=== PATIENT | male | born 1950 | race African-American/Black ===

== ENCOUNTER 2017-01-11 12:58 | Observation (INO) | payer OTHER ==
[~2017-01-11] VITALS: Ht 193 cm; Wt 100.0 kg
[2017-01-11] MEDS ORDERED: SODIUM CHLORIDE 0.9% FLUSH 10 ML FLUSH IV FLUSH PRN (15:15)
--- NOTE | 2017-01-11 15:15 | PD ---
HPI Chief Complaint: Diarrhea Time Seen by Provider: 15:13 Travel History International Travel<30 days: No Contact w/Intl Traveler<30days: No History of Present Illness HPI Patient is a 66-year-old male presents emergency department for evaluation diarrhea. According to EMS and jail said he was somewhat combative. The patient states he was straining at stool out of his bed. He states that he thinks he has C. difficile. He also states that he slipped out of his bed today and might have bumped his head denies any loss of consciousness. States not on any blood thinners. Alert and awake and oriented patient provides most of his own history. Denies abdominal pain and her small nausea without vomiting. States symptoms for the past few days and gradually worsening. PFSH Past Medical History Narrative Medical HTN, HLD, Venous stasis, Hip pain. Past Surgical History Surgical History: No Previous Surgery Social History Alcohol Use: No Tobacco Use: No Substance Use: No Allergies-Medications (Allergen,Severity, Reaction): Coded Allergies: hydrochlorothiazide (Verified Allergy, Severe, Edema, 01/11/17) atorvastatin (Verified Allergy, Unknown, 01/11/17) Reported Meds & Prescriptions Reported Meds & Active Scripts Active Reported Trazodone (Trazodone HCl) 50 Mg Tab 50 Mg PO HS Spironolactone 25 Mg Tab 25 Mg PO DAILY Rosuvastatin (Rosuvastatin Calcium) 20 Mg Tab 20 Mg PO DAILY Girard-3 Fish Oil/Vitamin (Fish Oil-Cholecalciferol) 1,000-1,000 Mg Cap 1 Cap PO DAILY Multiple Vitamin 1 Tab 1 Tab PO DAILY Mirtazapine 7.5 Mg Tab 7.5 Mg PO HS Metoprolol Tartrate 25 Mg Tab 25 Mg PO DAILY Losartan (Losartan Potassium) 50 Mg Tab 50 Mg PO DAILY Furosemide 40 Mg Tab 40 Mg PO BID Buspirone (Buspirone HCl) 7.5 Mg Tab 7.5 Mg PO TID Aspirin 81 Mg Chew 81 Mg PO DAILY Eliquis (Apixaban) 5 Mg Tab 5 Mg PO BID Tylenol (Acetaminophen) 325 Mg Tab 325 Mg PO Q4H PRN Review of Systems Except as stated in HPI: all other systems reviewed are Neg Physical Exam Narrative GENERAL: Well-developed well-nourished no obvious distress. SKIN: Skin breakdown bilateral lower extremities. Patient states chronic. HEAD: Atraumatic. Normocephalic. EYES: Pupils equal and round. No scleral icterus. No injection or drainage. ENT: No nasal bleeding or discharge. Mucous membranes pink and moist. NECK: Trachea midline. No JVD. CARDIOVASCULAR: Regular rate and rhythm. No murmur appreciated. RESPIRATORY: No accessory muscle use. Clear to auscultation. Breath sounds equal bilaterally. GASTROINTESTINAL: Abdomen soft, non-tender, nondistended. Hepatic and splenic margins not palpable. No rebound no percussive tenderness, normal active bowel sounds. MUSCULOSKELETAL: No obvious deformities. No clubbing. No cyanosis. No edema. NEUROLOGICAL: Awake and alert. No obvious cranial nerve deficits. Motor grossly within normal limits. Normal speech. PSYCHIATRIC: Appropriate mood and affect; insight and judgment normal. Data Data Last Documented VS Vital Signs Date Time Temp Pulse Resp B/P Pulse Ox O2 Delivery O2 Flow Rate FiO2 01/12/17 07:00 70 16 108/79 100 Room Air 01/12/17 02:53 2 01/11/17 17:49 97.6 Orders Basic Metabolic Panel (Bmp) (01/11/17 15:13) Complete Blood Count With Diff (01/11/17 15:13) Iv Access Insert/Monitor (01/11/17 15:13) Ecg Monitoring (01/11/17 15:13) Oximetry (01/11/17 15:13) Sodium Chloride 0.9% Flush (Ns Flush) (01/11/17 15:15) Abdomen, Upright Only (01/11/17 15:13) C Diff Toxin Pcr (01/11/17 15:14) Vascular Access Team Consult/P PRN (01/11/17 17:14) Vascular Poc Ultrasound (01/11/17 ) Labs Laboratory Tests Test 01/11/17 01/11/17 18:05 19:20 White Blood Count 6.5 TH/MM3 Red Blood Count 5.24 MIL/MM3 Hemoglobin 14.1 GM/DL Hematocrit 43.7 % Mean Corpuscular Volume 83.5 FL Mean Corpuscular Hemoglobin 26.8 PG Mean Corpuscular Hemoglobin 32.2 % Concent Red Cell Distribution Width 23.8 % Platelet Count 224 TH/MM3 Mean Platelet Volume 9.3 FL Neutrophils (%) (Auto) 79.6 % Lymphocytes (%) (Auto) 4.6 % Monocytes (%) (Auto) 12.1 % Eosinophils (%) (Auto) 3.5 % Basophils (%) (Auto) 0.2 % Neutrophils # (Auto) 5.2 TH/MM3 Lymphocytes # (Auto) 0.3 TH/MM3 Monocytes # (Auto) 0.8 TH/MM3 Eosinophils # (Auto) 0.2 TH/MM3 Basophils # (Auto) 0.0 TH/MM3 CBC Comment DIFF FINAL Differential Comment Sodium Level 139 MEQ/L Potassium Level 4.6 MEQ/L Chloride Level 106 MEQ/L Carbon Dioxide Level 26.8 MEQ/L Anion Gap 6 MEQ/L Blood Urea Nitrogen 40 MG/DL Creatinine 1.52 MG/DL Estimat Glomerular Filtration 56 ML/MIN Rate Random Glucose 78 MG/DL Calcium Level 7.5 MG/DL MDM Medical Decision Making Medical Screen Exam Complete: Yes Emergency Medical Condition: Yes Differential Diagnosis C. difficile, acute abdomen unlikely, diarrhea, nausea., volvulus unlikely, toxic megacolon unlikely. Narrative Course Patient roomed in the emergency Department, basic laboratory ordered patient was given a liter bolus normal saline. He appears well and in no obvious distress. I reviewed his KUB and I see no obstructive pattern. Official read pending. Patient discussed with the oncoming provider Dr. Patterson at 1900 shift change to follow-up laboratory values and disposition the patient properly. Alexei Islas MD Jan 11, 2017 15:14
--- NOTE | 2017-01-11 16:07 | RADRPT ---
EXAM DATE/TIME: 01/11/2017 15:51 [facility] COMPARISON: No previous studies available for comparison. INDICATIONS : Fell and bumped his head today. Abdomen pain. MEDICAL HISTORY : Open heart. SURGICAL HISTORY : C diff ENCOUNTER: Initial ACUITY: 1 day PAIN SCORE: 2/10 LOCATION: Bilateral abdomen FINDINGS: A single AP erect view of the upper and mid abdomen was obtained and demonstrates gas and stool noted segmentally in the colon. There are multiple loops of nondilated air-containing small bowel with sev eral small air-fluid levels. There is no evidence of free air. There is patchy opacity at the left mary ng base. There is blunting of left costophrenic angle. The heart size is enlarged and the patient is status post median sternotomy. Transvenous pacer is in place and there is an epicardial pacer lead. CONCLUSION: 1. Nonspecific, nonobstructive bowel gas pattern which may represent an ileus or gastroenteritis. 2. Status post median sternotomy with cardiomegaly. 3. Patchy opacity in the left lung base with blunting of the left costophrenic angle. Cheng Carmona MD on January 11, 2017 at 16:02 Board Certified Radiologist. This report was verified electronically.
[2017-01-11 17:49] VITALS: BP 84/59; RESP 14; TEMP 97.6
[2017-01-11 18:13] VITALS: BP 117/83
[2017-01-11 18:17] VITALS: BP 103/81
[2017-01-11 18:37] VITALS: RESP 18; O2SAT 100
[2017-01-11 18:56] LABS: AUTOMATED NEUTROPHIL # 5.2 TH/MM3 (1.8-7.7); BASOPHIL % 0.2 % (0.0-2.0); EOSINOPHIL # 0.2 TH/MM3 (0-0.4); EOSINOPHIL % 3.5 % (0.0-4.0); HEMATOCRIT 43.7 % (39.0-51.0); HEMO FLAGS DIFF FINAL; LYMPH % 4.6 % (9.0-44.0); LYMPHOCYTE # 0.3 TH/MM3 (1.0-4.8); MEAN CELL VOLUME 83.5 FL (80.0-100.0); MEAN CORPUSCULAR HEMOGLOBIN 26.8 PG (27.0-34.0); MEAN CORPUSCULAR HGB CONC 32.2 % (32.0-36.0); MONO % 12.1 % (0.0-8.0); NEUT % 79.6 % (16.0-70.0); PLATELET COUNT 224 TH/MM3 (150-450); RED BLOOD COUNT 5.24 MIL/MM3 (4.50-5.90); RED CELL DISTRIBUTION WIDTH 23.8 % (11.6-17.2); WHITE BLOOD COUNT 6.5 TH/MM3 (4.0-11.0)
[2017-01-11 20:06] VITALS: BP 116/74; PULSE 77; RESP 21; O2SAT 99
[2017-01-11 20:47] LABS: BICARBONATE 26.8 MEQ/L (21.0-32.0)
[2017-01-11 20:48] LABS: POTASSIUM 4.6 MEQ/L (3.5-5.1)
[2017-01-11] MEDS ORDERED: OMEGCAP PO (21:12)
[2017-01-11] MEDS ORDERED: TYLE325T PO (21:12)
[2017-01-11] MEDS ORDERED: ROSU1TAB8 PO (21:12)
[2017-01-11] MEDS ORDERED: APIX5TAB PO (21:12)
[2017-01-11] MEDS ORDERED: SPIR25TA PO (21:12)
[2017-01-11] MEDS ORDERED: LOSA50TA PO (21:12)
[2017-01-11] MEDS ORDERED: MULTTAB67 PO (21:12)
[2017-01-11] MEDS ORDERED: METO25TA3 PO (21:12)
[2017-01-11] MEDS ORDERED: ASPI81CH PO (21:12)
[2017-01-11] MEDS ORDERED: BUSP1TAB PO (21:12)
[2017-01-11] MEDS ORDERED: MIRT1TAB PO (21:12)
[2017-01-11] MEDS ORDERED: FURO40TA PO (21:12)
[2017-01-11] MEDS ORDERED: TRAZ50TA12 PO (21:12)
--- NOTE | 2017-01-11 21:46 | PD ---
Physical Exam Date Seen by Provider: Jan 11, 2017 Time Seen by Provider: 21:45 Narrative 66-year-old male came to the emergency room with history of diarrhea. He is from [place]. He was seen by the previous ER physician. Please refer to his history and physical regarding further details. Sign out was to follow- up on the lab test results. Patient was given IV hydration. Patient did not have any bowel movement since he's been here. He was hungry and asked for food which she ate and has kept it down. I'm comfortable discharging the patient home at this point. Blood test results of back and within acceptable limits. Data Data Last Documented VS Vital Signs Date Time Temp Pulse Resp B/P (MAP) Pulse Ox O2 Delivery O2 Flow Rate FiO2 01/12/17 18:30 70 16 107/76 (86) 98 Nasal Cannula 2 01/12/17 12:00 97.7 Orders Orders Basic Metabolic Panel (Bmp) (01/11/17 15:13) Complete Blood Count With Diff (01/11/17 15:13) Iv Access Insert/Monitor (01/11/17 15:13) Ecg Monitoring (01/11/17 15:13) Oximetry (01/11/17 15:13) Sodium Chloride 0.9% Flush (Ns Flush) (01/11/17 15:15) Abdomen, Upright Only (01/11/17 15:13) Vascular Access Team Consult/P PRN (01/11/17 17:14) Vascular Poc Ultrasound (01/11/17 ) (Hub Use Only)Inp Phy Cons/Ref (01/12/17 ) Diet Regular Basic (01/12/17 Lunch) Admit Order (Ed Use Only) (01/12/17 ) Labs Laboratory Tests Test 01/11/17 18:05 01/11/17 19:20 White Blood Count 6.5 TH/MM3 Red Blood Count 5.24 MIL/MM3 Hemoglobin 14.1 GM/DL Hematocrit 43.7 % Mean Corpuscular Volume 83.5 FL Mean Corpuscular Hemoglobin 26.8 PG Mean Corpuscular Hemoglobin Concent 32.2 % Red Cell Distribution Width 23.8 % Platelet Count 224 TH/MM3 Mean Platelet Volume 9.3 FL Neutrophils (%) (Auto) 79.6 % Lymphocytes (%) (Auto) 4.6 % Monocytes (%) (Auto) 12.1 % Eosinophils (%) (Auto) 3.5 % Basophils (%) (Auto) 0.2 % Neutrophils # (Auto) 5.2 TH/MM3 Lymphocytes # (Auto) 0.3 TH/MM3 Monocytes # (Auto) 0.8 TH/MM3 Eosinophils # (Auto) 0.2 TH/MM3 Basophils # (Auto) 0.0 TH/MM3 CBC Comment DIFF FINAL Differential Comment Blood Urea Nitrogen 40 MG/DL Creatinine 1.52 MG/DL Random Glucose 78 MG/DL Calcium Level 7.5 MG/DL Sodium Level 139 MEQ/L Potassium Level 4.6 MEQ/L Chloride Level 106 MEQ/L Carbon Dioxide Level 26.8 MEQ/L Anion Gap 6 MEQ/L Estimat Glomerular Filtration Rate 56 ML/MIN MDM Supervised Visit with RD: No Diagnosis Primary Impression: Diarrhea Additional Impression: Dehydration Referrals: Primary Care Physician Additional Instruction: Please return to the ER if the condition worsens or any other new concerns. Otherwise follow-up with your primary care. Eat Jordan diet which stands for banana, rice, applesauce, tea and toast. Med/Other Pt SpecificInfo: No Change to Meds Scripts Nitrofurantoin Monohydrate Macrocrystals (Macrobid) 100 Mg Cap 100 MG PO BID for Infection for 7 Days, CAP 0 Refills Prov: Leana Vides PA-C 01/15/17 Metronidazole (Flagyl) 500 Mg Tab 500 MG PO Q8HR for gastroenteritis for 7 Days, TAB Prov: Leana Vides PA-C 01/15/17 Trazodone (Trazodone) 50 Mg Tab 50 MG PO HS for Control Depression, #30 TAB 0 Refills Prov: Leana Vides PA-C 01/15/17 Spironolactone (Spironolactone) 25 Mg Tab 25 MG PO DAILY for CHF, #30 TAB 0 Refills Prov: Leana Vides PA-C 01/15/17 Rosuvastatin (Rosuvastatin) 20 Mg Tab 20 MG PO DAILY for Cholesterol Management, #30 TAB 0 Refills Prov: Leana Vides PA-C 01/15/17 Mirtazapine (Mirtazapine) 7.5 Mg Tab 7.5 MG PO HS for Depression Control, #30 TAB 0 Refills Prov: Leana Vides PA-C 01/15/17 Metoprolol Tartrate (Metoprolol Tartrate) 25 Mg Tab 25 MG PO DAILY for CHF, #30 TAB 0 Refills Prov: Leana Vides PA-C 01/15/17 Furosemide (Furosemide) 40 Mg Tab 40 MG PO DAILY for CHF, #30 TAB 0 Refills Prov: Leana Vides PA-C 01/15/17 Buspirone (Buspirone) 7.5 Mg Tab 7.5 MG PO TID for Anxiety for 30 Days, TAB 0 Refills Prov: Leana Vides PA-C 01/15/17 Apixaban (Eliquis) 5 Mg Tab 5 MG PO BID for Blood Clot Prevention, #60 TAB 0 Refills Prov: Leana Vides PA-C 01/15/17 Disposition: 01 DISCHARGE HOME Condition: Stable Raúl Patterson MD Jan 11, 2017 21:46
[2017-01-12] VITALS (8 sets, daily range): BP systolic 99–140; BP diastolic 63–80; PULSE 66–72; RESP 16–19; TEMP 97.5–98.5; O2SAT 97–100
--- NOTE | 2017-01-12 19:28 | HHI.HP ---
HPI Service [facility] Primary Care Physician Moses Gilman MD Admission Diagnosis Diarrhea, Inability to ambulate. Diagnoses: (1) Fall Diagnosis: Principal (2) Gait instability Diagnosis: Principal (3) Generalized weakness Diagnosis: Principal (4) Gastroenteritis Diagnosis: Principal (5) Renal insufficiency Diagnosis: Principal Travel History International Travel<30 Days: No Contact w/Intl Traveler <30 Da: No Traveled to Known Affected Are: No History of Present Illness This is a 66-year-old male with PMH of HTN, Hyperlipidemia, CHF (Unknown EF) and CAD who was sent to the ER from SNF secondary to AMS and diarrhea. Per EMS , SNF reported pt increasingly combative, had apparent fall today but no LOC or head trauma reported. Pt awake, alert. Reports multiple episodes of diarrhea, x2 days, denies nausea or vomiting. Seen in ER on 01/11/17 for similar complaints, negative workup at that time and discharged back to SNF. On arrival , BP 108/71, HR 70, O2 sat 97% on 2LC, Afebrile. CBC 01/11/17 essentially unremarkable. CMP 01/11/17 w/ Creatinine 1.52, no previous labs for comparison. Abd X-ray 01/11/17 w/ nonspecific bowel gas pattern, likely ileus or gastroenteritis, patchy opacity left lung base. C diff toxin pending. Review of Systems Except as stated in HPI: all other systems reviewed are Neg ROS: 14 point review of systems otherwise negative. Past Family Social History Past Medical History PMH: HTN, Hyperlipidemia, CHF (Unknown EF) and CAD Past Surgical History PAST SURGICAL HISTORY: None Allergies: Coded Allergies: hydrochlorothiazide (Verified Allergy, Severe, Edema, 01/11/17) atorvastatin (Verified Allergy, Unknown, 01/11/17) Family History PAST FAMILY HISTORY: Reviewed. No h/o DM or CAD Social History PAST SOCIAL HISTORY: Negative for alcohol, tobacco or drugs. Physical Exam Vital Signs Vital Signs Date Time Temp Pulse Resp B/P Pulse Ox O2 Delivery O2 Flow Rate FiO2 01/12/17 18:30 70 16 107/76 98 Nasal Cannula 2 01/12/17 16:00 70 16 99/63 99 Nasal Cannula 2 01/12/17 12:00 97.7 72 16 104/80 100 Nasal Cannula 2 01/12/17 07:00 70 16 108/79 100 Room Air 01/12/17 02:53 69 16 116/79 100 Nasal Cannula 2 01/12/17 01:01 70 18 108/71 97 Nasal Cannula 2 01/11/17 20:06 77 21 116/74 99 Nasal Cannula 2 Physical Exam PE: GENERAL: Middle-aged male in no acute distress. HEENT: PERRLA, EOMI. No scleral icterus or conjunctival pallor. No lid lag or facial droop. CARDIOVASCULAR: Regular rate and rhythm. No obvious murmurs to auscultation. No chest tenderness to palpation. RESPIRATORY: No obvious rhonchi or wheezing. Clear to auscultation. Breath sounds equal bilaterally. GASTROINTESTINAL: Abdomen soft, non-tender, nondistended. BS normal. MUSCULOSKELETAL: Extremities without clubbing, cyanosis, or edema. No obvious deformities. NEUROLOGICAL: Awake, alert. No focal neurologic deficits. Moving both upper and lower extremities spontaneously. Result Diagram: 01/11/17180401/11/171919 Assessment and Plan Problem List: (1) Fall ICD Code: W19.XXXA Status: Acute (2) Gait instability ICD Code: R26.81 Status: Acute (3) Generalized weakness ICD Code: R53.1 Status: Acute (4) Gastroenteritis ICD Code: K52.9 Status: Acute (5) Renal insufficiency ICD Code: N28.9 Status: Acute Assessment and Plan A/P: 1. Fall: s/p mechanical fall at SNF, no head trauma or LOC, no injuries reported. 2. Gait Instability: secondary to generalized weakness, will consult PT for eval/tx. 3. Generalized Weakness: likely secondary to combination of deconditioning and dehydration. IVF, PT for further eval. 4. Gastroenteritis: reports ongoing diarrhea, seen in ER on 01/11/17 for same, Abd X-ray w/ nonspecific bowel gas pattern, likely ileus or gastroenteritis, images reviewed by me. C. Diff pending. Start on empiric treatment w/ Cipro/ Flagyl, IVF for hydration. 5. Renal Insufficiency: Creatinine 1.52, no previous labs for comparison. Check U/a, IVF for hydration, repeat labs in am. 6. DVT Prophylaxis: On Eliquis, unclear why 7. Social work for d/c planning as needed. 8. Case discussed w/ ER physician at length. Kathleen Guy MD Jan 12, 2017 19:28
[2017-01-12] MEDS ORDERED: ACETAMINOPHEN 325 MG TAB PO PRN (19:30)
[2017-01-12] MEDS ORDERED: SODIUM CHLOR 0.9% 1000 ML INJ 1,000 ML IV ONE (19:30)
[2017-01-12] MEDS ORDERED: SENNOSIDES 8.6 MG TAB PO PRN (19:30)
[2017-01-12] MEDS ORDERED: SODIUM CHLORIDE 0.9% FLUSH 10 ML FLUSH IV FLUSH PRN (19:30)
[2017-01-12] MEDS ORDERED: MAGNESIUM HYDROXIDE SUSP 30 ML CUP PO PRN (19:30)
[2017-01-12] MEDS ORDERED: BISACODYL 10 MG SUPP RECTAL PRN (19:30)
[2017-01-12] MEDS ORDERED: LACTULOSE SYRUP 20 GM/30 ML CUP PO PRN (19:30)
[2017-01-12] MEDS ORDERED: ONDANSETRON HCL 4 MG/2 ML VIAL IVP PRN (19:30)
[2017-01-12] MEDS ORDERED: PILL SPLITTER OTHER PRN (20:00)
[2017-01-12] MEDS: CIPROFLOXACIN 400 MG PREMIX 200 ML IV SCH (20:08)
[2017-01-12] MEDS: SODIUM CHLORIDE 0.9% FLUSH 10 ML FLUSH IV FLUSH SCH (20:09)
[2017-01-12] MEDS: DOCUSATE SODIUM 50 MG/SENNA 8.6 MG TAB PO SCH (21:00)
[2017-01-12] MEDS: traZODone HCL 50 MG TAB PO SCH (23:46)
[2017-01-12] MEDS: APIXABAN 5 MG TABLET PO SCH (23:46)
[2017-01-12] MEDS: MIRTAZAPINE 15 MG TAB PO SCH (23:47)
[2017-01-12] MEDS: metroNIDAZOLE 500 MG INJ 100 ML IV SCH (23:47)
[2017-01-13 00:46] LABS: BACTERIA, URINE MOD /hpf; BLOOD, URINE LARGE (NEG); COMMENT (UR) CULTURE INDICATED; CULTURE IF INDICATED CULTURE INDICATED; GLUCOSE,URINE NEG (NEG); KETONE, URINE NEG (NEG); MUCUS URINE FEW /lpf (OCC); NITRITE,URINE NEG (NEG); URINE COLOR RED (YELLW/STRAW)
[2017-01-13 04:15] VITALS: BP 117/83; PULSE 70; RESP 17; TEMP 97.7; O2SAT 97
[2017-01-13] MEDS: MORPHINE SULFATE 4 MG/ML INJ IV PRN ×2 (04:30→16:57)
[2017-01-13] MEDS: metroNIDAZOLE 500 MG INJ 100 ML IV SCH ×3 (06:34→21:00)
[2017-01-13 07:08] VITALS: BP 111/83; PULSE 74; RESP 18; TEMP 97.6; O2SAT 97
[2017-01-13] MEDS: DOCUSATE SODIUM 50 MG/SENNA 8.6 MG TAB PO SCH ×2 (09:00→20:00)
[2017-01-13 09:21] LABS: BASOPHIL % 0.1 % (0.0-2.0); EOSINOPHIL # 0.2 TH/MM3 (0-0.4); EOSINOPHIL % 3.5 % (0.0-4.0); HEMATOCRIT 42.4 % (39.0-51.0); HEMO FLAGS DIFF FINAL; LYMPH % 5.4 % (9.0-44.0); LYMPHOCYTE # 0.4 TH/MM3 (1.0-4.8); MEAN CELL VOLUME 83.2 FL (80.0-100.0); MEAN CORPUSCULAR HEMOGLOBIN 26.8 PG (27.0-34.0); MEAN CORPUSCULAR HGB CONC 32.2 % (32.0-36.0); MONO % 15.4 % (0.0-8.0); NEUT % 75.6 % (16.0-70.0); PLATELET COUNT 188 TH/MM3 (150-450); RED BLOOD COUNT 5.09 MIL/MM3 (4.50-5.90); RED CELL DISTRIBUTION WIDTH 23.6 % (11.6-17.2); WHITE BLOOD COUNT 6.6 TH/MM3 (4.0-11.0)
[2017-01-13 10:45] LABS: ALKALINE PHOSPHATASE 148 U/L (45-117); ALT (GPT) 18 U/L (12-78); ANION GAP 6 MEQ/L (5-15); AST (GOT) 24 U/L (15-37); BICARBONATE 27.6 MEQ/L (21.0-32.0); BLOOD UREA NITROGEN 29 MG/DL (7-18); CHLORIDE 105 MEQ/L (98-107); FREE T4 1.19 NG/DL (0.76-1.46); GLOMERULAR FILTRATION RATE 69 ML/MIN (>89); MAGNESIUM 2.4 MG/DL (1.5-2.5); POTASSIUM 3.9 MEQ/L (3.5-5.1); SODIUM (NA) 139 MEQ/L (136-145); TOTAL BILIRUBIN ADULT 2.2 MG/DL (0.2-1.0)
[2017-01-13] MEDS: SODIUM CHLORIDE 0.9% FLUSH 10 ML FLUSH IV FLUSH SCH ×2 (11:21→20:00)
[2017-01-13] MEDS: CIPROFLOXACIN 400 MG PREMIX 200 ML IV SCH ×2 (11:21→20:00)
[2017-01-13] MEDS: busPIRone HCL 5 MG TAB PO SCH ×3 (11:21→17:00)
[2017-01-13] MEDS: ASPIRIN 81 MG CHEW TAB PO SCH (11:21)
[2017-01-13] MEDS: APIXABAN 5 MG TABLET PO SCH ×2 (11:22→19:59)
[2017-01-13] MEDS: MULTIVITAMIN TAB PO SCH (11:23)
[2017-01-13 12:16] VITALS: BP 99/66; PULSE 70; RESP 18; TEMP 97.5; O2SAT 98
--- NOTE | 2017-01-13 14:01 | HHI.PR ---
Subjective Remarks Follow up for altered mental status and diarrhea. Patient is currently doing well. He says he cannot walk. His diarrhea is improved. No fever, chills. Objective Vitals Vital Signs Date Time Temp Pulse Resp B/P Pulse Ox O2 Delivery O2 Flow Rate FiO2 01/13/17 12:16 97.5 70 18 99/66 98 01/13/17 07:08 97.6 74 18 111/83 97 01/13/17 04:55 18 01/13/17 04:15 97.7 70 17 117/83 97 01/12/17 23:54 97.5 70 19 107/72 97 01/12/17 20:00 98.3 72 16 122/63 97 Nasal Cannula 2 01/12/17 18:30 70 16 107/76 98 Nasal Cannula 2 01/12/17 16:00 70 16 99/63 99 Nasal Cannula 2 I/O 01/12/17 01/12/17 01/12/17 01/13/17 01/13/17 01/13/17 06:59 14:59 22:59 06:59 14:59 22:59 Intake Total 100 ml Output Total 700 ml 600 ml 350 ml Balance -700 ml -500 ml -350 ml Intake Oral 100 ml Output Urine Total 700 ml 600 ml 350 ml # Voids 0 Result Diagram: 01/13/17 0649 01/13/17 0649 Imaging Last Impressions Chest X-Ray 01/13/17 0000 Signed Impressions: Service Date/Time: Friday, January 13, 2017 13:56 - CONCLUSION: 1. Cardiomegaly with interstitial edema. 2. Status post CABG. Sujit Vidal MD Abdomen X-Ray 01/11/17 1513 Signed Impressions: Service Date/Time: December 15:51 - CONCLUSION: 1. Nonspecific, nonobstructive bowel gas pattern which may represent an ileus or gastroenteritis. 2. Status post median sternotomy with cardiomegaly. 3. Patchy opacity in the left lung base with blunting of the left costophrenic angle. Cheng Carmona MD Objective Remarks GENERAL: Alert, NAD. SKIN: Warm and dry. HEAD: Normocephalic. EYES: No scleral icterus. No injection or drainage. NECK: Supple, trachea midline. No JVD or lymphadenopathy. CARDIOVASCULAR: Regular rate and rhythm without murmurs, gallops, or rubs. RESPIRATORY: Breath sounds equal bilaterally. No accessory muscle use. GASTROINTESTINAL: Abdomen soft, non-tender, nondistended. MUSCULOSKELETAL: No cyanosis, or edema. BACK: Nontender without obvious deformity. No CVA tenderness. Procedures None. A/P Problem List: (1) Fall ICD Code: W19.XXXA Status: Acute (2) Gait instability ICD Code: R26.81 Status: Acute (3) Generalized weakness ICD Code: R53.1 Status: Acute (4) Gastroenteritis ICD Code: K52.9 Status: Acute (5) Renal insufficiency ICD Code: N28.9 Status: Acute Assessment and Plan This is a 66-year-old male with PMH of HTN, Hyperlipidemia, CHF (Unknown EF) and CAD who was sent to the ER from SNF secondary to AMS and diarrhea. On arrival, BP 108/71, HR 70, O2 sat 97% on 2LC, Afebrile. CBC 01/11/17 essentially unremarkable. CMP 01/11/17 w/ Creatinine 1.52. Patient is on apixaban but not clear why. No record in our system. - Fall - Generalized weakness - mechanical fall at SNF. No head trauma. - Likely due to deconditioning. - PT recommends SNF. - Gastroenteritis - C. Diff PCR ordered but no further diarrhea. - Continue Cipro and flagyl. We can likely switch to PO. - Acute kidney injury - Creatinine improved 1.52 --> 1.26 Full code. Apixaban. Insurance pending, patient can likely go to SNF on 01/14/2017. Keri Lane DO Jan 13, 2017 14:01
[2017-01-13 14:02] LABS: HEMOGLOBIN A1a 0.8 %; HEMOGLOBIN A1b 1.2 %; HEMOGLOBIN Ao 80.6 %; HEMOGLOBIN F 1.4 %; HEMOGLOBIN LA1C 2.4 %; HEMOGLOBIN P3 7.7 %
--- NOTE | 2017-01-13 14:27 | RADRPT ---
EXAM DATE/TIME: 01/13/2017 13:56 [facility] COMPARISON: No previous studies available for comparison. INDICATIONS : Patient complains of cough and congestion. MEDICAL HISTORY : None. SURGICAL HISTORY : CABG. Pacemaker. ENCOUNTER: Initial ACUITY: 1 day PAIN SCORE: 0/10 LOCATION: chest FINDINGS: A single view of the chest demonstrates interstitial prominence and cardiomegaly. Previous median pricilla rnotomy. Left-sided defibrillator with intact leads.. Osseous structures are intact. CONCLUSION: 1. Cardiomegaly with interstitial edema. 2. Status post CABG. Sujit Vidal MD on January 13, 2017 at 14:24 Board Certified Radiologist. This report was verified electronically.
[2017-01-13 16:39] VITALS: BP 112/72; PULSE 70; RESP 16; TEMP 97.6; O2SAT 95
[2017-01-13 19:28] VITALS: BP 108/71; PULSE 70; RESP 18; TEMP 97.6; O2SAT 96
[2017-01-13] MEDS: MIRTAZAPINE 15 MG TAB PO SCH (19:59)
[2017-01-13] MEDS: traZODone HCL 50 MG TAB PO SCH (19:59)
[2017-01-13 23:37] VITALS: BP 106/75; PULSE 71; RESP 21; TEMP 96.8; O2SAT 96
[2017-01-14] MEDS: MORPHINE SULFATE 4 MG/ML INJ IV PRN (02:39)
[2017-01-14 03:46] VITALS: BP 101/77; PULSE 70; RESP 18; TEMP 98.5; O2SAT 97
[2017-01-14] MEDS: metroNIDAZOLE 500 MG TAB PO SCH ×3 (05:33→21:47)
[2017-01-14] MEDS: ACETAMINOPHEN/HYDROcodone 325 MG/5 MG TAB PO PRN ×2 (06:15→21:47)
--- NOTE | 2017-01-14 07:40 | HHI.PR ---
Subjective Remarks Follow up for altered mental status and diarrhea. Patient is currently doing well. No fever, chills. Diarrhea resolved. Objective Vitals Vital Signs Date Time Temp Pulse Resp B/P Pulse Ox O2 Delivery O2 Flow Rate FiO2 01/14/17 03:46 98.5 70 18 101/77 97 01/13/17 23:37 96.8 71 21 106/75 96 01/13/17 19:28 97.6 70 18 108/71 96 01/13/17 16:39 97.6 70 16 112/72 95 01/13/17 12:16 97.5 70 18 99/66 98 I/O 01/13/17 01/13/17 01/13/17 01/14/17 01/14/17 01/14/17 07:00 15:00 23:00 07:00 15:00 23:00 Intake Total 480 ml Output Total 350 ml 350 ml Balance -350 ml 130 ml Intake Oral 480 ml Output Urine Total 350 ml 350 ml Result Diagram: 01/13/17 0649 01/13/17 0649 Imaging Last Impressions Chest X-Ray 01/13/17 0000 Signed Impressions: Service Date/Time: Friday, January 13, 2017 13:56 - CONCLUSION: 1. Cardiomegaly with interstitial edema. 2. Status post CABG. Sujit Vidal MD Abdomen X-Ray 01/11/17 1513 Signed Impressions: Service Date/Time: December 15:51 - CONCLUSION: 1. Nonspecific, nonobstructive bowel gas pattern which may represent an ileus or gastroenteritis. 2. Status post median sternotomy with cardiomegaly. 3. Patchy opacity in the left lung base with blunting of the left costophrenic angle. Cheng Carmona MD Objective Remarks GENERAL: Alert, NAD. SKIN: Warm and dry. HEAD: Normocephalic. EYES: No scleral icterus. No injection or drainage. NECK: Supple, trachea midline. No JVD or lymphadenopathy. CARDIOVASCULAR: Regular rate and rhythm without murmurs, gallops, or rubs. RESPIRATORY: Breath sounds equal bilaterally. No accessory muscle use. GASTROINTESTINAL: Abdomen soft, non-tender, nondistended. MUSCULOSKELETAL: No cyanosis, or edema. BACK: Nontender without obvious deformity. No CVA tenderness. Procedures None. A/P Problem List: (1) Fall ICD Code: W19.XXXA - Unspecified fall, initial encounter Status: Acute (2) Gait instability ICD Code: R26.81 - Unsteadiness on feet Status: Acute (3) Generalized weakness ICD Code: R53.1 - Weakness Status: Acute (4) Gastroenteritis ICD Code: K52.9 - Noninfective gastroenteritis and colitis, unspecified Status: Acute (5) Renal insufficiency ICD Code: N28.9 - Disorder of kidney and ureter, unspecified Status: Acute Assessment and Plan This is a 66-year-old male with PMH of HTN, Hyperlipidemia, CHF (Unknown EF) and CAD who was sent to the ER from SNF secondary to AMS and diarrhea. On arrival, BP 108/71, HR 70, O2 sat 97% on 2LC, Afebrile. CBC 01/11/17 essentially unremarkable. CMP 01/11/17 w/ Creatinine 1.52. Patient is on apixaban but not clear why. No record in our system. - Fall - Generalized weakness - mechanical fall at SNF. No head trauma. - Likely due to deconditioning. - PT recommends SNF. - Gastroenteritis - C. Diff PCR ordered but no further diarrhea. - Continue Cipro and flagyl both PO. - Acute kidney injury - Creatinine improved 1.52 --> 1.26 - Group D strep UTI - Will wait for sensitivity. If susceptible, we can use Amoxicillin PO. Full code. Apixaban. Patient can be discharged on 01/15/[address] Keri Lane DO Jan 14, 2017 07:40
[2017-01-14 08:01] VITALS: BP 114/80; PULSE 70; RESP 20; TEMP 98.2; O2SAT 95
[2017-01-14 11:00] VITALS: BP 114/72; PULSE 69; RESP 16; TEMP 98.8; O2SAT 94
[2017-01-14] MEDS: APIXABAN 5 MG TABLET PO SCH ×2 (11:15→21:46)
[2017-01-14] MEDS: ASPIRIN 81 MG CHEW TAB PO SCH (11:17)
[2017-01-14] MEDS: busPIRone HCL 5 MG TAB PO SCH ×3 (11:19→18:51)
[2017-01-14] MEDS: DOCUSATE SODIUM 50 MG/SENNA 8.6 MG TAB PO SCH ×2 (11:20→21:46)
[2017-01-14] MEDS: CIPROFLOXACIN 500 MG TAB PO SCH ×2 (11:20→21:46)
[2017-01-14] MEDS: MULTIVITAMIN TAB PO SCH (11:24)
[2017-01-14] MEDS: SODIUM CHLORIDE 0.9% FLUSH 10 ML FLUSH IV FLUSH SCH ×2 (11:25→21:00)
[2017-01-14 16:30] VITALS: BP 119/82; PULSE 70; RESP 18; TEMP 98.4; O2SAT 98
[2017-01-14 19:31] VITALS: BP 107/74; PULSE 70; RESP 18; TEMP 98.1; O2SAT 99
[2017-01-14] MEDS: MIRTAZAPINE 15 MG TAB PO SCH (21:46)
[2017-01-14] MEDS: traZODone HCL 50 MG TAB PO SCH (21:47)
[2017-01-14 23:46] VITALS: BP 118/74; PULSE 71; RESP 18; TEMP 98.3; O2SAT 98
[2017-01-15 05:15] VITALS: BP 110/82; PULSE 73; RESP 18; TEMP 98.3; O2SAT 99
[2017-01-15] MEDS: metroNIDAZOLE 500 MG TAB PO SCH (06:19)
[2017-01-15 07:39] VITALS: BP 125/89; PULSE 70; RESP 18; TEMP 98.3; O2SAT 96
[2017-01-15] MEDS: DOCUSATE SODIUM 50 MG/SENNA 8.6 MG TAB PO SCH (09:00)
--- NOTE | 2017-01-15 09:05 | HHI.PR ---
Objective Vitals Vital Signs Date Time Temp Pulse Resp B/P (MAP) Pulse Ox O2 Delivery O2 Flow Rate FiO2 01/15/17 07:39 98.3 70 18 125/89 (101) 96 01/15/17 05:15 98.3 73 18 110/82 (91) 99 01/14/17 23:46 98.3 71 18 118/74 (89) 98 01/14/17 23:13 18 01/14/17 19:31 98.1 70 18 107/74 (85) 99 01/14/17 16:30 98.4 70 18 119/82 (94) 98 01/14/17 11:00 98.8 69 16 114/72 (86) 94 I/O 01/14/17 01/14/17 01/14/17 01/15/17 01/15/17 01/15/17 07:00 15:00 23:00 07:00 15:00 23:00 Intake Total 200 ml Balance 200 ml Intake Oral 200 ml Result Diagram: 01/13/17 0649 01/13/17 0649 Objective Remarks GENERAL: Alert, NAD. SKIN: Warm and dry. HEAD: Normocephalic. EYES: No scleral icterus. No injection or drainage. NECK: Supple, trachea midline. No JVD or lymphadenopathy. CARDIOVASCULAR: Regular rate and rhythm without murmurs, gallops, or rubs. RESPIRATORY: Breath sounds equal bilaterally. No accessory muscle use. GASTROINTESTINAL: Abdomen soft, non-tender, nondistended. MUSCULOSKELETAL: No cyanosis, or edema. BACK: Nontender without obvious deformity. No CVA tenderness. Procedures None. A/P Problem List: (1) Fall ICD Code: W19.XXXA - Unspecified fall, initial encounter Status: Acute (2) Gait instability ICD Code: R26.81 - Unsteadiness on feet Status: Acute (3) Generalized weakness ICD Code: R53.1 - Weakness Status: Acute (4) Gastroenteritis ICD Code: K52.9 - Noninfective gastroenteritis and colitis, unspecified Status: Acute (5) Renal insufficiency ICD Code: N28.9 - Disorder of kidney and ureter, unspecified Status: Acute Assessment and Plan This is a 66-year-old male with PMH of HTN, Hyperlipidemia, CHF (Unknown EF) and CAD who was sent to the ER from SNF secondary to AMS and diarrhea. On arrival, BP 108/71, HR 70, O2 sat 97% on 2LC, Afebrile. CBC 01/11/17 essentially unremarkable. CMP 01/11/17 w/ Creatinine 1.52. Patient is on apixaban but not clear why. No record in our system. - Fall - Generalized weakness - mechanical fall at SNF. No head trauma. - Likely due to deconditioning. - PT recommends SNF. - Gastroenteritis - C. Diff PCR ordered but no further diarrhea. - Continue Cipro and flagyl both PO. - Acute kidney injury - Creatinine improved 1.52 --> 1.26 - Group D strep UTI - Will wait for sensitivity. If susceptible, we can use Amoxicillin PO. Full code. Apixaban. Patient can be discharged on 01/15/[address] Keri [address] DO Jan 15, 2017 09:05
[2017-01-15] MEDS: ASPIRIN 81 MG CHEW TAB PO SCH (09:28)
[2017-01-15] MEDS: CIPROFLOXACIN 500 MG TAB PO SCH (09:28)
[2017-01-15] MEDS: busPIRone HCL 5 MG TAB PO SCH (09:28)
[2017-01-15] MEDS: MULTIVITAMIN TAB PO SCH (09:29)
[2017-01-15] MEDS: APIXABAN 5 MG TABLET PO SCH (09:29)
[2017-01-15] MEDS ORDERED: APIX5TAB PO (11:22)
[2017-01-15] MEDS ORDERED: METO25TA3 PO (11:22)
[2017-01-15] MEDS ORDERED: MACR100C2 PO (11:22)
[2017-01-15] MEDS ORDERED: MIRT1TAB PO (11:22)
[2017-01-15] MEDS ORDERED: METR-1 PO (11:22)
[2017-01-15] MEDS ORDERED: FURO40TA PO (11:22)
[2017-01-15] MEDS ORDERED: ROSU1TAB8 PO (11:22)
[2017-01-15] MEDS ORDERED: BUSP1TAB PO (11:22)
[2017-01-15] MEDS ORDERED: TRAZ50TA12 PO (11:22)
[2017-01-15] MEDS ORDERED: SPIR25TA PO (11:22)
--- NOTE | 2017-01-15 11:25 | HHI.DCPOC ---
Discharge Care Plan Diagnosis: (1) Generalized weakness (2) Fall (3) Gait instability (4) Renal insufficiency (5) Gastroenteritis (6) Dehydration (7) Diarrhea Goals to Promote Your Health * To prevent worsening of your condition and complications * To maintain your health at the optimal level Directions to Meet Your Goals Take your medications as prescribed Follow your dietary instruction Follow activity as directed Keep your appointments as scheduled Take your immunizations and boosters as scheduled If your symptoms worsen call your PCP, if no PCP go to Urgent Care Center or Emergency Room Smoking is Dangerous to Your Health. Avoid second hand smoke Call the 24-hour hour crisis hotline for domestic abuse at Leana Vides PA-C Jan 15, 2017 11:24
--- NOTE | 2017-01-15 21:47 | HHI.DS ---
Discharge Summary Admission Date Jan 12, 2017 at 18:52 Discharge Date: Jan 15, 2017 Admitting Diagnosis Diarrhea, Inability to ambulate. (1) Fall ICD Code: W19.XXXA - Unspecified fall, initial encounter Status: Acute (2) Gait instability ICD Code: R26.81 - Unsteadiness on feet Status: Acute (3) Generalized weakness ICD Code: R53.1 - Weakness Status: Acute (4) Gastroenteritis ICD Code: K52.9 - Noninfective gastroenteritis and colitis, unspecified Status: Acute (5) Renal insufficiency ICD Code: N28.9 - Disorder of kidney and ureter, unspecified Status: Acute Procedures None. Brief History - From Admission This is a 66-year-old male with PMH of HTN, Hyperlipidemia, CHF (Unknown EF) and CAD who was sent to the ER from SNF secondary to AMS and diarrhea. Per EMS , SNF reported pt increasingly combative, had apparent fall today but no LOC or head trauma reported. Pt awake, alert. Reports multiple episodes of diarrhea, x2 days, denies nausea or vomiting. Seen in ER on 01/11/17 for similar complaints, negative workup at that time and discharged back to SNF. On arrival , BP 108/71, HR 70, O2 sat 97% on 2LC, Afebrile. CBC 01/11/17 essentially unremarkable. CMP 01/11/17 w/ Creatinine 1.52, no previous labs for comparison. Abd X-ray 01/11/17 w/ nonspecific bowel gas pattern, likely ileus or gastroenteritis, patchy opacity left lung base. C diff toxin pending. CBC/BMP: 01/13/17 0649 01/13/17 0649 Significant Findings Laboratory Tests Test 01/13/17 00:00 01/13/17 06:49 Urine Color RED (YELLW/STRAW) Urine Turbidity HAZY (CLEAR) Urine Protein 100 mg/dL (NEG-TRACE) Urine Occult Blood LARGE (NEG) Urine Leukocyte Esterase LARGE (NEG) Urine WBC 90 /hpf (0-5) Urine WBC Clumps RARE (NONE) Urine Bacteria MOD /hpf (NONE) Urine Mucus FEW /lpf (OCC) Mean Corpuscular Hemoglobin 26.8 PG (27.0-34.0) Red Cell Distribution Width 23.6 % (11.6-17.2) Neutrophils (%) (Auto) 75.6 % (16.0-70.0) Lymphocytes (%) (Auto) 5.4 % (9.0-44.0) Monocytes (%) (Auto) 15.4 % (0.0-8.0) Lymphocytes # (Auto) 0.4 TH/MM3 (1.0-4.8) Monocytes # (Auto) 1.0 TH/MM3 (0-0.9) Blood Urea Nitrogen 29 MG/DL (7-18) Total Protein 6.1 GM/DL (6.4-8.2) Albumin 2.9 GM/DL (3.4-5.0) Calcium Level 8.0 MG/DL (8.5-10.1) Phosphorus Level 1.4 MG/DL (2.5-4.9) Alkaline Phosphatase 148 U/L (45-117) Total Bilirubin 2.2 MG/DL (0.2-1.0) Estimat Glomerular Filtration Rate 69 ML/MIN (>89) Hemoglobin A1c 6.3 % (4.3-6.0) Imaging Last Impressions Chest X-Ray 01/13/17 0000 Signed Impressions: Service Date/Time: Friday, January 13, 2017 13:56 - CONCLUSION: 1. Cardiomegaly with interstitial edema. 2. Status post CABG. Sujit Vidal MD Abdomen X-Ray 01/11/17 1513 Signed Impressions: Service Date/Time: December 15:51 - CONCLUSION: 1. Nonspecific, nonobstructive bowel gas pattern which may represent an ileus or gastroenteritis. 2. Status post median sternotomy with cardiomegaly. 3. Patchy opacity in the left lung base with blunting of the left costophrenic angle. Cheng Carmona MD PE at Discharge GENERAL: Alert, NAD. SKIN: Warm and dry. HEAD: Normocephalic. EYES: No scleral icterus. No injection or drainage. NECK: Supple, trachea midline. No JVD or lymphadenopathy. CARDIOVASCULAR: Regular rate and rhythm without murmurs, gallops, or rubs. RESPIRATORY: Breath sounds equal bilaterally. No accessory muscle use. GASTROINTESTINAL: Abdomen soft, non-tender, nondistended. MUSCULOSKELETAL: No cyanosis, or edema. BACK: Nontender without obvious deformity. No CVA tenderness. Pt update on day of discharge Patient is doing well. Denies any acute concerns. No fever, chills. Hospital Course This is a 66-year-old male with PMH of HTN, Hyperlipidemia, CHF (Unknown EF) and CAD who was sent to the ER from SNF secondary to AMS and diarrhea. On arrival, BP 108/71, HR 70, O2 sat 97% on 2LC, Afebrile. CBC 01/11/17 essentially unremarkable. CMP 01/11/17 w/ Creatinine 1.52. Patient is on apixaban but not clear why. No record in our system. - Fall - Generalized weakness - mechanical fall at SNF. No head trauma. - Likely due to deconditioning. - PT recommends SNF. - Gastroenteritis - C. Diff PCR ordered but no further diarrhea. - Continue PO Flagyl on discharge. - Acute kidney injury - Creatinine improved 1.52 --> 1.26 - Group D strep UTI - Will treat with Nitrofurantoin for 7 days. Full code. Apixaban. Pt Condition on Discharge: Stable Discharge Disposition: Discharge to SNF Discharge Time: <= 30 minutes Discharge Instructions DIET: Follow Instructions for: As Tolerated, No Restrictions Activities you can perform: Regular-No Restrictions Follow up Referrals: PCP Follow-up - 1 Week with Moses Gilman MD New Medications: Nitrofurantoin Monohydrate Macrocrystals (Macrobid) 100 Mg Cap 100 MG PO BID for Infection for 7 Days, CAP 0 Refills Metronidazole (Flagyl) 500 Mg Tab 500 MG PO Q8HR for gastroenteritis for 7 Days, TAB Changed Medications: Furosemide (Furosemide) 40 Mg Tab 40 MG PO DAILY for CHF, #30 TAB 0 Refills (Changed from: BID; 60) Continued Medications: Acetaminophen (Tylenol) 325 Mg Tab 325 MG PO Q4H PRN for PAIN, TAB 0 Refills Apixaban (Eliquis) 5 Mg Tab 5 MG PO BID for Blood Clot Prevention, #60 TAB 0 Refills (This prescription has been renewed) Aspirin (Aspirin) 81 Mg Chew 81 MG PO DAILY, TAB 0 Refills Buspirone (Buspirone) 7.5 Mg Tab 7.5 MG PO TID for Anxiety for 30 Days, TAB 0 Refills (This prescription has been renewed) Fish Oil-Cholecalciferol ([place]-3 Fish Oil/Vitamin) 1,000-1,000 Mg Cap 1 CAP PO DAILY for Nutritional Supplement, CAP 0 Refills Metoprolol Tartrate (Metoprolol Tartrate) 25 Mg Tab 25 MG PO DAILY for CHF, #30 TAB 0 Refills (This prescription has been renewed) Mirtazapine (Mirtazapine) 7.5 Mg Tab 7.5 MG PO HS for Depression Control, #30 TAB 0 Refills (This prescription has been renewed) Multiple Vitamin (Multiple Vitamin) 1 Tab 1 TAB PO DAILY for Nutritional Supplement, TAB 0 Refills Rosuvastatin (Rosuvastatin) 20 Mg Tab 20 MG PO DAILY for Cholesterol Management, #30 TAB 0 Refills (This prescription has been renewed) Spironolactone (Spironolactone) 25 Mg Tab 25 MG PO DAILY for CHF, #30 TAB 0 Refills (This prescription has been renewed) Trazodone (Trazodone) 50 Mg Tab 50 MG PO HS for Control Depression, #30 TAB 0 Refills (This prescription has been renewed) Discontinued Medications: Losartan (Losartan) 50 Mg Tab 50 MG PO DAILY for Blood Pressure Management, #30 TAB [address] DO Jan 15, 2017 21:47
== END 2017-01-15 12:36 ==
LOC: NEPC 12:58 → NEDA 01-12 18:52 → NEPHCDU 01-12 21:05
PROVIDERS: ADMIT Hospitalist; ATTEND Hospitalist
DX: K52.9 Noninfective gastroenteritis and colitis, unspecified (principal); R26.81 Unsteadiness on feet; E86.0 Dehydration; E78.5 Hyperlipidemia, unspecified; I11.0 Hypertensive heart disease with heart failure; I50.9 Heart failure, unspecified; B95.2 Enterococcus as the cause of diseases classified elsewhere; N17.9 Acute kidney failure, unspecified; N39.0 Urinary tract infection, site not specified; F41.9 Anxiety disorder, unspecified; F32.9 Major depressive disorder, single episode, unspecified; Z95.1 Presence of aortocoronary bypass graft; Z79.899 Other long term (current) drug therapy; Z79.01 Long term (current) use of anticoagulants; W18.30XA Fall on same level, unspecified, initial encounter; Z79.82 Long term (current) use of aspirin
CPT/HCPCS: 71010; 74000; 80048; 80053; 81001; 83036; 83735; 84100; 84439; 84443; 85025; 87077; 87086; 87186; 96365; 96366; 96376; 97162; 99285; G0378; G8987; G8988; J0744; J2270; J7030

== ENCOUNTER 2017-01-31 08:02 | Inpatient (IN) | payer MEDICARE, MEDICAID ==
[~2017-01-31] VITALS: Ht 190.5 cm; Wt 117.2 kg
[2017-01-31] VITALS (16 sets, daily range): BP systolic 100–118; BP diastolic 77–85; PULSE 68–72; RESP 12–34; TEMP 97.4–98.4; O2SAT 0–100
[~2017-01-31 08:02] MED LIST: APIX5TAB PO; ASPI81CH PO; BUSP1TAB PO; FURO40TA PO; MACR100C2 PO; METO25TA3 PO; METR-1 PO; MIRT1TAB PO; MULTTAB67 PO; OMEGCAP PO; ROSU1TAB8 PO; SPIR25TA PO; TRAZ50TA12 PO; TYLE325T PO
[2017-01-31] MEDS ORDERED: SODIUM CHLOR 0.9% 1000 ML INJ 1,000 ML IV SCH (08:09)
[2017-01-31] MEDS ORDERED: SODIUM CHLORIDE 0.9% FLUSH 5 ML FLUSH IV FLUSH PRN (08:15)
[2017-01-31 08:19] LABS: BLOOD GAS CARBOXYHEMOGLOBIN 1.1 % (0-4); BLOOD GAS HCO3 26 mmol/L (22-26); BLOOD GAS METHEMOGLOBIN 0.5 % (0-2); BLOOD GAS O2 HGB SATURATION 99 % (90-100); BLOOD GAS OXYGEN CONTENT 19.7 Vol % (12.0-20.0); BLOOD GAS PCO2 31 mmHg (38-42); BLOOD GAS PO2 305 mmHG (61-120); BLOOD GAS TOTAL HGB 13.8 G/DL (12.0-16.0); CRITICAL VALUE YES; DRAW SITE RT RADIAL; FIO2 100 %; LITER FLOW 15 L/M; NUMBER OF ARTERIAL PUNCTURES 1; STAT YES; TEMP CORR TO 98.6; ULNAR PULSE PRESENT
[2017-01-31 08:40] LABS: AUTOMATED NEUTROPHIL # 5.9 TH/MM3 (1.8-7.7); BASOPHIL % 0.3 % (0.0-2.0); EOSINOPHIL % 0.2 % (0.0-4.0); HEMO FLAGS DIFF FINAL; LYMPH % 6.7 % (9.0-44.0); LYMPHOCYTE # 0.5 TH/MM3 (1.0-4.8); MEAN CELL VOLUME 82.3 FL (80.0-100.0); MEAN CORPUSCULAR HEMOGLOBIN 27.3 PG (27.0-34.0); MEAN CORPUSCULAR HGB CONC 33.1 % (32.0-36.0); MONO % 7.4 % (0.0-8.0); NEUT % 85.4 % (16.0-70.0); PLATELET COUNT 322 TH/MM3 (150-450); RED BLOOD COUNT 5.11 MIL/MM3 (4.50-5.90); WHITE BLOOD COUNT 6.9 TH/MM3 (4.0-11.0)
[2017-01-31 08:51] LABS: APTT (PATIENT) 28.2 SEC (24.3-30.1); INTERNATIONAL NORMALIZED RATIO 1.2 RATIO
[2017-01-31] MEDS ORDERED: PROPOFOL 1000 MG/100 ML INJ 100 ML ONE (08:54)
[2017-01-31] MEDS ORDERED: IOHEXOL 350 MG/ML 10 ML VIAL (for RAD DIAG) IVCONTRAST ONE (09:05)
--- NOTE | 2017-01-31 09:19 | PD ---
HPI Chief Complaint: Altered Mental Status Time Seen by Provider: 08:09 Travel History International Travel<30 days: No Contact w/Intl Traveler<30days: No Traveled to known affect area: No History of Present Illness HPI This 66-year-old man who presents to the emergency department via EMS for altered mental status. History is a little bit unclear. It sounds like he was agitated overnight so they gave him Xanax this morning. Speaking with the nurse there, Yesica Earl, patient gets Xanax periodically but not every day. It's not a new dose for him. Subsequently he became unresponsive. EMS reports that he normally has a GCS of 14 but cannot walk. For them he was not talking at all, and stopped breathing for a period of time in the ambulance and required [id number] ventilation. They were bagging him on presentation to the ED. History Past Medical History Narrative Medical Hypertension Hyperlipidemia Acute on chronic systolic heart failure, ischemic cardiomyopathy CAD Generalized weakness Social History Alcohol Use: No Tobacco Use: No Allergies-Medications (Allergen,Severity, Reaction): Coded Allergies: hydrochlorothiazide (Verified Allergy, Severe, Edema, 01/31/17) atorvastatin (Verified Allergy, Unknown, 01/31/17) Reported Meds & Prescriptions Reported Meds & Active Scripts Active Macrobid (Nitrofurantoin Monoh/Nitrofur Macro) 100 Mg Cap 100 Mg PO BID 7 Days Flagyl (Metronidazole) 500 Mg Tab 500 Mg PO Q8HR 7 Days Trazodone (Trazodone HCl) 50 Mg Tab 50 Mg PO HS Spironolactone 25 Mg Tab 25 Mg PO DAILY Rosuvastatin (Rosuvastatin Calcium) 20 Mg Tab 20 Mg PO DAILY Mirtazapine 7.5 Mg Tab 7.5 Mg PO HS Metoprolol Tartrate 25 Mg Tab 25 Mg PO DAILY Furosemide 40 Mg Tab 40 Mg PO DAILY Buspirone (Buspirone HCl) 7.5 Mg Tab 7.5 Mg PO TID 30 Days Eliquis (Apixaban) 5 Mg Tab 5 Mg PO BID Reported [place]-3 Fish Oil/Vitamin (Fish Oil-Cholecalciferol) 1,000-1,000 Mg Cap 1 Cap PO DAILY Multiple Vitamin 1 Tab 1 Tab PO DAILY Aspirin 81 Mg Chew 81 Mg PO DAILY Tylenol (Acetaminophen) 325 Mg Tab 325 Mg PO Q4H PRN Review of Systems ROS Limitations: Clinical Condition Physical Exam Narrative GENERAL: Obtunded 66-year-old man, no response to any stimuli. SKIN: Focused skin assessment warm/dry. HEAD: Atraumatic. Normocephalic. EYES: Pupils equal and round. No scleral icterus. No injection or drainage. ENT: No nasal bleeding or discharge. Mucous membranes pink and moist. NECK: Trachea midline. No JVD. CARDIOVASCULAR: Regular rate and rhythm. No murmur appreciated. RESPIRATORY: Grunting respirations. Coarse breath sounds. GASTROINTESTINAL: Abdomen soft, non-tender, nondistended. Hepatic and splenic margins not palpable. MUSCULOSKELETAL: No obvious deformities. Bilateral lower extremity edema. NEUROLOGICAL: Obtunded. Eyes shut. Grandson noxious stimuli bilaterally. There is no muscle movement on either side. There is no clear lateralization. Doll's eye appears intact. Pupils are reactive. Data Data Last Documented VS Vital Signs Date Time Temp Pulse Resp B/P (MAP) Pulse Ox O2 Delivery O2 Flow Rate FiO2 01/31/17 09:01 70 16 113/85 (94) Ventilator 100 01/31/17 08:39 98.4 15.00 01/31/17 08:04 96 Orders Orders Electrocardiogram (01/31/17 08:09) Complete Blood Count With Diff (01/31/17 08:09) Comprehensive Metabolic Panel (01/31/17 08:09) Prothrombin Time / Inr (Pt) (01/31/17 08:09) Act Partial Throm Time (Ptt) (01/31/17 08:09) Troponin I (01/31/17 08:09) Thyroid Stimulating Hormone (01/31/17 08:09) Urinalysis - C+S If Indicated (01/31/17 08:09) Lactic Acid Sepsis Protocol (01/31/17 08:09) Blood Culture (01/31/17 08:09) Chest, Single Ap (01/31/17 08:09) Ct Brain W/O Iv Contrast(Rout) (01/31/17 08:09) Blood Glucose (01/31/17 08:09) Ecg Monitoring (01/31/17 08:09) Iv Access Insert/Monitor (01/31/17 08:09) Cath For Specimen (01/31/17 08:09) Oximetry (01/31/17 08:09) Sodium Chloride 0.9% Flush (Ns Flush) (01/31/17 08:15) Sodium Chlor 0.9% 1000 Ml Inj (Ns 1000 M (01/31/17 08:09) Drug Screen, Random Urine (01/31/17 08:09) Alcohol (Ethanol) (01/31/17 08:09) Tylenol (Acetaminophen) (01/31/17 08:09) Salicylates (Aspirin) (01/31/17 08:09) Arterial Blood Gas (Abg) (01/31/17 ) Propofol 1000 Mg/100 Ml Inj (Diprivan 10 (01/31/17 08:54) Cta Neck W Iv Contrast W 3d (01/31/17 ) Cta Brain W Iv Contrast W 3d (01/31/17 ) Iohexol 350 Inj (Omnipaque 350 Inj) (01/31/17 09:05) Angiogram, Cerebral Wo Arch (01/31/17 ) Admit Order (Ed Use Only) (01/31/17 ) Labs Laboratory Tests Test 01/31/17 08:10 01/31/17 08:15 01/31/17 08:51 01/31/17 09:17 Blood Gas Puncture Site RT RADIAL Blood Gas Patient Temperature 98.6 Blood Gas HCO3 26 mmol/L Blood Gas Base Excess 3.0 mmol/L Blood Gas Oxygen Saturation 99 % Arterial Blood pH 7.53 Arterial Blood Partial Pressure CO2 31 mmHg Arterial Blood Partial Pressure O2 305 mmHG Arterial Blood Oxygen Content 19.7 Vol % Arterial Blood Carboxyhemoglobin 1.1 % Arterial Blood Methemoglobin 0.5 % Blood Gas Hemoglobin 13.8 G/DL Oxygen Delivery Device Non-Rebreathing Mask Blood Gas Liter Flow 15 L/M Blood Gas Inspired Oxygen 100 % White Blood Count 6.9 TH/MM3 Red Blood Count 5.11 MIL/MM3 Hemoglobin 13.9 GM/DL Hematocrit 42.0 % Mean Corpuscular Volume 82.3 FL Mean Corpuscular Hemoglobin 27.3 PG Mean Corpuscular Hemoglobin Concent 33.1 % Red Cell Distribution Width 23.0 % Platelet Count 322 TH/MM3 Mean Platelet Volume 8.8 FL Neutrophils (%) (Auto) 85.4 % Lymphocytes (%) (Auto) 6.7 % Monocytes (%) (Auto) 7.4 % Eosinophils (%) (Auto) 0.2 % Basophils (%) (Auto) 0.3 % Neutrophils # (Auto) 5.9 TH/MM3 Lymphocytes # (Auto) 0.5 TH/MM3 Monocytes # (Auto) 0.5 TH/MM3 Eosinophils # (Auto) 0.0 TH/MM3 Basophils # (Auto) 0.0 TH/MM3 CBC Comment DIFF FINAL Differential Comment Prothrombin Time 13.0 SEC Prothromb Time International Ratio 1.2 RATIO Activated Partial Thromboplast Time 28.2 SEC Salicylates Level LESS THAN 1.7 MG/DL MDM Medical Decision Making Medical Screen Exam Complete: Yes Emergency Medical Condition: Yes Interpretation(s) My review of EKG: V paced at a rate of 69, LABS: AB.52, 31, 305, 25.8, base excess 3.0 CT head negative. Differential Diagnosis Sepsis, overdose, stroke, bleed, other Narrative Course Medical decision making INITIAL: This Is a 66-year-old man who presents to the emergency department with acute coma. Etiology is unclear. Brainstem stroke seems possibility. There is a lot of diagnostic uncertainty initially, and patient is not a candidate for TPA, therefore did not call patient's reported initially. I did speak with Dr. Solano who came to the bedside to evaluate the patient. We'll get a stat CTA to evaluate for the possibility of a stroke. Patient required intubation for airway protection after he returned from his initial dry CT scan. Labs, x-ray, urine, all pending. Critical Care Narrative Aggregate critical care time was 60 minutes. Time to perform other separately billable procedures was not included in the critical care time. My time did not include minutes spent treating any other patients simultaneously or on activities that did not directly contribute to the patient's treatment. The services I provided to this patient were to treat and/or prevent clinically significant deterioration that could result in: , disability, unrecognized stroke, unrecognized sepsis, head bleed, permanent morbidity. I provided critical care services requiring my management, as noted below: Chart data review, documentation time, medication orders and management, vital sign assessments/reviewing monitor data, ordering and reviewing lab tests, ordering and interpreting/reviewing x-rays and diagnostic studies, care of the patient and discussion of the patient with the admitting physicians. Procedures Procedure Narrative INTUBATION: The patient was put in optimal position for the procedure. Rapid sequence intubation was initiated by me using 20 milligrams of etomidate IV and 100 milligrams of succinylcholine IV. The patient was intubated with a 8.0 cuffed endotracheal tube. Tube placement was confirmed by visualization of the tube and balloon passing through the cords, capnometry and subsequent chest x- ray. Breath sounds were equal and well aerated bilaterally postintubation. No breath sounds over stomach. Patient tolerated procedure well. Poor referral IV: Patient needed antecubital IV in order to get CTA which was needed emergently. Nursing staff unable to establish IV access. Using real- time ultrasound guidance, under sterile conditions, 18-gauge angiocatheter was placed in the left before meals. Patient tolerated well. Diagnosis Primary Impression: Coma Additional Impression: CVA (cerebral vascular accident) Admitting Information Admitting Physician Requests: Admit Paolo Morris MD Jan 31, 2017 09:19
--- NOTE | 2017-01-31 09:23 | RADRPT ---
EXAM DATE/TIME: 01/31/2017 08:16 [facility] COMPARISON: No previous studies available for comparison. INDICATIONS : Altered mental status. RADIATION DOSE: 56.35 CTDIvol (mGy) MEDICAL HISTORY : Cardiovascular disease. Hypertension. SURGICAL HISTORY : CABG Defibrillator. ENCOUNTER: Initial ACUITY: 1 day PAIN SCALE: Non-responsive LOCATION: cranial TECHNIQUE: Multiple contiguous axial images were obtained of the head. Using automated exposure control and adj ustment of the mA and/or kV according to patient size, radiation dose was kept as low as reasonably a chievable to obtain optimal diagnostic quality images. DICOM format image data is available electro nically for review and comparison. FINDINGS: Patient's head is mildly canted in the gantry, causing some asymmetry on axial images. CEREBRUM: The ventricles, sulci, and basal cisterns are prominent, characteristic of moderate central and corti carol atrophy. No evidence of midline shift, mass lesion or hemorrhage . There is focal hypodensity i n the mid convexity left parietal-occipital region measuring up to 2 cm without evidence of mass effe ct. This may represent a infarction, age indeterminate. No extra-axial fluid collections are seen. POSTERIOR FOSSA: The cerebellum and brainstem are intact. The 4th ventricle is midline. The cerebellopontine angle i s unremarkable. EXTRACRANIAL: The visualized portion of the orbits is intact. SKULL: The calvaria is intact. No evidence of skull fracture. CONCLUSION: Hypodensity left parietal-occipital mid convexity region suggesting infarction or encephalomalacia. No evidence of hemorrhage. Cannot exclude an acute process. May consider further characterization w ith MRI. Wilber Alfaro MD on January 31, 2017 at 9:17 Board Certified Radiologist. This report was verified electronically.
[2017-01-31] MEDS ORDERED: VERAPAMIL HCL 5 MG/2 ML VIAL ONE ×2 (09:42→09:43)
--- NOTE | 2017-01-31 09:53 | MB ---
cc: ANA LUISA HERNANDEZ M.D. DATE OF CONSULTATION: 01/31/[address] Morris. REASON FOR CONSULTATION Unresponsiveness, possible stroke. HISTORY OF PRESENT ILLNESS Mr. Herman is a 66-year-old man who is on Eliquis, he has a history of hypertension, hyperlipidemia, who is a jail resident. The patient received a dose of Xanax earlier today 0.25 mg which he is used to taking, he has taken it before. Suddenly after that he became unresponsive. He had no focal deficits. There was no seizure-like activity. He came to the ER and again was found to be unresponsive. He had no focal deficits noted. He did have decreased respirations, currently being intubated. PAST MEDICAL HISTORY 1. History of hypertension. 2. Hyperlipidemia. 3. Coronary artery disease. MEDICATION He currently takes Eliquis as one of his medications. NEUROLOGIC EXAMINATION VITAL SIGNS: Blood pressure 112/79, pulse is 72, respirations 34, temperature 98 degrees. Higher cortical function is nonresponsive. Cranial nerves: Pupils are equal. On motor exam he is status post paralytic for intubation and therefore unable to do a good motor exam at the present time but reportedly no focal deficits. He has no Babinski sign. No withdrawal to noxious stimuli. IMAGING STUDIES CT of the brain shows what appears to be an old stroke in the posterior circulation, left [employer] SOLUT[employer] ARCHITECT, left cerebellar hemisphere, no acute change. No hemorrhage is identified. LABORATORY DATA White count 6900, hemoglobin 13.9, hematocrit 42%, platelets 322,000. PT 13, INR 1.2, APTT 28.2. Electrolytes are pending. Tox screen pending. IMPRESSION Sudden loss of consciousness. The patient does have evidence on CT scan of previous posterior circulation stroke. There is a chance that this could be a recurrent brainstem stroke or posterior circulation stroke, it is difficult to tell on the limited exam at this time. However, I feel that proceeding with a CT angiogram would certainly be appropriate. The patient would be within the window for intervention if he were a candidate and if a large vessel occlusion were identified. Therefore, recommend CTA of the brain and also the neck. We will also discuss the case with interventional radiology. MD TANNA Stone/CINTHIA /8:51 AM /9:33 AM
--- NOTE | 2017-01-31 09:54 | RADRPT ---
EXAM DATE/TIME: 01/31/2017 08:57 [facility] COMPARISON: CTA CAROTID ARTERIES W 3D RECON, January 31, 2017, 8:57. INDICATIONS : Acute coma. IV CONTRAST: 50 cc Omnipaque 350 (iohexol) IV ; Cumulative dose for multiple exams. RADIATION DOSE: 15.02 CTDIvol (mGy) ; Combined studies MEDICAL HISTORY : Cardiovascular disease. Hypertension. SURGICAL HISTORY : CABG Defibrillator. ENCOUNTER: Initial ACUITY: 1 day PAIN SCALE: Non-responsive LOCATION: cranial TECHNIQUE: Volumetric scanning was performed using a multi-row detector CT scanner. The data was post processed with a variety of visualization algorithms including full volume maximum intensity projection, multi -planar sliding thin slab reformation, curved planar reformation, and surface rendering techniques. Using automated exposure control and adjustment of the mA and/or kV according to patient size, radiat ion dose was kept as low as reasonably achievable to obtain optimal diagnostic quality images. DICO M format image data is available electronically for review and comparison. FINDINGS: Examination is abnormal demonstrating absent flow in the left internal carotid artery and significant ly decreased enhancement in the left A1 segment. The anterior communicating artery is patent and the re is contrast seen in both A2 segments. There is also contrast seen in the left M2 segment, but the re is a lesser degree of opacification of the posterior left sylvian branches on the left side when c ompared to the right. Posterior circulation is intact. The basilar artery is normal in configuration. CONCLUSION: Absent flow in the left internal carotid artery with reconstitution of flow in the A2 segment. There is some flow seen in the left sylvian branches of the middle cerebral artery, but the degree of vess el opacification on the left is less than on the right. Wilber Alfaro MD on January 31, 2017 at 9:48 Board Certified Radiologist. This report was verified electronically.
[2017-01-31] MEDS ORDERED: ETOMIDATE 20 MG/10 ML VIAL IV PUSH ONE (10:00)
[2017-01-31] MEDS ORDERED: SUCCINYLCHOLINE CHLORIDE 200 MG/10 ML VIAL IV PUSH ONE (10:00)
--- NOTE | 2017-01-31 10:00 | RADRPT ---
EXAM DATE/TIME: 01/31/2017 08:57 [facility] COMPARISON: CT BRAIN W/O CONTRAST, January 31, 2017, 8:16. INDICATIONS : Acute coma. IV CONTRAST: 50 cc Omnipaque 350 (iohexol) IV ; Cumulative dose for multiple exams. RADIATION DOSE: 15.02 CTDIvol (mGy) MEDICAL HISTORY : Cardiovascular disease. Hypertension. SURGICAL HISTORY : CABG Defibrillator. ENCOUNTER: Initial ACUITY: 1 day PAIN SCALE: Non-responsive LOCATION: neck Elevated flow velocities and ICA/CCA ratios have been found to correlate with increased degrees of vessel stenosis, calculated as percentage of diameter relative to a normal segment of distal ICA/CCA. TECHNIQUE: Volumetric scanning was performed using a multirow detector CT scanner. The data was post processed with a variety of visualization algorithms including full-volume maximum intensity projection, multip lanar sliding thin-slab reformation, curved-planar reformation, and surface-rendering techniques. Us ing automated exposure control and adjustment of the mA and/or kV according to patient size, radiatio n dose was kept as low as reasonably achievable to obtain optimal diagnostic quality images. DICOM f ormat image data is available electronically for review and comparison. FINDINGS: There is some motion during the acquisition of the mid neck images which does cause blurring of the n maryjane reconstructions. Interpretation is based on review of the raw source data. AORTIC ARCH: There is a three-vessel origin of the great vessels from the aorta. No evidence of ostial narrowing. RIGHT CAROTID: The common carotid artery is intact. The carotid bulb has a normal configuration without ulceration o r narrowing. There is some calcification in the wall of the proximal internal carotid artery without evidence of luminal narrowing. The internal carotid artery lumen is smooth without stenosis. The e xternal carotid artery is intact. LEFT CAROTID: Common carotid artery is of normal size. There is absent flow in the left internal carotid artery fr om its origin to the base of the skull. The external carotid artery and branches are normal in [facility]. VERTEBRALS: Vertebral system is right dominant. There is string-like faint contrast seen in the left vertebral. CONCLUSION: 1. 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 2. String-like contrast in the left vertebral artery Wilber Alfaro MD on January 31, 2017 at 9:53 Board Certified Radiologist. This report was verified electronically.
[2017-01-31 10:05] LABS: ACETAMINOPHEN LESS THAN 2.0 MCG/ML (10.0-30.0); ALT (GPT) 22 U/L (12-78); ANION GAP 8 MEQ/L (5-15); AST (GOT) 22 U/L (15-37); BICARBONATE 26.9 MEQ/L (21.0-32.0); CHLORIDE 99 MEQ/L (98-107); GLOMERULAR FILTRATION RATE 53 ML/MIN (>89); POTASSIUM 4.5 MEQ/L (3.5-5.1); SODIUM (NA) 134 MEQ/L (136-145)
[2017-01-31] MEDS ORDERED: HEPARIN SODIUM - IV 10,000 UNITS/10 ML VIAL ONE (10:05)
[2017-01-31 10:10] LABS: ALKALINE PHOSPHATASE 186 U/L (45-117); BLOOD UREA NITROGEN 33 MG/DL (7-18); TOTAL BILIRUBIN ADULT 1.3 MG/DL (0.2-1.0)
[2017-01-31 10:12] LABS: ALCOHOL LESS THAN 3 MG/DL (0-5)
[2017-01-31] MEDS ORDERED: STERILE WATER FOR INJECTION 10 ML VIAL ONE (10:31)
[2017-01-31] MEDS ORDERED: ALTEPLASE RECOMBINANT 2 MG VIAL I-ARTERIAL ONE (10:39)
[2017-01-31] MEDS ORDERED: NITROGLYCERIN 1000 MCG/5 ML VIAL OTHER ONE (10:51)
[2017-01-31] MEDS ORDERED: IODIXANOL 320 MG/ML 50 ML VIAL (for RAD SPEC) I-ARTERIAL ONE (11:00)
[2017-01-31 11:26] LABS: LACTIC ACID GHOST NOT REPORTABLE
--- NOTE | 2017-01-31 11:54 | PD.RAD ---
Post Procedure Progress Note Pre Procedure Diagnosis: (1) CVA (cerebral vascular accident) Post Procedure Diagnosis: (1) CVA (cerebral vascular accident) Procedure Date: Jan 31, 2017 Supervising Radiologist: Russ Joseph Proceduralist/Assist: Nathaly Mann, RT(R)(CV), Osmin Cabrera, RT(R), Velma Green, RT(R)() Anesthesia: General Plan of Activity Patient to Unit: Critical Care Patient Condition: Critical See PACS Report for procedural detail/treatment Vascular-Arterial Procedure Procedure 1 Procedure Site: Cerebral (Bilateral vertebrals) Procedure(s): Angiogram, Thrombolysis Access Access Site(s): Right Femoral Artery Closure Site(s): Right vascular closure device (PerClose) Findings: Heavily diseased and diminutive left vertebral with no communication to basilar. Robust right vertebral but basilar may be chronically occluded from this side. 3mg TPA infused into right vertebral system Russ Joseph MD Jan 31, 2017 11:54
[2017-01-31] MEDS ORDERED: CHLORHEXIDINE GLUCONATE 2 % 1 PACK (2 CLOTHS) TOP PRN (13:15)
[2017-01-31] MEDS ORDERED: SODIUM CHLORIDE 0.9% FLUSH 10 ML FLUSH IV FLUSH PRN (13:15)
[2017-01-31] MEDS ORDERED: RESP: ALBUTEROL 2.5 MG/IPRATROPIUM 0.5 MG NEB (PRN) INH (13:15)
[2017-01-31] MEDS ORDERED: MISCELLANEOUS NURSING INFORMATION XX SCH (13:15)
--- NOTE | 2017-01-31 13:49 | RADRPT ---
EXAM DATE/TIME: 01/31/2017 00:00 [facility] COMPARISON: No previous studies available for comparison. INDICATIONS : Patien is in need of a medically urgent cerebral angiogram for evaluation of intracranial thrombus. MEDICAL HISTORY : History of HTN, CHF, PAD, HLD, CAD, ischemic cardiomyopathy, pleural effusion, acute kidney failure, enterocolitis. SURGICAL HISTORY : History of cardiac catheterization, CABG, pacemaker placement. ENCOUNTER: Initial ACUITY: 1 day PAIN SCORE: 0/10 LOCATION: Patient is vented. FLUORO TIME: 21.9 minutes IMAGE SERIES: 18 ACCESS SITE: Right Femoral artery CONTRAST: 80 cc Visipaque (iodixanol) MEDICATION(S): 1.) 3 mg TPA IART 2.) 150 mcg Nitroglycerin IART DEVICE(S): 1.) Right common femoral artery 6Fr Perclose Anesthesia and pain control was provided by the Anesthesia department. PROCEDURE : 1. Ultrasound-guided puncture of the access site. 2. Angiography of the access site prior to closure device. 3. Conscious sedation with continuous EKG and Oximetry monitoring. 4. Percutaneous closure of the access site. 5. Angiography of the left vertebral artery 6. Angiography of the right vertebral artery The risks, benefits and alternatives to the procedure were explained and verbal and written consent w as obtained. The site was prepped in sterile fashion. Full sterile technique was used, including ca p, mask, sterile gloves and gown and a large sterile sheet. Hand hygiene and 2% chlorhexidine and/or betadine/alcohol prep was utilized per protocol for cutaneous antisepsis. Sterile gel and sterile p robe cover were utilized for ultrasound guidance. The skin and subcutaneous tissues were infiltrated with local anesthetic solution. With ultrasound and fluoroscopic guidance the selected artery was punctured and a vascular sheath was placed. Angiography of the common femoral artery was performed for evaluation prior to percutaneous closure device placement. Review of the patient's CT angiogram showed a string sign in the distal left ICA with a robust right ICA. Patient appeared to have a patent right vertebral which appear to terminate in a PICA branch. Th e left vertebral is diminutive throughout its course and appears to occlude just proximal to the basi lar artery with patchy opacification of the basilar itself. Findings are concerning for a thrombotic or embolic event to the posterior circulation. With this in mind, a JB2 catheter was used to select t he left subclavian artery. Contrast injection showed a diminutive a markedly irregular left vertebral artery with sluggish flow. Catheter and wire were advanced out into the axillary artery to facilitat e placement of a 7 Sur[place]ames[place] Rabbe sheath. Hockey-stick catheter and the Glidewire were then manipulated into the disease divert. Contrast injection showed disease throughout the diminutive left vertebral artery with eventual occlusion proximal to the expected location of the basilar artery. I made a brie f attempt to traverse the highly diseased vessel but this was unsuccessful and therefore, further int ervention on the left was aborted. Attention was then turned to the right subclavian artery. The JB2 catheter was manipulated into the b rachiocephalic artery and, eventually the right subclavian. Contrast injection showed an early takeof f of the right vertebral which otherwise appeared robust. Therefore, the 7 Surinamese sheath was advanced into the origin of the subclavian and the hockey-stick catheter placed into the right vertebral. Con trast injection showed the vessel to be patent proximally with termination in a PICA branch. It appea rs the terminal portion of the right vertebral was highly diseased and possibly chronically occluded. 3 mg of TPA was infused into the right vertebral to facilitate chemical thrombolysis of any acute th rombus. A renegade hi flow catheter and agility wire were then manipulated through the Vert. The wire was the n advanced out into what appeared to be the terminal Vert/proximal basilar. However, the wire could n ot be advanced past this point and therefore, this was considered chronic. Therefore, the catheter an d wire were removed. Hemostasis was obtained with the prescribed medicated closure device. Conscious sedation was perform ed with the prescribed dosages and duration as above in the presence of an independent trained radiol ogy nurse to assist in the monitoring of the patient. EKG and oximetry remained stable throughout th e procedure. CONCLUSION: 1. Patient appears to have had a thrombotic or embolic event to the vertebral basilar system. The lef t vertebral is highly diseased throughout its course and appears to occlude just proximal to the basi lar. Unable to traverse the highly diseased vessel for intervention. 2. The right vertebral is robust proximally but appears to terminate in a PICA branch with a irregula r terminal vessel possibly representing the distal vertebral and proximal basilar. This appears to be chronically occluded. Russ Joseph MD on January 31, 2017 at 13:28 Board Certified Radiologist. This report was verified electronically.
--- NOTE | 2017-01-31 13:52 | RADRPT ---
EXAM DATE/TIME: 01/31/2017 13:03 [facility] COMPARISON: CHEST SINGLE AP, January 13, 2017, 13:56. INDICATIONS : Shortness of breath. MEDICAL HISTORY : Hypertension. Cerebrovascular disease. SURGICAL HISTORY : CABG. Pacemaker. ENCOUNTER: Initial ACUITY: 1 day PAIN SCORE: Non-responsive. LOCATION: Bilateral chest FINDINGS: A single view of the chest demonstrates significant cardiomegaly with interstitial edema and bilatera l pleural effusions characteristic of some degree of failure. Multiple median sternotomy wires and fo rth from the top is fractured. Left subclavian bipolar pacer/defibrillator.. CONCLUSION: 1. Cardiomegaly with findings of failure and bilateral effusions. 2. Stable postsurgical changes. Russ Joseph MD on January 31, 2017 at 13:47 Board Certified Radiologist. This report was verified electronically.
--- NOTE | 2017-01-31 13:59 | HHI.HP ---
HPI Service Critical Care Medicine Primary Care Physician Unknown Admission Diagnosis Acute Coma, ?CVA Diagnosis: Chief Complaint: Altered mental status Travel History International Travel<30 Days: No Contact w/Intl Traveler <30 Da: No Traveled to Known Affected Are: No History of Present Illness HPI This 66-year-old man who presents to the emergency department via EMS for altered mental status. History is a little bit unclear. It sounds like he was agitated overnight so they gave him Xanax this morning. Speaking with the nurse there, Yesica Earl, patient gets Xanax periodically but not every day. It's not a new dose for him. Subsequently he became unresponsive. Per EMS report he normally has a GCS of 14 but cannot walk. For them he was not talking at all, and stopped breathing for a period of time in the ambulance and required fly-fisvd-gnus ventilation. They were bagging him on presentation to the ED. patient underwent CT head which was negative for bleed. He was evaluated by Dr. 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 History Past Medical History Narrative Medical Hypertension Hyperlipidemia Acute on chronic systolic heart failure, ischemic cardiomyopathy CAD Generalized weakness Social History Alcohol Use: No Tobacco Use: No Allergies-Medications (Allergen,Severity, Reaction): Coded Allergies: hydrochlorothiazide (Verified Allergy, Severe, Edema, 01/31/17) atorvastatin (Verified Allergy, Unknown, 01/31/17) Reported Meds & Prescriptions Reported Meds & Active Scripts Active Macrobid (Nitrofurantoin Monoh/Nitrofur Macro) 100 Mg Cap 100 Mg PO BID 7 Days Flagyl (Metronidazole) 500 Mg Tab 500 Mg PO Q8HR 7 Days Trazodone (Trazodone HCl) 50 Mg Tab 50 Mg PO HS Spironolactone 25 Mg Tab 25 Mg PO DAILY Rosuvastatin (Rosuvastatin Calcium) 20 Mg Tab 20 Mg PO DAILY Mirtazapine 7.5 Mg Tab 7.5 Mg PO HS Metoprolol Tartrate 25 Mg Tab 25 Mg PO DAILY Furosemide 40 Mg Tab 40 Mg PO DAILY Buspirone (Buspirone HCl) 7.5 Mg Tab 7.5 Mg PO TID 30 Days Eliquis (Apixaban) 5 Mg Tab 5 Mg PO BID Reported [place]-3 Fish Oil/Vitamin (Fish Oil-Cholecalciferol) 1,000-1,000 Mg Cap 1 Cap PO DAILY Multiple Vitamin 1 Tab 1 Tab PO DAILY Aspirin 81 Mg Chew 81 Mg PO DAILY Tylenol (Acetaminophen) 325 Mg Tab 325 Mg PO Q4H PRN Review of Systems ROS Limitations: Clinical Condition Physical Exam Vital Signs Vital Signs Date Time Temp Pulse Resp B/P (MAP) Pulse Ox O2 Delivery O2 Flow Rate FiO2 01/31/17 12:28 99 40 01/31/17 12:10 12 121/72 (88) 100 Mechanical Ventilator 50 01/31/17 12:10 50 01/31/17 12:00 97.2 71 12 124/80 (95) 100 Mechanical Ventilator 50 118/82 (94) 01/31/17 11:45 70 12 121/79 (93) 100 Mechanical Ventilator 50 111/79 (90) 01/31/17 11:40 50 01/31/17 11:35 97.5 69 12 124/82 (96) 100 Mechanical Ventilator 50 01/31/17 10:25 01/31/17 09:01 70 16 113/85 (94) Ventilator 100 01/31/17 09:00 0 100 01/31/17 08:49 100 01/31/17 08:49 Ventilator 01/31/17 08:39 98.4 70 34 114/81 (92) Non-Rebreather 15.00 01/31/17 08:09 76 70 Non-Rebreather 15.00 01/31/17 08:04 72 34 112/79 (90) 96 Physical Exam HEENT/ Neuro: Sedated, orally intubated, Pallor present, no icterus, tongue/ mucosa moist. Pupils 2 mm bilaterally constricted, reactive, not moving either lower extremities. Occasional movement noted in right upper extremity Neck: No JVD Chest/Pulm: on mech vent, good air entry bilaterally, no wheezing or crackles. CVS: S1-S2 regular, no murmur. Healed sternotomy scar, PPM noted GI/abdomen: soft, nontender, bowel sounds sluggish Extremities: warm bilaterally, bilateral pitting edema Laboratory Laboratory Tests Test 01/31/17 08:10 01/31/17 08:15 01/31/17 08:51 01/31/17 09:17 Blood Gas Puncture Site RT RADIAL Blood Gas Patient Temperature 98.6 Blood Gas HCO3 26 Blood Gas Base Excess 3.0 Blood Gas Oxygen Saturation 99 Arterial Blood pH 7.53 Arterial Blood Partial Pressure CO2 31 Arterial Blood Partial Pressure O2 305 Arterial Blood Oxygen Content 19.7 Arterial Blood Carboxyhemoglobin 1.1 Arterial Blood Methemoglobin 0.5 Blood Gas Hemoglobin 13.8 Oxygen Delivery Device Non-Rebreathing Mask Blood Gas Liter Flow 15 Blood Gas Inspired Oxygen 100 White Blood Count 6.9 Red Blood Count 5.11 Hemoglobin 13.9 Hematocrit 42.0 Mean Corpuscular Volume 82.3 Mean Corpuscular Hemoglobin 27.3 Mean Corpuscular Hemoglobin Concent 33.1 Red Cell Distribution Width 23.0 Platelet Count 322 Mean Platelet Volume 8.8 Neutrophils (%) (Auto) 85.4 Lymphocytes (%) (Auto) 6.7 Monocytes (%) (Auto) 7.4 Eosinophils (%) (Auto) 0.2 Basophils (%) (Auto) 0.3 Neutrophils # (Auto) 5.9 Lymphocytes # (Auto) 0.5 Monocytes # (Auto) 0.5 Eosinophils # (Auto) 0.0 Basophils # (Auto) 0.0 CBC Comment DIFF FINAL Differential Comment Prothrombin Time 13.0 Prothromb Time International Ratio 1.2 Activated Partial Thromboplast Time 28.2 Salicylates Level LESS THAN 1.7 Blood Urea Nitrogen 33 Creatinine 1.59 Random Glucose 100 Total Protein 6.2 Albumin 2.8 Calcium Level 8.1 Alkaline Phosphatase 186 Aspartate Amino Transf (AST/SGOT) 22 Alanine Aminotransferase (ALT/SGPT) 22 Total Bilirubin 1.3 Sodium Level 134 Potassium Level 4.5 Chloride Level 99 Carbon Dioxide Level 26.9 Anion Gap 8 Estimat Glomerular Filtration Rate 53 Lactic Acid Level 2.2 Troponin I 0.06 Thyroid Stimulating Hormone 3rd Gen 2.280 Acetaminophen Level LESS THAN 2.0 Ethyl Alcohol Level LESS THAN 3 Date/Time Source Procedure Growth Status 01/31/17 08:15 Blood Peripheral Aerobic Blood Culture Pending Received 01/31/17 08:15 Blood Peripheral Anaerobic Blood Culture Pending Received Result Diagram: 01/31/1715 01/31/17 0917 Imaging Last Impressions Head CT 01/31/1709 Signed Impressions: Service Date/Time: Tuesday, January 31, 2017 08:16 - CONCLUSION: Hypodensity left parietal-occipital mid convexity region suggesting infarction or encephalomalacia. No evidence of hemorrhage. Cannot exclude an acute process. May consider further characterization with MRI. Wilber Alfaro MD Neck CTA 01/31/17 0000 Signed Impressions: Service Date/Time: Tuesday, January 31, 2017 08:57 - CONCLUSION: 1. 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 2. String-like contrast in the left vertebral artery Wilber Alfaro MD Head CTA 01/31/17 0000 Signed Impressions: Service Date/Time: Tuesday, January 31, 2017 08:57 - CONCLUSION: Absent flow in the left internal carotid artery with reconstitution of flow in the A2 segment. There is some flow seen in the left sylvian branches of the middle cerebral artery, but the degree of vessel opacification on the left is less than on the right. Wilber Alfaro MD Caprini VTE Risk Assessment Caprini VTE Risk Assessment: Mod/High Risk (score >= 2) Caprini Risk Assessment Model Point Value = 1 Point Value = 2 Point Value = 3 Point Value = 5 Age 41-60 Minor surgery BMI > 25 kg/m2 Swollen legs Varicose veins or History of unexplained or recurrent spontaneous Oral contraceptives or hormone replacement Sepsis (< 1 month) Serious lung disease, including pneumonia (< 1 month) Abnormal pulmonary function Acute myocardial infarction Congestive heart failure (< 1 month) History of inflammatory bowel disease Medical patient at bed rest Age 61-74 Arthroscopic surgery Major open surgery (> 45 min) Laparoscopic surgery (> 45 min) Malignancy Confined to bed (> 72 hours) Immobilizing plaster cast Central venous access Age >= 75 History of VTE Family history of VTE Factor V Leiden Prothrombin [id number] Lupus anticoagulant Anticardiolipin antibodies Elevated serum homocysteine Heparin-induced thrombocytopenia Other congenital or acquired thrombophilia Stroke (< 1 month) Elective arthroplasty Hip, pelvis, or leg fracture Acute spinal cord injury (< 1 month) Prophylaxis Regimen Total Risk Factor Score Risk Level Prophylaxis Regimen 0-1 Low Early ambulation 2 Moderate Order ONE of the following: *Sequential Compression Device (SCD) *Heparin 5000 units SQ BID 3-4 Higher Order ONE of the following medications: *Heparin 5000 units SQ TID *Enoxaparin/Lovenox 40 mg SQ daily (WT < 150 kg, CrCl > 30 mL/min) *Enoxaparin/Lovenox 30 mg SQ daily (WT < 150 kg, CrCl > 10-29 mL/min) *Enoxaparin/Lovenox 30 mg SQ BID (WT < 150 kg, CrCl > 30 mL/min) AND/OR *Sequential Compression Device (SCD) 5 or more Highest Order ONE of the following medications: *Heparin 5000 units SQ TID (Preferred with Epidurals) *Enoxaparin/Lovenox 40 mg SQ daily (WT < 150 kg, CrCl > 30 mL/min) *Enoxaparin/Lovenox 30 mg SQ daily (WT < 150 kg, CrCl > 10-29 mL/min) *Enoxaparin/Lovenox 30 mg SQ BID (WT < 150 kg, CrCl > 30 mL/min) AND *Sequential Compression Device (SCD) Assessment and Plan Assessment and Plan 66-year-old male with: Altered mental status secondary to suspected posterior circulation stroke Basilar artery occlusion status post angiogram with attempted intra-arterial thrombolysis Left ICA occlusion on CTA CAD Ischemic cardiomyopathy Hypertension Edema History of pacemaker/ ICD Plan: Neuro: Patient evaluated by Dr. Solano from neurology. Underwent cerebral angiogram with intra-arterial TPA for basilar artery occlusion by interventional radiology. Defer anticoagulation/antiplatelet therapy to neurology. 2-D echo for stroke workup ordered. Cardiovascular: Continue hemodynamic monitoring. Allow permissive hypertension in view of ischemic stroke. Will use labetalol when necessary for systolic blood pressure greater than 200 mmHg. Pulmonary: Intubated for airway protection. Continue mechanical ventilation, vent bundle, bronchodilators. Awaiting neurologic improvement prior to initiating C Pap trials. GI/liver: Start tube feeds and advanced to goal as tolerated. Renal/: Gentle hydration, strict intake output, monitor and replete electrolytes, follow BUN/creatinine. Rabago catheterization. ID: Watch for fever. No antibiotics at this time. Heme: Follow CBC. Patient on anticoagulation with Eliquis previously. Will defer anticoagulation/antiplatelet therapy to Dr. Solano in view of posterior circulation stroke. Endocrine: Follow fingerstick glucose. SSI for glycemic control if needed Prophylaxis: Pepcid for GI prophylaxis, SCDs for DVT prophylaxis. Resume anticoagulation when okay with neurology. If anticoagulation to be held, will discuss initiation of subcutaneous Lovenox for DVT prophylaxis. Condition critical Time spent on critical care excluding procedures 45 minutes. Osmani Gonzalez MD Jan 31, 2017 13:59
[2017-01-31] MEDS: SODIUM CHLOR 0.9% 1000 ML INJ 1,000 ML IV SCH (14:06)
[2017-01-31] MEDS: PROPOFOL 1000 MG/100 ML IV PRN ×2 (14:07→18:19)
[2017-01-31 14:10] LABS: BLOOD GAS BASE EXCESS 3.5 mmol/L (-2-2); BLOOD GAS CARBOXYHEMOGLOBIN 1.3 % (0-4); BLOOD GAS HCO3 27 mmol/L (22-26); BLOOD GAS METHEMOGLOBIN 0.7 % (0-2); BLOOD GAS O2 HGB SATURATION 97 % (90-100); BLOOD GAS OXYGEN CONTENT 16.7 Vol % (12.0-20.0); BLOOD GAS PCO2 36 mmHg (38-42); BLOOD GAS PO2 136 mmHg (61-120); BLOOD GAS TOTAL HGB 12.1 G/DL (12.0-16.0); CRITICAL VALUE NO; DRAW SITE ART LINE; FIO2 40 %; OXYGEN DEVICE VENTILATOR; STAT NO; TEMP CORR TO 98.6; VENT SETTINGS AC/12/500/PEEP5
[2017-01-31 16:14] LABS: BLOOD, URINE SMALL (NEG); GLUCOSE,URINE NEG (NEG); KETONE, URINE NEG (NEG); MUCUS URINE MANY /lpf (OCC); NITRITE,URINE NEG (NEG); URINE COLOR YELLOW (YELLW/STRAW)
[2017-01-31 16:17] LABS: BACTERIA, URINE OCC /hpf; COMMENT (UR) CATH-CULTURE IND; CULTURE IF INDICATED CATH CULTURE IND
--- NOTE | 2017-01-31 16:37 | RADRPT ---
EXAM DATE/TIME: 01/31/2017 16:12 [facility] COMPARISON: CTA BRAIN W 3D RECON, January 31, 2017, 8:57. CT BRAIN W/O CONTRAST, January 31, 2017, 8:16. INDICATIONS : Altered mental status RADIATION DOSE: 38.43 CTDIvol (mGy) MEDICAL HISTORY : Congestive hearrt failure. Cardiovascular disease SURGICAL HISTORY : CABG ENCOUNTER: Initial ACUITY: 1 day PAIN SCALE: Non-responsive LOCATION: cranial TECHNIQUE: Multiple contiguous axial images were obtained of the head. Using automated exposure control and adj ustment of the mA and/or kV according to patient size, radiation dose was kept as low as reasonably a chievable to obtain optimal diagnostic quality images. DICOM format image data is available electro nically for review and comparison. FINDINGS: Exam is mildly degraded by patient motion. Grossly, no changes occurred since the earlier exams. Ther e is encephalomalacia in the medial left cerebellar hemisphere. Mild symmetric ventricular prominence . No evidence of intracranial hemorrhage or mass. Nothing to specifically suggest acute infarction. E xtracranial structures are stable and benign. CONCLUSION: Stable brain appearance Carlos Landa MD on January 31, 2017 at 16:31 Board Certified Radiologist. This report was verified electronically.
[2017-01-31] MEDS: RESP: ALBUTEROL 2.5 MG/IPRATROPIUM 0.5 MG NEB (SCH) NEB ×2 (17:13→20:23)
[2017-01-31 17:53] LABS: HEMATOCRIT 38.5 % (39.0-51.0); MEAN CORPUSCULAR HEMOGLOBIN 26.2 PG (27.0-34.0); PLATELET COUNT 291 TH/MM3 (150-450); RED BLOOD COUNT 4.69 MIL/MM3 (4.50-5.90); RED CELL DISTRIBUTION WIDTH 23.4 % (11.6-17.2); REVIEW FLAG FINAL; WHITE BLOOD COUNT 5.2 TH/MM3 (4.0-11.0)
[2017-01-31 18:00] LABS: APTT (PATIENT) 28.5 SEC (24.3-30.1); INTERNATIONAL NORMALIZED RATIO 1.2 RATIO; PROTHROMBIN TIME - PATIENT 12.8 SEC (9.8-11.6)
[2017-01-31] MEDS: HEPARIN-D5W 25,000 U/250 ML 250 ML IV SCH (18:21)
[2017-01-31 18:33] LABS: HDL CHOLESTEROL 38.4 MG/DL (40.0-60.0)
[2017-01-31] MEDS: CHLORHEXIDINE 0.12% (ORAL KIT) 15 ML CUP MT SCH (21:05)
[2017-01-31] MEDS: FAMOTIDINE 20 MG TAB TUBE SCH (21:05)
[2017-01-31] MEDS: SODIUM CHLORIDE 0.9% FLUSH 10 ML FLUSH IV FLUSH SCH (21:08)
[2017-02-01] VITALS (20 sets, daily range): BP systolic 100–115; BP diastolic 70–78; PULSE 65–79; RESP 12; TEMP 97.5–99.8; O2SAT 92–100
[2017-02-01 00:57] LABS: APTT (PATIENT) 28.2 SEC (24.3-30.1)
[2017-02-01] MEDS: RESP: ALBUTEROL 2.5 MG/IPRATROPIUM 0.5 MG NEB (SCH) NEB ×4 (01:38→19:46)
[2017-02-01] MEDS: PROPOFOL 1000 MG/100 ML IV PRN ×4 (01:48→21:07)
[2017-02-01] MEDS: CHLORHEXIDINE GLUCONATE 2 % 1 PACK (2 CLOTHS) TOP SCH (04:00)
[2017-02-01 06:29] LABS: AUTOMATED NEUTROPHIL # 6.5 TH/MM3 (1.8-7.7); BASOPHIL # 0.1 TH/MM3 (0-0.2); EOSINOPHIL % 0.4 % (0.0-4.0); HEMATOCRIT 38.5 % (39.0-51.0); HEMO FLAGS DIFF FINAL; LYMPH % 3.7 % (9.0-44.0); LYMPHOCYTE # 0.3 TH/MM3 (1.0-4.8); MEAN CELL VOLUME 82.5 FL (80.0-100.0); MEAN CORPUSCULAR HEMOGLOBIN 26.7 PG (27.0-34.0); MEAN CORPUSCULAR HGB CONC 32.3 % (32.0-36.0); MONO % 8.4 % (0.0-8.0); NEUT % 86.5 % (16.0-70.0); PLATELET COUNT 270 TH/MM3 (150-450); RED BLOOD COUNT 4.67 MIL/MM3 (4.50-5.90); RED CELL DISTRIBUTION WIDTH 23.6 % (11.6-17.2); WHITE BLOOD COUNT 7.5 TH/MM3 (4.0-11.0)
[2017-02-01 06:55] LABS: ANION GAP 8 MEQ/L (5-15); AST (GOT) 19 U/L (15-37); BLOOD UREA NITROGEN 33 MG/DL (7-18); CHLORIDE 102 MEQ/L (98-107); GLOMERULAR FILTRATION RATE 59 ML/MIN (>89); POTASSIUM 4.4 MEQ/L (3.5-5.1); SODIUM (NA) 137 MEQ/L (136-145)
[2017-02-01 06:59] LABS: ALKALINE PHOSPHATASE 166 U/L (45-117); ALT (GPT) 20 U/L (12-78)
[2017-02-01] MEDS ORDERED: FUROSEMIDE 20 MG/2 ML VIAL IV PUSH ONE (07:15)
[2017-02-01 07:53] LABS: APTT (PATIENT) 27.3 SEC (24.3-30.1)
[2017-02-01] MEDS: CHLORHEXIDINE 0.12% (ORAL KIT) 15 ML CUP MT SCH ×2 (08:12→21:08)
[2017-02-01] MEDS: SODIUM CHLORIDE 0.9% FLUSH 10 ML FLUSH IV FLUSH SCH ×2 (08:12→21:00)
[2017-02-01] MEDS: SODIUM CHLOR 0.9% 1000 ML INJ 1,000 ML IV SCH (08:12)
[2017-02-01] MEDS: FAMOTIDINE 20 MG TAB TUBE SCH ×2 (08:12→21:07)
--- NOTE | 2017-02-01 08:29 | HHI.CCPN ---
Subjective Remarks/Hospital Course 01/31: This 66-year-old man who presents to the emergency department via EMS for altered mental status. History is a little bit unclear. It sounds like he was agitated overnight so they gave him Xanax this morning. Speaking with the nurse there, Yesica Earl, patient gets Xanax periodically but not every day. It's not a new dose for him. Subsequently he became unresponsive. Per EMS report he normally has a GCS of 14 but cannot walk. For them he was not talking at all, and stopped breathing for a period of time in the ambulance and required aac-mhzji-yplt ventilation. They were bagging him on presentation to the ED. patient underwent CT head which was negative for bleed. He was evaluated by Dr. 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 On propofol 75 mics per kg/min. moving both upper extremities and left lower extremity on lightening sedation per nursing staff. Has chronically weak right lower extremity per family. Currently on heparin drip for full anticoagulation. Objective Vital Signs Date Time Temp Pulse Resp B/P (MAP) Pulse Ox O2 Delivery O2 Flow Rate FiO2 02/01/17 08:14 100 40 02/01/17 06:00 69 02/01/17 04:00 97.5 12 100/73 (82) 106/78 (87) 01/31/17 19:00 Mechanical Ventilator 01/31/17 08:39 15.00 Intake and Output 02/01/17 02/01/17 02/02/17 08:00 16:00 00:00 Intake Total 900 ml Output Total 150 ml Balance 750 ml Result Diagram: 02/01/17 0610 02/01/17 0610 Other Results Laboratory Tests Test 01/31/17 13:55 Blood Gas Puncture Site ART LINE Blood Gas Patient Temperature 98.6 Blood Gas HCO3 27 mmol/L (22-26) Blood Gas Base Excess 3.5 mmol/L (-2-2) Blood Gas Oxygen Saturation 97 % (90-100) Arterial Blood pH 7.49 (7.380-7.420) Arterial Blood Partial Pressure CO2 36 mmHg (38-42) Arterial Blood Partial Pressure O2 136 mmHg (61-120) Arterial Blood Oxygen Content 16.7 Vol % (12.0-20.0) Arterial Blood Carboxyhemoglobin 1.3 % (0-4) Arterial Blood Methemoglobin 0.7 % (0-2) Blood Gas Hemoglobin 12.1 G/DL (12.0-16.0) Oxygen Delivery Device VENTILATOR Blood Gas Ventilator Setting AC/12/500/PEEP5 Blood Gas Inspired Oxygen 40 % Imaging Last Impressions Head CT 01/31/17 0809 Signed Impressions: Service Date/Time: Tuesday, January 31, 2017 08:16 - CONCLUSION: Hypodensity left parietal-occipital mid convexity region suggesting infarction or encephalomalacia. No evidence of hemorrhage. Cannot exclude an acute process. May consider further characterization with MRI. Wilber Alfaro MD Neck CTA 01/31/17 0000 Signed Impressions: Service Date/Time: Tuesday, January 31, 2017 08:57 - CONCLUSION: 1. 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 2. String-like contrast in the left vertebral artery Wilber Alfaro MD Head CTA 01/31/17 0000 Signed Impressions: Service Date/Time: Tuesday, January 31, 2017 08:57 - CONCLUSION: Absent flow in the left internal carotid artery with reconstitution of flow in the A2 segment. There is some flow seen in the left sylvian branches of the middle cerebral artery, but the degree of vessel opacification on the left is less than on the right. Wilber Alfaro MD Objective Remarks HEENT/ Neuro: Sedated, orally intubated, Pallor present, no icterus, tongue/ mucosa moist. Pupils 2 mm bilaterally constricted, reactive, not moving either lower extremities. Neck: No JVD Chest/Pulm: on mech vent, good air entry bilaterally, no wheezing or crackles. CVS: S1-S2 regular, no murmur. Healed sternotomy scar, PPM noted GI/abdomen: soft, nontender, bowel sounds sluggish Extremities: warm bilaterally, bilateral pitting edema A/P Assessment and Plan 66-year-old male with: Altered mental status secondary to suspected posterior circulation stroke Basilar artery occlusion status post angiogram with attempted intra-arterial thrombolysis Left ICA occlusion on CTA CAD Ischemic cardiomyopathy Hypertension Edema History of pacemaker/ ICD Plan: Neuro: Patient evaluated by Dr. Solano from neurology. Underwent cerebral angiogram with intra-arterial TPA for basilar artery occlusion by interventional radiology. Defer anticoagulation/antiplatelet therapy to neurology. 2-D echo for stroke workup ordered. Started on heparin for full anticoagulation on 01/[address] Solano. Cardiovascular: Continue hemodynamic monitoring. Allow permissive hypertension in view of ischemic stroke. Will use labetalol when necessary for systolic blood pressure greater than 200 mmHg. we will initiate Lasix 20 mg IV every 12 hourly in view of edema to mobilize fluid. Follow-up 2-D echo. Pulmonary: Intubated for airway protection. Continue mechanical ventilation, vent bundle, bronchodilators. Awaiting neurologic improvement prior to initiating C Pap trials. GI/liver: Continue tube feeds and advance to goal as tolerated. Renal/: Gentle hydration, strict intake output, monitor and replete electrolytes, follow BUN/creatinine. Rabago catheterization. ID: Watch for fever. No antibiotics at this time. Heme: Follow CBC. Patient on anticoagulation with Eliquis previously. Will defer anticoagulation/antiplatelet therapy to Dr. Solano in view of posterior circulation stroke. Started on heparin drip on 01/[address] Solano for full anticoagulation Endocrine: Follow fingerstick glucose. SSI for glycemic control if needed Prophylaxis: Pepcid for GI prophylaxis, SCDs for DVT prophylaxis. Resumed anticoagulation with heparin. Condition critical Time spent on critical care excluding procedures 35 minutes. Osmani Gonzalez MD Feb 01, 2017 08:28
[2017-02-01] MEDS ORDERED: VANCOMYCIN INJ 1,450 MG in SODIUM CHLORID 0.9% 500 ML INJ 500 ML IV ONE (10:00)
[2017-02-01] MEDS ORDERED: levETIRAcetam 500MG PREMIX INJ 100 ML IV SCH (10:00)
[2017-02-01] MEDS: levETIRAcetam 500 MG/NS 100 ML IV SCH ×4 (11:08→18:04)
--- NOTE | 2017-02-01 11:57 | ECHRPT ---
Indication: cva work up, possible veg CONCLUSIONS Moderately dilated left ventricle. Wall thickness is normal. The left ventricular systolic function is severely reduced with an estimated ejection fraction less than 20%. There is diffuse global hypokinesis with distinct regional wall motion abnormalities. The right ventriclar size is upper limits of normal. The right ventricular systoilc function is severely decreased. The left atrial size is mildly dilated. Hmrnioel-me-tvaibg mitral valve regurgitation. Trace aortic valve regurgitation. There is estimated severe pulmonary hypertension present ( > 70 mmHg). There is severe tricuspid regurgitation. Mild pulmonary valve regurgitation. The inferior vena cava is dilated. BP: / HR: Rhythm: Sinus MEASUREMENTS (Male / Female) Normal Values Technical Quality:Good 2D ECHO LV Diastolic Diameter PLAX 7.3 cm 4.2 - 5.9 / 3.9 - 5.3 cm LV Systolic Diameter PLAX 6.8 cm IVS Diastolic Thickness 1.2 cm 0.6 - 1.0 / 0.6 - 0.9 cm LVPW Diastolic Thickness 0.7 cm 0.6 - 1.0 / 0.6 - 0.9 cm LV Relative Wall Thickness 0.3 RV Internal Dim ED PLAX 2.2 cm LA Systolic Diameter LX 4.7 cm 3.0 - 4.0 / 2.7 - 3.8 cm M-MODE Aortic Root Diameter MM 3.2 cm AV Cusp Separation MM 2.1 cm DOPPLER MR Peak Velocity 432.5 cm/s MR Peak Gradient 74.8 mmHg Mitral E Point Velocity 109.0 cm/s Mitral A Point Velocity 35.2 cm/s Mitral E to A Ratio 3.1 TR Peak Velocity 379.0 cm/s TR Peak Gradient 57.5 mmHg FINDINGS LEFT VENTRICLE Moderately dilated left ventricle. Wall thickness is normal. The left ventricular systolic function is severely reduced with an estimated ejection fraction less than 20%. There is diffuse global hypokinesis with distinct regional wall motion abnormalities. RIGHT VENTRICLE The right ventriclar size is upper limits of normal. The right ventricular systoilc function is severely decreased. LEFT ATRIUM The left atrial size is mildly dilated. RIGHT ATRIUM The right atrial size is normal. ATRIAL SEPTUM Normal atrial septal thickness without atrial level shunting by limited color doppler interrogation. AORTA The aortic root and proximal ascending aorta are normal in size on limited imaging. MITRAL VALVE Hmhwnzst-wv-ogegwq mitral valve regurgitation. AORTIC VALVE Trace aortic valve regurgitation. TRICUSPID VALVE There is estimated severe pulmonary hypertension present ( > 70 mmHg). There is severe tricuspid regurgitation. PULMONARY VALVE Mild pulmonary valve regurgitation. VESSELS The inferior vena cava is dilated. PERICARDIUM No pericardial effusion. Dillan Rodriguez MD (Electronically Signed) Final Date:01 February 2017 11:57
[2017-02-01 12:35] LABS: BACTERIA, URINE OCC /hpf; BLOOD, URINE SMALL (NEG); COMMENT (UR) CATH-CULTURE IND; CULTURE IF INDICATED CATH CULTURE IND; GLUCOSE,URINE NEG (NEG); HYALINE CAST, URINE 9 /lpf (RARE); KETONE, URINE NEG (NEG); MUCUS URINE FEW /lpf (OCC); NITRITE,URINE NEG (NEG); SQUAMOUS EPITHELIAL CELL URINE <1 /hpf (0-5); TRANSITIONAL EPI CELLS, URINE 1 /hpf; URINE COLOR YELLOW (YELLW/STRAW)
[2017-02-01 12:52] LABS: URIC ACID CRYSTALS, URINE RARE /hpf
--- NOTE | 2017-02-01 13:05 | EKG ---
Date Performed: 01/31/2017 Time Performed: 08:34:05 PTAGE: 66 years EKG: ELECTRONIC VENTRICULAR PACEMAKER ABNORMAL RHYTHM ECG NO PREVIOUS TRACING DOCTOR: Gavin Olson Interpretating Date/Time 02/01/2017 12:54:37
--- NOTE | 2017-02-01 13:27 | RADRPT ---
EXAM DATE/TIME: 02/01/2017 11:49 [facility] COMPARISON: No previous studies available for comparison. INDICATIONS : Right arm edema. MEDICAL HISTORY : Congestive heart failure. Hypercholesterolemia. Hypertension. CVA. SURGICAL HISTORY : CABG Pacemaker. Cardiac cath. ENCOUNTER: Initial ACUITY: 1 day PAIN SCORE: Non-responsive LOCATION: Right arm. FINDINGS: There is spontaneous flow documented in the brachial, basilic, cephalic, axillary, and subclavian vei ns. The vessels are compressible and augmentation response is documented. No filling defects are se en. The flow is phasic with respiration. Direction of flow in the jugular vein is caudal. CONCLUSION: 1. No evidence of deep venous thrombosis. Moses Juarez MD on February 01, 2017 at 13:25 Board Certified Radiologist. This report was verified electronically.
--- NOTE | 2017-02-01 15:05 | PD.CONS ---
History of Present Illness Service Infectious disease Consult Requested By Dr Nelson Gonzalez Reason for Consult Evaluate patient with positive blood culture Primary Care Physician Unknown Diagnoses: History of Present Illness Patient seen and examined. Records reviewed. Neck Patient is a 66-year-old male, resides in the intermediate, brought into the hospital for further evaluation of unresponsiveness. Patient was apparently agitated the night prior to admission, and he was given Xanax on the morning of admission. He gets when necessary Xanax for agitation, but normally he doesn't get it that often. Patient then was noted to be unresponsive, and EMS was called. He remained unresponsive, and he had some episodes of apnea. Ambu bag was done, and in the emergency room, he ended up getting intubated for airway protection. CT of the head did not show any bleed. He had more workup for his neurological event. He therefore went angiogram, and received TPA to the right vertebral artery. There were 2 blood cultures done in the emergency room. The time for both blood cultures are the same, and it looks like might be from the same venipuncture. One of the blood culture has staph epidermidis, and a second blood culture has gram-positive cocci in pairs and clusters. He is afebrile. Highest temperature is 99.8. He is currently sedated on the vent. His WBC is normal. His creatinine is slightly elevated. Chest x-ray is showing evidence of cardiomegaly, and congestive heart failure, bilateral effusions. Infectious disease consultation has been requested to evaluate the patient with positive blood culture. Review of Systems ROS Limitations: Clinical Condition, Intubated Past Family Social History Allergies: Coded Allergies: hydrochlorothiazide (Verified Allergy, Severe, Edema, 01/31/17) atorvastatin (Verified Allergy, Unknown, 01/31/17) morphine (Verified Allergy, Unknown, 01/31/17) MRI PRECAUTION (Verified Adverse Reaction, Severe, NON COMPATIBLE PACEMAKER. LRS 01/31/17, 01/31/17) Past Medical History Hypertension Hyperlipidemia CHF CAD Previous CVA Past Surgical History CABG Pacer/AICD Has midline abdominal scar, surgery done not known Active Ordered Medications Tylenol Albuterol Pepcid Lasix Heparin Keppra Diprivan Vanco x 1 dose Family History Not known Social History Came from [place] No smoking No ETOH abuse No illicit drugs Physical Exam Vital Signs Vital Signs Date Time Temp Pulse Resp B/P (MAP) Pulse Ox O2 Delivery O2 Flow Rate FiO2 02/01/17 14:00 69 02/01/17 12:00 99.8 70 12 100 114/74 (87) 02/01/17 12:00 79 02/01/17 12:00 40 02/01/17 11:51 92 40 02/01/17 10:00 71 02/01/17 09:40 100 40 02/01/17 09:37 40 02/01/17 08:30 40 02/01/17 08:14 100 40 02/01/17 08:14 40 02/01/17 08:00 65 02/01/17 08:00 40 02/01/17 08:00 98.2 65 12 100 100/70 (80) 02/01/17 07:00 100 Mechanical Ventilator 40 02/01/17 06:00 69 02/01/17 04:15 100 40 02/01/17 04:00 40 02/01/17 04:00 69 02/01/17 04:00 97.5 69 12 100/73 (82) 100 106/78 (87) 02/01/17 02:00 69 02/01/17 01:36 100 40 02/01/17 00:00 69 02/01/17 00:00 40 02/01/17 00:00 98.6 72 12 115/76 (89) 100 01/31/17 22:52 100 40 01/31/17 22:00 70 01/31/17 20:21 100 40 01/31/17 20:00 69 01/31/17 20:00 97.4 69 12 111/78 (89) 100 100/77 (85) 01/31/17 20:00 40 01/31/17 19:00 Mechanical Ventilator 40 01/31/17 18:00 72 01/31/17 17:13 100 40 01/31/17 16:00 40 01/31/17 16:00 97.7 68 12 100 118/82 (94) 01/31/17 16:00 100 100 01/31/17 16:00 66 Physical Exam GENERAL: Patient is a thin, well-developed male, sedated on the vent, not in respiratory distress. SKIN: Warm and dry. No generalized rash, no ecchymoses and no evidence of embolic lesions. HEAD: Atraumatic. Normocephalic. No temporal wasting, or tenderness. EYES: [place] conjunctiva. No petechia or hemorrhage. Pupils equal, round, pinpoint. Has dirty sclera. No injection or drainage. EARS, NOSE AND THROAT: Nose without bleeding or purulent nasal discharge. Edentulous, he is orally intubated. NECK: Trachea midline. Supple and not tender, no meningeal signs CARDIOVASCULAR: Regular rate and rhythm. No murmurs, rubs or gallops heard. No rub. Pacer/AICD L upper chest with no evidence of infection RESPIRATORY: Coarse breath sounds equal bilaterally. No rales, wheezing or rhonchi. Decreased at bases. ABDOMEN: Soft, nondistended, no reaction to deep palpation. Bowel sounds present and normoactive. No organomegaly. : Rabago in place, scrotum swollen EXTREMITIES: No clubbing, cyanosis, has bilateral pitting pedal edema. Cool feet NEUROLOGICAL: Sedated. No Babinski PSYCHIATRIC: Unable to assess LINE: No evidence of infection Laboratory Laboratory Tests Test 01/31/17 17:25 01/31/17 20:50 02/01/17 00:15 02/01/17 06:10 White Blood Count 5.2 7.5 Red Blood Count 4.69 4.67 Hemoglobin 12.3 12.4 Hematocrit 38.5 38.5 Mean Corpuscular Volume 82.0 82.5 Mean Corpuscular Hemoglobin 26.2 26.7 Mean Corpuscular Hemoglobin Concent 32.0 32.3 Red Cell Distribution Width 23.4 23.6 Platelet Count 291 270 Mean Platelet Volume 8.3 8.0 Prothrombin Time 12.8 Prothromb Time International Ratio 1.2 Activated Partial Thromboplast Time 28.5 28.2 Nasal Screen MRSA (PCR) MRSA DETECTED Lactic Acid Level 1.4 Neutrophils (%) (Auto) 86.5 Lymphocytes (%) (Auto) 3.7 Monocytes (%) (Auto) 8.4 Eosinophils (%) (Auto) 0.4 Basophils (%) (Auto) 1.0 Neutrophils # (Auto) 6.5 Lymphocytes # (Auto) 0.3 Monocytes # (Auto) 0.6 Eosinophils # (Auto) 0.0 Basophils # (Auto) 0.1 CBC Comment DIFF FINAL Differential Comment Blood Urea Nitrogen 33 Creatinine 1.45 Random Glucose 109 Total Protein 5.7 Albumin 2.6 Calcium Level 7.5 Alkaline Phosphatase 166 Aspartate Amino Transf (AST/SGOT) 19 Alanine Aminotransferase (ALT/SGPT) 20 Total Bilirubin 1.0 Sodium Level 137 Potassium Level 4.4 Chloride Level 102 Carbon Dioxide Level 27.0 Anion Gap 8 Estimat Glomerular Filtration Rate 59 Test 02/01/17 07:05 02/01/17 11:30 02/01/17 13:05 Activated Partial Thromboplast Time 27.3 53.0 Urine Color YELLOW Urine Turbidity HAZY Urine pH 5.0 Urine Specific [place] 1.020 Urine Protein TRACE Urine Glucose (UA) NEG Urine Ketones NEG Urine Occult Blood SMALL Urine Nitrite NEG Urine Bilirubin NEG Urine Urobilinogen LESS THAN 2.0 Urine Leukocyte Esterase MOD Urine RBC 13 Urine WBC 4 Urine Squamous Epithelial Cells <1 Urine Transitional Epithelial Cells 1 Urine Calcium Oxalate Crystals Urine Uric Acid Crystals RARE Urine Bacteria OCC Urine Hyaline Casts 9 Urine Mucus FEW Microscopic Urinalysis Comment CATH-CULTURE IND Date/Time Source Procedure Growth Status 01/31/17 08:15 Blood Peripheral Aerobic Blood Culture - Preliminary NO GROWTH IN 1 DAY Resulted 01/31/17 08:15 Anaerobic Blood Culture - Preliminary Gram Positive Cocci Resulted 02/01/17 11:15 Sputum Endotracheal Gram Stain Pending Received 02/01/17 11:15 Sputum Endotracheal Sputum Culture Pending Received 02/01/17 11:30 Urine Catheterized Urine Urine Culture Pending Received Result Diagram: 02/01/17 0610 02/01/17 0610 Imaging RADIOLOGY STUDIES/FILMS REVIEWED Upper Extremity Ultrasound 02/01/17 0000 Signed Impressions: Service Date/Time: January 11:49 - CONCLUSION: 1. No evidence of deep venous thrombosis. Moses Juarez MD Head CT 01/31/17808 Signed Impressions: Service Date/Time: Tuesday, January 31, 2017 08:16 - CONCLUSION: Hypodensity left parietal-occipital mid convexity region suggesting infarction or encephalomalacia. No evidence of hemorrhage. Cannot exclude an acute process. May consider further characterization with MRI. Wilber Alfaro MD Chest X-Ray 01/31/17808 Signed Impressions: Service Date/Time: Tuesday, January 31, 2017 13:03 - CONCLUSION: 1. Cardiomegaly with findings of failure and bilateral effusions. 2. Stable postsurgical changes. Russ Joseph MD Neck CTA 01/31/17 0000 Signed Impressions: Service Date/Time: Tuesday, January 31, 2017 08:57 - CONCLUSION: 1. 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 2. String-like contrast in the left vertebral artery Wilber Alfaro MD Head CTA 01/31/17 0000 Signed Impressions: Service Date/Time: Tuesday, January 31, 2017 08:57 - CONCLUSION: Absent flow in the left internal carotid artery with reconstitution of flow in the A2 segment. There is some flow seen in the left sylvian branches of the middle cerebral artery, but the degree of vessel opacification on the left is less than on the right. Wilber Alfaro MD Cerebral Arteriogram 01/31/17 0000 Signed Impressions: Service Date/Time: Tuesday, January 31, 2017 00:00 - CONCLUSION: 1. Patient appears to have had a thrombotic or embolic event to the vertebral basilar system. The left vertebral is highly diseased throughout its course and appears to occlude just proximal to the basilar. Unable to traverse the highly diseased vessel for intervention. 2. The right vertebral is robust proximally but appears to terminate in a PICA branch with a irregular terminal vessel possibly representing the distal vertebral and proximal basilar. This appears to be chronically occluded. Russ Joseph MD Assessment and Plan Assessment and Plan IMPRESSION (+) BC, from same venipuncture, ?significance - no fever, WBC normal - echo ok - has Pacer/defib Recurrent CVA, S/P thrombolytic Rx Respiratory failure Cardiomyopathy, CXR with CHF, rell effusions Renal insufficiency RECOMMENDATION Will order repeat BC Continue IV Vanco - pharm doing dosing Follow C/S MOnitor progress I will determine course of Rx depending on his progress and results of wokr-up I will follow along with you Thank you for this consultation Discussed Condition With D/W RN Annia Simons MD Feb 01, 2017 15:05
[2017-02-01] MEDS: HEPARIN-D5W 25,000 U/250 ML 250 ML IV SCH (15:06)
--- NOTE | 2017-02-01 15:07 | HHI.PR ---
Review/Management Diagnosis severe intracranial atherosclerosis. 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 Unable to do MRI Plan continue iv heparin. Will require superintendent terminal anticoagulation. Diagnosis/Plan: Subjective Subjective Comments No acute events reported Active Medications Current Medications Medications (Trade) Dose Ordered Sig/Wilbur Route Start Time Stop Time Status Last Admin Sodium Chloride 1,000 ml @ 50 mls/hr Q20H IV 01/31/17 13:00 02/01/17 08:12 (NS Flush) 2 ml UNSCH PRN IV FLUSH 01/31/17 13:15 (NS Flush) 2 ml BID IV FLUSH 01/31/17 21:00 02/01/17 08:12 (Tylenol) 650 mg Q6H PRN PO 01/31/17 13:15 (Duoneb Neb) 1 ampule Q6HR NEB NEB 01/31/17 16:00 02/01/17 08:20 (Duoneb Neb) 1 ampule Q4HR NEB PRN INH 01/31/17 13:15 (Peridex 0.12% Liq) 15 ml BID@08,20 MT 01/31/17 20:00 02/01/17 08:12 (Pepcid) 20 mg BID TUBE 01/31/17 21:00 02/01/17 08:12 Miscellaneous Information 1 Q361D XX 01/31/17 13:15 01/31/17 13:15 (Chlorhexidine 2% Cloth) 3 pack Taper DAILY@04 TOP 02/01/17 04:00 01/28/18 03:59 02/01/17 04:00 (Chlorhexidine 2% Cloth) 3 pack UNSCH PRN TOP 01/31/17 13:15 Propofol 100 ml @ 19.8 mls/hr TITRATE PRN IV 01/31/17 13:30 02/01/17 06:41 Heparin Sodium/ Dextrose 250 ml @ 0 mls/hr TITRATE IV 01/31/17 17:00 01/31/17 18:21 (Lasix Inj) 20 mg Q12H IV PUSH 02/01/17 20:00 Levetriacetam 500 mg/Sodium Chloride 105 ml @ 420 mls/hr Q8H IV 02/01/17 11:00 02/01/17 11:08 Allergies Allergies Coded Allergies hydrochlorothiazide (Verified Allergy, Severe, Edema, 01/31/17) atorvastatin (Verified Allergy, Unknown, 01/31/17) morphine (Verified Allergy, Unknown, 01/31/17) MRI PRECAUTION (Verified Adverse Reaction, Severe, NON COMPATIBLE PACEMAKER. LRS 01/31/17, 01/31/17) Exam I&O / VS 02/01/17 02/01/17 02/02/17 14:59 22:59 06:59 Intake Total 105 ml Balance 105 ml Intake IV Total 105 ml Vital Signs Date Time Temp Pulse Resp B/P (MAP) Pulse Ox O2 Delivery O2 Flow Rate FiO2 02/01/17 14:00 69 02/01/17 12:00 99.8 70 12 100 114/74 (87) 02/01/17 12:00 79 02/01/17 12:00 40 02/01/17 11:51 92 40 02/01/17 10:00 71 02/01/17 09:40 100 40 02/01/17 09:37 40 02/01/17 08:30 40 02/01/17 08:14 100 40 02/01/17 08:14 40 02/01/17 08:00 65 02/01/17 08:00 40 02/01/17 08:00 98.2 65 12 100 100/70 (80) 02/01/17 07:00 100 Mechanical Ventilator 40 02/01/17 06:00 69 02/01/17 04:15 100 40 02/01/17 04:00 40 02/01/17 04:00 69 02/01/17 04:00 97.5 69 12 100/73 (82) 100 106/78 (87) 02/01/17 02:00 69 02/01/17 01:36 100 40 02/01/17 00:00 69 02/01/17 00:00 40 02/01/17 00:00 98.6 72 12 115/76 (89) 100 01/31/17 22:52 100 40 01/31/17 22:00 70 01/31/17 20:21 100 40 01/31/17 20:00 69 01/31/17 20:00 97.4 69 12 111/78 (89) 100 100/77 (85) 01/31/17 20:00 40 01/31/17 19:00 Mechanical Ventilator 40 01/31/17 18:00 72 01/31/17 17:13 100 40 01/31/17 16:00 40 01/31/17 16:00 97.7 68 12 100 118/82 (94) 01/31/17 16:00 100 100 01/31/17 16:00 68 Exam Comments nonresponsive pupils 1 mm bilateral and sluggishly reactive no spontaneous limb movement Objective Radiology Results CT--possible left parietal cva, no hemorrhage. Micro and Labs Laboratory Tests Test 01/31/17 17:25 01/31/17 20:50 02/01/17 00:15 02/01/17 06:10 White Blood Count 5.2 7.5 Red Blood Count 4.69 4.67 Hemoglobin 12.3 12.4 Hematocrit 38.5 38.5 Mean Corpuscular Volume 82.0 82.5 Mean Corpuscular Hemoglobin 26.2 26.7 Mean Corpuscular Hemoglobin Concent 32.0 32.3 Red Cell Distribution Width 23.4 23.6 Platelet Count 291 270 Mean Platelet Volume 8.3 8.0 Prothrombin Time 12.8 Prothromb Time International Ratio 1.2 Activated Partial Thromboplast Time 28.5 28.2 Nasal Screen MRSA (PCR) MRSA DETECTED Lactic Acid Level 1.4 Neutrophils (%) (Auto) 86.5 Lymphocytes (%) (Auto) 3.7 Monocytes (%) (Auto) 8.4 Eosinophils (%) (Auto) 0.4 Basophils (%) (Auto) 1.0 Neutrophils # (Auto) 6.5 Lymphocytes # (Auto) 0.3 Monocytes # (Auto) 0.6 Eosinophils # (Auto) 0.0 Basophils # (Auto) 0.1 CBC Comment DIFF FINAL Differential Comment Blood Urea Nitrogen 33 Creatinine 1.45 Random Glucose 109 Total Protein 5.7 Albumin 2.6 Calcium Level 7.5 Alkaline Phosphatase 166 Aspartate Amino Transf (AST/SGOT) 19 Alanine Aminotransferase (ALT/SGPT) 20 Total Bilirubin 1.0 Sodium Level 137 Potassium Level 4.4 Chloride Level 102 Carbon Dioxide Level 27.0 Anion Gap 8 Estimat Glomerular Filtration Rate 59 Test 02/01/17 07:05 02/01/17 11:30 02/01/17 13:05 Activated Partial Thromboplast Time 27.3 53.0 Urine Color YELLOW Urine Turbidity HAZY Urine pH 5.0 Urine Specific [place] 1.020 Urine Protein TRACE Urine Glucose (UA) NEG Urine Ketones NEG Urine Occult Blood SMALL Urine Nitrite NEG Urine Bilirubin NEG Urine Urobilinogen LESS THAN 2.0 Urine Leukocyte Esterase MOD Urine RBC 13 Urine WBC 4 Urine Squamous Epithelial Cells <1 Urine Transitional Epithelial Cells 1 Urine Calcium Oxalate Crystals Urine Uric Acid Crystals RARE Urine Bacteria OCC Urine Hyaline Casts 9 Urine Mucus FEW Microscopic Urinalysis Comment CATH-CULTURE IND Date/Time Source Procedure Growth Status 01/31/17 08:15 Blood Peripheral Aerobic Blood Culture - Preliminary NO GROWTH IN 1 DAY Resulted 01/31/17 08:15 Anaerobic Blood Culture - Preliminary Gram Positive Cocci Resulted 02/01/17 11:15 Sputum Endotracheal Gram Stain Pending Received 02/01/17 11:15 Sputum Endotracheal Sputum Culture Pending Received 02/01/17 11:30 Urine Catheterized Urine Urine Culture Pending Received Minh Solano PhD MD Feb 01, 2017 15:07
--- NOTE | 2017-02-01 15:27 | MG ---
cc: ARTEMIO LEMUS MD Lab No: [id number] Date: 02/01/2017 Age: Sex: M Race: DATE OF : 1950 HISTORY: 66-year-old history of mental status changes, agitation, unresponsive. PROCEDURE: 3-6 Hz activity, 20-50 microvolts occurring in generalized fashion. EEG variability reactivity noted. Mild spindles noted as well. Limited driving with photic stimulation. Single lead EKG showing sinus rhythm. Mild to moderate encephalopathy. Clinical correlation Recommended. Artemio Lemus MD MG/vishnu /2:45 PM /2:56 PM
[2017-02-01 18:59] LABS: APTT (PATIENT) 95.4 SEC (24.3-30.1)
[2017-02-01] MEDS: FUROSEMIDE 20 MG/2 ML VIAL IV PUSH SCH (21:08)
[2017-02-01 23:33] LABS: APTT (PATIENT) 33.4 SEC (24.3-30.1)
[2017-02-02] VITALS (19 sets, daily range): BP systolic 91–118; BP diastolic 59–76; PULSE 68–73; RESP 12–26; TEMP 97.6–99.4; O2SAT 0–100
[2017-02-02] MEDS: levETIRAcetam 500 MG/NS 100 ML IV SCH ×6 (02:25→19:31)
[2017-02-02] MEDS: RESP: ALBUTEROL 2.5 MG/IPRATROPIUM 0.5 MG NEB (SCH) NEB ×4 (02:48→21:10)
[2017-02-02] MEDS: CHLORHEXIDINE GLUCONATE 2 % 1 PACK (2 CLOTHS) TOP SCH (04:00)
[2017-02-02] MEDS: PROPOFOL 1000 MG/100 ML IV PRN (05:03)
[2017-02-02] MEDS: SODIUM CHLOR 0.9% 1000 ML INJ 1,000 ML IV SCH (05:03)
[2017-02-02 05:46] LABS: APTT (PATIENT) 54.8 SEC (24.3-30.1)
[2017-02-02] MEDS: CHLORHEXIDINE 0.12% (ORAL KIT) 15 ML CUP MT SCH ×2 (08:19→20:18)
[2017-02-02] MEDS: FUROSEMIDE 20 MG/2 ML VIAL IV PUSH SCH ×2 (08:22→20:18)
[2017-02-02] MEDS: MUPIROCIN 2% OINT 1 APPLIC/GM SYR NASAL SCH ×2 (08:22→20:18)
[2017-02-02] MEDS: SODIUM CHLORIDE 0.9% FLUSH 10 ML FLUSH IV FLUSH SCH ×2 (08:22→20:18)
[2017-02-02] MEDS: FAMOTIDINE 20 MG TAB TUBE SCH ×2 (08:22→20:18)
[2017-02-02] MEDS ORDERED: DEXTROSE 50% IN WATER 50 ML SYRINGE IV ONE ×2 (12:15→13:00)
[2017-02-02 12:17] LABS: HEMATOCRIT 39.6 % (39.0-51.0); MEAN CELL VOLUME 82.4 FL (80.0-100.0); MEAN CORPUSCULAR HEMOGLOBIN 26.9 PG (27.0-34.0); MEAN CORPUSCULAR HGB CONC 32.7 % (32.0-36.0); PLATELET COUNT 208 TH/MM3 (150-450); RED CELL DISTRIBUTION WIDTH 23.5 % (11.6-17.2); REVIEW FLAG FINAL; WHITE BLOOD COUNT 8.5 TH/MM3 (4.0-11.0)
--- NOTE | 2017-02-02 12:36 | HHI.CCPN ---
Subjective Remarks/Hospital Course 01/31: This 66-year-old man who presents to the emergency department via EMS for altered mental status. History is a little bit unclear. It sounds like he was agitated overnight so they gave him Xanax this morning. Speaking with the nurse there, Yesica Earl, patient gets Xanax periodically but not every day. It's not a new dose for him. Subsequently he became unresponsive. Per EMS report he normally has a GCS of 14 but cannot walk. For them he was not talking at all, and stopped breathing for a period of time in the ambulance and required [id number] ventilation. They were bagging him on presentation to the ED. patient underwent CT head which was negative for bleed. He was evaluated by Dr. 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 On propofol 75 mics per kg/min. moving both upper extremities and left lower extremity on lightening sedation per nursing staff. Has chronically weak right lower extremity per family. Currently on heparin drip for full anticoagulation. 02/02: Sedated, orally intubated on mechanical ventilation this morning at the time of my evaluation. Being diuresed with Lasix. 2-D echo with LVEF 20% and severe MR. Hypoglycemia today despite tube feeds for which he was given D50 and cortisol level being checked. Objective Vital Signs Date Time Temp Pulse Resp B/P (MAP) Pulse Ox O2 Delivery O2 Flow Rate FiO2 02/02/17 12:00 69 02/02/17 12:00 40 02/02/17 11:05 0 02/02/17 08:00 97.6 12 110/74 (86) 02/02/17 07:00 Mechanical Ventilator 01/31/17 08:39 15.00 Intake and Output 02/02/17 02/02/17 02/03/17 08:00 16:00 00:00 Intake Total 1898 ml 105 ml Output Total 800 ml Balance 1098 ml 105 ml Result Diagram: 02/01/17 0610 02/01/17 0610 Other Results Microbiology Date/Time Source Procedure Growth Status 01/31/17 14:00 Urine Catheterized Urine Urine Culture - Final NO GROWTH IN 48 HOURS. Complete Imaging Last Impressions Head CT 01/31/17 0809 Signed Impressions: Service Date/Time: Tuesday, January 31, 2017 08:16 - CONCLUSION: Hypodensity left parietal-occipital mid convexity region suggesting infarction or encephalomalacia. No evidence of hemorrhage. Cannot exclude an acute process. May consider further characterization with MRI. Wilber Alfaro MD Neck CTA 01/31/17 0000 Signed Impressions: Service Date/Time: Tuesday, January 31, 2017 08:57 - CONCLUSION: 1. 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 2. String-like contrast in the left vertebral artery Wilber Alfaro MD Head CTA 01/31/17 0000 Signed Impressions: Service Date/Time: Tuesday, January 31, 2017 08:57 - CONCLUSION: Absent flow in the left internal carotid artery with reconstitution of flow in the A2 segment. There is some flow seen in the left sylvian branches of the middle cerebral artery, but the degree of vessel opacification on the left is less than on the right. Wilber Alfaro MD Objective Remarks HEENT/ Neuro: Sedated, orally intubated, Pallor present, no icterus, tongue/ mucosa moist. Pupils 2 mm bilaterally constricted, reactive, not moving either lower extremities. Neck: No JVD Chest/Pulm: on mech vent, good air entry bilaterally, no wheezing or crackles. CVS: S1-S2 regular, no murmur. Healed sternotomy scar, PPM noted GI/abdomen: soft, nontender, bowel sounds sluggish Extremities: warm bilaterally, bilateral pitting edema Urinary Catheter: Yes Assessment to: Continue A/P Assessment and Plan 66-year-old male with: Altered mental status secondary to suspected posterior circulation stroke Basilar artery occlusion status post angiogram with attempted intra-arterial thrombolysis Left ICA occlusion on CTA Hypoglycemia CAD Ischemic cardiomyopathy Hypertension Edema History of pacemaker/ ICD Plan: Neuro: Patient evaluated by Dr. Solano from neurology. Underwent cerebral angiogram with intra-arterial TPA for basilar artery occlusion by interventional radiology. Defer anticoagulation/antiplatelet therapy to neurology. 2-D echo for stroke workup ordered. Started on heparin for full anticoagulation on 01/[address] Solano. Cardiovascular: Continue hemodynamic monitoring. Allow permissive hypertension in view of ischemic stroke. Will use labetalol when necessary for systolic blood pressure greater than 200 mmHg. continue Lasix 20 mg IV every 12 hourly in view of edema to mobilize fluid. 2-D echo with LVEF 20% and severe MR Pulmonary: Intubated for airway protection. Continue mechanical ventilation, vent bundle, bronchodilators. Daily C Pap trials. GI/liver: Continue tube feeds and advance to goal as tolerated. Renal/: KVO IV fluids, strict intake output, monitor and replete electrolytes , follow BUN/creatinine. Rabago catheterization. Diurese with Lasix ID: Watch for fever. No antibiotics at this time. Heme: Follow CBC. Patient on anticoagulation with Eliquis previously. Will defer anticoagulation/antiplatelet therapy to Dr. Solano in view of posterior circulation stroke. Started on heparin drip on 01/[address] Solano for full anticoagulation Endocrine: Follow fingerstick glucose. Hypoglycemia noted. Given D50 50 cc IV 2 on 02/02. Cortisol level ordered to evaluate for adrenal insufficiency. Prophylaxis: Pepcid for GI prophylaxis, SCDs for DVT prophylaxis. Resumed anticoagulation with heparin. Extensive discussion with patient's daughter regarding current clinical status and plan of care and she voiced understanding and was agreeable. Condition critical Time spent on critical care excluding procedures 35 minutes. Osmani Gonzalez MD Feb 02, 2017 12:36
[2017-02-02 12:39] LABS: BICARBONATE 27.2 MEQ/L (21.0-32.0); POTASSIUM 3.6 MEQ/L (3.5-5.1); TOTAL BILIRUBIN ADULT 1.2 MG/DL (0.2-1.0)
[2017-02-02] MEDS: SODIUM CHLORIDE 23.4% INJ 77 MEQ in DEXTROSE 10% INJ 1,000 ML IV SCH (13:40)
[2017-02-02] MEDS: HEPARIN-D5W 25,000 U/250 ML 250 ML IV SCH (13:54)
[2017-02-02] MEDS ORDERED: VANCOMYCIN INJ 1,500 MG in SODIUM CHLORID 0.9% 500 ML INJ 500 ML IV ONE (15:30)
[2017-02-02] MEDS ORDERED: Vancomycin Consult Pharmacy 1 EA OTHER SCH (15:30)
--- NOTE | 2017-02-02 15:41 | HHI.IDPN ---
Subjective Subjective Remarks Patient is a 66-year-old male, [facility], brought into the hospital for further evaluation of unresponsiveness. Patient was apparently agitated the night prior to admission, and he was given Xanax on the morning of admission. He gets when necessary Xanax for agitation, but normally he doesn't get it that often. Patient then was noted to be unresponsive, and EMS was called. He remained unresponsive, and he had some episodes of apnea. Ambu bag was done, and in the emergency room, he ended up getting intubated for airway protection. CT of the head did not show any bleed. He had more workup for his neurological event. He therefore went angiogram, and received TPA to the right vertebral artery. There were 2 blood cultures done in the emergency room. The time for both blood coast for the same, and it looks like might be from the same venipuncture. One of the blood culture has staph epidermidis, and a second blood culture has gram-positive cocci in pairs and clusters. He is afebrile. Highest temperature is 99.8. He is currently sedated on the vent. His WBC is normal. His creatinine is slightly elevated. Chest x-ray is showing evidence of cardiomegaly, and congestive heart failure, bilateral effusions. Infectious disease consultation has been requested to evaluate the patient with positive blood culture. Notes reviewed D/W Rn Temps ok Has been off sedation, no response On the vent BP ok Antibiotics Vancomycin Past Medical History Hypertension Hyperlipidemia CHF CAD Previous CVA Past Surgical History CABG Pacer/AICD Has midline abdominal scar, surgery done not known Allergies: Coded Allergies: hydrochlorothiazide (Verified Allergy, Severe, Edema, 01/31/17) atorvastatin (Verified Allergy, Unknown, 01/31/17) morphine (Verified Allergy, Unknown, 01/31/17) MRI PRECAUTION (Verified Adverse Reaction, Severe, NON COMPATIBLE PACEMAKER. LRS 01/31/17, 01/31/17) Objective . Vital Signs Date Time Temp Pulse Resp B/P (MAP) Pulse Ox O2 Delivery O2 Flow Rate FiO2 02/02/17 15:27 40 02/02/17 15:26 99 40 02/02/17 14:00 73 02/02/17 12:00 69 02/02/17 12:00 40 02/02/17 12:00 99.2 68 14 100 110/72 (85) 02/02/17 11:05 0 40 02/02/17 10:00 69 02/02/17 08:46 0 40 02/02/17 08:46 40 02/02/17 08:30 40 02/02/17 08:00 40 02/02/17 08:00 97.6 68 12 100 110/74 (86) 02/02/17 08:00 73 02/02/17 07:00 100 Mechanical Ventilator 40 02/02/17 06:00 71 02/02/17 05:00 40 02/02/17 04:09 100 40 02/02/17 04:00 99.1 70 12 98 114/76 (89) 02/02/17 04:00 70 02/02/17 02:00 71 02/02/17 01:19 100 40 02/02/17 00:00 70 02/02/17 00:00 40 02/02/17 00:00 98.6 70 26 100 91/60 (70) 02/01/17 22:17 100 40 02/01/17 22:00 74 02/01/17 20:00 98.9 69 12 100 103/76 (85) 02/01/17 20:00 69 02/01/17 20:00 40 02/01/17 19:40 100 40 02/01/17 19:00 Mechanical Ventilator 40 02/01/17 18:00 70 02/01/17 16:00 69 02/01/17 16:00 40 02/01/17 16:00 99.0 68 12 100 108/78 (88) 02/01/17 15:56 98 40 02/02/17 02/02/17 02/03/17 15:00 23:00 07:00 Intake Total 536 ml Balance 536 ml Intake IV Total 536 ml . Laboratory Tests Test 01/31/17 17:25 02/01/17 06:10 02/02/17 11:52 White Blood Count 5.2 TH/MM3 7.5 TH/MM3 8.5 TH/MM3 Red Blood Count 4.69 MIL/MM3 4.67 MIL/MM3 4.80 MIL/MM3 Hemoglobin 12.3 GM/DL 12.4 GM/DL 12.9 GM/DL Hematocrit 38.5 % 38.5 % 39.6 % Mean Corpuscular Volume 82.0 FL 82.5 FL 82.4 FL Mean Corpuscular Hemoglobin 26.2 PG 26.7 PG 26.9 PG Mean Corpuscular Hemoglobin Concent 32.0 % 32.3 % 32.7 % Red Cell Distribution Width 23.4 % 23.6 % 23.5 % Platelet Count 291 TH/MM3 270 TH/MM3 208 TH/MM3 Mean Platelet Volume 8.3 FL 8.0 FL 8.2 FL Neutrophils (%) (Auto) 86.5 % Lymphocytes (%) (Auto) 3.7 % Monocytes (%) (Auto) 8.4 % Eosinophils (%) (Auto) 0.4 % Basophils (%) (Auto) 1.0 % Neutrophils # (Auto) 6.5 TH/MM3 Lymphocytes # (Auto) 0.3 TH/MM3 Monocytes # (Auto) 0.6 TH/MM3 Eosinophils # (Auto) 0.0 TH/MM3 Basophils # (Auto) 0.1 TH/MM3 CBC Comment DIFF FINAL Differential Comment Laboratory Tests Test 01/31/17 20:50 02/01/17 06:10 02/02/17 11:52 02/02/17 12:20 Lactic Acid Level 1.4 mmol/L Blood Urea Nitrogen 33 MG/DL 24 MG/DL Creatinine 1.45 MG/DL 1.01 MG/DL Random Glucose 109 MG/DL 109 MG/DL Total Protein 5.7 GM/DL 5.8 GM/DL Albumin 2.6 GM/DL 2.4 GM/DL Calcium Level 7.5 MG/DL 7.3 MG/DL Alkaline Phosphatase 166 U/L 171 U/L Aspartate Amino Transf (AST/SGOT) 19 U/L 16 U/L Alanine Aminotransferase (ALT/SGPT) 20 U/L 19 U/L Total Bilirubin 1.0 MG/DL 1.2 MG/DL Sodium Level 137 MEQ/L 139 MEQ/L Potassium Level 4.4 MEQ/L 3.6 MEQ/L Chloride Level 102 MEQ/L 104 MEQ/L Carbon Dioxide Level 27.0 MEQ/L 27.2 MEQ/L Anion Gap 8 MEQ/L 8 MEQ/L Estimat Glomerular Filtration Rate 59 ML/MIN 89 ML/MIN Protein Corrected Calcium 8.0 MG/DL Random Cortisol 29.2 MCG/DL Microbiology Date/Time Source Procedure Growth Status 02/01/17 21:03 Blood Peripheral Aerobic Blood Culture - Preliminary NO GROWTH IN 1 DAY Resulted 02/01/17 21:03 Blood Peripheral Anaerobic Blood Culture - Preliminary NO GROWTH IN 1 DAY Resulted 01/31/17 08:15 Blood Peripheral Aerobic Blood Culture - Preliminary Gram Positive Cocci Resulted 01/31/17 08:15 Anaerobic Blood Culture - Preliminary Staph Sp Coagulase Negative Resulted 01/31/17 08:15 Blood Peripheral Aerobic Blood Culture - Preliminary Gram Positive Cocci Resulted 01/31/17 08:15 Anaerobic Blood Culture - Preliminary Staphylococcus Epidermidis Resulted 02/01/17 11:15 Sputum Endotracheal Gram Stain - Final Resulted 02/01/17 11:15 Sputum Culture - Preliminary Staph Sp Coagulase Positive Resulted 02/01/17 11:30 Urine Catheterized Urine Urine Culture - Preliminary NO GROWTH IN 24 HOURS. Resulted 01/31/17 14:00 Urine Catheterized Urine Urine Culture - Final NO GROWTH IN 48 HOURS. Complete Imaging Last Impressions Upper Extremity Ultrasound 02/01/17 Signed Impressions: Service Date/Time: January 11:49 - CONCLUSION: 1. No evidence of deep venous thrombosis. Moses Juarez MD Head CT [id number]/[id number] Signed Impressions: Service Date/Time: Tuesday, January 31, 2017 08:16 - CONCLUSION: Hypodensity left parietal-occipital mid convexity region suggesting infarction or encephalomalacia. No evidence of hemorrhage. Cannot exclude an acute process. May consider further characterization with MRI. Wilber Alfaro MD Chest X-Ray [id number] Signed Impressions: Service Date/Time: Tuesday, January 31, 2017 13:03 - CONCLUSION: 1. Cardiomegaly with findings of failure and bilateral effusions. 2. Stable postsurgical changes. Russ Joseph MD Neck CTA 01/31/17 Signed Impressions: Service Date/Time: Tuesday, January 31, 2017 08:57 - CONCLUSION: 1. 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 2. String-like contrast in the left vertebral artery Wilber Alfaro MD Head CTA 01/31/17 Signed Impressions: Service Date/Time: Tuesday, January 31, 2017 08:57 - CONCLUSION: Absent flow in the left internal carotid artery with reconstitution of flow in the A2 segment. There is some flow seen in the left sylvian branches of the middle cerebral artery, but the degree of vessel opacification on the left is less than on the right. Wilber Alfaro MD Cerebral Arteriogram 01/31/17 0000 Signed Impressions: Service Date/Time: Tuesday, January 31, 2017 00:00 - CONCLUSION: 1. Patient appears to have had a thrombotic or embolic event to the vertebral basilar system. The left vertebral is highly diseased throughout its course and appears to occlude just proximal to the basilar. Unable to traverse the highly diseased vessel for intervention. 2. The right vertebral is robust proximally but appears to terminate in a PICA branch with a irregular terminal vessel possibly representing the distal vertebral and proximal basilar. This appears to be chronically occluded. Russ Joseph MD Physical Exam GENERAL: Off sedation, not responding, on the vent, not in respiratory distress. SKIN: Warm and dry. No generalized rash, no ecchymoses and no evidence of embolic lesions. HEAD: Atraumatic. Normocephalic. No temporal wasting, or tenderness. EYES: [place] conjunctiva. No petechia or hemorrhage. Pupils equal, round, pinpoint. Has dirty sclera. No injection or drainage. EARS, NOSE AND THROAT: Nose without bleeding or purulent nasal discharge. Edentulous, he is orally intubated. NECK: Trachea midline. Supple and not tender, no meningeal signs CARDIOVASCULAR: Regular rate and rhythm. No murmurs, rubs or gallops heard. No rub. Pacer/AICD L upper chest with no evidence of infection RESPIRATORY: Coarse breath sounds equal bilaterally. No rales, wheezing or rhonchi. Decreased at bases. ABDOMEN: Soft, nondistended, no reaction to deep palpation. Bowel sounds present and normoactive. No organomegaly. : Rabago in place, scrotum swollen EXTREMITIES: No clubbing, cyanosis, has bilateral pitting pedal edema. Cool feet NEUROLOGICAL: Sedated. No Babinski PSYCHIATRIC: Unable to assess LINE: No evidence of infection Assessment & Plan Remarks IMPRESSION (+) BC, from same venipuncture, ?significance - no fever, WBC normal - echo ok - has Pacer/defib Recurrent CVA, S/P thrombolytic Rx Respiratory failure Cardiomyopathy, CXR with CHF, rell effusions Renal insufficiency Encephalopathy, etiology? RECOMMENDATION Will order repeat BC Continue IV Vanco - pharm doing dosing Follow C/S Monitor progress D/W Annia Bonilla MD Feb 02, 2017 15:41
[2017-02-02 16:41] LABS: MAGNESIUM 2.1 MG/DL (1.5-2.5)
[2017-02-02] MEDS ORDERED: POTASSIUM CHLORIDE 20 MEQ PWD PACKET G-TUBE ONE (20:00)
[2017-02-02] MEDS: LACTULOSE SYRUP 20 GM/30 ML CUP PO SCH (20:18)
[2017-02-02] MEDS: DOCUSATE SODIUM 100 MG CAP PO SCH (20:18)
--- NOTE | 2017-02-02 21:46 | HHI.PR ---
Review/Management Diagnosis severe intracranial atherosclerosis. 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 Unable to do MRI Plan continue iv heparin. 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 Diagnosis/Plan: Subjective Subjective Comments No acute events reported Active Medications Current Medications Medications (Trade) Dose Ordered Sig/Wilbur Route Start Time Stop Time Status Last Admin (NS Flush) 2 ml UNSCH PRN IV FLUSH 01/31/17 13:15 (NS Flush) 2 ml BID IV FLUSH 01/31/17 21:00 02/02/17 20:18 (Tylenol) 650 mg Q6H PRN PO 01/31/17 13:15 (Duoneb Neb) 1 ampule Q6HR NEB NEB 01/31/17 16:00 02/02/17 21:10 (Duoneb Neb) 1 ampule Q4HR NEB PRN INH 01/31/17 13:15 (Peridex 0.12% Liq) 15 ml BID@08,20 MT 01/31/17 20:00 02/02/17 20:18 (Pepcid) 20 mg BID TUBE 01/31/17 21:00 02/02/17 20:18 Miscellaneous Information 1 Q361D XX 01/31/17 13:15 01/31/17 13:15 (Chlorhexidine 2% Cloth) 3 pack Taper DAILY@04 TOP 02/01/17 04:00 01/28/18 03:59 02/01/17 04:00 (Chlorhexidine 2% Cloth) 3 pack UNSCH PRN TOP 01/31/17 13:15 Propofol 100 ml @ 19.8 mls/hr TITRATE PRN IV 01/31/17 13:30 02/02/17 05:03 Heparin Sodium/ Dextrose 250 ml @ 0 mls/hr TITRATE IV 01/31/17 17:00 02/02/17 13:54 (Lasix Inj) 20 mg Q12H IV PUSH 02/01/17 20:00 02/02/17 20:18 Levetriacetam 500 mg/Sodium Chloride 105 ml @ 420 mls/hr Q8H IV 02/01/17 11:00 02/02/17 19:31 (Bactroban Nasal 2% Oint) 1 applic BID NASAL 02/02/17 09:00 02/02/17 20:18 Sodium Chloride 77 meq/Dextrose 1,019.25 ml @ 50 mls/hr [id number] IV 02/02/17 14:00 02/02/17 13:40 Pharmacy Profile Note 0 ml @ 0 mls/hr UNSCH OTHER 02/02/17 15:30 (Lactulose Liq) 30 ml BID PO 02/02/17 21:00 02/02/17 20:18 (Colace) 100 mg BID PO 02/02/17 21:00 02/02/17 20:18 Vancomycin HCl 1500 mg/Sodium Chloride 515 ml @ 257.5 mls/ hr Q12H IV 02/03/17 03:00 Miscellaneous Information SPECIFIC LAB TO BE DEYVI... ONCE ONCE .XX 02/04/17 02:45 02/04/17 02:46 Allergies Allergies Coded Allergies hydrochlorothiazide (Verified Allergy, Severe, Edema, 01/31/17) atorvastatin (Verified Allergy, Unknown, 01/31/17) morphine (Verified Allergy, Unknown, 01/31/17) MRI PRECAUTION (Verified Adverse Reaction, Severe, NON COMPATIBLE PACEMAKER. LRS 01/31/17, 01/31/17) Exam I&O / VS 02/02/17 02/02/17 02/03/17 15:00 23:00 07:00 Intake Total 536 ml 1562 ml Output Total 1375 ml Balance 536 ml 187 ml Intake IV Total 536 ml 839 ml Tube Feeding 683 ml Other 40 ml Output Urine Total 1375 ml # Bowel Movements 0 Vital Signs Date Time Temp Pulse Resp B/P (MAP) Pulse Ox O2 Delivery O2 Flow Rate FiO2 02/02/17 21:11 100 40 02/02/17 19:00 100 Mechanical Ventilator 40 02/02/17 18:00 73 02/02/17 16:00 72 02/02/17 16:00 99.4 68 18 100 118/66 (83) 02/02/17 16:00 40 02/02/17 15:27 40 02/02/17 15:26 99 40 02/02/17 14:00 73 02/02/17 12:00 69 02/02/17 12:00 40 02/02/17 12:00 99.2 68 14 100 110/72 (85) 02/02/17 11:05 0 40 02/02/17 10:00 69 02/02/17 08:46 0 40 02/02/17 08:46 40 02/02/17 08:30 40 02/02/17 08:00 40 02/02/17 08:00 97.6 68 12 100 110/74 (86) 02/02/17 08:00 73 02/02/17 07:00 100 Mechanical Ventilator 40 02/02/17 06:00 71 02/02/17 05:00 40 02/02/17 04:09 100 40 02/02/17 04:00 99.1 70 12 98 114/76 (89) 02/02/17 04:00 70 02/02/17 02:00 71 02/02/17 01:19 100 40 02/02/17 00:00 70 02/02/17 00:00 40 02/02/17 00:00 98.6 70 26 100 91/60 (70) 02/01/17 22:17 100 40 02/01/17 22:00 74 Exam Comments nonresponsive pupils 1 mm bilateral and sluggishly reactive no spontaneous limb movement Objective Micro and Labs Laboratory Tests Test 02/02/17 04:55 02/02/17 11:52 02/02/17 12:20 Activated Partial Thromboplast Time 54.8 51.0 Random Vancomycin Level 11.3 White Blood Count 8.5 Red Blood Count 4.80 Hemoglobin 12.9 Hematocrit 39.6 Mean Corpuscular Volume 82.4 Mean Corpuscular Hemoglobin 26.9 Mean Corpuscular Hemoglobin Concent 32.7 Red Cell Distribution Width 23.5 Platelet Count 208 Mean Platelet Volume 8.2 Blood Urea Nitrogen 24 Creatinine 1.01 Random Glucose 109 Total Protein 5.8 Albumin 2.4 Calcium Level 7.3 Alkaline Phosphatase 171 Aspartate Amino Transf (AST/SGOT) 16 Alanine Aminotransferase (ALT/SGPT) 19 Total Bilirubin 1.2 Sodium Level 139 Potassium Level 3.6 Chloride Level 104 Carbon Dioxide Level 27.2 Anion Gap 8 Estimat Glomerular Filtration Rate 89 Protein Corrected Calcium 8.0 Phosphorus Level 2.3 Magnesium Level 2.1 Random Cortisol 29.2 Date/Time Source Procedure Growth Status 02/01/17 21:03 Blood Peripheral Aerobic Blood Culture - Preliminary NO GROWTH IN 1 DAY Resulted 02/01/17 21:03 Blood Peripheral Anaerobic Blood Culture - Preliminary NO GROWTH IN 1 DAY Resulted 02/01/17 11:15 Sputum Endotracheal Gram Stain - Final Resulted 02/01/17 11:15 Sputum Culture - Preliminary Staph Sp Coagulase Positive Resulted 02/01/17 11:30 Urine Catheterized Urine Urine Culture - Preliminary NO GROWTH IN 24 HOURS. Resulted Minh Solano PhD Feb 02, 2017 21:46
[2017-02-03] VITALS (18 sets, daily range): BP systolic 105–118; BP diastolic 56–68; PULSE 59–73; RESP 9–17; TEMP 98–99; O2SAT 95–100
[2017-02-03] MEDS: levETIRAcetam 500 MG/NS 100 ML IV SCH ×6 (02:10→20:30)
[2017-02-03] MEDS: VANCOMYCIN 1,500 MG/NS 500 ML IV SCH ×4 (02:34→15:46)
--- NOTE | 2017-02-03 03:04 | PD.CONS ---
HPI Consult Requested By Primary Care Physician Unknown History of Present Illness 66-year-old male, resides in the halfway, brought into the hospital for further evaluation of unresponsiveness. He remains sedated, intubated, Hx taken from chart. Patient was apparently agitated the night prior to admission, and he was given Xanax on the morning of admission. Patient then was noted to be unresponsive, and EMS was called. He remained unresponsive, and he had some episodes of apnea. Ambu bag was done, and in the emergency room, he ended up getting intubated for airway protection. CT of the head did not show any bleed , no MRI given AICD. He therefore went angiogram given question severe intracranial atherosclerosis and concerns of basilar artery CVA. He received TPA to the right vertebral artery. Regarding CAD. He has a known CMP. Echo EF 20 %. Cardiology consultation has been requested to evaluate the patient for severe cardiomyopathy, mitral regurg and arrhythmia(NSVT). Review of Systems ROS Limitations: Intubated Past Family Social History Allergies: Coded Allergies: hydrochlorothiazide (Verified Allergy, Severe, Edema, 01/31/17) atorvastatin (Verified Allergy, Unknown, 01/31/17) morphine (Verified Allergy, Unknown, 01/31/17) MRI PRECAUTION (Verified Adverse Reaction, Severe, NON COMPATIBLE PACEMAKER. LRS 01/31/17, 01/31/17) Past Medical History ROS - General Review of Systems ROS Limitations: Clinical Condition, Intubated PFSH Past Family Social History Hypertension Hyperlipidemia CHF CAD Previous CVA Past Surgical History CABG Pacer/AICD Has midline abdominal scar, surgery done not known Reported Medications Reported Meds & Active Scripts Active Macrobid (Nitrofurantoin Monoh/Nitrofur Macro) 100 Mg Cap 100 Mg PO BID 7 Days Flagyl (Metronidazole) 500 Mg Tab 500 Mg PO Q8HR 7 Days Trazodone (Trazodone HCl) 50 Mg Tab 50 Mg PO HS Spironolactone 25 Mg Tab 25 Mg PO DAILY Rosuvastatin (Rosuvastatin Calcium) 20 Mg Tab 20 Mg PO DAILY Mirtazapine 7.5 Mg Tab 7.5 Mg PO HS Metoprolol Tartrate 25 Mg Tab 25 Mg PO DAILY Furosemide 40 Mg Tab 40 Mg PO DAILY Buspirone (Buspirone HCl) 7.5 Mg Tab 7.5 Mg PO TID 30 Days Eliquis (Apixaban) 5 Mg Tab 5 Mg PO BID Reported [place]-3 Fish Oil/Vitamin (Fish Oil-Cholecalciferol) 1,000-1,000 Mg Cap 1 Cap PO DAILY Multiple Vitamin 1 Tab 1 Tab PO DAILY Aspirin 81 Mg Chew 81 Mg PO DAILY Tylenol (Acetaminophen) 325 Mg Tab 325 Mg PO Q4H PRN Active Ordered Medications Current Medications Medications (Trade) Dose Ordered Sig/Wilbur Route Start Time Stop Time Status Last Admin (NS Flush) 2 ml UNSCH PRN IV FLUSH 01/31/17 13:15 (NS Flush) 2 ml BID IV FLUSH 01/31/17 21:00 02/02/17 20:18 (Tylenol) 650 mg Q6H PRN PO 01/31/17 13:15 (Duoneb Neb) 1 ampule Q6HR NEB NEB 01/31/17 16:00 02/02/17 21:10 (Duoneb Neb) 1 ampule Q4HR NEB PRN INH 01/31/17 13:15 (Peridex 0.12% Liq) 15 ml BID@08,20 MT 01/31/17 20:00 02/02/17 20:18 (Pepcid) 20 mg BID TUBE 01/31/17 21:00 02/02/17 20:18 Miscellaneous Information 1 Q361D XX 01/31/17 13:15 01/31/17 13:15 (Chlorhexidine 2% Cloth) 3 pack Taper DAILY@04 TOP 02/01/17 04:00 01/28/18 03:59 02/01/17 04:00 (Chlorhexidine 2% Cloth) 3 pack UNSCH PRN TOP 01/31/17 13:15 Propofol 100 ml @ 19.8 mls/hr TITRATE PRN IV 01/31/17 13:30 02/02/17 05:03 Heparin Sodium/ Dextrose 250 ml @ 0 mls/hr TITRATE IV 01/31/17 17:00 02/02/17 13:54 (Lasix Inj) 20 mg Q12H IV PUSH 02/01/17 20:00 02/02/17 20:18 Levetriacetam 500 mg/Sodium Chloride 105 ml @ 420 mls/hr Q8H IV 02/01/17 11:00 02/03/17 02:10 (Bactroban Nasal 2% Oint) 1 applic BID NASAL 02/02/17 09:00 02/02/17 20:18 Sodium Chloride 77 meq/Dextrose 1,019.25 ml @ 50 mls/hr [id number] IV 02/02/17 14:00 02/02/17 13:40 Pharmacy Profile Note 0 ml @ 0 mls/hr UNSCH OTHER 02/02/17 15:30 (Lactulose Liq) 30 ml BID PO 02/02/17 21:00 02/02/17 20:18 (Colace) 100 mg BID PO 02/02/17 21:00 02/02/17 20:18 Vancomycin HCl 1500 mg/Sodium Chloride 515 ml @ 257.5 mls/ hr Q12H IV 02/03/17 03:00 02/03/17 02:34 Miscellaneous Information SPECIFIC LAB TO BE ... ONCE ONCE .XX 02/04/17 02:45 02/04/17 02:46 Physical Exam Vital Signs Vital Signs Date Time Temp Pulse Resp B/P (MAP) Pulse Ox O2 Delivery O2 Flow Rate FiO2 02/03/17 02:00 72 02/03/17 00:20 98 40 02/03/17 00:00 99.0 72 12 99 110/60 (77) 02/03/17 00:00 40 02/03/17 00:00 72 02/02/17 22:00 71 02/02/17 21:11 100 40 02/02/17 20:00 40 02/02/17 20:00 99.0 70 12 100 115/59 (77) 02/02/17 20:00 70 02/02/17 19:00 100 Mechanical Ventilator 40 02/02/17 18:00 73 02/02/17 16:00 72 02/02/17 16:00 99.4 68 18 100 118/66 (83) 02/02/17 16:00 40 02/02/17 15:27 40 02/02/17 15:26 99 40 02/02/17 14:00 73 02/02/17 12:00 69 02/02/17 12:00 40 02/02/17 12:00 99.2 68 14 100 110/72 (85) 02/02/17 11:05 0 40 02/02/17 10:00 69 02/02/17 08:46 0 40 02/02/17 08:46 40 02/02/17 08:30 40 02/02/17 08:00 40 02/02/17 08:00 97.6 68 12 100 110/74 (86) 02/02/17 08:00 73 02/02/17 07:00 100 Mechanical Ventilator 40 02/02/17 06:00 71 02/02/17 05:00 40 02/02/17 04:09 100 40 02/02/17 04:00 99.1 70 12 98 114/76 (89) 02/02/17 04:00 70 Physical Exam GENERAL: Sedated, intubated, responding to external stimuli SKIN: Warm and dry. HEAD: Normocephalic. EYES: No scleral icterus. No injection or drainage. NECK: Supple, trachea midline. No JVD or lymphadenopathy. CARDIOVASCULAR: Regular rate and rhythm without murmurs, gallops, or rubs. RESPIRATORY: Breath sounds equal bilaterally. No accessory muscle use. GASTROINTESTINAL: Abdomen soft, non-tender, nondistended. EXTREMITIES: No cyanosis, or ++edema. Laboratory Laboratory Tests Test 02/02/17 04:55 02/02/17 11:52 02/02/17 12:20 Activated Partial Thromboplast Time 54.8 51.0 Random Vancomycin Level 11.3 White Blood Count 8.5 Red Blood Count 4.80 Hemoglobin 12.9 Hematocrit 39.6 Mean Corpuscular Volume 82.4 Mean Corpuscular Hemoglobin 26.9 Mean Corpuscular Hemoglobin Concent 32.7 Red Cell Distribution Width 23.5 Platelet Count 208 Mean Platelet Volume 8.2 Blood Urea Nitrogen 24 Creatinine 1.01 Random Glucose 109 Total Protein 5.8 Albumin 2.4 Calcium Level 7.3 Alkaline Phosphatase 171 Aspartate Amino Transf (AST/SGOT) 16 Alanine Aminotransferase (ALT/SGPT) 19 Total Bilirubin 1.2 Sodium Level 139 Potassium Level 3.6 Chloride Level 104 Carbon Dioxide Level 27.2 Anion Gap 8 Estimat Glomerular Filtration Rate 89 Protein Corrected Calcium 8.0 Phosphorus Level 2.3 Magnesium Level 2.1 Random Cortisol 29.2 Date/Time Source Procedure Growth Status 02/01/17 21:03 Blood Peripheral Aerobic Blood Culture - Preliminary NO GROWTH IN 1 DAY Resulted 02/01/17 21:03 Blood Peripheral Anaerobic Blood Culture - Preliminary NO GROWTH IN 1 DAY Resulted 02/01/17 11:15 Sputum Endotracheal Gram Stain - Final Resulted 02/01/17 11:15 Sputum Culture - Preliminary Staph Sp Coagulase Positive Resulted 02/01/17 11:30 Urine Catheterized Urine Urine Culture - Preliminary NO GROWTH IN 24 HOURS. Resulted Result Diagram: 02/02/17 1152 02/02/17 1152 Imaging Last Impressions Upper Extremity Ultrasound 02/01/17 0000 Signed Impressions: Service Date/Time: January 11:49 - CONCLUSION: 1. No evidence of deep venous thrombosis. Moses Juarez MD Head CT 01/31/17 0809 Signed Impressions: Service Date/Time: Tuesday, January 31, 2017 08:16 - CONCLUSION: Hypodensity left parietal-occipital mid convexity region suggesting infarction or encephalomalacia. No evidence of hemorrhage. Cannot exclude an acute process. May consider further characterization with MRI. Wilber Alfaro MD Chest X-Ray 01/31/1709 Signed Impressions: Service Date/Time: Tuesday, January 31, 2017 13:03 - CONCLUSION: 1. Cardiomegaly with findings of failure and bilateral effusions. 2. Stable postsurgical changes. Russ Joseph MD Neck CTA 01/31/17 0000 Signed Impressions: Service Date/Time: Tuesday, January 31, 2017 08:57 - CONCLUSION: 1. 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 2. String-like contrast in the left vertebral artery Wilber Alfaro MD Head CTA 01/31/17 0000 Signed Impressions: Service Date/Time: Tuesday, January 31, 2017 08:57 - CONCLUSION: Absent flow in the left internal carotid artery with reconstitution of flow in the A2 segment. There is some flow seen in the left sylvian branches of the middle cerebral artery, but the degree of vessel opacification on the left is less than on the right. Wilber Alfaor MD Cerebral Arteriogram 01/31/17 0000 Signed Impressions: Service Date/Time: Tuesday, January 31, 2017 00:00 - CONCLUSION: 1. Patient appears to have had a thrombotic or embolic event to the vertebral basilar system. The left vertebral is highly diseased throughout its course and appears to occlude just proximal to the basilar. Unable to traverse the highly diseased vessel for intervention. 2. The right vertebral is robust proximally but appears to terminate in a PICA branch with a irregular terminal vessel possibly representing the distal vertebral and proximal basilar. This appears to be chronically occluded. Russ Joseph MD Assessment and Plan Problem List: (1) Cardiomyopathy ICD Codes: I42.9 - Cardiomyopathy, unspecified Plan: Chronic CMP. Ischemic unavailable Hx. AICD in place. Currently on acute on chronic HF. Negative Troponin x1. Permissive HTN given CVA per Neuro in no BP meds. Recommendations: 1. IV diuresis. Lasix 40mg IV BID 2. Daily weight 3. Low salt diet 4. Get outside cardiac records 5. Start Lopressor, ACEi, Aldactone for CMP as BP tolerates Will be available on a PRN basis for any questions or concerns. (2) CVA (cerebral vascular accident) ICD Codes: I63.9 - Cerebral infarction, unspecified Status: Acute (3) Coma ICD Codes: R40.20 - Unspecified coma Status: Acute (4) Dehydration ICD Codes: E86.0 - Dehydration Status: Acute (5) Renal insufficiency ICD Codes: N28.9 - Disorder of kidney and ureter, unspecified Status: Acute Gavin Olson MD Feb 03, 2017 03:04
[2017-02-03] MEDS: RESP: ALBUTEROL 2.5 MG/IPRATROPIUM 0.5 MG NEB (SCH) NEB ×4 (03:51→20:18)
[2017-02-03] MEDS: CHLORHEXIDINE GLUCONATE 2 % 1 PACK (2 CLOTHS) TOP SCH (04:00)
[2017-02-03 04:15] LABS: MEAN CELL VOLUME 82.5 FL (80.0-100.0); MEAN CORPUSCULAR HEMOGLOBIN 27.1 PG (27.0-34.0); MEAN CORPUSCULAR HGB CONC 32.9 % (32.0-36.0); PLATELET COUNT 182 TH/MM3 (150-450); RED BLOOD COUNT 4.36 MIL/MM3 (4.50-5.90); RED CELL DISTRIBUTION WIDTH 22.9 % (11.6-17.2); REVIEW FLAG FINAL; WHITE BLOOD COUNT 9.2 TH/MM3 (4.0-11.0)
[2017-02-03 04:24] LABS: APTT (PATIENT) 45.4 SEC (24.3-30.1)
[2017-02-03 04:44] LABS: BICARBONATE 27.7 MEQ/L (21.0-32.0); CALCIUM-PROTEIN CORRECTED 8.3 MG/DL (8.5-10.1); POTASSIUM 3.8 MEQ/L (3.5-5.1); TOTAL BILIRUBIN ADULT 1.2 MG/DL (0.2-1.0)
[2017-02-03] MEDS: FUROSEMIDE 20 MG/2 ML VIAL IV PUSH SCH ×2 (07:45→20:30)
[2017-02-03] MEDS: CHLORHEXIDINE 0.12% (ORAL KIT) 15 ML CUP MT SCH ×2 (07:45→20:30)
--- NOTE | 2017-02-03 08:06 | HHI.CCPN ---
Subjective Remarks/Hospital Course 01/31: This 66-year-old man who presents to the emergency department via EMS for altered mental status. History is a little bit unclear. It sounds like he was agitated overnight so they gave him Xanax this morning. Speaking with the nurse there, Yesica Earl, patient gets Xanax periodically but not every day. It's not a new dose for him. Subsequently he became unresponsive. Per EMS report he normally has a GCS of 14 but cannot walk. For them he was not talking at all, and stopped breathing for a period of time in the ambulance and required [id number] ventilation. They were bagging him on presentation to the ED. patient underwent CT head which was negative for bleed. He was evaluated by Dr. 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 On propofol 75 mics per kg/min. moving both upper extremities and left lower extremity on lightening sedation per nursing staff. Has chronically weak right lower extremity per family. Currently on heparin drip for full anticoagulation. 02/02: Sedated, orally intubated on mechanical ventilation this morning at the time of my evaluation. Being diuresed with Lasix. 2-D echo with LVEF 20% and severe MR. Hypoglycemia today despite tube feeds for which he was given D50 and cortisol level being checked. 02/03: Off sedation since 9/8 AM. Started to arouse last evening and following commands moving both upper extremities. Remains orally intubated on mechanical ventilation. At the time of my evaluation years arousable however not following commands. Objective Vital Signs Date Time Temp Pulse Resp B/P (MAP) Pulse Ox O2 Delivery O2 Flow Rate FiO2 02/03/17 06:00 68 02/03/17 04:16 95 40 02/03/17 04:00 98.8 13 116/63 (80) 02/02/17 19:00 Mechanical Ventilator 01/31/17 08:39 15.00 Intake and Output 02/03/17 02/03/17 02/04/17 08:00 16:00 00:00 Intake Total 2145 ml Output Total 1150 ml Balance 995 ml Result Diagram: 02/03/17 0350 02/03/17 0350 Other Results Microbiology Date/Time Source Procedure Growth Status 01/31/17 14:00 Urine Catheterized Urine Urine Culture - Final NO GROWTH IN 48 HOURS. Complete Imaging Last Impressions Head CT 01/31/17 0809 Signed Impressions: Service Date/Time: Tuesday, January 31, 2017 08:16 - CONCLUSION: Hypodensity left parietal-occipital mid convexity region suggesting infarction or encephalomalacia. No evidence of hemorrhage. Cannot exclude an acute process. May consider further characterization with MRI. Wilber Alfaro MD Neck CTA 01/31/17 0000 Signed Impressions: Service Date/Time: Tuesday, January 31, 2017 08:57 - CONCLUSION: 1. 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 2. String-like contrast in the left vertebral artery Wilber Alfaro MD Head CTA 01/31/17 0000 Signed Impressions: Service Date/Time: Tuesday, January 31, 2017 08:57 - CONCLUSION: Absent flow in the left internal carotid artery with reconstitution of flow in the A2 segment. There is some flow seen in the left sylvian branches of the middle cerebral artery, but the degree of vessel opacification on the left is less than on the right. Wilber Alfaro MD Objective Remarks HEENT/ Neuro: Sedated, orally intubated, Pallor present, no icterus, tongue/ mucosa moist. Pupils 2 mm bilaterally constricted, reactive, moves both upper extremities, not moving either lower extremities. Neck: No JVD Chest/Pulm: on mech vent, good air entry bilaterally, no wheezing or crackles. CVS: S1-S2 regular, no murmur. Healed sternotomy scar, PPM noted GI/abdomen: soft, nontender, bowel sounds sluggish Extremities: warm bilaterally, bilateral pitting edema A/P Assessment and Plan 66-year-old male with: Altered mental status secondary to suspected posterior circulation stroke and possibly Xanax Basilar artery occlusion status post angiogram with attempted intra-arterial thrombolysis Left ICA occlusion on CTA Hypoglycemia CAD Ischemic cardiomyopathy Hypertension Edema History of pacemaker/ ICD Plan: Neuro: Patient evaluated by Dr. Solano from neurology. Underwent cerebral angiogram with intra-arterial TPA for basilar artery occlusion by interventional radiology. Defer anticoagulation/antiplatelet therapy to neurology. 2-D echo for stroke workup ordered. Started on heparin for full anticoagulation on 01/[address] Solano. Hold all sedatives. Cardiovascular: Continue hemodynamic monitoring. Allow permissive hypertension in view of ischemic stroke. Will use labetalol when necessary for systolic blood pressure greater than 200 mmHg. continue Lasix 20 mg IV every 12 hourly in view of edema to mobilize fluid. 2-D echo with LVEF 20% and severe MR. Cardiology consulted for severe cardiomyopathy and mitral regurg and arrhythmia( NSVT). Patient has a pacer/ICD in place. Pulmonary: Intubated for airway protection. Continue mechanical ventilation, vent bundle, bronchodilators. Daily C Pap trials. GI/liver: Continue tube feeds and advance to goal as tolerated. Renal/: KVO IV fluids, strict intake output, monitor and replete electrolytes , follow BUN/creatinine. Rabago catheterization. Diurese with Lasix ID: Watch for fever. No antibiotics at this time. Heme: Follow CBC. Patient on anticoagulation with Eliquis previously. Will defer anticoagulation/antiplatelet therapy to Dr. Solano in view of posterior circulation stroke. Started on heparin drip on 01/[address] Solano for full anticoagulation Endocrine: Follow fingerstick glucose. Hypoglycemia noted despite being on tube feeds. Given D50 50 cc IV 2 on 02/02 and started on D10 gtt 30cc/hr on 02/02 despite which his fingerstick glucose was 70s hence this was increased to 50 cc an hour. Cortisol level came back at 29.2 hence patient does not appear to have adrenal insufficiency as cause for hypoglycemia. If hypoglycemia persists may require work up for insulinoma with C-peptide levels drawn during episode of hypoglycemia. Prophylaxis: Pepcid for GI prophylaxis, SCDs for DVT prophylaxis. Resumed anticoagulation with heparin. Extensive discussion with patient's daughter on 02/02 regarding current clinical status and plan of care and she voiced understanding and was agreeable. Condition critical Time spent on critical care excluding procedures 35 minutes. Osmani Gonzalez MD Feb 03, 2017 08:06
[2017-02-03] MEDS ORDERED: FUROSEMIDE 20 MG/2 ML VIAL IV PUSH STA (08:19)
[2017-02-03] MEDS: DOCUSATE SODIUM 100 MG CAP PO SCH ×2 (08:53→20:31)
[2017-02-03] MEDS: LACTULOSE SYRUP 20 GM/30 ML CUP PO SCH ×2 (08:53→20:31)
[2017-02-03] MEDS: FAMOTIDINE 20 MG TAB TUBE SCH ×2 (08:53→20:31)
[2017-02-03] MEDS: MUPIROCIN 2% OINT 1 APPLIC/GM SYR NASAL SCH ×2 (08:54→20:30)
[2017-02-03] MEDS: SODIUM CHLORIDE 0.9% FLUSH 10 ML FLUSH IV FLUSH SCH ×2 (08:55→20:30)
[2017-02-03] MEDS: HEPARIN-D5W 25,000 U/250 ML 250 ML IV SCH (13:30)
[2017-02-03] MEDS: SODIUM CHLORIDE 23.4% INJ 77 MEQ in DEXTROSE 10% INJ 1,000 ML IV SCH (13:36)
--- NOTE | 2017-02-03 14:25 | HHI.PR ---
Review/Management Diagnosis severe intracranial atherosclerosis. 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 Unable to do MRI Plan continue iv heparin. Will require systems development consultant anticoagulation.consider coumadin or eliquis as he was on eliquis on admission Diagnosis/Plan: Subjective Subjective Comments No acute events reported Active Medications Current Medications Medications (Trade) Dose Ordered Sig/Wilbur Route Start Time Stop Time Status Last Admin (NS Flush) 2 ml UNSCH PRN IV FLUSH 01/31/17 13:15 (NS Flush) 2 ml BID IV FLUSH 01/31/17 21:00 02/03/17 08:55 (Tylenol) 650 mg Q6H PRN PO 01/31/17 13:15 (Duoneb Neb) 1 ampule Q6HR NEB NEB 01/31/17 16:00 02/03/17 09:06 (Duoneb Neb) 1 ampule Q4HR NEB PRN INH 01/31/17 13:15 (Peridex 0.12% Liq) 15 ml BID@08,20 MT 01/31/17 20:00 02/03/17 07:45 (Pepcid) 20 mg BID TUBE 01/31/17 21:00 02/03/17 08:53 Miscellaneous Information 1 Q361D XX 01/31/17 13:15 01/31/17 13:15 (Chlorhexidine 2% Cloth) 3 pack Taper DAILY@04 TOP 02/01/17 04:00 01/28/18 03:59 02/03/17 04:00 (Chlorhexidine 2% Cloth) 3 pack UNSCH PRN TOP 01/31/17 13:15 Propofol 100 ml @ 19.8 mls/hr TITRATE PRN IV 01/31/17 13:30 02/02/17 05:03 Heparin Sodium/ Dextrose 250 ml @ 0 mls/hr TITRATE IV 01/31/17 17:00 02/03/17 13:30 (Lasix Inj) 20 mg Q12H IV PUSH 02/01/17 20:00 02/03/17 07:45 Levetriacetam 500 mg/Sodium Chloride 105 ml @ 420 mls/hr Q8H IV 02/01/17 11:00 02/03/17 11:56 (Bactroban Nasal 2% Oint) 1 applic BID NASAL 02/02/17 09:00 02/03/17 08:54 Sodium Chloride 77 meq/Dextrose 1,019.25 ml @ 50 mls/hr [id number] IV 02/02/17 14:00 02/03/17 13:36 Pharmacy Profile Note 0 ml @ 0 mls/hr UNSCH OTHER 02/02/17 15:30 (Lactulose Liq) 30 ml BID PO 02/02/17 21:00 02/03/17 08:53 (Colace) 100 mg BID PO 02/02/17 21:00 02/03/17 08:53 Vancomycin HCl 1500 mg/Sodium Chloride 515 ml @ 257.5 mls/ hr Q12H IV 02/03/17 03:00 02/03/17 02:34 Miscellaneous Information SPECIFIC LAB TO BE DEYVI... ONCE ONCE .XX 02/04/17 02:45 02/04/17 02:46 Allergies Allergies Coded Allergies hydrochlorothiazide (Verified Allergy, Severe, Edema, 01/31/17) atorvastatin (Verified Allergy, Unknown, 01/31/17) morphine (Verified Allergy, Unknown, 01/31/17) MRI PRECAUTION (Verified Adverse Reaction, Severe, NON COMPATIBLE PACEMAKER. LRS 01/31/17, 01/31/17) Exam I&O / VS 02/03/17 02/03/17 02/04/17 15:00 23:00 07:00 Intake Total 248 ml Balance 248 ml Intake IV Total 248 ml Vital Signs Date Time Temp Pulse Resp B/P (MAP) Pulse Ox O2 Delivery O2 Flow Rate FiO2 02/03/17 14:00 69 02/03/17 12:00 98.5 73 11 105/56 (72) 100 02/03/17 12:00 73 02/03/17 12:00 40 02/03/17 11:59 100 40 02/03/17 10:00 72 02/03/17 09:06 40 02/03/17 09:06 100 40 02/03/17 08:00 40 02/03/17 08:00 98.7 69 9 118/66 (83) 100 Automatic Cuff 02/03/17 08:00 69 02/03/17 07:00 100 Mechanical Ventilator 40 02/03/17 06:00 68 02/03/17 04:16 95 40 02/03/17 04:00 40 02/03/17 04:00 98.8 69 13 100 116/63 (80) 02/03/17 04:00 59 02/03/17 02:00 72 02/03/17 00:20 98 40 02/03/17 00:00 99.0 72 12 99 110/60 (77) 02/03/17 00:00 40 02/03/17 00:00 72 02/02/17 22:48 100 40 02/02/17 22:00 71 02/02/17 21:11 100 40 02/02/17 20:00 40 02/02/17 20:00 99.0 70 12 100 115/59 (77) 02/02/17 20:00 70 02/02/17 19:00 100 Mechanical Ventilator 40 02/02/17 18:00 73 02/02/17 16:00 72 02/02/17 16:00 99.4 68 18 100 118/66 (83) 02/02/17 16:00 40 02/02/17 15:27 40 02/02/17 15:26 99 40 Exam Comments attempts to open eyes to command pupils 1 mm bilateral and sluggishly reactive no spontaneous limb movement Objective Micro and Labs Laboratory Tests Test 02/03/17 03:50 White Blood Count 9.2 Red Blood Count 4.36 Hemoglobin 11.8 Hematocrit 36.0 Mean Corpuscular Volume 82.5 Mean Corpuscular Hemoglobin 27.1 Mean Corpuscular Hemoglobin Concent 32.9 Red Cell Distribution Width 22.9 Platelet Count 182 Mean Platelet Volume 8.6 Activated Partial Thromboplast Time 45.4 Blood Urea Nitrogen 22 Creatinine 0.97 Random Glucose 100 Total Protein 5.3 Albumin 2.1 Calcium Level 7.3 Alkaline Phosphatase 157 Aspartate Amino Transf (AST/SGOT) 15 Alanine Aminotransferase (ALT/SGPT) 18 Total Bilirubin 1.2 Sodium Level 140 Potassium Level 3.8 Chloride Level 106 Carbon Dioxide Level 27.7 Anion Gap 6 Estimat Glomerular Filtration Rate 93 Protein Corrected Calcium 8.3 Date/Time Source Procedure Growth Status 02/03/17 03:50 Blood Peripheral Aerobic Blood Culture Pending Received 02/03/17 03:50 Blood Peripheral Anaerobic Blood Culture Pending Received 02/01/17 11:15 Sputum Endotracheal Gram Stain - Final Resulted 02/01/17 11:15 Sputum Culture - Preliminary Staph Sp Coagulase Positive Resulted 9/7/17 11:30 Urine Catheterized Urine Urine Culture - Final NO GROWTH IN 48 HOURS. Complete Minh Solano PhD Feb 03, 2017 14:25
[2017-02-04] VITALS (18 sets, daily range): BP systolic 94–128; BP diastolic 57–70; PULSE 68–73; RESP 12–18; TEMP 97.8–100.1; O2SAT 98–100
[2017-02-04] MEDS: RESP: ALBUTEROL 2.5 MG/IPRATROPIUM 0.5 MG NEB (SCH) NEB ×3 (01:13→20:36)
[2017-02-04] MEDS ORDERED: PHARMACY ORDERED LAB ONE (02:45)
[2017-02-04] MEDS: levETIRAcetam 500 MG/NS 100 ML IV SCH ×6 (03:22→19:44)
[2017-02-04] MEDS: CHLORHEXIDINE GLUCONATE 2 % 1 PACK (2 CLOTHS) TOP SCH (03:40)
[2017-02-04] MEDS: VANCOMYCIN 1,500 MG/NS 500 ML IV SCH ×2 (03:40)
--- NOTE | 2017-02-04 04:27 | RADRPT ---
EXAM DATE/TIME: 02/04/2017 03:24 [facility] COMPARISON: CHEST SINGLE AP, January 31, 2017, 13:03. INDICATIONS : Shortness of breath. MEDICAL HISTORY : Congestive heart failure. Hypercholesterolemia. Hypertension. CVA. SURGICAL HISTORY : CABG. Pacemaker. Cardiac cath ENCOUNTER: Subsequent ACUITY: 4 - 6 days PAIN SCORE: Non-responsive. LOCATION: Bilateral chest FINDINGS: Right greater than left pulmonary opacities with moderate right and small left pleural effusions pers ist, not significantly changed. No pneumothorax. Moderate cardiomegaly unchanged. Cardiac pacer/defibrillator again noted. Endotracheal tube tip is approximately 4 cm above the bev. Nasogastric tube courses into the stoma ch. CONCLUSION: No significant change cardiomegaly and right greater than left consolidation/effusions. Carlos Rosales MD on February 04, 2017 at 4:25 Board Certified Radiologist. This report was verified electronically.
[2017-02-04 05:09] LABS: APTT (PATIENT) 46.1 SEC (24.3-30.1)
--- NOTE | 2017-02-04 07:38 | HHI.CCPN ---
Subjective Remarks/Hospital Course 01/31: This 66-year-old man who presents to the emergency department via EMS for altered mental status. History is a little bit unclear. It sounds like he was agitated overnight so they gave him Xanax this morning. Speaking with the nurse there, Yesica Earl, patient gets Xanax periodically but not every day. It's not a new dose for him. Subsequently he became unresponsive. Per EMS report he normally has a GCS of 14 but cannot walk. For them he was not talking at all, and stopped breathing for a period of time in the ambulance and required [id number] ventilation. They were bagging him on presentation to the ED. patient underwent CT head which was negative for bleed. He was evaluated by Dr. 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 On propofol 75 mics per kg/min. moving both upper extremities and left lower extremity on lightening sedation per nursing staff. Has chronically weak right lower extremity per family. Currently on heparin drip for full anticoagulation. 02/02: Sedated, orally intubated on mechanical ventilation this morning at the time of my evaluation. Being diuresed with Lasix. 2-D echo with LVEF 20% and severe MR. Hypoglycemia today despite tube feeds for which he was given D50 and cortisol level being checked. 02/03: Off sedation since 9/8 AM. Started to arouse last evening and following commands moving both upper extremities. Remains orally intubated on mechanical ventilation. At the time of my evaluation years arousable however not following commands. Subjective 02/04: Tmax 100.1. Currently resting in bed in no acute distress. Moving right lower extremity spontaneously. Nods head and follows commands. Patient is leaning towards right. Objective Vital Signs Date Time Temp Pulse Resp B/P (MAP) Pulse Ox O2 Delivery O2 Flow Rate FiO2 02/04/17 06:00 69 02/04/17 04:37 98 40 02/04/17 04:00 100.1 14 128/70 (89) 02/03/17 19:00 Mechanical Ventilator 01/31/17 08:39 15.00 Intake and Output 02/04/17 02/04/17 02/05/17 08:00 16:00 00:00 Intake Total 643 ml Output Total 900 ml Balance -257 ml Result Diagram: 02/03/17 0350 02/03/17 0350 Other Results Microbiology Date/Time Source Procedure Growth Status 02/03/17 03:50 Blood Peripheral Aerobic Blood Culture Pending Received 02/03/17 03:50 Blood Peripheral Anaerobic Blood Culture Pending Received 02/01/17 11:15 Sputum Endotracheal Gram Stain - Final Resulted 02/01/17 11:15 Sputum Culture - Preliminary Staph Sp Coagulase Positive Resulted 02/01/17 11:30 Urine Catheterized Urine Urine Culture - Final NO GROWTH IN 48 HOURS. Complete Imaging Last Impressions Chest X-Ray 02/04/17 0600 Signed Impressions: Service Date/Time: Saturday, February 04, 2017 03:24 - CONCLUSION: No significant change cardiomegaly and right greater than left consolidation/effusions. Carlos Rosales MD Upper Extremity Ultrasound 02/01/17 0000 Signed Impressions: Service Date/Time: January 11:49 - CONCLUSION: 1. No evidence of deep venous thrombosis. Moses Juarez MD Head CT 01/31/17 0809 Signed Impressions: Service Date/Time: Tuesday, January 31, 2017 08:16 - CONCLUSION: Hypodensity left parietal-occipital mid convexity region suggesting infarction or encephalomalacia. No evidence of hemorrhage. Cannot exclude an acute process. May consider further characterization with MRI. Wilber Alfaro MD Neck CTA 01/31/17 0000 Signed Impressions: Service Date/Time: Tuesday, January 31, 2017 08:57 - CONCLUSION: 1. 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 2. String-like contrast in the left vertebral artery Wilber Alfaro MD Head CTA 01/31/17 0000 Signed Impressions: Service Date/Time: Tuesday, January 31, 2017 08:57 - CONCLUSION: Absent flow in the left internal carotid artery with reconstitution of flow in the A2 segment. There is some flow seen in the left sylvian branches of the middle cerebral artery, but the degree of vessel opacification on the left is less than on the right. Wilber Alfaro MD Cerebral Arteriogram 01/31/17 0000 Signed Impressions: Service Date/Time: Tuesday, January 31, 2017 00:00 - CONCLUSION: 1. Patient appears to have had a thrombotic or embolic event to the vertebral basilar system. The left vertebral is highly diseased throughout its course and appears to occlude just proximal to the basilar. Unable to traverse the highly diseased vessel for intervention. 2. The right vertebral is robust proximally but appears to terminate in a PICA branch with a irregular terminal vessel possibly representing the distal vertebral and proximal basilar. This appears to be chronically occluded. Russ Joseph MD Objective Remarks GENERAL: 66-year-old AA male, critically ill currently orotracheally intubated SKIN: Warm and dry. No rash HEAD: Atraumatic. Normocephalic. EYES: Pupils equal and round about 3 mm bilaterally and reactive. No scleral icterus. No injection or drainage. ENT: No nasal bleeding or discharge. Mucous membranes pink and moist. NECK: Trachea midline. No JVD. CARDIOVASCULAR: Regular rate and rhythm. S1, S2 no S4. 2/6 systolic murmur left lower sternal border. RESPIRATORY: No accessory muscle use. Clear to auscultation. Breath sounds equal bilaterally. GASTROINTESTINAL: Abdomen soft, non-tender, nondistended. Hypoactive bowel sounds appreciated MUSCULOSKELETAL: Extremities with trace to 1+ bilateral lower extremity and upper extremity edema. No obvious deformities. NEUROLOGICAL: Arousable on the ventilator. Nods head to command. Moving right lower extremity spontaneously. Not left upper or lower extremity however. Head is tilted towards right.. 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 Patient is status post intervention by IR. Cerebral angiogram revealed occluded distal vertebral/proximal parietal occlusion acute. 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 EEG - 02/01 - 3-6 Hz activity, 20-50 microvolts occurring in generalized fashion. EEG variability reactivity noted. Mild spindles noted as well. Limited driving with photic stimulation. Single lead EKG showing sinus rhythm. Mild to moderate encephalopathy. Clinical correlation Recommended. Patient is currently in a heparin drip at 1000 units an hour. Previous Apixaban 5 mg twice a day Dr. Solano/neurology following. Holding buspirone 7.5 mg 3 times a day, mirtazapine 7.5 mg a night and trazodone 50 mg by mouth daily for depression/anxiety. Resume when clinically indicated Continue levetiracetam 500 mg IV 3 times a day/seizure precautions CV: Chronic systolic heart failure ejection fraction 20% Pulmonary hypertension History of CABG 4/AICD Hypertension Dyslipidemia Echocardiogram revealed EF 20%. Decreased right ventricular left ventricular function. Dilated LV. Enlarged left atrium. Severe pulmonary hypertension greater than 70 mmHg, severe TR/MR Cardiology/Dr. Hernandez following Currently on furosemide 20 mg IV twice a day Home medications include aspirin 81 mg daily, metoprolol 25 mg by mouth daily, furosemide 40 mEq daily and spinal active 25 mill grams by mouth daily Patient is on rosuvastatin 20 mg by mouth daily along with Fish oil/ cholecalciferol 1 tablet daily for dyslipidemia Resp: Acute hypoxemic respiratory failure Currently on PSV trial 15/5 at 40% Albuterol/ipratropium aerosols every 6 hours with albuterol aerosols every 2 hours. Dyspnea Follow-up a.m. check sedimentation rate Spontaneous breathing trials daily. Currently not a candidate for extubation due to mental status GI: Hypoalbuminemia Currently on Jevity 1.5 at 60 cc an hour Famotidine for GI prophylaxis Docusate sodium 100 mg twice a day's, senna liquid 8.6 mg twice a day for bowel regimen along with lactulose 30 cc twice a day : Rabago catheter indicated for accurate I's and O's in a critically ill patient Endo: Hypoglycemia - possibly secondary to sepsis Normal TSH/cortisol levels. C-peptide/insulin levels pending Currently on D10 at 70 cc an hour. Renal: Acute kidney injury resolved Monitor urine output Accurate I's and O's Follow BMP in a.m. Heme: Normocytic anemia Chronic Apixaban use Monitor CBC daily. Follow trends. Currently on heparin drip at 1000 units an hour. We'll need to switch to VKA or NOAC at some point in future. ID: Coag-negative//staph epi bacteremia Current vancomycin dose by infectious disease day #3 Clune decolonization protocol with mupirocin swabs twice a day Infectious disease/Dr. Simons following Pertinent cultures 02/03 - blood cultures 1 - pending 02/01 - blood cultures 2 - pending 02/01 - sputum - coag negative staph 01/31 - blood cultures 2 - coag negative staph, staph epi FEN: Replace electrolytes as clinically indicated MSK: PT/OT for range of motion evaluate and treat Access - Left IJ CVL day 1 placed 02/04 - Left radial arterial line placed 01/31 Prophylaxis - GI - famotidine - DVT - SCD/heparin drip Critical Care: The total critical care time was 35 minutes. Time to perform other separately billable procedures was not included in the critical care time. Jacek Maya MD Feb 04, 2017 07:38
[2017-02-04] MEDS: CHLORHEXIDINE 0.12% (ORAL KIT) 15 ML CUP MT SCH ×2 (08:00→19:28)
--- NOTE | 2017-02-04 08:09 | PD.PROCEDR ---
Central Line Procedure REASON FOR PROCEDURE Central venous access PROCEDURE PERFORMED Central line placement: Left IJ CVL CONSENT Informed consent for procedure was obtained. The risks and benefits of the procedure were discussed to include but limited to bleeding, clot formation, infection, and even . ANESTHESIA Local injection of 1% Lidocaine DESCRIPTION OF THE PROCEDURE The patient was placed in supine, mild Trendelenburg position. The area was exposed and cleansed with ChloraPrep, times two. Large sterile drape was used to cover the patient, with the site exposed, under sterile conditions including cap, face mask, sterile gown, and sterile gloves. On single attempt, the introducer needle was inserted with negative pressure in syringe and venous flash was obtained. The guide wire was then advanced without any restriction and the needle was removed. The dilator was used without any complications. Using Seldinger technique the antibiotic coated triple-lumen catheter was advanced over the guide wire to a depth of 20 centimeters. The guide wire was removed. All ports were aspirated with dark venous blood return and flushed easily with sterile saline. All ports were capped. Antibiotic disc was placed around central line at puncture site. The central line was secured to the skin with two interrupted 2.0 silk sutures. The area was bandaged with sterile see- through central line bandage. RADIOLOGICAL DATA Ultrasound guidance was used to locate the left internal jugular vein. Doppler/ color flow was used to confirm venous flow. COMPLICATIONS: No apparent complications ESTIMATED BLOOD LOSS: Less than 1 cc. Jacek Maya MD Feb 04, 2017 08:09
[2017-02-04] MEDS ORDERED: SODIUM CHLORIDE 0.9% FLUSH 10 ML FLUSH IVF PRN (08:15)
--- NOTE | 2017-02-04 08:45 | RADRPT ---
EXAM DATE/TIME: 02/04/2017 08:13 [facility] COMPARISON: CHEST SINGLE AP, February 04, 2017, 3:24. INDICATIONS : Central line placement. MEDICAL HISTORY : Congestive heart failure. Hypercholesterolemia. Hypertension. CVA. SURGICAL HISTORY : CABG. Pacemaker. Cardiac cath ENCOUNTER: Initial ACUITY: 1 day PAIN SCORE: Non-responsive. LOCATION: Bilateral chest FINDINGS: Portable AP view the chest demonstrates stable enlargement of the cardiac silhouette with calcificati on of the aorta this patient post median sternotomy. Left chest wall cardiac pacing device/AICD is pr esent. Endotracheal tube and nasogastric tube remain present. The nasogastric tube sentinel hole is i n the distal esophagus. Left internal jugular central line is present and distal tip is not definitel y visualized but likely in the brachiocephalic vein near the SVC junction. The distal tip is never cl early visualized in the superior vena cava. No pneumothorax is visualized. There is bilateral airspac e opacity and poor parenchymal opacities bilaterally. CONCLUSION: 1. Left IJ central line is present and distal tip is not clearly visualized but likely in the brachio cephalic vein near the SVC junction. No pneumothorax is visualized. 2. Stable bilateral air space opacity in a pattern which could represent pulmonary edema with bilater al pleural effusions. 3. Nasogastric tube distal tip is near the GE junction and should ideally be advanced. Carlos Lerma MD on February 04, 2017 at 8:42 Board Certified Radiologist. This report was verified electronically.
[2017-02-04] MEDS: SODIUM CHLORIDE 0.9% FLUSH 10 ML FLUSH IV FLUSH SCH ×2 (09:00→21:00)
[2017-02-04] MEDS ORDERED: NON-FORMULARY DRUG (Fish Oil-Cholecalciferol (Omega-3 Fish Oil/Vitamin) 1 CAP) PO SCH (09:00)
[2017-02-04] MEDS ORDERED: NON-FORMULARY DRUG (Rosuvastatin 20 MG) PO SCH (09:00)
[2017-02-04] MEDS: SODIUM CHLORIDE 0.9% FLUSH 10 ML FLUSH IVF SCH (09:00)
[2017-02-04] MEDS: MUPIROCIN 2% OINT 1 APPLIC/GM SYR NASAL SCH ×2 (09:00→21:00)
[2017-02-04] MEDS: SENNOSIDES SYRUP 8.8 MG/5 ML CUP PO SCH ×2 (10:35→21:14)
[2017-02-04] MEDS: FUROSEMIDE 20 MG/2 ML VIAL IV PUSH SCH ×2 (10:35→19:27)
[2017-02-04] MEDS: LACTULOSE SYRUP 20 GM/30 ML CUP PO SCH ×2 (10:35→21:00)
[2017-02-04] MEDS: DOCUSATE SODIUM 100 MG/10 ML UDC PO SCH ×2 (10:36→21:14)
[2017-02-04] MEDS: MULTIVITAMIN TAB PO SCH (10:37)
[2017-02-04] MEDS: FAMOTIDINE 20 MG TAB TUBE SCH ×2 (10:37→21:11)
[2017-02-04] MEDS: MUPIROCIN 2% OINT 1 APPLIC/GM SYR EACH NARE SCH ×2 (10:38→21:10)
[2017-02-04 14:06] LABS: HEMATOCRIT 34.5 % (39.0-51.0); MEAN CELL VOLUME 83.3 FL (80.0-100.0); MEAN CORPUSCULAR HEMOGLOBIN 26.7 PG (27.0-34.0); MEAN CORPUSCULAR HGB CONC 32.1 % (32.0-36.0); PLATELET COUNT 157 TH/MM3 (150-450); RED BLOOD COUNT 4.14 MIL/MM3 (4.50-5.90); RED CELL DISTRIBUTION WIDTH 23.2 % (11.6-17.2); REVIEW FLAG FINAL
[2017-02-04 14:22] LABS: BETA-HYDROXYBUTYRATE 0.09 MMOL/L (0.00-0.39); BICARBONATE 32.1 MEQ/L (21.0-32.0); POTASSIUM 3.8 MEQ/L (3.5-5.1)
[2017-02-04 14:38] LABS: CALCIUM-PROTEIN CORRECTED 8.1 MG/DL (8.5-10.1)
[2017-02-04] MEDS: SODIUM CHLORIDE 23.4% INJ 77 MEQ in DEXTROSE 10% INJ 1,000 ML IV SCH (14:45)
[2017-02-04] MEDS ORDERED: ICU - MAGNESIUM SULFATE 2 GM/NS 100 ML IV PRN ×2 (18:00)
[2017-02-04] MEDS ORDERED: ICU - POTASSIUM PHOSPHATE MONOBASIC 500 MG TAB PO PRN (18:00)
[2017-02-04] MEDS ORDERED: POTASSIUM CHLORIDE 25 MEQ EFFERVESCENT TAB PO PRN (18:00)
[2017-02-04] MEDS ORDERED: ICU - CALL ORDERING PHYSICIAN PRN (18:00)
[2017-02-04] MEDS ORDERED: ICU - D/C ICU ELECTROLYTE ORDERS PRN (18:00)
[2017-02-04] MEDS ORDERED: ICU - SODIUM PHOSPHATE 30 MMOL/NS 250 ML IV PRN ×2 (18:00)
[2017-02-04] MEDS ORDERED: ICU - POTASSIUM PHOSPHATE 30 MMOL/NS 250 ML IV PRN ×2 (18:00)
[2017-02-04] MEDS ORDERED: ICU - MAGNESIUM SULFATE 4 GM/NS 100 ML IV PRN ×2 (18:00)
[2017-02-04] MEDS ORDERED: ICU - POTASSIUM CHLORIDE/AQUEOUS SOLN 20 MEQ/100 ML IVPB IV PRN (18:00)
[2017-02-04] MEDS ORDERED: ICU - MAGNESIUM OXIDE 400 MG TAB PO PRN (18:00)
[2017-02-04] MEDS ORDERED: ICU - POTASSIUM CHLORIDE/AQUEOUS SOLN 40 MEQ/100 ML IVPB IV PRN (18:00)
[2017-02-04] MEDS ORDERED: TERBUTALINE INJ 1 MG/ML AMP SQ PRN (18:30)
--- NOTE | 2017-02-04 22:50 | HHI.IDPN ---
Subjective Subjective Remarks ID - delayed entry pt was seen around 1600 today chart reviewed Patient is a 66-year-old male,sp ischemic stroke, received TPA to the right vertebral artery. Presented with high grade Staph epi bacteremia in the settings of endovascular device (pacemaker) repeat clx are negative Notes reviewed D/W Rn Temps ok Has been off sedation, no response On the vent BP ok communicates in writing, moves all 4 extremetis remains on vent co feeling hungry temp 100.2 x 1 over 24 hrs Antibiotics Vancomycin Past Medical History Hypertension Hyperlipidemia CHF CAD Previous CVA Past Surgical History CABG Pacer/AICD Has midline abdominal scar, surgery done not known Allergies: Coded Allergies: hydrochlorothiazide (Verified Allergy, Severe, Edema, 01/31/17) atorvastatin (Verified Allergy, Unknown, 01/31/17) morphine (Verified Allergy, Unknown, 01/31/17) MRI PRECAUTION (Verified Adverse Reaction, Severe, NON COMPATIBLE PACEMAKER. LRS 01/31/17, 01/31/17) Objective . Vital Signs Date Time Temp Pulse Resp B/P (MAP) Pulse Ox O2 Delivery O2 Flow Rate FiO2 02/04/17 22:00 69 02/04/17 20:39 100 40 02/04/17 20:00 72 02/04/17 20:00 40 02/04/17 20:00 99.5 72 16 100/64 (76) 100 Arterial Line 02/04/17 19:00 100 Mechanical Ventilator 40 02/04/17 18:00 68 02/04/17 16:00 40 02/04/17 16:00 98.4 73 18 94/57 (69) 100 02/04/17 16:00 73 02/04/17 15:48 100 40 02/04/17 14:00 70 02/04/17 12:28 100 40 02/04/17 12:00 97.9 72 14 96/64 (75) 100 02/04/17 12:00 72 02/04/17 12:00 40 02/04/17 10:00 68 02/04/17 08:14 100 40 02/04/17 08:00 70 02/04/17 08:00 97.8 70 12 109/67 (81) 100 02/04/17 08:00 40 02/04/17 07:00 100 40 02/04/17 06:00 69 02/04/17 04:37 98 40 02/04/17 04:00 100.1 70 14 128/70 (89) 100 02/04/17 04:00 40 02/04/17 04:00 70 02/04/17 02:00 68 02/04/17 01:14 100 40 02/04/17 00:00 40 02/04/17 00:00 68 02/04/17 00:00 98.2 68 14 118/68 (85) 100 02/04/17 02/04/17 02/05/17 15:00 23:00 07:00 Intake Total 105 ml 725 ml Output Total 700 ml 275 ml Balance -595 ml 450 ml Intake IV Total 105 ml Tube Feeding 695 ml Other 30 ml Output Urine Total 700 ml 275 ml . Laboratory Tests Test 02/03/17 03:50 02/04/17 13:40 White Blood Count 9.2 TH/MM3 8.0 TH/MM3 Red Blood Count 4.36 MIL/MM3 4.14 MIL/MM3 Hemoglobin 11.8 GM/DL 11.1 GM/DL Hematocrit 36.0 % 34.5 % Mean Corpuscular Volume 82.5 FL 83.3 FL Mean Corpuscular Hemoglobin 27.1 PG 26.7 PG Mean Corpuscular Hemoglobin Concent 32.9 % 32.1 % Red Cell Distribution Width 22.9 % 23.2 % Platelet Count 182 TH/MM3 157 TH/MM3 Mean Platelet Volume 8.6 FL 8.7 FL Laboratory Tests Test 02/03/17 03:50 02/04/17 06:17 02/04/17 13:40 Blood Urea Nitrogen 22 MG/DL 21 MG/DL Creatinine 0.97 MG/DL 0.87 MG/DL Random Glucose 100 MG/DL 108 MG/DL Total Protein 5.3 GM/DL 5.2 GM/DL Albumin 2.1 GM/DL Calcium Level 7.3 MG/DL 7.1 MG/DL Alkaline Phosphatase 157 U/L Aspartate Amino Transf (AST/SGOT) 15 U/L Alanine Aminotransferase (ALT/SGPT) 18 U/L Total Bilirubin 1.2 MG/DL Sodium Level 140 MEQ/L 140 MEQ/L Potassium Level 3.8 MEQ/L 3.8 MEQ/L Chloride Level 106 MEQ/L 103 MEQ/L Carbon Dioxide Level 27.7 MEQ/L 32.1 MEQ/L Anion Gap 6 MEQ/L 5 MEQ/L Estimat Glomerular Filtration Rate 93 ML/MIN 106 ML/MIN Protein Corrected Calcium 8.3 MG/DL 8.1 MG/DL Phosphorus Level 1.9 MG/DL Magnesium Level 2.0 MG/DL Ammonia 43 MCMOL/L Microbiology Date/Time Source Procedure Growth Status 02/03/17 03:50 Blood Peripheral Aerobic Blood Culture - Preliminary NO GROWTH IN 1 DAY Resulted 02/03/17 03:50 Blood Peripheral Anaerobic Blood Culture - Preliminary NO GROWTH IN 1 DAY Resulted Imaging Last Impressions Chest X-Ray 02/04/17 0807 Signed Impressions: Service Date/Time: Saturday, February 04, 2017 08:13 - CONCLUSION: 1. Left IJ central line is present and distal tip is not clearly visualized but likely in the brachiocephalic vein near the SVC junction. No pneumothorax is visualized. 2. Stable bilateral air space opacity in a pattern which could represent pulmonary edema with bilateral pleural effusions. 3. Nasogastric tube distal tip is near the GE junction and should ideally be advanced. Carlos Lerma MD Upper Extremity Ultrasound 02/01/17 0000 Signed Impressions: Service Date/Time: January 11:49 - CONCLUSION: 1. No evidence of deep venous thrombosis. Moses Juarez MD Head CT 01/31/17 0809 Signed Impressions: Service Date/Time: Tuesday, January 31, 2017 08:16 - CONCLUSION: Hypodensity left parietal-occipital mid convexity region suggesting infarction or encephalomalacia. No evidence of hemorrhage. Cannot exclude an acute process. May consider further characterization with MRI. Wilber Alfaro MD Neck CTA 01/31/17 0000 Signed Impressions: Service Date/Time: Tuesday, January 31, 2017 08:57 - CONCLUSION: 1. 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 2. String-like contrast in the left vertebral artery Wilber Alfaro MD Head CTA 01/31/17 0000 Signed Impressions: Service Date/Time: Tuesday, January 31, 2017 08:57 - CONCLUSION: Absent flow in the left internal carotid artery with reconstitution of flow in the A2 segment. There is some flow seen in the left sylvian branches of the middle cerebral artery, but the degree of vessel opacification on the left is less than on the right. Wilber Alfaro MD Cerebral Arteriogram 01/31/17 0000 Signed Impressions: Service Date/Time: Tuesday, January 31, 2017 00:00 - CONCLUSION: 1. Patient appears to have had a thrombotic or embolic event to the vertebral basilar system. The left vertebral is highly diseased throughout its course and appears to occlude just proximal to the basilar. Unable to traverse the highly diseased vessel for intervention. 2. The right vertebral is robust proximally but appears to terminate in a PICA branch with a irregular terminal vessel possibly representing the distal vertebral and proximal basilar. This appears to be chronically occluded. Russ Joseph MD Physical Exam GENERAL: Off sedation, responding, on the vent, not in respiratory distress. SKIN: Warm and dry. No generalized rash, no ecchymoses and no evidence of embolic lesions. HEAD: Atraumatic. Normocephalic. No temporal wasting, or tenderness. EYES: [place] conjunctiva. No petechia or hemorrhage. Pupils equal, round, pinpoint. Has dirty sclera. No injection or drainage. EARS, NOSE AND THROAT: Nose without bleeding or purulent nasal discharge. Edentulous, he is orally intubated. NECK: Trachea midline. Supple and not tender, no meningeal signs CARDIOVASCULAR: Regular rate and rhythm. No murmurs, rubs or gallops heard. No rub. Pacer/AICD L upper chest with no evidence of infection RESPIRATORY: Coarse breath sounds equal bilaterally. No rales, wheezing or rhonchi. Decreased at bases. ABDOMEN: Soft, nondistended, no reaction to deep palpation. Bowel sounds present and normoactive. No organomegaly. : Rabago in place, scrotum swollen EXTREMITIES: No clubbing, cyanosis, has bilateral pitting pedal edema. Cool feet NEUROLOGICAL: awake, follows commands, communicates thryu writing; makles eye contact, tracks PSYCHIATRIC: calm, but confused and combative (pulls line), requires restraints LINE: No evidence of infection Assessment & Plan Remarks IMPRESSION Staph epi bacteremia (+) BC, from same venipuncture, ?significance - no fever, WBC normal - incidental finding :pt presented with stroke, afebrile - echo ok - has Pacer/defib Recurrent CVA, S/P thrombolytic Rx Respiratory failure Cardiomyopathy, CXR with CHF, rell effusions Renal insufficiency Encephalopathy, etiology? RECOMMENDATION fu repeat BC Continue IV Vanco - pharm doing dosing Monitor progress D/W RN dw family @ b/s Adelina Shoemaker MD Feb 04, 2017 22:50
[2017-02-05] VITALS (19 sets, daily range): BP systolic 88–106; BP diastolic 56–73; PULSE 67–92; RESP 12–17; TEMP 98.2–99.2; O2SAT 98–100
[2017-02-05] MEDS: levETIRAcetam 500 MG/NS 100 ML IV SCH ×6 (03:42→19:46)
[2017-02-05] MEDS: CHLORHEXIDINE GLUCONATE 2 % 1 PACK (2 CLOTHS) TOP SCH (04:00)
[2017-02-05] MEDS: RESP: ALBUTEROL 2.5 MG/IPRATROPIUM 0.5 MG NEB (SCH) NEB ×4 (04:26→20:17)
[2017-02-05] MEDS: SODIUM CHLORIDE 23.4% INJ 77 MEQ in DEXTROSE 10% INJ 1,000 ML IV SCH (05:57)
--- NOTE | 2017-02-05 06:14 | RADRPT ---
EXAM DATE/TIME: 02/05/2017 04:47 [facility] COMPARISON: CHEST SINGLE AP, February 04, 2017, 8:13. INDICATIONS : Shortness of breath, possible pulmonary disease. MEDICAL HISTORY : Congestive heart failure. Hypercholesterolemia. Hypertension. CVA. SURGICAL HISTORY : CABG. Pacemaker. Cardiac cath. ENCOUNTER: Subsequent ACUITY: 1 week PAIN SCORE: Non-responsive. LOCATION: Bilateral chest FINDINGS: A single view of the chest demonstrates endotracheal tube tip in satisfactory position. NG tip at the stomach. Pacer leads overlying right atrium and right ventricle. Bilateral mostly basilar dependent airspace disease and pleural effusions. Global cardiomegaly. CONCLUSION: Endotracheal tube and nasogastric tube in satisfactory position. Stable bilateral mostly basilar depe ndent airspace disease and pleural effusions. Ridge Hernandez MD on February 05, 2017 at 6:09 Board Certified Radiologist. This report was verified electronically.
[2017-02-05 06:19] LABS: AUTOMATED NEUTROPHIL # 7.2 TH/MM3 (1.8-7.7); BASOPHIL # 0.1 TH/MM3 (0-0.2); BASOPHIL % 0.8 % (0.0-2.0); EOSINOPHIL # 0.3 TH/MM3 (0-0.4); EOSINOPHIL % 3.3 % (0.0-4.0); HEMATOCRIT 33.7 % (39.0-51.0); HEMO FLAGS DIFF FINAL; LYMPH % 4.3 % (9.0-44.0); LYMPHOCYTE # 0.4 TH/MM3 (1.0-4.8); MEAN CELL VOLUME 83.6 FL (80.0-100.0); MEAN CORPUSCULAR HEMOGLOBIN 26.9 PG (27.0-34.0); MEAN CORPUSCULAR HGB CONC 32.2 % (32.0-36.0); MONO % 7.2 % (0.0-8.0); NEUT % 84.4 % (16.0-70.0); PLATELET COUNT 164 TH/MM3 (150-450); RED BLOOD COUNT 4.03 MIL/MM3 (4.50-5.90); RED CELL DISTRIBUTION WIDTH 22.9 % (11.6-17.2); WHITE BLOOD COUNT 8.6 TH/MM3 (4.0-11.0)
[2017-02-05 07:00] LABS: ALKALINE PHOSPHATASE 150 U/L (45-117); ALT (GPT) 22 U/L (12-78); ANION GAP 7 MEQ/L (5-15); AST (GOT) 26 U/L (15-37); BICARBONATE 30.1 MEQ/L (21.0-32.0); BLOOD UREA NITROGEN 22 MG/DL (7-18); CHLORIDE 102 MEQ/L (98-107); GLOMERULAR FILTRATION RATE 92 ML/MIN (>89); MAGNESIUM 2.2 MG/DL (1.5-2.5); POTASSIUM 3.8 MEQ/L (3.5-5.1); SODIUM (NA) 139 MEQ/L (136-145); TOTAL BILIRUBIN ADULT 1.2 MG/DL (0.2-1.0)
[2017-02-05 07:01] LABS: CREATINE KINASE 69 U/L (39-308)
--- NOTE | 2017-02-05 07:15 | HHI.CCPN ---
Subjective Remarks/Hospital Course 01/31: This 66-year-old man who presents to the emergency department via EMS for altered mental status. History is a little bit unclear. It sounds like he was agitated overnight so they gave him Xanax this morning. Speaking with the nurse there, Yesica Earl, patient gets Xanax periodically but not every day. It's not a new dose for him. Subsequently he became unresponsive. Per EMS report he normally has a GCS of 14 but cannot walk. For them he was not talking at all, and stopped breathing for a period of time in the ambulance and required [id number] ventilation. They were bagging him on presentation to the ED. patient underwent CT head which was negative for bleed. He was evaluated by Dr. 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 On propofol 75 mics per kg/min. moving both upper extremities and left lower extremity on lightening sedation per nursing staff. Has chronically weak right lower extremity per family. Currently on heparin drip for full anticoagulation. 02/02: Sedated, orally intubated on mechanical ventilation this morning at the time of my evaluation. Being diuresed with Lasix. 2-D echo with LVEF 20% and severe MR. Hypoglycemia today despite tube feeds for which he was given D50 and cortisol level being checked. 02/03: Off sedation since 9/8 AM. Started to arouse last evening and following commands moving both upper extremities. Remains orally intubated on mechanical ventilation. At the time of my evaluation years arousable however not following commands. 02/04: Tmax 100.1. Currently resting in bed in no acute distress. Moving right lower extremity spontaneously. Nods head and follows commands. Patient is leaning towards right. Subjective 02/05: Tolerated PSV trial overnight. Opened eyes. Following commands. States he is hungry today. Move the left upper extremity spontaneously along with right upper extremity today. Moved toes slightly. Objective Vital Signs Date Time Temp Pulse Resp B/P (MAP) Pulse Ox O2 Delivery O2 Flow Rate FiO2 02/05/17 04:30 100 40 02/05/17 02:00 73 02/05/17 00:00 98.5 12 92/58 (69) 02/04/17 19:00 Mechanical Ventilator Result Diagram: 02/05/17 0515 02/05/17 0430 Other Results Microbiology Date/Time Source Procedure Growth Status 02/03/17 03:50 Blood Peripheral Aerobic Blood Culture - Preliminary NO GROWTH IN 1 DAY Resulted 02/03/17 03:50 Blood Peripheral Anaerobic Blood Culture - Preliminary NO GROWTH IN 1 DAY Resulted 02/01/17 11:15 Sputum Endotracheal Gram Stain - Final Complete 02/01/17 11:15 Sputum Culture - Final S. Aureus Mrsa Complete 02/01/17 11:30 Urine Catheterized Urine Urine Culture - Final NO GROWTH IN 48 HOURS. Complete Imaging Last Impressions Chest X-Ray 02/05/17 0600 Signed Impressions: Service Date/Time: Sunday, February 05, 2017 04:47 - CONCLUSION: Endotracheal tube and nasogastric tube in satisfactory position. Stable bilateral mostly basilar dependent airspace disease and pleural effusions. Ridge Hernandez MD Upper Extremity Ultrasound 02/01/17 0000 Signed Impressions: Service Date/Time: January 11:49 - CONCLUSION: 1. No evidence of deep venous thrombosis. Moses Juarez MD Head CT 01/31/17 0809 Signed Impressions: Service Date/Time: Tuesday, January 31, 2017 08:16 - CONCLUSION: Hypodensity left parietal-occipital mid convexity region suggesting infarction or encephalomalacia. No evidence of hemorrhage. Cannot exclude an acute process. May consider further characterization with MRI. Wilber Alfaro MD Neck CTA 01/31/17 0000 Signed Impressions: Service Date/Time: Tuesday, January 31, 2017 08:57 - CONCLUSION: 1. 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 2. String-like contrast in the left vertebral artery Wilber Alfaro MD Head CTA 01/31/17 0000 Signed Impressions: Service Date/Time: Tuesday, January 31, 2017 08:57 - CONCLUSION: Absent flow in the left internal carotid artery with reconstitution of flow in the A2 segment. There is some flow seen in the left sylvian branches of the middle cerebral artery, but the degree of vessel opacification on the left is less than on the right. Wilber Alfaro MD Cerebral Arteriogram 01/31/17 0000 Signed Impressions: Service Date/Time: Tuesday, January 31, 2017 00:00 - CONCLUSION: 1. Patient appears to have had a thrombotic or embolic event to the vertebral basilar system. The left vertebral is highly diseased throughout its course and appears to occlude just proximal to the basilar. Unable to traverse the highly diseased vessel for intervention. 2. The right vertebral is robust proximally but appears to terminate in a PICA branch with a irregular terminal vessel possibly representing the distal vertebral and proximal basilar. This appears to be chronically occluded. Russ Joseph MD Objective Remarks GENERAL: 66-year-old AA male, critically ill currently orotracheally intubated SKIN: Warm and dry. No rash HEAD: Atraumatic. Normocephalic. EYES: Pupils equal and round about 3 mm bilaterally and reactive. No scleral icterus. No injection or drainage. ENT: No nasal bleeding or discharge. Mucous membranes pink and moist. NECK: Trachea midline. No JVD. CARDIOVASCULAR: Regular rate and rhythm. S1, S2 no S4. 2/6 systolic murmur left lower sternal border. RESPIRATORY: No accessory muscle use. Clear to auscultation. Breath sounds equal bilaterally. GASTROINTESTINAL: Abdomen soft, non-tender, nondistended. Hypoactive bowel sounds appreciated MUSCULOSKELETAL: Extremities with trace to 1+ bilateral lower extremity and upper extremity edema. No obvious deformities. NEUROLOGICAL: Arousable on the ventilator. Nods head to command. Moves left upper extremity continuously, wiggle toes bilaterally. Minimal movement right upper extremity on my examination. 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 Patient is status post intervention by IR. Cerebral angiogram revealed occluded distal vertebral/proximal parietal occlusion acute. 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 EEG - 02/01 - 3-6 Hz activity, 20-50 microvolts occurring in generalized fashion. EEG variability reactivity noted. Mild spindles noted as well. Limited driving with photic stimulation. Single lead EKG showing sinus rhythm. Mild to moderate encephalopathy. Clinical correlation Recommended. Patient is currently in a heparin drip at 1000 units an hour. Previous Apixaban 5 mg twice a day Dr. Solano/Neurology following. Holding buspirone 7.5 mg 3 times a day, mirtazapine 7.5 mg a night and trazodone 50 mg by mouth daily for depression/anxiety. Resume when clinically indicated Continue levetiracetam 500 mg IV 3 times a day/seizure precautions CV: Chronic systolic heart failure ejection fraction 20% Pulmonary hypertension History of CABG 4/AICD Hypertension Dyslipidemia Echocardiogram revealed EF 20%. Decreased right ventricular left ventricular function. Dilated LV. Enlarged left atrium. Severe pulmonary hypertension greater than 70 mmHg, severe TR/MR Cardiology/Dr. Hernandez following Currently on furosemide 20 mg IV twice a day. Resume 1 dose of acetazolamide 250 mg IV 1 yesterday Home medications include aspirin 81 mg daily, metoprolol 25 mg by mouth daily, furosemide 40 mg daily and spinal active 25 mill grams by mouth daily Patient is on rosuvastatin 20 mg by mouth daily along with Fish oil/ cholecalciferol 1 tablet daily for dyslipidemia Resp: Acute hypoxemic respiratory failure Currently on PSV trial 15/ at 40% Albuterol/ipratropium aerosols every 6 hours with albuterol aerosols every 2 hours. Dyspnea Follow-up a.m. check sedimentation rate Spontaneous breathing trials daily. Currently not a candidate for extubation due to mental status GI: Hypoalbuminemia Currently on Jevity 1.5 at 60 cc an hour Famotidine for GI prophylaxis Docusate sodium 100 mg twice a day, senna liquid 8.6 mg twice a day for bowel regimen along with lactulose 30 cc twice a day : Rabago catheter indicated for accurate I's and O's in a critically ill patient Endo: Hypoglycemia - possibly secondary to sepsis Normal TSH/cortisol levels. C-peptide/insulin levels and human growth hormone pending Currently on D10 at 50 cc an hour. Blood sugars consistently and 2140s Renal: Acute kidney injury resolved Monitor urine output Accurate I's and O's Follow BMP in a.m. Heme: Normocytic anemia Chronic Apixaban use Monitor CBC daily. Follow trends. Currently on heparin drip at 1000 units an hour. We'll need to switch to VKA or NOAC at some point in future. ID: Coag-negative//staph epi bacteremia Current vancomycin dose by infectious disease day #4 [place] decolonization protocol with mupirocin swabs twice a day Infectious disease/Dr. Simons following Pertinent cultures 02/03 - blood cultures 1 -no growth 02/01 - blood cultures 2 -no growth 02/01 - sputum - coag negative staph 01/31 - blood cultures 2 - coag negative staph, staph epi FEN: Replace electrolytes as clinically indicated MSK: PT/OT for range of motion evaluate and treat Access - Left IJ CVL day 2 placed 02/04 - Left radial arterial line placed 01/31 Prophylaxis - GI - famotidine - DVT - SCD/heparin drip Critical Care: The total critical care time was 35 minutes. Time to perform other separately billable procedures was not included in the critical care time. Jacek Maya MD Feb 05, 2017 07:15
[2017-02-05 07:30] LABS: APTT (PATIENT) 29.4 SEC (24.3-30.1)
[2017-02-05] MEDS ORDERED: POTASSIUM CHLORIDE 25 MEQ EFFERVESCENT TAB PO ONE (07:30)
[2017-02-05] MEDS: FUROSEMIDE 20 MG/2 ML VIAL IV PUSH SCH ×2 (08:57→21:27)
[2017-02-05] MEDS: DOCUSATE SODIUM 100 MG/10 ML UDC PO SCH ×2 (08:57→21:00)
[2017-02-05] MEDS: LACTULOSE SYRUP 20 GM/30 ML CUP PO SCH ×2 (08:57→21:00)
[2017-02-05] MEDS: MULTIVITAMIN TAB PO SCH (08:58)
[2017-02-05] MEDS: FAMOTIDINE 20 MG TAB TUBE SCH ×2 (08:58→21:27)
[2017-02-05] MEDS: SODIUM CHLORIDE 0.9% FLUSH 10 ML FLUSH IV FLUSH SCH ×2 (08:58→21:00)
[2017-02-05] MEDS: MUPIROCIN 2% OINT 1 APPLIC/GM SYR EACH NARE SCH ×2 (08:59→21:00)
[2017-02-05] MEDS: SODIUM CHLORIDE 0.9% FLUSH 10 ML FLUSH IVF SCH (08:59)
[2017-02-05] MEDS ORDERED: ROSUVASTATIN 20 MG PO SCH (09:00)
[2017-02-05] MEDS: SENNOSIDES SYRUP 8.8 MG/5 ML CUP PO SCH ×2 (09:00→21:00)
[2017-02-05] MEDS: MUPIROCIN 2% OINT 1 APPLIC/GM SYR NASAL SCH ×2 (09:00→21:00)
[2017-02-05] MEDS: CHLORHEXIDINE 0.12% (ORAL KIT) 15 ML CUP MT SCH ×2 (09:45→21:27)
[2017-02-05] MEDS: POTASSIUM PHOSPHATE/SODIUM PHOSPHATE 250 MG TAB PO SCH ×3 (10:23→21:27)
[2017-02-05 11:21] LABS: APTT (PATIENT) 30.4 SEC (24.3-30.1)
--- NOTE | 2017-02-05 11:29 | HHI.IDPN ---
Subjective Subjective Remarks Patient is a 66-year-old male,sp ischemic stroke, received TPA to the right vertebral artery. Presented with high grade Staph epi bacteremia in the settings of endovascular device (pacemaker) repeat clx are negative Notes reviewed D/W Dr Zulma Elizalde ok Mental status is better 2 BC on admission with Staph epi - has different susceptibility pattern Repeat BC negative so far On the vent BP ok One low grade temps, otherwise all normal temps Sputum with MRSA WBC normal Creatinine normal Last CXR 02/05 with stable basilar infiltrates Antibiotics Vancomycin Past Medical History Hypertension Hyperlipidemia CHF CAD Previous CVA Past Surgical History CABG Pacer/AICD Has midline abdominal scar, surgery done not known Allergies: Coded Allergies: hydrochlorothiazide (Verified Allergy, Severe, Edema, 01/31/17) atorvastatin (Verified Allergy, Unknown, 01/31/17) morphine (Verified Allergy, Unknown, 01/31/17) MRI PRECAUTION (Verified Adverse Reaction, Severe, NON COMPATIBLE PACEMAKER. LRS 01/31/17, 01/31/17) Objective . Vital Signs Date Time Temp Pulse Resp B/P (MAP) Pulse Ox O2 Delivery O2 Flow Rate FiO2 02/05/17 08:43 100 40 02/05/17 06:00 68 02/05/17 04:30 100 40 02/05/17 04:00 98.9 68 17 106/73 (84) 100 02/05/17 04:00 40 02/05/17 04:00 68 02/05/17 02:00 73 02/05/17 00:16 100 40 02/05/17 00:00 98.5 69 12 92/58 (69) 99 02/05/17 00:00 69 02/05/17 00:00 40 02/04/17 22:00 69 02/04/17 20:39 100 40 02/04/17 20:00 72 02/04/17 20:00 40 02/04/17 20:00 99.5 72 16 100/64 (76) 100 Arterial Line 02/04/17 19:00 100 Mechanical Ventilator 40 02/04/17 18:00 68 02/04/17 16:00 40 02/04/17 16:00 98.4 73 18 94/57 (69) 100 02/04/17 16:00 73 02/04/17 15:48 100 40 02/04/17 14:00 70 02/04/17 12:28 100 40 02/04/17 12:00 97.9 72 14 96/64 (75) 100 02/04/17 12:00 72 02/04/17 12:00 40 . Laboratory Tests Test 02/04/17 13:40 02/05/17 05:15 White Blood Count 8.0 TH/MM3 8.6 TH/MM3 Red Blood Count 4.14 MIL/MM3 4.03 MIL/MM3 Hemoglobin 11.1 GM/DL 10.8 GM/DL Hematocrit 34.5 % 33.7 % Mean Corpuscular Volume 83.3 FL 83.6 FL Mean Corpuscular Hemoglobin 26.7 PG 26.9 PG Mean Corpuscular Hemoglobin Concent 32.1 % 32.2 % Red Cell Distribution Width 23.2 % 22.9 % Platelet Count 157 TH/MM3 164 TH/MM3 Mean Platelet Volume 8.7 FL 9.8 FL Neutrophils (%) (Auto) 84.4 % Lymphocytes (%) (Auto) 4.3 % Monocytes (%) (Auto) 7.2 % Eosinophils (%) (Auto) 3.3 % Basophils (%) (Auto) 0.8 % Neutrophils # (Auto) 7.2 TH/MM3 Lymphocytes # (Auto) 0.4 TH/MM3 Monocytes # (Auto) 0.6 TH/MM3 Eosinophils # (Auto) 0.3 TH/MM3 Basophils # (Auto) 0.1 TH/MM3 CBC Comment DIFF FINAL Differential Comment Laboratory Tests Test 02/04/17 06:17 02/04/17 13:40 02/05/17 04:30 Blood Urea Nitrogen 21 MG/DL 22 MG/DL Creatinine 0.87 MG/DL 0.98 MG/DL Random Glucose 108 MG/DL 103 MG/DL Total Protein 5.2 GM/DL 5.8 GM/DL Calcium Level 7.1 MG/DL 7.7 MG/DL Phosphorus Level 1.9 MG/DL 3.1 MG/DL Magnesium Level 2.0 MG/DL 2.2 MG/DL Sodium Level 140 MEQ/L 139 MEQ/L Potassium Level 3.8 MEQ/L 3.8 MEQ/L Chloride Level 103 MEQ/L 102 MEQ/L Carbon Dioxide Level 32.1 MEQ/L 30.1 MEQ/L Anion Gap 5 MEQ/L 7 MEQ/L Estimat Glomerular Filtration Rate 106 ML/MIN 92 ML/MIN Protein Corrected Calcium 8.1 MG/DL Ammonia 43 MCMOL/L Albumin 2.2 GM/DL Alkaline Phosphatase 150 U/L Aspartate Amino Transf (AST/SGOT) 26 U/L Alanine Aminotransferase (ALT/SGPT) 22 U/L Total Bilirubin 1.2 MG/DL Total Creatine Kinase 69 U/L Microbiology Date/Time Source Procedure Growth Status 02/03/17 03:50 Blood Peripheral Aerobic Blood Culture - Preliminary NO GROWTH IN 2 DAYS Resulted 02/03/17 03:50 Blood Peripheral Anaerobic Blood Culture - Preliminary NO GROWTH IN 2 DAYS Resulted Imaging Last Impressions Chest X-Ray 02/04/17 08 Signed Impressions: Service Date/Time: Saturday, February 04, 2017 08:13 - CONCLUSION: 1. Left IJ central line is present and distal tip is not clearly visualized but likely in the brachiocephalic vein near the SVC junction. No pneumothorax is visualized. 2. Stable bilateral air space opacity in a pattern which could represent pulmonary edema with bilateral pleural effusions. 3. Nasogastric tube distal tip is near the GE junction and should ideally be advanced. Carlos Lerma MD Upper Extremity Ultrasound 02/01/17 Signed Impressions: Service Date/Time: January 11:49 - CONCLUSION: 1. No evidence of deep venous thrombosis. Moses Juarez MD Head CT 01/31/17 0809 Signed Impressions: Service Date/Time: Tuesday, January 31, 2017 08:16 - CONCLUSION: Hypodensity left parietal-occipital mid convexity region suggesting infarction or encephalomalacia. No evidence of hemorrhage. Cannot exclude an acute process. May consider further characterization with MRI. Wilber Alfaro MD Neck CTA 01/31/17 Signed Impressions: Service Date/Time: Tuesday, January 31, 2017 08:57 - CONCLUSION: 1. 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 2. String-like contrast in the left vertebral artery Wilber Alfaro MD Head CTA 01/31/17 0000 Signed Impressions: Service Date/Time: Tuesday, January 31, 2017 08:57 - CONCLUSION: Absent flow in the left internal carotid artery with reconstitution of flow in the A2 segment. There is some flow seen in the left sylvian branches of the middle cerebral artery, but the degree of vessel opacification on the left is less than on the right. Wilber Alfaro MD Cerebral Arteriogram 01/31/17 0000 Signed Impressions: Service Date/Time: Tuesday, January 31, 2017 00:00 - CONCLUSION: 1. Patient appears to have had a thrombotic or embolic event to the vertebral basilar system. The left vertebral is highly diseased throughout its course and appears to occlude just proximal to the basilar. Unable to traverse the highly diseased vessel for intervention. 2. The right vertebral is robust proximally but appears to terminate in a PICA branch with a irregular terminal vessel possibly representing the distal vertebral and proximal basilar. This appears to be chronically occluded. Russ Joseph MD Physical Exam GENERAL: Off sedation, responding, on the vent, not in respiratory distress. SKIN: Warm and dry. No generalized rash, no ecchymoses and no evidence of embolic lesions. HEAD: Atraumatic. Normocephalic. No temporal wasting, or tenderness. EYES: [place] conjunctiva. No petechia or hemorrhage. Pupils equal, round, pinpoint. Has dirty sclera. No injection or drainage. EARS, NOSE AND THROAT: Nose without bleeding or purulent nasal discharge. Edentulous, he is orally intubated. NECK: Trachea midline. Supple and not tender, no meningeal signs CARDIOVASCULAR: Regular rate and rhythm. No murmurs, rubs or gallops heard. No rub. Pacer/AICD L upper chest with no evidence of infection RESPIRATORY: Coarse breath sounds equal bilaterally. No rales, wheezing or rhonchi. Decreased at bases. ABDOMEN: Soft, nondistended, no reaction to deep palpation. Bowel sounds present and normoactive. No organomegaly. : Rabago in place, scrotum swollen EXTREMITIES: No clubbing, cyanosis, has bilateral pitting pedal edema. Cool feet NEUROLOGICAL: awake, follows commands, communicates thryu writing; makles eye contact, tracks PSYCHIATRIC: calm, but confused and combative (pulls line), requires restraints LINE: No evidence of infection Assessment & Plan Remarks IMPRESSION (+) BC, from same venipuncture, ?significance - has 2 different type of Staph epi - repeat BC negatuve so far - no fever, WBC normal - incidental finding :pt presented with stroke, afebrile - echo ok - has Pacer/defib Recurrent CVA, S/P thrombolytic Rx Respiratory failure MRSA PNA Cardiomyopathy, CXR with CHF, rell effusions Renal insufficiency Encephalopathy, etiology? RECOMMENDATION Follow repeat BC Continue IV Vanco - getting intermittent dosing Monitor progress Weaning per [facility] D/W Annia Santamaria MD Feb 05, 2017 11:29
[2017-02-05] MEDS: HEPARIN-D5W 25,000 U/250 ML 250 ML IV SCH (19:48)
[2017-02-05] MEDS: ACETAMINOPHEN 325 MG TAB PO PRN (21:26)
[2017-02-05 21:36] LABS: APTT (PATIENT) 47.4 SEC (24.3-30.1)
[2017-02-06] VITALS (16 sets, daily range): BP systolic 91–112; BP diastolic 56–73; PULSE 68–76; RESP 13–20; TEMP 97.8–100.6; O2SAT 72–100
[2017-02-06] MEDS: RESP: ALBUTEROL 2.5 MG/IPRATROPIUM 0.5 MG NEB (SCH) NEB ×4 (03:26→20:23)
[2017-02-06 03:37] LABS: APTT (PATIENT) 55.6 SEC (24.3-30.1)
[2017-02-06] MEDS: levETIRAcetam 500 MG/NS 100 ML IV SCH ×6 (03:45→18:22)
[2017-02-06] MEDS: CHLORHEXIDINE GLUCONATE 2 % 1 PACK (2 CLOTHS) TOP SCH (04:00)
--- NOTE | 2017-02-06 05:31 | RADRPT ---
EXAM DATE/TIME: 02/06/2017 04:30 [place] COMPARISON: CHEST SINGLE AP, February 05, 2017, 4:47. INDICATIONS : Respiratory failure. MEDICAL HISTORY : Congestive heart failure. Hypercholesterolemia. Hypertension. CVA. SURGICAL HISTORY : CABG. Pacemaker. Cardiac cath. ENCOUNTER: Subsequent ACUITY: 1 week PAIN SCORE: Non-responsive. LOCATION: Bilateral chest FINDINGS: Endotracheal tube in good position. NG enters stomach. Pacer leads unchanged. Global cardiomegaly. Bi lateral mostly basilar airspace disease and pleural effusions noted, slightly improved from February 05. CONCLUSION: 1. Slight improvement in basilar airspace disease and pleural effusions. Support apparatus unchanged. Ridge Hernandez MD on February 06, 2017 at 5:29 Board Certified Radiologist. This report was verified electronically.
[2017-02-06 06:42] LABS: AUTOMATED NEUTROPHIL # 7.2 TH/MM3 (1.8-7.7); BASOPHIL % 0.5 % (0.0-2.0); EOSINOPHIL # 0.1 TH/MM3 (0-0.4); EOSINOPHIL % 1.7 % (0.0-4.0); HEMATOCRIT 31.5 % (39.0-51.0); LYMPH % 3.3 % (9.0-44.0); LYMPHOCYTE # 0.3 TH/MM3 (1.0-4.8); MEAN CELL VOLUME 83.3 FL (80.0-100.0); MEAN CORPUSCULAR HEMOGLOBIN 26.6 PG (27.0-34.0); MEAN CORPUSCULAR HGB CONC 31.9 % (32.0-36.0); MONO % 8.5 % (0.0-8.0); PLATELET COUNT 142 TH/MM3 (150-450); RED BLOOD COUNT 3.78 MIL/MM3 (4.50-5.90); RED CELL DISTRIBUTION WIDTH 22.7 % (11.6-17.2); WHITE BLOOD COUNT 8.4 TH/MM3 (4.0-11.0)
[2017-02-06 06:50] LABS: HEMO FLAGS AUTO DIFF
[2017-02-06 07:05] LABS: ALT (GPT) 24 U/L (12-78); ANION GAP 4 MEQ/L (5-15); AST (GOT) 24 U/L (15-37); BICARBONATE 31.6 MEQ/L (21.0-32.0); BLOOD UREA NITROGEN 22 MG/DL (7-18); CHLORIDE 104 MEQ/L (98-107); GLOMERULAR FILTRATION RATE 97 ML/MIN (>89); MAGNESIUM 2.1 MG/DL (1.5-2.5); POTASSIUM 3.6 MEQ/L (3.5-5.1); SODIUM (NA) 140 MEQ/L (136-145)
[2017-02-06 07:07] LABS: ALKALINE PHOSPHATASE 135 U/L (45-117); APTT (PATIENT) 53.4 SEC (24.3-30.1); TOTAL BILIRUBIN ADULT 0.9 MG/DL (0.2-1.0)
[2017-02-06 07:54] LABS: OVALOCYTES 1+ (NORMAL); PLATELET ESTIMATE SMEAR LOW (NORMAL); PLATELET MORPHOLOGY NORMAL (NORMAL); SCAN/DIFF AUTO DIFF CONFIRMED
[2017-02-06] MEDS: SODIUM CHLORIDE 23.4% INJ 77 MEQ in DEXTROSE 10% INJ 1,000 ML IV SCH ×2 (07:59→22:59)
[2017-02-06] MEDS: FAMOTIDINE 20 MG TAB TUBE SCH ×2 (08:19→20:19)
[2017-02-06] MEDS: DOCUSATE SODIUM 100 MG/10 ML UDC PO SCH ×2 (08:19→20:15)
[2017-02-06] MEDS: ACETAMINOPHEN 325 MG TAB PO PRN ×2 (08:19→20:18)
[2017-02-06] MEDS: SODIUM CHLORIDE 0.9% FLUSH 10 ML FLUSH IV FLUSH SCH ×2 (08:20→20:19)
[2017-02-06] MEDS: CHLORHEXIDINE 0.12% (ORAL KIT) 15 ML CUP MT SCH ×2 (08:20→20:19)
[2017-02-06] MEDS: MUPIROCIN 2% OINT 1 APPLIC/GM SYR EACH NARE SCH ×2 (08:20→19:35)
[2017-02-06] MEDS: FUROSEMIDE 20 MG/2 ML VIAL IV PUSH SCH ×2 (08:20→20:18)
[2017-02-06] MEDS: SODIUM CHLORIDE 0.9% FLUSH 10 ML FLUSH IVF SCH (08:20)
[2017-02-06] MEDS: MULTIVITAMIN TAB PO SCH (08:20)
[2017-02-06] MEDS: SENNOSIDES SYRUP 8.8 MG/5 ML CUP PO SCH ×2 (08:21→20:15)
[2017-02-06] MEDS: MUPIROCIN 2% OINT 1 APPLIC/GM SYR NASAL SCH ×2 (08:21→20:15)
[2017-02-06] MEDS: LACTULOSE SYRUP 20 GM/30 ML CUP PO SCH ×2 (08:21→20:15)
[2017-02-06] MEDS: NOREPINEPHRINE INJ 4 MG in SODIUM CHLOR 0.9% 250 ML INJ 246 ML IV PRN ×2 (10:21→18:21)
--- NOTE | 2017-02-06 13:18 | HHI.CCPN ---
Subjective Remarks/Hospital Course 01/31: This 66-year-old man who presents to the emergency department via EMS for altered mental status. History is a little bit unclear. It sounds like he was agitated overnight so they gave him Xanax this morning. Speaking with the nurse there, Yesica Earl, patient gets Xanax periodically but not every day. It's not a new dose for him. Subsequently he became unresponsive. Per EMS report he normally has a GCS of 14 but cannot walk. For them he was not talking at all, and stopped breathing for a period of time in the ambulance and required [id number] ventilation. They were bagging him on presentation to the ED. patient underwent CT head which was negative for bleed. He was evaluated by Dr. 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 On propofol 75 mics per kg/min. moving both upper extremities and left lower extremity on lightening sedation per nursing staff. Has chronically weak right lower extremity per family. Currently on heparin drip for full anticoagulation. 02/02: Sedated, orally intubated on mechanical ventilation this morning at the time of my evaluation. Being diuresed with Lasix. 2-D echo with LVEF 20% and severe MR. Hypoglycemia today despite tube feeds for which he was given D50 and cortisol level being checked. 02/03: Off sedation since 9/8 AM. Started to arouse last evening and following commands moving both upper extremities. Remains orally intubated on mechanical ventilation. At the time of my evaluation years arousable however not following commands. 02/04: Tmax 100.1. Currently resting in bed in no acute distress. Moving right lower extremity spontaneously. Nods head and follows commands. Patient is leaning towards right. Subjective 02/05: Tolerated PSV trial overnight. Opened eyes. Following commands. States he is hungry today. Move the left upper extremity spontaneously along with right upper extremity today. Moved toes slightly. 02/06: Remains orally intubated on mechanical ventilation. Gets apneic episodes during C Pap trials. Follows commands. On tube feeds and D10 Objective Vital Signs Date Time Temp Pulse Resp B/P (MAP) Pulse Ox O2 Delivery O2 Flow Rate FiO2 02/06/17 11:50 100 40 02/06/17 10:21 72 80/50 02/06/17 08:00 98.8 17 02/06/17 07:00 Mechanical Ventilator Intake and Output 02/06/17 02/06/17 02/07/17 08:00 16:00 00:00 Intake Total 1457 ml Output Total 500 ml Balance 957 ml Result Diagram: 02/06/17 0600 02/06/17 06 Imaging Last Impressions Chest X-Ray 02/05/17 06 Signed Impressions: Service Date/Time: Sunday, February 05, 2017 04:47 - CONCLUSION: Endotracheal tube and nasogastric tube in satisfactory position. Stable bilateral mostly basilar dependent airspace disease and pleural effusions. Ridge Hernandez MD Upper Extremity Ultrasound 02/01/17 Signed Impressions: Service Date/Time: January 11:49 - CONCLUSION: 1. No evidence of deep venous thrombosis. Moses Juarez MD Head CT 01/31/17 0809 Signed Impressions: Service Date/Time: Tuesday, January 31, 2017 08:16 - CONCLUSION: Hypodensity left parietal-occipital mid convexity region suggesting infarction or encephalomalacia. No evidence of hemorrhage. Cannot exclude an acute process. May consider further characterization with MRI. Wilber Alfaro MD Neck CTA 01/31/17 0000 Signed Impressions: Service Date/Time: Tuesday, January 31, 2017 08:57 - CONCLUSION: 1. 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 2. String-like contrast in the left vertebral artery Wilber Alfaro MD Head CTA 01/31/17 0000 Signed Impressions: Service Date/Time: Tuesday, January 31, 2017 08:57 - CONCLUSION: Absent flow in the left internal carotid artery with reconstitution of flow in the A2 segment. There is some flow seen in the left sylvian branches of the middle cerebral artery, but the degree of vessel opacification on the left is less than on the right. Wilber Alfaro MD Cerebral Arteriogram 01/31/17 0000 Signed Impressions: Service Date/Time: Tuesday, January 31, 2017 00:00 - CONCLUSION: 1. Patient appears to have had a thrombotic or embolic event to the vertebral basilar system. The left vertebral is highly diseased throughout its course and appears to occlude just proximal to the basilar. Unable to traverse the highly diseased vessel for intervention. 2. The right vertebral is robust proximally but appears to terminate in a PICA branch with a irregular terminal vessel possibly representing the distal vertebral and proximal basilar. This appears to be chronically occluded. Russ Joseph MD Objective Remarks GENERAL: 66-year-old AA male, critically ill currently orotracheally intubated SKIN: Warm and dry. No rash HEAD: Atraumatic. Normocephalic. EYES: Pupils equal and round about 3 mm bilaterally and reactive. No scleral icterus. No injection or drainage. ENT: No nasal bleeding or discharge. Mucous membranes pink and moist. NECK: Trachea midline. No JVD. CARDIOVASCULAR: Regular rate and rhythm. S1, S2 no S4. 2/6 systolic murmur left lower sternal border. RESPIRATORY: No accessory muscle use. Clear to auscultation. Breath sounds equal bilaterally. GASTROINTESTINAL: Abdomen soft, non-tender, nondistended. Hypoactive bowel sounds appreciated MUSCULOSKELETAL: Extremities with trace to 1+ bilateral lower extremity and upper extremity edema. No obvious deformities. NEUROLOGICAL: Arousable on the ventilator. Nods head to command. Moves left upper extremity continuously, wiggle toes bilaterally. Minimal movement right upper extremity on my examination. 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 Patient is status post intervention by IR. Cerebral angiogram revealed occluded distal vertebral/proximal parietal occlusion acute. 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 EEG - 02/01 - 3-6 Hz activity, 20-50 microvolts occurring in generalized fashion. EEG variability reactivity noted. Mild spindles noted as well. Limited driving with photic stimulation. Single lead EKG showing sinus rhythm. Mild to moderate encephalopathy. Clinical correlation Recommended. Patient is currently in a heparin drip at 1000 units an hour. Previous Apixaban 5 mg twice a day Dr. Solano/Neurology following. Holding buspirone 7.5 mg 3 times a day, mirtazapine 7.5 mg a night and trazodone 50 mg by mouth daily for depression/anxiety. Resume when clinically indicated Continue levetiracetam 500 mg IV 3 times a day/seizure precautions CV: Chronic systolic heart failure ejection fraction 20% Pulmonary hypertension History of CABG 4/AICD Hypertension Dyslipidemia Echocardiogram revealed EF 20%. Decreased right ventricular left ventricular function. Dilated LV. Enlarged left atrium. Severe pulmonary hypertension greater than 70 mmHg, severe TR/MR Cardiology/Dr. Hernandez following Currently on furosemide 20 mg IV twice a day. Resume 1 dose of acetazolamide 250 mg IV 1 yesterday Home medications include aspirin 81 mg daily, metoprolol 25 mg by mouth daily, furosemide 40 mg daily and spinal active 25 mill grams by mouth daily Patient is on rosuvastatin 20 mg by mouth daily along with Fish oil/ cholecalciferol 1 tablet daily for dyslipidemia Resp: Acute hypoxemic respiratory failure Currently on PSV trial 15/5 at 40% Albuterol/ipratropium aerosols every 6 hours with albuterol aerosols every 2 hours. Dyspnea Follow-up a.m. check sedimentation rate Spontaneous breathing trials daily. Currently not a candidate for extubation due to mental status GI: Hypoalbuminemia Currently on Jevity 1.5 at 60 cc an hour Famotidine for GI prophylaxis Docusate sodium 100 mg twice a day, senna liquid 8.6 mg twice a day for bowel regimen along with lactulose 30 cc twice a day : Rabago catheter indicated for accurate I's and O's in a critically ill patient Endo: Hypoglycemia - possibly secondary to sepsis Normal TSH/cortisol levels. C-peptide/insulin levels and human growth hormone pending Currently on D10 at 50 cc an hour. Blood sugars consistently and 2140s Renal: Acute kidney injury resolved Monitor urine output Accurate I's and O's Follow BMP in a.m. Heme: Normocytic anemia Chronic Apixaban use Monitor CBC daily. Follow trends. Currently on heparin drip at 1000 units an hour. We'll need to switch to VKA or NOAC at some point in future. ID: Coag-negative//staph epi bacteremia Current vancomycin dose by infectious disease day #4 [place] decolonization protocol with mupirocin swabs twice a day Infectious disease/Dr. Simons following Pertinent cultures 02/03 - blood cultures 1 -no growth / - blood cultures 2 -no growth / - sputum - coag negative staph 9/6 - blood cultures 2 - coag negative staph, staph epi FEN: Replace electrolytes as clinically indicated MSK: PT/OT for range of motion evaluate and treat Access - Left IJ CVL day 2 placed 02/04 - Left radial arterial line placed 01/31 Prophylaxis - GI - famotidine - DVT - SCD/heparin drip Critical Care: The total critical care time was 35 minutes. Time to perform other separately billable procedures was not included in the critical care time. Osmani Gonzalez MD Feb 06, 2017 13:17
--- NOTE | 2017-02-06 13:40 | HHI.IDPN ---
Subjective Subjective Remarks Patient is a 66-year-old male,sp ischemic stroke, received TPA to the right vertebral artery. Presented with high grade Staph epi bacteremia in the settings of endovascular device (pacemaker) repeat clx are negative Notes reviewed Temps ok On CPAP - awake Mental status is better 2 BC on admission with Staph epi - has different susceptibility pattern Repeat BC negative so far On the vent BP ok Sputum with MRSA WBC normal Creatinine normal Last CXR 02/05 with stable basilar infiltrates Got Vanco dose 02/04 Antibiotics Vancomycin - dosing as needed Past Medical History Hypertension Hyperlipidemia CHF CAD Previous CVA Past Surgical History CABG Pacer/AICD Has midline abdominal scar, surgery done not known Allergies: Coded Allergies: hydrochlorothiazide (Verified Allergy, Severe, Edema, 01/31/17) atorvastatin (Verified Allergy, Unknown, 01/31/17) morphine (Verified Allergy, Unknown, 01/31/17) MRI PRECAUTION (Verified Adverse Reaction, Severe, NON COMPATIBLE PACEMAKER. LRS 01/31/17, 01/31/17) Objective . Vital Signs Date Time Temp Pulse Resp B/P (MAP) Pulse Ox O2 Delivery O2 Flow Rate FiO2 02/06/17 11:50 100 40 02/06/17 10:21 72 80/50 02/06/17 09:00 40 02/06/17 08:40 100 40 02/06/17 08:40 40 02/06/17 08:00 40 02/06/17 08:00 98.8 69 17 93/63 (73) 92 02/06/17 07:00 100 Mechanical Ventilator 40 02/06/17 06:00 69 02/06/17 04:36 96 40 02/06/17 04:00 40 02/06/17 04:00 97.8 69 14 92/56 (68) 100 02/06/17 04:00 69 02/06/17 02:00 72 02/06/17 01:16 98 40 02/06/17 00:00 68 02/06/17 00:00 98.7 68 18 91/56 (68) 100 02/06/17 00:00 40 02/05/17 22:00 68 02/05/17 21:55 100 40 02/05/17 20:17 98 40 02/05/17 20:00 68 02/05/17 20:00 40 02/05/17 20:00 99.0 68 12 93/61 (72) 100 02/05/17 19:00 100 Mechanical Ventilator 40 02/05/17 18:00 92 02/05/17 16:23 100 40 02/05/17 16:00 99.2 86 17 88/56 (67) 100 02/05/17 16:00 72 02/05/17 16:00 40 02/05/17 14:00 69 . Laboratory Tests Test 02/04/17 13:40 02/05/17 05:15 02/06/17 06:00 White Blood Count 8.0 TH/MM3 8.6 TH/MM3 8.4 TH/MM3 Red Blood Count 4.14 MIL/MM3 4.03 MIL/MM3 3.78 MIL/MM3 Hemoglobin 11.1 GM/DL 10.8 GM/DL 10.1 GM/DL Hematocrit 34.5 % 33.7 % 31.5 % Mean Corpuscular Volume 83.3 FL 83.6 FL 83.3 FL Mean Corpuscular Hemoglobin 26.7 PG 26.9 PG 26.6 PG Mean Corpuscular Hemoglobin Concent 32.1 % 32.2 % 31.9 % Red Cell Distribution Width 23.2 % 22.9 % 22.7 % Platelet Count 157 TH/MM3 164 TH/MM3 142 TH/MM3 Mean Platelet Volume 8.7 FL 9.8 FL 9.0 FL Neutrophils (%) (Auto) 84.4 % 86.0 % Lymphocytes (%) (Auto) 4.3 % 3.3 % Monocytes (%) (Auto) 7.2 % 8.5 % Eosinophils (%) (Auto) 3.3 % 1.7 % Basophils (%) (Auto) 0.8 % 0.5 % Neutrophils # (Auto) 7.2 TH/MM3 7.2 TH/MM3 Lymphocytes # (Auto) 0.4 TH/MM3 0.3 TH/MM3 Monocytes # (Auto) 0.6 TH/MM3 0.7 TH/MM3 Eosinophils # (Auto) 0.3 TH/MM3 0.1 TH/MM3 Basophils # (Auto) 0.1 TH/MM3 0.0 TH/MM3 CBC Comment DIFF FINAL AUTO DIFF Differential Comment AUTO DIFF CONFIRMED Platelet Estimate LOW Platelet Morphology Comment NORMAL Ovalocytes 1+ Laboratory Tests Test 02/04/17 13:40 02/05/17 04:30 02/06/17 06:00 Blood Urea Nitrogen 21 MG/DL 22 MG/DL 22 MG/DL Creatinine 0.87 MG/DL 0.98 MG/DL 0.94 MG/DL Random Glucose 108 MG/DL 103 MG/DL 99 MG/DL Total Protein 5.2 GM/DL 5.8 GM/DL 5.6 GM/DL Calcium Level 7.1 MG/DL 7.7 MG/DL 7.6 MG/DL Phosphorus Level 1.9 MG/DL 3.1 MG/DL 2.8 MG/DL Magnesium Level 2.0 MG/DL 2.2 MG/DL 2.1 MG/DL Sodium Level 140 MEQ/L 139 MEQ/L 140 MEQ/L Potassium Level 3.8 MEQ/L 3.8 MEQ/L 3.6 MEQ/L Chloride Level 103 MEQ/L 102 MEQ/L 104 MEQ/L Carbon Dioxide Level 32.1 MEQ/L 30.1 MEQ/L 31.6 MEQ/L Anion Gap 5 MEQ/L 7 MEQ/L 4 MEQ/L Estimat Glomerular Filtration Rate 106 ML/MIN 92 ML/MIN 97 ML/MIN Protein Corrected Calcium 8.1 MG/DL Ammonia 43 MCMOL/L 32 MCMOL/L Albumin 2.2 GM/DL 2.2 GM/DL Alkaline Phosphatase 150 U/L 135 U/L Aspartate Amino Transf (AST/SGOT) 26 U/L 24 U/L Alanine Aminotransferase (ALT/SGPT) 22 U/L 24 U/L Total Bilirubin 1.2 MG/DL 0.9 MG/DL Total Creatine Kinase 69 U/L Imaging Last Impressions Chest X-Ray 02/04/17 0807 Signed Impressions: Service Date/Time: Saturday, February 04, 2017 08:13 - CONCLUSION: 1. Left IJ central line is present and distal tip is not clearly visualized but likely in the brachiocephalic vein near the SVC junction. No pneumothorax is visualized. 2. Stable bilateral air space opacity in a pattern which could represent pulmonary edema with bilateral pleural effusions. 3. Nasogastric tube distal tip is near the GE junction and should ideally be advanced. Carlos Lerma MD Upper Extremity Ultrasound 02/01/17 0000 Signed Impressions: Service Date/Time: January 11:49 - CONCLUSION: 1. No evidence of deep venous thrombosis. Moses Juarez MD Head CT 01/31/17 0809 Signed Impressions: Service Date/Time: Tuesday, January 31, 2017 08:16 - CONCLUSION: Hypodensity left parietal-occipital mid convexity region suggesting infarction or encephalomalacia. No evidence of hemorrhage. Cannot exclude an acute process. May consider further characterization with MRI. Wilber Alfaro MD Neck CTA 01/31/17 Signed Impressions: Service Date/Time: Tuesday, January 31, 2017 08:57 - CONCLUSION: 1. 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 2. String-like contrast in the left vertebral artery Wilber Alfaro MD Head CTA 01/31/17 Signed Impressions: Service Date/Time: Tuesday, January 31, 2017 08:57 - CONCLUSION: Absent flow in the left internal carotid artery with reconstitution of flow in the A2 segment. There is some flow seen in the left sylvian branches of the middle cerebral artery, but the degree of vessel opacification on the left is less than on the right. Wilber Alfaro MD Cerebral Arteriogram 01/31/17 Signed Impressions: Service Date/Time: Tuesday, January 31, 2017 00:00 - CONCLUSION: 1. Patient appears to have had a thrombotic or embolic event to the vertebral basilar system. The left vertebral is highly diseased throughout its course and appears to occlude just proximal to the basilar. Unable to traverse the highly diseased vessel for intervention. 2. The right vertebral is robust proximally but appears to terminate in a PICA branch with a irregular terminal vessel possibly representing the distal vertebral and proximal basilar. This appears to be chronically occluded. Russ Joseph MD Physical Exam GENERAL: Off sedation, responding, on the vent, not in respiratory distress. On CPAP SKIN: Warm and dry. No generalized rash, no ecchymoses and no evidence of embolic lesions. HEAD: Atraumatic. Normocephalic. No temporal wasting, or tenderness. EYES: [place] conjunctiva. No petechia or hemorrhage. Pupils equal, round, pinpoint. Has dirty sclera. No injection or drainage. EARS, NOSE AND THROAT: Nose without bleeding or purulent nasal discharge. Edentulous, he is orally intubated. NECK: Trachea midline. Supple and not tender, no meningeal signs CARDIOVASCULAR: Regular rate and rhythm. No murmurs, rubs or gallops heard. No rub. Pacer/AICD L upper chest with no evidence of infection RESPIRATORY: Coarse breath sounds equal bilaterally. No rales, wheezing or rhonchi. Decreased at bases. ABDOMEN: Soft, nondistended, no reaction to deep palpation. Bowel sounds present and normoactive. No organomegaly. : Rabago in place, scrotum swollen EXTREMITIES: No clubbing, cyanosis, has bilateral pitting pedal edema. Cool feet NEUROLOGICAL: awake LINE: No evidence of infection Assessment & Plan Remarks IMPRESSION (+) BC, from same venipuncture, ?significance - has 2 different type of Staph epi - repeat BC negatuve so far - no fever, WBC normal - incidental finding :pt presented with stroke, afebrile - echo ok - has Pacer/defib Recurrent CVA, S/P thrombolytic Rx Respiratory failure MRSA PNA Cardiomyopathy, CXR with CHF, rell effusions Renal insufficiency Encephalopathy, etiology? RECOMMENDATION Follow repeat BC Continue IV Vanco - check Vanco level and redose if low Monitor progress Weaning per CCM Annia Simons MD Feb 06, 2017 13:40
--- NOTE | 2017-02-06 16:00 | HHI.PR ---
Review/Management Diagnosis severe intracranial atherosclerosis. basilar CVA Plan ok from neurology standpoint to start eliquis and stop heparin Diagnosis/Plan: Subjective Subjective Comments No acute events reported Active Medications Current Medications Medications (Trade) Dose Ordered Sig/Wilbur Route Start Time Stop Time Status Last Admin (NS Flush) 2 ml UNSCH PRN IV FLUSH 01/31/17 13:15 (NS Flush) 2 ml BID IV FLUSH 01/31/17 21:00 02/05/17 21:00 (Tylenol) 650 mg Q6H PRN PO 01/31/17 13:15 02/06/17 08:19 (Peridex 0.12% Liq) 15 ml BID@08,20 MT 01/31/17 20:00 02/06/17 08:20 (Pepcid) 20 mg BID TUBE 01/31/17 21:00 02/06/17 08:19 Miscellaneous Information 1 Q361D XX 01/31/17 13:15 01/31/17 13:15 (Chlorhexidine 2% Cloth) Taper DAILY@04 TOP 02/01/17 04:00 01/28/18 03:59 02/03/17 04:00 (Chlorhexidine 2% Cloth) 3 pack UNSCH PRN TOP 01/31/17 13:15 Propofol 100 ml @ 19.8 mls/hr TITRATE PRN IV 01/31/17 13:30 02/02/17 05:03 Heparin Sodium/ Dextrose 250 ml @ 0 mls/hr TITRATE IV 01/31/17 17:00 02/05/17 19:48 (Lasix Inj) 20 mg Q12H IV PUSH 02/01/17 20:00 02/06/17 08:20 Levetriacetam 500 mg/Sodium Chloride 105 ml @ 420 mls/hr Q8H IV 02/01/17 11:00 02/06/17 10:38 (Bactroban Nasal 2% Oint) 1 applic BID NASAL 02/02/17 09:00 02/05/17 09:00 Sodium Chloride 77 meq/Dextrose 1,019.25 ml @ 50 mls/hr [id number] IV 02/02/17 14:00 02/06/17 07:59 (Lactulose Liq) 30 ml BID PO 02/02/17 21:00 02/05/17 08:57 (Bactroban Nasal 2% Oint) 1 applic Taper BID EACH NARE 02/04/17 09:00 01/31/18 08:59 02/06/17 08:20 (Duoneb Neb) 1 ampule Q6HR NEB NEB 02/04/17 10:00 02/06/17 08:51 (Albuterol Neb) 2.5 mg Q2HR NEB PRN NEB 02/04/17 07:15 (Theragran) 1 tab DAILY PO 02/04/17 09:00 02/06/17 08:20 (Colace Liq) 100 mg Q12HR PO 02/04/17 09:00 02/06/17 08:19 (Senna Liq) 8.8 mg BID PO 02/04/17 09:00 02/04/17 21:14 (NS Flush) DAILY IVF 02/04/17 09:00 02/05/17 08:59 (NS Flush) UNSCH PRN IVF 02/04/17 08:15 Miscellaneous Information D/C ICU ELECTROLYTE ORDERS... UNSCH PRN .XX 02/04/17 18:00 Miscellaneous Information ICU - CALL ORDERING PHYSIC... UNSCH PRN .XX 02/04/17 18:00 Potassium Chloride 100 ml @ 25 mls/hr UNSCH PRN IV 02/04/17 18:00 (K-Lyte Cl Eff) 50 meq UNSCH PRN PO 02/04/17 18:00 Potassium Chloride 100 ml @ 50 mls/hr UNSCH PRN IV 02/04/17 18:00 Magnesium Sulfate 4 gm/Sodium Chloride 108 ml @ 54 mls/hr UNSCH PRN IV 02/04/17 18:00 Magnesium Sulfate 2 gm/Sodium Chloride 104 ml @ 52 mls/hr UNSCH PRN IV 02/04/17 18:00 (Mag-Ox) 800 mg UNSCH PRN PO 02/04/17 18:00 Sodium Phosphate 30 mmol/Sodium Chloride 260 ml @ 43.333 mls/ hr UNSCH PRN IV 02/04/17 18:00 02/04/17 21:14 (K-Phos) 2,000 mg UNSCH PRN PO 02/04/17 18:00 Potassium Phosphate 30 mmol/ Sodium Chloride 260 ml @ 43.333 mls/ hr UNSCH PRN IV 02/04/17 18:00 Norepinephrine Bitartrate 4 mg/ Sodium Chloride 250 ml @ 7.5 mls/hr TITRATE PRN IV 02/04/17 18:30 02/06/17 10:21 (Brethine Inj) 1 mg UNSCH PRN SQ 02/04/17 18:30 Patient Own Medication PT OWN MED: CRESTOR... DAILY PO 02/05/17 09:00 Future Hold Allergies Allergies Coded Allergies hydrochlorothiazide (Verified Allergy, Severe, Edema, 01/31/17) atorvastatin (Verified Allergy, Unknown, 01/31/17) morphine (Verified Allergy, Unknown, 01/31/17) MRI PRECAUTION (Verified Adverse Reaction, Severe, NON COMPATIBLE PACEMAKER. LRS 01/31/17, 01/31/17) Exam I&O / VS Vital Signs Date Time Temp Pulse Resp B/P (MAP) Pulse Ox O2 Delivery O2 Flow Rate FiO2 02/06/17 12:00 40 02/06/17 12:00 99.0 72 20 105/73 (84) 100 02/06/17 11:50 100 40 02/06/17 10:21 72 80/50 02/06/17 09:00 40 02/06/17 08:40 100 40 02/06/17 08:40 40 02/06/17 08:00 40 02/06/17 08:00 98.8 69 17 93/63 (73) 92 02/06/17 07:00 100 Mechanical Ventilator 40 02/06/17 06:00 69 02/06/17 04:36 96 40 02/06/17 04:00 40 02/06/17 04:00 97.8 69 14 92/56 (68) 100 02/06/17 04:00 69 02/06/17 02:00 72 02/06/17 01:16 98 40 02/06/17 00:00 68 02/06/17 00:00 98.7 68 18 91/56 (68) 100 02/06/17 00:00 40 02/05/17 22:00 68 02/05/17 21:55 100 40 02/05/17 20:17 98 40 02/05/17 20:00 68 02/05/17 20:00 40 02/05/17 20:00 99.0 68 12 93/61 (72) 100 02/05/17 19:00 100 Mechanical Ventilator 40 02/05/17 18:00 92 02/05/17 16:23 100 40 02/05/17 16:00 99.2 86 17 88/56 (67) 100 02/05/17 16:00 72 02/05/17 16:00 40 Exam Comments more alert and open eyes to command pupils 1 mm bilateral and sluggishly reactive bilateral medical oncology physician equal. Objective Micro and Labs Laboratory Tests Test 02/05/17 21:00 02/06/17 03:00 02/06/17 06:00 02/06/17 14:50 Activated Partial Thromboplast Time 47.4 55.6 53.4 White Blood Count 8.4 Red Blood Count 3.78 Hemoglobin 10.1 Hematocrit 31.5 Mean Corpuscular Volume 83.3 Mean Corpuscular Hemoglobin 26.6 Mean Corpuscular Hemoglobin Concent 31.9 Red Cell Distribution Width 22.7 Platelet Count 142 Mean Platelet Volume 9.0 Neutrophils (%) (Auto) 86.0 Lymphocytes (%) (Auto) 3.3 Monocytes (%) (Auto) 8.5 Eosinophils (%) (Auto) 1.7 Basophils (%) (Auto) 0.5 Neutrophils # (Auto) 7.2 Lymphocytes # (Auto) 0.3 Monocytes # (Auto) 0.7 Eosinophils # (Auto) 0.1 Basophils # (Auto) 0.0 CBC Comment AUTO DIFF Differential Comment AUTO DIFF CONFIRMED Platelet Estimate LOW Platelet Morphology Comment NORMAL Ovalocytes 1+ Blood Urea Nitrogen 22 Creatinine 0.94 Random Glucose 99 Total Protein 5.6 Albumin 2.2 Calcium Level 7.6 Phosphorus Level 2.8 Magnesium Level 2.1 Alkaline Phosphatase 135 Aspartate Amino Transf (AST/SGOT) 24 Alanine Aminotransferase (ALT/SGPT) 24 Total Bilirubin 0.9 Sodium Level 140 Potassium Level 3.6 Chloride Level 104 Carbon Dioxide Level 31.6 Anion Gap 4 Estimat Glomerular Filtration Rate 97 Ammonia 32 Random Vancomycin Level 14.2 Date/Time Source Procedure Growth Status 02/03/17 03:50 Blood Peripheral Aerobic Blood Culture - Preliminary NO GROWTH IN 3 DAYS Resulted 02/03/17 03:50 Blood Peripheral Anaerobic Blood Culture - Preliminary NO GROWTH IN 3 DAYS Resulted 02/01/17 11:15 Sputum Endotracheal Gram Stain - Final Complete 02/01/17 11:15 Sputum Culture - Final S. Aureus Mrsa Complete 02/01/17 11:30 Urine Catheterized Urine Urine Culture - Final NO GROWTH IN 48 HOURS. Complete Minh Solano PhD Feb 06, 2017 16:00
[2017-02-06] MEDS: HEPARIN-D5W 25,000 U/250 ML 250 ML IV SCH (18:20)
[2017-02-06] MEDS: VANCOMYCIN 1,000 MG/NS 250 ML IV SCH ×2 (18:22)
--- NOTE | 2017-02-06 19:05 | PD.WCN.NOT ---
Wound Consult Description: Received consult from Doctor Lisa for pressure ulcer to sacral area. Communicated with: DMITRI Connors [facility] and Doctor Zulma Recommendation: Please cleanse buttock area gently with soap, water and soft cloths, pat dry. Apply calazime barrier cream BID and PRN and leave open to air. Continue to turn and reposition patient every 2 hours or PRN for comfort Additional Information: Arabella seen on [address] [place] [address] for evaluation of possible pressure injury to sacral area. Positioned patient to R side with maximum assistance of staff writer and Dory RIZVI [facility]. Removed hydrocolloid dressing in place covering sacral and buttock area to reveal incontinence associated dermatitis with partial thickness skin loss to L buttock that measures ~10 cm x ~3cm . Wound margins are jagged. Wound is not located over chema prominence. Etiology of open wound to L buttock is most likely moisture related, not pressure. Cleansed buttock area with normal saline and pat dry before applying thick layer of Calazime barrier cream Carolina [facility] Feb 06, 2017 19:05
[2017-02-07] VITALS (14 sets, daily range): BP systolic 96–104; BP diastolic 60–70; PULSE 69–72; RESP 15–22; TEMP 98.5–99.7; O2SAT 97–100
[2017-02-07] MEDS: levETIRAcetam 500 MG/NS 100 ML IV SCH ×6 (03:10→17:55)
[2017-02-07] MEDS: CHLORHEXIDINE GLUCONATE 2 % 1 PACK (2 CLOTHS) TOP SCH (03:10)
[2017-02-07] MEDS: RESP: ALBUTEROL 2.5 MG/IPRATROPIUM 0.5 MG NEB (SCH) NEB ×4 (03:57→21:09)
[2017-02-07 04:37] LABS: GROWTH HORMONE 3.3 ng/mL (0.01 - 0.97)
[2017-02-07 05:55] LABS: APTT (PATIENT) 53.9 SEC (24.3-30.1)
[2017-02-07] MEDS: VANCOMYCIN 1,000 MG/NS 250 ML IV SCH ×4 (05:59→17:55)
[2017-02-07] MEDS: SODIUM CHLORIDE 0.9% FLUSH 10 ML FLUSH IV FLUSH SCH ×2 (08:26→21:00)
[2017-02-07] MEDS: MUPIROCIN 2% OINT 1 APPLIC/GM SYR NASAL SCH ×2 (08:26→21:00)
[2017-02-07] MEDS: SODIUM CHLORIDE 0.9% FLUSH 10 ML FLUSH IVF SCH (08:26)
[2017-02-07] MEDS: CHLORHEXIDINE 0.12% (ORAL KIT) 15 ML CUP MT SCH ×2 (08:52→20:00)
[2017-02-07] MEDS: DOCUSATE SODIUM 100 MG/10 ML UDC PO SCH ×2 (08:52→21:24)
[2017-02-07] MEDS: MUPIROCIN 2% OINT 1 APPLIC/GM SYR EACH NARE SCH ×2 (08:52→21:25)
[2017-02-07] MEDS: FUROSEMIDE 20 MG/2 ML VIAL IV PUSH SCH ×2 (08:52→21:24)
[2017-02-07] MEDS: MULTIVITAMIN TAB PO SCH (08:53)
[2017-02-07] MEDS: LACTULOSE SYRUP 20 GM/30 ML CUP PO SCH ×2 (08:53→21:24)
[2017-02-07] MEDS: SENNOSIDES SYRUP 8.8 MG/5 ML CUP PO SCH ×2 (08:53→21:00)
[2017-02-07] MEDS: FAMOTIDINE 20 MG TAB TUBE SCH ×2 (08:53→21:24)
--- NOTE | 2017-02-07 15:50 | HHI.CCPN ---
Subjective Remarks/Hospital Course 01/31: This 66-year-old man who presents to the emergency department via EMS for altered mental status. History is a little bit unclear. It sounds like he was agitated overnight so they gave him Xanax this morning. Speaking with the nurse there, Yesica Earl, patient gets Xanax periodically but not every day. It's not a new dose for him. Subsequently he became unresponsive. Per EMS report he normally has a GCS of 14 but cannot walk. For them he was not talking at all, and stopped breathing for a period of time in the ambulance and required [id number] ventilation. They were bagging him on presentation to the ED. patient underwent CT head which was negative for bleed. He was evaluated by Dr. 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 On propofol 75 mics per kg/min. moving both upper extremities and left lower extremity on lightening sedation per nursing staff. Has chronically weak right lower extremity per family. Currently on heparin drip for full anticoagulation. 02/02: Sedated, orally intubated on mechanical ventilation this morning at the time of my evaluation. Being diuresed with Lasix. 2-D echo with LVEF 20% and severe MR. Hypoglycemia today despite tube feeds for which he was given D50 and cortisol level being checked. 02/03: Off sedation since 9/8 AM. Started to arouse last evening and following commands moving both upper extremities. Remains orally intubated on mechanical ventilation. At the time of my evaluation years arousable however not following commands. 02/04: Tmax 100.1. Currently resting in bed in no acute distress. Moving right lower extremity spontaneously. Nods head and follows commands. Patient is leaning towards right. Subjective 02/05: Tolerated PSV trial overnight. Opened eyes. Following commands. States he is hungry today. Move the left upper extremity spontaneously along with right upper extremity today. Moved toes slightly. 02/06: Remains orally intubated on mechanical ventilation. Gets apneic episodes during C Pap trials. Follows commands. On tube feeds and D10 02/07: Tolerated C Pap trials and extubated today. Drowsy, easily arousable. Follows commands with both upper extremities. Remains on D10 drip for hyperglycemia. Off tube feeds since extubation awaiting swallow eval. Objective Vital Signs Date Time Temp Pulse Resp B/P (MAP) Pulse Ox O2 Delivery O2 Flow Rate FiO2 02/07/17 12:00 98.9 72 22 96/63 (74) 100 02/07/17 09:45 Nasal Cannula 3 02/07/17 09:00 40 Intake and Output 02/07/17 02/07/17 02/08/17 08:00 16:00 00:00 Intake Total 1380 ml Output Total 675 ml Balance 705 ml Result Diagram: 02/06/1759902/06/17 06 Other Results Laboratory Tests Test 02/07/17 05:30 Activated Partial Thromboplast Time 53.9 SEC Imaging Last Impressions Chest X-Ray 02/05/17 06 Signed Impressions: Service Date/Time: Sunday, February 05, 2017 04:47 - CONCLUSION: Endotracheal tube and nasogastric tube in satisfactory position. Stable bilateral mostly basilar dependent airspace disease and pleural effusions. Ridge Hernandez MD Upper Extremity Ultrasound 02/01/17 0000 Signed Impressions: Service Date/Time: January 11:49 - CONCLUSION: 1. No evidence of deep venous thrombosis. Moses Juarez MD Head CT 01/31/17 0809 Signed Impressions: Service Date/Time: Tuesday, January 31, 2017 08:16 - CONCLUSION: Hypodensity left parietal-occipital mid convexity region suggesting infarction or encephalomalacia. No evidence of hemorrhage. Cannot exclude an acute process. May consider further characterization with MRI. Wilber Alfaro MD Neck CTA 01/31/17 0000 Signed Impressions: Service Date/Time: Tuesday, January 31, 2017 08:57 - CONCLUSION: 1. 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 2. String-like contrast in the left vertebral artery Wilber Alfaro MD Head CTA 01/31/17 0000 Signed Impressions: Service Date/Time: Tuesday, January 31, 2017 08:57 - CONCLUSION: Absent flow in the left internal carotid artery with reconstitution of flow in the A2 segment. There is some flow seen in the left sylvian branches of the middle cerebral artery, but the degree of vessel opacification on the left is less than on the right. Wilber Alfaro MD Cerebral Arteriogram 01/31/17 0000 Signed Impressions: Service Date/Time: Tuesday, January 31, 2017 00:00 - CONCLUSION: 1. Patient appears to have had a thrombotic or embolic event to the vertebral basilar system. The left vertebral is highly diseased throughout its course and appears to occlude just proximal to the basilar. Unable to traverse the highly diseased vessel for intervention. 2. The right vertebral is robust proximally but appears to terminate in a PICA branch with a irregular terminal vessel possibly representing the distal vertebral and proximal basilar. This appears to be chronically occluded. Russ Joseph MD Objective Remarks GENERAL: 66-year-old AA male, orotracheally intubated at the time of my evaluation this morning SKIN: Warm and dry. No rash HEAD: Atraumatic. Normocephalic. EYES: Pupils equal and round about 3 mm bilaterally and reactive. No scleral icterus. No injection or drainage. ENT: No nasal bleeding or discharge. Mucous membranes pink and moist. NECK: Trachea midline. No JVD. CARDIOVASCULAR: Regular rate and rhythm. S1, S2 no S4. 2/6 systolic murmur left lower sternal border. RESPIRATORY: No accessory muscle use. Clear to auscultation. Breath sounds equal bilaterally. GASTROINTESTINAL: Abdomen soft, non-tender, nondistended. Hypoactive bowel sounds appreciated MUSCULOSKELETAL: Extremities with trace to 1+ bilateral lower extremity and upper extremity edema. No obvious deformities. NEUROLOGICAL: Arousable on the ventilator. Nods head to command. Moves both upper extremities, wiggle toes bilaterally. 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 Patient is status post intervention by IR. Cerebral angiogram revealed occluded distal vertebral/proximal parietal occlusion acute. 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 EEG - 02/01 - 3-6 Hz activity, 20-50 microvolts occurring in generalized fashion. EEG variability reactivity noted. Mild spindles noted as well. Limited driving with photic stimulation. Single lead EKG showing sinus rhythm. Mild to moderate encephalopathy. Clinical correlation Recommended. Patient is currently in a heparin drip. Previous Apixaban 5 mg twice a day - plan to resume when tolerating by mouth. Dr. Solano/Neurology following. Holding buspirone 7.5 mg 3 times a day, mirtazapine 7.5 mg a night and trazodone 50 mg by mouth daily for depression/anxiety. Resume when clinically indicated Continue levetiracetam 500 mg IV 3 times a day/seizure precautions CV: Chronic systolic heart failure ejection fraction 20% Pulmonary hypertension History of CABG 4/AICD Hypertension Dyslipidemia Echocardiogram revealed EF 20%. Decreased right ventricular left ventricular function. Dilated LV. Enlarged left atrium. Severe pulmonary hypertension greater than 70 mmHg, severe TR/MR Cardiology/Dr. Hernandez following Currently on furosemide 20 mg IV twice a day. Resume 1 dose of acetazolamide 250 mg IV 1 yesterday Home medications include aspirin 81 mg daily, metoprolol 25 mg by mouth daily, furosemide 40 mg daily and spinal active 25 mill grams by mouth daily Patient is on rosuvastatin 20 mg by mouth daily along with Fish oil/ cholecalciferol 1 tablet daily for dyslipidemia Resp: Acute hypoxemic respiratory failure Tolerated C Pap trial and extubated to nasal cannula on 02/07 Albuterol/ipratropium aerosols every 6 hours with albuterol aerosols every 2 hours. Dyspnea GI: Hypoalbuminemia Was starting tube feeds with Jevity 1.5@60 cc an hour which were held for extubation. Awaiting speech and swallow eval. If he fails swallow eval will need Dobbhoff for tube feeds. Famotidine for GI prophylaxis Docusate sodium 100 mg twice a day, senna liquid 8.6 mg twice a day for bowel regimen along with lactulose 30 cc twice a day : Rabago catheter indicated for accurate I's and O's in a critically ill patient Endo: Hypoglycemia - possibly secondary to sepsis Normal TSH/cortisol levels. C-peptide/insulin levels and human growth hormone pending. Patient was hypoglycemic on tube feeds requiring D10 raising concern for insulinoma. Currently on D10 at 50 cc an hour. Renal: Acute kidney injury resolved Strict intake output, monitor and replete elect lites, follow BUN/creatinine. Heme: Normocytic anemia Chronic Apixaban use Monitor CBC daily. Follow trends. Currently on heparin drip at 1000 units an hour. Plan to resume Eliquis when tolerating PO or after Dobbhoff placement. ID: Coag-negative//staph epi bacteremia Current vancomycin dose by infectious disease [place] decolonization protocol with mupirocin swabs twice a day Infectious disease/Dr. Simons following Pertinent cultures 02/03 - blood cultures 1 -no growth 02/01 - blood cultures 2 -no growth 02/01 - sputum - coag negative staph 01/31 - blood cultures 2 - coag negative staph, staph epi FEN: Replace electrolytes as clinically indicated MSK: PT/OT for range of motion evaluate and treat Access - Left IJ CVL placed 02/04 - Left radial arterial line placed 01/31 Prophylaxis - GI - famotidine - DVT - SCD/heparin Osmani Herrera MD Feb 07, 2017 15:50
[2017-02-07] MEDS ORDERED: Vancomycin Consult Pharmacy 1 EA OTHER SCH (16:00)
[2017-02-07] MEDS: HEPARIN-D5W 25,000 U/250 ML 250 ML IV SCH (16:06)
[2017-02-07] MEDS: NOREPINEPHRINE INJ 4 MG in SODIUM CHLOR 0.9% 250 ML INJ 246 ML IV PRN (16:07)
[2017-02-07] MEDS: SODIUM CHLORIDE 23.4% INJ 77 MEQ in DEXTROSE 10% INJ 1,000 ML IV SCH (16:08)
--- NOTE | 2017-02-07 16:35 | HHI.PR ---
Review/Management Diagnosis severe intracranial atherosclerosis. basilar CVA Plan stop heparin and start eliquis 5 mg bid Diagnosis/Plan: Subjective Subjective Comments No acute events reported extubated and passed swallow eval Active Medications Current Medications Medications (Trade) Dose Ordered Sig/Wilbur Route Start Time Stop Time Status Last Admin (NS Flush) 2 ml UNSCH PRN IV FLUSH 01/31/17 13:15 (NS Flush) 2 ml BID IV FLUSH 01/31/17 21:00 02/06/17 20:19 (Tylenol) 650 mg Q6H PRN PO 01/31/17 13:15 02/06/17 20:18 (Peridex 0.12% Liq) 15 ml BID@08,20 MT 01/31/17 20:00 02/07/17 08:52 (Pepcid) 20 mg BID TUBE 01/31/17 21:00 02/07/17 08:53 Miscellaneous Information 1 Q361D XX 01/31/17 13:15 01/31/17 13:15 (Chlorhexidine 2% Cloth) Taper DAILY@04 TOP 02/01/17 04:00 01/28/18 03:59 02/03/17 04:00 (Chlorhexidine 2% Cloth) 3 pack UNSCH PRN TOP 01/31/17 13:15 Propofol 100 ml @ 19.8 mls/hr TITRATE PRN IV 01/31/17 13:30 02/02/17 05:03 (Lasix Inj) 20 mg Q12H IV PUSH 02/01/17 20:00 02/07/17 08:52 Levetriacetam 500 mg/Sodium Chloride 105 ml @ 420 mls/hr Q8H IV 02/01/17 11:00 02/07/17 11:54 (Bactroban Nasal 2% Oint) 1 applic BID NASAL 02/02/17 09:00 02/06/17 20:15 Sodium Chloride 77 meq/Dextrose 1,019.25 ml @ 50 mls/hr [id number] IV 02/02/17 14:00 02/07/17 16:08 (Lactulose Liq) 30 ml BID PO 02/02/17 21:00 02/07/17 08:53 (Bactroban Nasal 2% Oint) 1 applic Taper BID EACH NARE 02/04/17 09:00 01/31/18 08:59 02/07/17 08:52 (Duoneb Neb) 1 ampule Q6HR NEB NEB 02/04/17 10:00 02/07/17 08:48 (Albuterol Neb) 2.5 mg Q2HR NEB PRN NEB 02/04/17 07:15 (Theragran) 1 tab DAILY PO 02/04/17 09:00 02/07/17 08:53 (Colace Liq) 100 mg Q12HR PO 02/04/17 09:00 02/07/17 08:52 (Senna Liq) 8.8 mg BID PO 02/04/17 09:00 02/07/17 08:53 (NS Flush) DAILY IVF 02/04/17 09:00 02/05/17 08:59 (NS Flush) UNSCH PRN IVF 02/04/17 08:15 Miscellaneous Information D/C ICU ELECTROLYTE ORDERS... UNSCH PRN .XX 02/04/17 18:00 Miscellaneous Information ICU - CALL ORDERING PHYSIC... UNSCH PRN .XX 02/04/17 18:00 Potassium Chloride 100 ml @ 25 mls/hr UNSCH PRN IV 02/04/17 18:00 (K-Lyte Cl Eff) 50 meq UNSCH PRN PO 02/04/17 18:00 Potassium Chloride 100 ml @ 50 mls/hr UNSCH PRN IV 02/04/17 18:00 Magnesium Sulfate 4 gm/Sodium Chloride 108 ml @ 54 mls/hr UNSCH PRN IV 02/04/17 18:00 Magnesium Sulfate 2 gm/Sodium Chloride 104 ml @ 52 mls/hr UNSCH PRN IV 02/04/17 18:00 (Mag-Ox) 800 mg UNSCH PRN PO 02/04/17 18:00 Sodium Phosphate 30 mmol/Sodium Chloride 260 ml @ 43.333 mls/ hr UNSCH PRN IV 02/04/17 18:00 02/04/17 21:14 (K-Phos) 2,000 mg UNSCH PRN PO 02/04/17 18:00 Potassium Phosphate 30 mmol/ Sodium Chloride 260 ml @ 43.333 mls/ hr UNSCH PRN IV 02/04/17 18:00 Norepinephrine Bitartrate 4 mg/ Sodium Chloride 250 ml @ 7.5 mls/hr TITRATE PRN IV 02/04/17 18:30 02/07/17 16:07 (Brethine Inj) 1 mg UNSCH PRN SQ 02/04/17 18:30 Patient Own Medication PT OWN MED: CRESTOR... DAILY PO 02/05/17 09:00 Future Hold Vancomycin HCl 1000 mg/Sodium Chloride 250 ml @ 250 mls/hr Q12H IV 02/06/17 18:00 02/07/17 05:59 Pharmacy Profile Note 0 ml @ 0 mls/hr UNSCH OTHER 02/07/17 16:00 Allergies Allergies Coded Allergies hydrochlorothiazide (Verified Allergy, Severe, Edema, 01/31/17) atorvastatin (Verified Allergy, Unknown, 01/31/17) morphine (Verified Allergy, Unknown, 01/31/17) MRI PRECAUTION (Verified Adverse Reaction, Severe, NON COMPATIBLE PACEMAKER. LRS 01/31/17, 01/31/17) Exam I&O / VS Vital Signs Date Time Temp Pulse Resp B/P (MAP) Pulse Ox O2 Delivery O2 Flow Rate FiO2 02/07/17 16:07 77 100/71 02/07/17 12:00 98.9 72 22 96/63 (74) 100 02/07/17 09:45 100 Nasal Cannula 3 02/07/17 09:00 40 02/07/17 08:42 100 35 02/07/17 08:00 40 02/07/17 08:00 98.9 70 17 104/60 (75) 100 02/07/17 06:00 71 02/07/17 04:35 99 35 02/07/17 04:00 40 02/07/17 04:00 72 02/07/17 04:00 99.1 72 15 102/70 (81) 100 02/07/17 02:00 69 02/07/17 01:32 100 40 02/07/17 00:00 99.7 69 15 96/61 (73) 100 02/07/17 00:00 69 02/07/17 00:00 40 02/06/17 22:24 100 40 02/06/17 22:00 76 02/06/17 20:23 100 40 02/06/17 20:00 100.6 71 13 104/66 (79) 100 02/06/17 20:00 40 02/06/17 20:00 71 02/06/17 18:21 70 116/76 02/06/17 17:14 100 40 Exam Comments more alert and open eyes to command pupils 1 mm bilateral and sluggishly reactive bilateral glazier structural glass equal. Objective Micro and Labs Laboratory Tests Test 02/07/17 05:30 Activated Partial Thromboplast Time 53.9 Date/Time Source Procedure Growth Status 02/03/17 03:50 Blood Peripheral Aerobic Blood Culture - Preliminary NO GROWTH IN 4 DAYS Resulted 02/03/17 03:50 Blood Peripheral Anaerobic Blood Culture - Preliminary NO GROWTH IN 4 DAYS Resulted 02/01/17 11:15 Sputum Endotracheal Gram Stain - Final Complete 02/01/17 11:15 Sputum Culture - Final S. Aureus Mrsa Complete 02/01/17 11:30 Urine Catheterized Urine Urine Culture - Final NO GROWTH IN 48 HOURS. Complete Minh Solano PhD Feb 07, 2017 16:35
[2017-02-07] MEDS ORDERED: FUROSEMIDE 40 MG/4 ML VIAL IV PUSH ONE (16:45)
[2017-02-07] MEDS: APIXABAN 5 MG TABLET PO SCH (23:11)
[2017-02-08] VITALS (13 sets, daily range): BP systolic 99–122; BP diastolic 66–74; PULSE 68–78; RESP 23–30; TEMP 97.1–98.8; O2SAT 94–100
[2017-02-08] MEDS: levETIRAcetam 500 MG/NS 100 ML IV SCH ×6 (02:16→18:04)
[2017-02-08] MEDS: NOREPINEPHRINE INJ 4 MG in SODIUM CHLOR 0.9% 250 ML INJ 246 ML IV PRN (02:42)
[2017-02-08] MEDS: CHLORHEXIDINE GLUCONATE 2 % 1 PACK (2 CLOTHS) TOP SCH (04:00)
[2017-02-08] MEDS: RESP: ALBUTEROL 2.5 MG/3 ML NEB (PRN) NEB (04:16)
[2017-02-08] MEDS: RESP: ALBUTEROL 2.5 MG/IPRATROPIUM 0.5 MG NEB (SCH) NEB ×2 (04:16→07:46)
[2017-02-08] MEDS ORDERED: PHARMACY ORDERED LAB ONE (05:45)
[2017-02-08] MEDS: VANCOMYCIN 1,000 MG/NS 250 ML IV SCH ×4 (06:00→18:05)
[2017-02-08] MEDS: CHLORHEXIDINE 0.12% (ORAL KIT) 15 ML CUP MT SCH ×2 (08:00→20:00)
[2017-02-08] MEDS: FUROSEMIDE 20 MG/2 ML VIAL IV PUSH SCH ×2 (08:56→20:00)
[2017-02-08] MEDS: MUPIROCIN 2% OINT 1 APPLIC/GM SYR EACH NARE SCH ×2 (08:57→21:00)
[2017-02-08] MEDS: APIXABAN 5 MG TABLET PO SCH ×2 (08:57→21:00)
[2017-02-08] MEDS: SODIUM CHLORIDE 0.9% FLUSH 10 ML FLUSH IV FLUSH SCH ×2 (08:57→21:00)
[2017-02-08] MEDS: DOCUSATE SODIUM 100 MG/10 ML UDC PO SCH ×2 (08:57→21:00)
[2017-02-08] MEDS: SODIUM CHLORIDE 0.9% FLUSH 10 ML FLUSH IVF SCH (08:57)
[2017-02-08] MEDS: LACTULOSE SYRUP 20 GM/30 ML CUP PO SCH ×3 (08:58→21:00)
[2017-02-08] MEDS: FAMOTIDINE 20 MG TAB TUBE SCH ×2 (08:58→21:00)
[2017-02-08] MEDS: SENNOSIDES SYRUP 8.8 MG/5 ML CUP PO SCH ×3 (08:58→21:00)
[2017-02-08] MEDS: MULTIVITAMIN TAB PO SCH (08:58)
[2017-02-08] MEDS: MUPIROCIN 2% OINT 1 APPLIC/GM SYR NASAL SCH ×2 (08:59→21:00)
[2017-02-08 10:52] LABS: POTASSIUM 3.7 MEQ/L (3.5-5.1)
[2017-02-08 11:29] LABS: HEMATOCRIT 32.3 % (39.0-51.0); MEAN CELL VOLUME 83.4 FL (80.0-100.0); MEAN CORPUSCULAR HGB CONC 32.3 % (32.0-36.0); PLATELET COUNT 189 TH/MM3 (150-450); RED BLOOD COUNT 3.88 MIL/MM3 (4.50-5.90); RED CELL DISTRIBUTION WIDTH 22.4 % (11.6-17.2); REVIEW FLAG FINAL; WHITE BLOOD COUNT 6.5 TH/MM3 (4.0-11.0)
--- NOTE | 2017-02-08 13:36 | HHI.IDPN ---
Subjective Subjective Remarks Patient is a 66-year-old male,sp ischemic stroke, received TPA to the right vertebral artery. Presented with high grade Staph epi bacteremia in the settings of endovascular device (pacemaker) repeat clx are negative Notes reviewed Temps ok Extubated yesterday, doing well On nasal O2 Not SOB BP good 2 BC on admission with Staph epi - has different susceptibility pattern Repeat BC negative so far Sputum with MRSA WBC normal Creatinine normal Last CXR 02/05 with stable basilar infiltrates Antibiotics Vancomycin - dosing as needed Past Medical History Hypertension Hyperlipidemia CHF CAD Previous CVA Past Surgical History CABG Pacer/AICD Has midline abdominal scar, surgery done not known Allergies: Coded Allergies: hydrochlorothiazide (Verified Allergy, Severe, Edema, 01/31/17) atorvastatin (Verified Allergy, Unknown, 01/31/17) morphine (Verified Allergy, Unknown, 01/31/17) MRI PRECAUTION (Verified Adverse Reaction, Severe, NON COMPATIBLE PACEMAKER. LRS 01/31/17, 01/31/17) Objective . Vital Signs Date Time Temp Pulse Resp B/P (MAP) Pulse Ox O2 Delivery O2 Flow Rate FiO2 02/08/17 12:00 98.8 69 25 99/67 (78) 98 02/08/17 12:00 69 02/08/17 10:00 70 02/08/17 08:00 68 02/08/17 08:00 98.8 78 30 122/74 (90) 100 02/08/17 07:47 99 Nasal Cannula 3.00 02/08/17 06:00 69 02/08/17 04:00 78 02/08/17 04:00 97.8 78 25 107/66 (80) 100 02/08/17 02:42 72 106/72 02/08/17 02:17 69 113/73 02/08/17 02:00 70 02/08/17 00:00 97.8 72 25 99/69 (79) 100 02/08/17 00:00 72 02/07/17 22:00 70 02/07/17 21:09 97 Nasal Cannula 3.00 02/07/17 20:00 98.5 69 18 104/66 (79) 100 02/07/17 20:00 69 02/07/17 20:00 70 104/66 02/07/17 16:07 77 100/71 02/07/17 16:00 98.6 70 18 101/70 (80) 100 02/08/17 02/08/17 02/09/17 15:00 23:00 07:00 Intake Total 98 ml Balance 98 ml IV Total 98 ml . Laboratory Tests Test 02/08/17 10:55 White Blood Count 6.5 TH/MM3 Red Blood Count 3.88 MIL/MM3 Hemoglobin 10.5 GM/DL Hematocrit 32.3 % Mean Corpuscular Volume 83.4 FL Mean Corpuscular Hemoglobin 27.0 PG Mean Corpuscular Hemoglobin Concent 32.3 % Red Cell Distribution Width 22.4 % Platelet Count 189 TH/MM3 Mean Platelet Volume 9.5 FL Laboratory Tests Test 02/08/17 09:30 Blood Urea Nitrogen 21 MG/DL Creatinine 0.88 MG/DL Random Glucose 112 MG/DL Calcium Level 7.8 MG/DL Sodium Level 138 MEQ/L Potassium Level 3.7 MEQ/L Chloride Level 101 MEQ/L Carbon Dioxide Level 30.0 MEQ/L Anion Gap 7 MEQ/L Estimat Glomerular Filtration Rate 104 ML/MIN Imaging Last Impressions Chest X-Ray 02/04/17 0807 Signed Impressions: Service Date/Time: Saturday, February 04, 2017 08:13 - CONCLUSION: 1. Left IJ central line is present and distal tip is not clearly visualized but likely in the brachiocephalic vein near the SVC junction. No pneumothorax is visualized. 2. Stable bilateral air space opacity in a pattern which could represent pulmonary edema with bilateral pleural effusions. 3. Nasogastric tube distal tip is near the GE junction and should ideally be advanced. Carlos Lerma MD Upper Extremity Ultrasound 02/01/17 0000 Signed Impressions: Service Date/Time: January 11:49 - CONCLUSION: 1. No evidence of deep venous thrombosis. Moses Juarez MD Head CT 01/31/17 0809 Signed Impressions: Service Date/Time: Tuesday, January 31, 2017 08:16 - CONCLUSION: Hypodensity left parietal-occipital mid convexity region suggesting infarction or encephalomalacia. No evidence of hemorrhage. Cannot exclude an acute process. May consider further characterization with MRI. Wilber Alfaro MD Neck CTA 01/31/17 0000 Signed Impressions: Service Date/Time: Tuesday, January 31, 2017 08:57 - CONCLUSION: 1. 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 2. String-like contrast in the left vertebral artery Wilber Alfaro MD Head CTA 01/31/17 0000 Signed Impressions: Service Date/Time: Tuesday, January 31, 2017 08:57 - CONCLUSION: Absent flow in the left internal carotid artery with reconstitution of flow in the A2 segment. There is some flow seen in the left sylvian branches of the middle cerebral artery, but the degree of vessel opacification on the left is less than on the right. Wilber Alfaro MD Cerebral Arteriogram 01/31/17 Signed Impressions: Service Date/Time: Tuesday, January 31, 2017 00:00 - CONCLUSION: 1. Patient appears to have had a thrombotic or embolic event to the vertebral basilar system. The left vertebral is highly diseased throughout its course and appears to occlude just proximal to the basilar. Unable to traverse the highly diseased vessel for intervention. 2. The right vertebral is robust proximally but appears to terminate in a PICA branch with a irregular terminal vessel possibly representing the distal vertebral and proximal basilar. This appears to be chronically occluded. Russ Joseph MD Physical Exam GENERAL: Awake and alert, NAD SKIN: Warm and dry. No generalized rash, no ecchymoses and no evidence of embolic lesions. HEAD: Atraumatic. Normocephalic. No temporal wasting, or tenderness. EYES: Lott conjunctiva. No petechia or hemorrhage. Pupils equal, round, pinpoint. Has dirty sclera. No injection or drainage. EARS, NOSE AND THROAT: Nose without bleeding or purulent nasal discharge. Edentulous. NECK: Trachea midline. Supple and not tender, no meningeal signs CARDIOVASCULAR: Regular rate and rhythm. No murmurs, rubs or gallops heard. No rub. Pacer/AICD L upper chest with no evidence of infection RESPIRATORY: Coarse breath sounds equal bilaterally. No rales, wheezing or rhonchi. Decreased at bases. ABDOMEN: Soft, nondistended, no reaction to deep palpation. Bowel sounds present and normoactive. No organomegaly. : Rabago in place, scrotum swollen EXTREMITIES: No clubbing, cyanosis, has bilateral pitting pedal edema. NEUROLOGICAL: Grossly non-focal NEURO: Calm and cooperative LINE: No evidence of infection Assessment & Plan Remarks IMPRESSION (+) BC, from same venipuncture, ?significance prob contaminant - has 2 different type of Staph epi - repeat BC negatuve so far - no fever, WBC normal - incidental finding :pt presented with stroke, afebrile - echo ok - has Pacer/defib Recurrent CVA, S/P thrombolytic Rx Respiratory failure, tolerating extubation 02/07 MRSA PNA Cardiomyopathy, CXR with CHF, rell effusions Renal insufficiency Encephalopathy, etiology? resolved RECOMMENDATION Follow repeat BC Continue IV Vanco - pharm doinig dosing Monitor progress D/W Annia Bonilla MD Feb 08, 2017 13:36
[2017-02-08] MEDS: SODIUM CHLORIDE 23.4% INJ 77 MEQ in DEXTROSE 10% INJ 1,000 ML IV SCH ×2 (13:45→18:05)
--- NOTE | 2017-02-08 15:15 | HHI.CCPN ---
Subjective Remarks/Hospital Course 01/31: This 66-year-old man who presents to the emergency department via EMS for altered mental status. History is a little bit unclear. It sounds like he was agitated overnight so they gave him Xanax this morning. Speaking with the nurse there, Yesica Earl, patient gets Xanax periodically but not every day. It's not a new dose for him. Subsequently he became unresponsive. Per EMS report he normally has a GCS of 14 but cannot walk. For them he was not talking at all, and stopped breathing for a period of time in the ambulance and required [id number] ventilation. They were bagging him on presentation to the ED. patient underwent CT head which was negative for bleed. He was evaluated by Dr. 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 On propofol 75 mics per kg/min. moving both upper extremities and left lower extremity on lightening sedation per nursing staff. Has chronically weak right lower extremity per family. Currently on heparin drip for full anticoagulation. 02/02: Sedated, orally intubated on mechanical ventilation this morning at the time of my evaluation. Being diuresed with Lasix. 2-D echo with LVEF 20% and severe MR. Hypoglycemia today despite tube feeds for which he was given D50 and cortisol level being checked. 02/03: Off sedation since 9/8 AM. Started to arouse last evening and following commands moving both upper extremities. Remains orally intubated on mechanical ventilation. At the time of my evaluation years arousable however not following commands. 02/04: Tmax 100.1. Currently resting in bed in no acute distress. Moving right lower extremity spontaneously. Nods head and follows commands. Patient is leaning towards right. Subjective 02/05: Tolerated PSV trial overnight. Opened eyes. Following commands. States he is hungry today. Move the left upper extremity spontaneously along with right upper extremity today. Moved toes slightly. 02/06: Remains orally intubated on mechanical ventilation. Gets apneic episodes during C Pap trials. Follows commands. On tube feeds and D10 02/07: Tolerated C Pap trials and extubated today. Drowsy, easily arousable. Follows commands with both upper extremities. Remains on D10 drip for hyperglycemia. Off tube feeds since extubation awaiting swallow eval. 02/08: Remains on nasal cannula. Passed swallow eval and diet being advanced. Was on D10 at 50 cc an hour for hypoglycemia while awaiting insulinoma workup. Tolerating by mouth diet so decreased D10 to 25 cc an hour and plan to stop later today. Objective Vital Signs Date Time Temp Pulse Resp B/P (MAP) Pulse Ox O2 Delivery O2 Flow Rate FiO2 02/08/17 12:00 98.8 69 25 99/67 (78) 98 02/08/17 07:47 Nasal Cannula 3.00 02/07/17 09:00 40 Intake and Output 02/08/17 02/08/17 02/09/17 08:00 16:00 00:00 Intake Total 1338 ml 98 ml Output Total 1250 ml Balance 88 ml 98 ml Result Diagram: 02/08/17 1055 02/08/17 0930 Imaging Last Impressions Chest X-Ray 02/05/17 0600 Signed Impressions: Service Date/Time: Sunday, February 05, 2017 04:47 - CONCLUSION: Endotracheal tube and nasogastric tube in satisfactory position. Stable bilateral mostly basilar dependent airspace disease and pleural effusions. Ridge Hernandez MD Upper Extremity Ultrasound 02/01/17 0000 Signed Impressions: Service Date/Time: January 11:49 - CONCLUSION: 1. No evidence of deep venous thrombosis. Moses Juarez MD Head CT 01/31/17 0809 Signed Impressions: Service Date/Time: Tuesday, January 31, 2017 08:16 - CONCLUSION: Hypodensity left parietal-occipital mid convexity region suggesting infarction or encephalomalacia. No evidence of hemorrhage. Cannot exclude an acute process. May consider further characterization with MRI. Wilber Alfaro MD Neck CTA 01/31/17 0000 Signed Impressions: Service Date/Time: Tuesday, January 31, 2017 08:57 - CONCLUSION: 1. 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 2. String-like contrast in the left vertebral artery Wilber Alfaro MD Head CTA 01/31/17 0000 Signed Impressions: Service Date/Time: Tuesday, January 31, 2017 08:57 - CONCLUSION: Absent flow in the left internal carotid artery with reconstitution of flow in the A2 segment. There is some flow seen in the left sylvian branches of the middle cerebral artery, but the degree of vessel opacification on the left is less than on the right. Wilber Alfaro MD Cerebral Arteriogram 01/31/17 0000 Signed Impressions: Service Date/Time: Tuesday, January 31, 2017 00:00 - CONCLUSION: 1. Patient appears to have had a thrombotic or embolic event to the vertebral basilar system. The left vertebral is highly diseased throughout its course and appears to occlude just proximal to the basilar. Unable to traverse the highly diseased vessel for intervention. 2. The right vertebral is robust proximally but appears to terminate in a PICA branch with a irregular terminal vessel possibly representing the distal vertebral and proximal basilar. This appears to be chronically occluded. Russ Joseph MD Objective Remarks GENERAL: 66-year-old AA male, sitting up in bed in no acute distress on nasal cannula. SKIN: Warm and dry. No rash HEAD: Atraumatic. Normocephalic. EYES: Pupils equal and round about 3 mm bilaterally and reactive. No scleral icterus. No injection or drainage. ENT: No nasal bleeding or discharge. Mucous membranes pink and moist. NECK: Trachea midline. No JVD. CARDIOVASCULAR: Regular rate and rhythm. S1, S2 no S4. 2/6 systolic murmur left lower sternal border. RESPIRATORY: No accessory muscle use. Clear to auscultation. Breath sounds equal bilaterally. GASTROINTESTINAL: Abdomen soft, non-tender, nondistended. Hypoactive bowel sounds appreciated MUSCULOSKELETAL: Extremities with trace to 1+ bilateral lower extremity and upper extremity edema. No obvious deformities. NEUROLOGICAL: Awake alert oriented x2. Moves both upper extremities, wiggle toes bilaterally. Has chronic right lower extremity weakness. Speech appears normal. 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 Patient is status post intervention by IR. Cerebral angiogram revealed occluded distal vertebral/proximal parietal occlusion acute. 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 EEG - 02/01 - 3-6 Hz activity, 20-50 microvolts occurring in generalized fashion. EEG variability reactivity noted. Mild spindles noted as well. Limited driving with photic stimulation. Single lead EKG showing sinus rhythm. Mild to moderate encephalopathy. Clinical correlation Recommended. Heparin drip stopped on 02/07 and resumed on Apixaban 5 mg twice a day per Dr. Russ Solano/Neurology following. Holding buspirone 7.5 mg 3 times a day, mirtazapine 7.5 mg a night and trazodone 50 mg by mouth daily for depression/anxiety. Resume when okay with neurology. Continue levetiracetam 500 mg IV 3 times a day/seizure precautions CV: Chronic systolic heart failure ejection fraction 20% Pulmonary hypertension History of CABG 4/AICD Hypertension Dyslipidemia Echocardiogram revealed EF 20%. Decreased right ventricular left ventricular function. Dilated LV. Enlarged left atrium. Severe pulmonary hypertension greater than 70 mmHg, severe TR/MR Cardiology/Dr. Hernandez following Currently on furosemide 20 mg IV twice a day. Home medications include aspirin 81 mg daily, metoprolol 25 mg by mouth daily, furosemide 40 mg daily and spironolactone 25 mill grams by mouth daily - Resumed aspirin, metoprolol and spironolactone on 02/08 Patient is on rosuvastatin 20 mg by mouth daily along with Fish oil/ cholecalciferol 1 tablet daily for dyslipidemia Resp: Acute hypoxemic respiratory failure Tolerated C Pap trial and extubated to nasal cannula on 02/07 Albuterol/ipratropium aerosols every 6 hours with albuterol aerosols every 2 hours. Dyspnea GI: Hypoalbuminemia Was starting tube feeds with Jevity 1.5@60 cc an hour which were held for extubation. Passed swallow eval. Advance to heart healthy diet. Famotidine for GI prophylaxis Docusate sodium 100 mg twice a day, senna liquid 8.6 mg twice a day for bowel regimen along with lactulose 30 cc twice a day : Rabago catheter indicated for accurate I's and O's in a critically ill patient Endo: Hypoglycemia - possibly secondary to sepsis Normal TSH/cortisol levels. C-peptide/insulin levels and human growth hormone pending. Patient was hypoglycemic on tube feeds requiring D10 raising concern for insulinoma. Currently on D10 at 50 cc an hour - decreased to 25 cc an hour and planned to stop today. Renal: Acute kidney injury resolved Strict intake output, monitor and replete elect lites, follow BUN/creatinine. Heme: Normocytic anemia Chronic Apixaban use Monitor CBC daily. Follow trends. Off heparin drip and resumed on Eliquis on 02/08. ID: Coag-negative//staph epi bacteremia Current vancomycin dose by infectious disease [place] decolonization protocol with mupirocin swabs twice a day Infectious disease/Dr. Simons following Pertinent cultures 02/03 - blood cultures 1 -no growth 02/01 - blood cultures 2 -no growth 02/01 - sputum - coag negative staph 01/31 - blood cultures 2 - coag negative staph, staph epi FEN: Replace electrolytes as clinically indicated MSK: PT/OT for range of motion evaluate and treat Access - Left IJ CVL placed 02/04 - Left radial arterial line placed 01/31 Prophylaxis - GI - famotidine - DVT - SCD/Osmani Sapp MD Feb 08, 2017 15:15
[2017-02-08] MEDS ORDERED: DEXTROSE 50% IN WATER 50 ML SYRINGE ONE (15:39)
[2017-02-09] VITALS (8 sets, daily range): BP systolic 103–120; BP diastolic 70–84; PULSE 68–74; RESP 18–23; TEMP 97.2–98.8; O2SAT 82–98
[2017-02-09] MEDS: levETIRAcetam 500 MG/NS 100 ML IV SCH ×6 (03:00→18:45)
[2017-02-09] MEDS: CHLORHEXIDINE GLUCONATE 2 % 1 PACK (2 CLOTHS) TOP SCH (03:40)
[2017-02-09] MEDS: VANCOMYCIN 1,000 MG/NS 250 ML IV SCH ×2 (05:25)
[2017-02-09] MEDS: CHLORHEXIDINE 0.12% (ORAL KIT) 15 ML CUP MT SCH ×2 (08:00→20:00)
[2017-02-09] MEDS: DOCUSATE SODIUM 100 MG/10 ML UDC PO SCH ×2 (08:50→22:26)
[2017-02-09] MEDS: APIXABAN 5 MG TABLET PO SCH ×2 (08:51→22:27)
[2017-02-09] MEDS: SPIRONOLACTONE 25 MG TAB PO SCH (08:51)
[2017-02-09] MEDS: MULTIVITAMIN TAB PO SCH (08:51)
[2017-02-09] MEDS: FAMOTIDINE 20 MG TAB TUBE SCH ×2 (08:51→22:27)
[2017-02-09] MEDS: ASPIRIN 81 MG CHEW TAB PO SCH (08:51)
[2017-02-09] MEDS: FUROSEMIDE 20 MG/2 ML VIAL IV PUSH SCH ×2 (08:52→20:34)
[2017-02-09] MEDS: SODIUM CHLORIDE 0.9% FLUSH 10 ML FLUSH IV FLUSH SCH ×2 (08:52→21:00)
[2017-02-09] MEDS: SODIUM CHLORIDE 0.9% FLUSH 10 ML FLUSH IVF SCH (08:52)
[2017-02-09] MEDS: LACTULOSE SYRUP 20 GM/30 ML CUP PO SCH ×2 (08:52→22:26)
[2017-02-09] MEDS: SENNOSIDES SYRUP 8.8 MG/5 ML CUP PO SCH ×2 (08:53→22:26)
[2017-02-09] MEDS: MUPIROCIN 2% OINT 1 APPLIC/GM SYR NASAL SCH ×2 (09:00→21:00)
[2017-02-09] MEDS: METOPROLOL TARTRATE 25 MG TAB PO SCH (09:00)
[2017-02-09] MEDS: MUPIROCIN 2% OINT 1 APPLIC/GM SYR EACH NARE SCH ×2 (14:15→22:27)
--- NOTE | 2017-02-09 15:36 | HHI.IDPN ---
Subjective Subjective Remarks Patient is a 66-year-old male,sp ischemic stroke, received TPA to the right vertebral artery. Presented with high grade Staph epi bacteremia in the settings of endovascular device (pacemaker) repeat clx are negative Notes reviewed Temps ok Doing well on nasal O2 Not SOB BP good 2 BC on admission with Staph epi - has different susceptibility pattern Repeat BC negative so far Sputum with MRSA WBC normal Creatinine normal Last CXR 02/06 improving infiltrates Antibiotics Vancomycin - dosing as needed Past Medical History Hypertension Hyperlipidemia CHF CAD Previous CVA Past Surgical History CABG Pacer/AICD Has midline abdominal scar, surgery done not known Allergies: Coded Allergies: hydrochlorothiazide (Verified Allergy, Severe, Edema, 01/31/17) atorvastatin (Verified Allergy, Unknown, 01/31/17) morphine (Verified Allergy, Unknown, 01/31/17) MRI PRECAUTION (Verified Adverse Reaction, Severe, NON COMPATIBLE PACEMAKER. LRS 01/31/17, 01/31/17) Objective . Vital Signs Date Time Temp Pulse Resp B/P (MAP) Pulse Ox O2 Delivery O2 Flow Rate FiO2 02/09/17 12:00 97.2 70 18 111/78 (89) 82 02/09/17 08:00 97.3 70 18 103/70 (81) 98 02/09/17 04:30 97.7 74 21 120/76 (91) 96 02/09/17 00:00 98.8 68 22 115/75 (88) 95 02/08/17 21:45 97.1 70 23 111/74 (86) 94 02/08/17 18:00 72 02/08/17 16:02 69 02/08/17 16:00 98.5 71 26 104/70 (81) 97 . Laboratory Tests Test 02/08/17 10:55 White Blood Count 6.5 TH/MM3 Red Blood Count 3.88 MIL/MM3 Hemoglobin 10.5 GM/DL Hematocrit 32.3 % Mean Corpuscular Volume 83.4 FL Mean Corpuscular Hemoglobin 27.0 PG Mean Corpuscular Hemoglobin Concent 32.3 % Red Cell Distribution Width 22.4 % Platelet Count 189 TH/MM3 Mean Platelet Volume 9.5 FL Laboratory Tests Test 02/08/17 09:30 02/09/17 06:15 Blood Urea Nitrogen 21 MG/DL Creatinine 0.88 MG/DL 0.88 MG/DL Random Glucose 112 MG/DL Calcium Level 7.8 MG/DL Sodium Level 138 MEQ/L Potassium Level 3.7 MEQ/L Chloride Level 101 MEQ/L Carbon Dioxide Level 30.0 MEQ/L Anion Gap 7 MEQ/L Estimat Glomerular Filtration Rate 104 ML/MIN 104 ML/MIN Imaging Last Impressions Chest X-Ray 02/04/17806 Signed Impressions: Service Date/Time: Saturday, February 04, 2017 08:13 - CONCLUSION: 1. Left IJ central line is present and distal tip is not clearly visualized but likely in the brachiocephalic vein near the SVC junction. No pneumothorax is visualized. 2. Stable bilateral air space opacity in a pattern which could represent pulmonary edema with bilateral pleural effusions. 3. Nasogastric tube distal tip is near the GE junction and should ideally be advanced. Carlos Lerma MD Upper Extremity Ultrasound 02/01/17 0000 Signed Impressions: Service Date/Time: January 11:49 - CONCLUSION: 1. No evidence of deep venous thrombosis. Moses Juarez MD Head CT 01/31/1709 Signed Impressions: Service Date/Time: Tuesday, January 31, 2017 08:16 - CONCLUSION: Hypodensity left parietal-occipital mid convexity region suggesting infarction or encephalomalacia. No evidence of hemorrhage. Cannot exclude an acute process. May consider further characterization with MRI. Wilber Alfaro MD Neck CTA 01/31/17 0000 Signed Impressions: Service Date/Time: Tuesday, January 31, 2017 08:57 - CONCLUSION: 1. 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 2. String-like contrast in the left vertebral artery Wilber Alfaro MD Head CTA 01/31/17 0000 Signed Impressions: Service Date/Time: Tuesday, January 31, 2017 08:57 - CONCLUSION: Absent flow in the left internal carotid artery with reconstitution of flow in the A2 segment. There is some flow seen in the left sylvian branches of the middle cerebral artery, but the degree of vessel opacification on the left is less than on the right. Wilber Alfaro MD Cerebral Arteriogram 01/31/17 0000 Signed Impressions: Service Date/Time: Tuesday, January 31, 2017 00:00 - CONCLUSION: 1. Patient appears to have had a thrombotic or embolic event to the vertebral basilar system. The left vertebral is highly diseased throughout its course and appears to occlude just proximal to the basilar. Unable to traverse the highly diseased vessel for intervention. 2. The right vertebral is robust proximally but appears to terminate in a PICA branch with a irregular terminal vessel possibly representing the distal vertebral and proximal basilar. This appears to be chronically occluded. Russ Joseph MD Physical Exam GENERAL: Awake and alert, NAD. Looks tired SKIN: Warm and dry. No generalized rash HEAD: Atraumatic. Normocephalic. No temporal wasting, or tenderness. EYES: [place] conjunctiva. No petechia or hemorrhage. Pupils equal, round, pinpoint. Has dirty sclera. No injection or drainage. EARS, NOSE AND THROAT: Nose without bleeding or purulent nasal discharge. Edentulous NECK: Trachea midline. Supple and not tender, no meningeal signs CARDIOVASCULAR: Regular rate and rhythm. No murmurs, rubs or gallops heard. No rub. Pacer/AICD L upper chest with no evidence of infection RESPIRATORY: Coarse breath sounds equal bilaterally. No rales, wheezing or rhonchi. Decreased at bases. ABDOMEN: Soft, nondistended, no reaction to deep palpation. Bowel sounds present and normoactive. No organomegaly. : Rabago in place, scrotum swollen EXTREMITIES: No clubbing, cyanosis, has bilateral pitting pedal edema. NEUROLOGICAL: Grossly non-focal NEURO: Calm and cooperative LINE: No evidence of infection Assessment & Plan Remarks IMPRESSION (+) BC, from same venipuncture, ?significance prob contaminant - has 2 different type of Staph epi - repeat BC negatuve so far - no fever, WBC normal - incidental finding :pt presented with stroke, afebrile - echo ok - has Pacer/defib Recurrent CVA, S/P thrombolytic Rx Respiratory failure, tolerating extubation 02/07 MRSA PNA Cardiomyopathy, CXR with CHF, rell effusions Renal insufficiency Encephalopathy, etiology? resolved RECOMMENDATION Follow repeat BC Stop Vanco Use Zyvox to complete PNA Rx Repeat CBC on Sunday Monitor progress D/W Annia Bonilla MD Feb 09, 2017 15:35
--- NOTE | 2017-02-09 17:41 | HHI.PR ---
Subjective Remarks Follow-up for altered mental status. Discussed case thoroughly with Dr. Gonzalez. Discussed case with nursing, no reason to have Roldan at this time so plan is to discontinue. Patient tolerating little by mouth intake, patient himself says the food is in good and that is why he is not eating much Objective Vital Signs Date Time Temp Pulse Resp B/P (MAP) Pulse Ox O2 Delivery O2 Flow Rate FiO2 02/09/17 12:00 97.2 70 18 111/78 (89) 82 02/09/17 08:00 97.3 70 18 103/70 (81) 98 02/09/17 04:30 97.7 74 21 120/76 (91) 96 02/09/17 00:00 98.8 68 22 115/75 (88) 95 02/08/17 21:45 97.1 70 23 111/74 (86) 94 02/08/17 18:00 72 I/O 02/08/17 02/08/17 02/08/17 02/09/17 02/09/17 02/09/17 07:00 15:00 23:00 07:00 15:00 23:00 Intake Total 1338 ml 98 ml 1278 ml 400 ml Output Total 1250 ml 775 ml 100 ml Balance 88 ml 98 ml 503 ml 300 ml Intake Oral 240 ml 320 ml 400 ml IV Total 1098 ml 98 ml 958 ml Output Urine Total 1250 ml 775 ml 100 ml # Bowel Movements 1 0 0 Result Diagram: 02/08/17 1055 02/09/17 0615 Imaging Last Impressions Chest X-Ray 02/06/17 0600 Signed Impressions: Service Date/Time: Monday, February 06, 2017 04:30 - CONCLUSION: 1. Slight improvement in basilar airspace disease and pleural effusions. Support apparatus unchanged. Ridge Hernandez MD Upper Extremity Ultrasound 02/01/17 0000 Signed Impressions: Service Date/Time: January 11:49 - CONCLUSION: 1. No evidence of deep venous thrombosis. Moses Juarez MD Head CT 01/31/17 0809 Signed Impressions: Service Date/Time: Tuesday, January 31, 2017 08:16 - CONCLUSION: Hypodensity left parietal-occipital mid convexity region suggesting infarction or encephalomalacia. No evidence of hemorrhage. Cannot exclude an acute process. May consider further characterization with MRI. Wilber Alfaro MD Neck CTA 01/31/17 Signed Impressions: Service Date/Time: Tuesday, January 31, 2017 08:57 - CONCLUSION: 1. 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 2. String-like contrast in the left vertebral artery Wilber Alfaro MD Head CTA 01/31/17 Signed Impressions: Service Date/Time: Tuesday, January 31, 2017 08:57 - CONCLUSION: Absent flow in the left internal carotid artery with reconstitution of flow in the A2 segment. There is some flow seen in the left sylvian branches of the middle cerebral artery, but the degree of vessel opacification on the left is less than on the right. Wilber Alfaro MD Cerebral Arteriogram 01/31/17 Signed Impressions: Service Date/Time: Tuesday, January 31, 2017 00:00 - CONCLUSION: 1. Patient appears to have had a thrombotic or embolic event to the vertebral basilar system. The left vertebral is highly diseased throughout its course and appears to occlude just proximal to the basilar. Unable to traverse the highly diseased vessel for intervention. 2. The right vertebral is robust proximally but appears to terminate in a PICA branch with a irregular terminal vessel possibly representing the distal vertebral and proximal basilar. This appears to be chronically occluded. Russ Joseph MD Objective Remarks Patient lying in bed awake Minimally labored breathing, breath sounds are coarse bilaterally Heart rate is regular with a regular rhythm, no murmurs Mild dependent lower sternal edema Roldan in place A/P Assessment and Plan 66 BM admitted w/ altered mental status/stroke like symptoms, now back to baseline. 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 Patient is status post intervention by IR. Cerebral angiogram revealed occluded distal vertebral/proximal parietal occlusion acute. 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 EEG - 02/01 - 3-6 Hz activity, 20-50 microvolts occurring in generalized fashion. EEG variability reactivity noted. Mild spindles noted as well. Limited driving with photic stimulation. Single lead EKG showing sinus rhythm. Mild to moderate encephalopathy. Clinical correlation Recommended. Heparin drip stopped on 02/07 and resumed on Apixaban 5 mg twice a day per Dr. Solano Neurology following. Holding buspirone 7.5 mg 3 times a day, mirtazapine 7.5 mg a night and trazodone 50 mg by mouth daily for depression/anxiety. Resume when okay with neurology. Continue levetiracetam 500 mg IV 3 times a day/seizure precautions PT/OT Chronic systolic heart failure ejection fraction 20% + CAD + pulm HTN Echocardiogram revealed EF 20%. Decreased right ventricular left ventricular function. Dilated LV. Enlarged left atrium. Severe pulmonary hypertension greater than 70 mmHg, severe TR/MR Cardiology/Dr. Hernandez following Currently on furosemide 20 mg IV twice a day. Home medications include aspirin 81 mg daily, metoprolol 25 mg by mouth daily, furosemide 40 mg daily and spironolactone 25 mill grams by mouth daily - Resumed aspirin, metoprolol and spironolactone on 02/08 Patient is on rosuvastatin 20 mg by mouth daily along with Fish oil/ cholecalciferol 1 tablet daily for dyslipidemia Acute hypoxemic respiratory failure - improved, now on NC albuterol/ipratropium aerosols every 6 hours with albuterol aerosols every 2 hours. Dyspnea Hypoalbuminemia Was starting tube feeds with Jevity 1.5@60 cc an hour which were held for extubation. Passed swallow eval. Advance to heart healthy diet. Famotidine for GI prophylaxis Docusate sodium 100 mg twice a day, senna liquid 8.6 mg twice a day for bowel regimen along with lactulose 30 cc twice a day Will d/c roldan catheter Hypoglycemia - possibly secondary to sepsis Normal TSH/cortisol levels. C-peptide level pending, insulin level is high, concern that since Patient was hypoglycemic on tube feeds requiring D10 raising concern for insulinoma. Currently on D10 at 50 cc an hour. Octreotide scan scheduled for Sunday, if confirmed to be positive for insulinoma will need to be transferred to outside facility Coag-negative//staph epi bacteremia stopped vanc per ID, now in zyvox [place] decolonization protocol with mupirocin swabs twice a day Infectious disease/Dr. Simons following Pertinent cultures 02/03 - blood cultures 1 -no growth 02/01 - blood cultures 2 -no growth 02/01 - sputum - coag negative staph 9/6 - blood cultures 2 - coag negative staph, staph epi Prophylaxis - GI - famotidine - DVT - SCD/Harshad Booker MD Feb 09, 2017 17:41
[2017-02-09] MEDS ORDERED: PHARMACY ORDERED LAB ONE (17:45)
[2017-02-09] MEDS: RESP: ALBUTEROL 2.5 MG/3 ML NEB (PRN) NEB ×2 (20:32→22:39)
[2017-02-09] MEDS: LINEZOLID 600 MG TAB PO SCH (22:27)
[2017-02-10] VITALS (11 sets, daily range): BP systolic 100–122; BP diastolic 56–81; PULSE 69–95; RESP 18–24; TEMP 97–98.8; O2SAT 94–99
[2017-02-10] MEDS: levETIRAcetam 500 MG/NS 100 ML IV SCH ×6 (02:17→18:59)
[2017-02-10] MEDS: RESP: ALBUTEROL 2.5 MG/3 ML NEB (PRN) NEB ×3 (03:29→20:49)
[2017-02-10] MEDS: CHLORHEXIDINE GLUCONATE 2 % 1 PACK (2 CLOTHS) TOP SCH (04:00)
[2017-02-10] MEDS: SODIUM CHLORIDE 23.4% INJ 77 MEQ in DEXTROSE 10% INJ 1,000 ML IV SCH (05:41)
[2017-02-10 07:07] LABS: BICARBONATE 28.1 MEQ/L (21.0-32.0); MAGNESIUM 2.2 MG/DL (1.5-2.5); POTASSIUM 3.9 MEQ/L (3.5-5.1)
[2017-02-10] MEDS: CHLORHEXIDINE 0.12% (ORAL KIT) 15 ML CUP MT SCH ×2 (08:00→20:00)
[2017-02-10] MEDS: MUPIROCIN 2% OINT 1 APPLIC/GM SYR NASAL SCH ×2 (09:00→21:00)
[2017-02-10] MEDS: SODIUM CHLORIDE 0.9% FLUSH 10 ML FLUSH IVF SCH (09:00)
[2017-02-10] MEDS: SODIUM CHLORIDE 0.9% FLUSH 10 ML FLUSH IV FLUSH SCH ×2 (09:00→21:00)
[2017-02-10] MEDS: MUPIROCIN 2% OINT 1 APPLIC/GM SYR EACH NARE SCH ×2 (10:05→21:00)
[2017-02-10] MEDS: DOCUSATE SODIUM 100 MG/10 ML UDC PO SCH ×2 (10:06→21:00)
[2017-02-10] MEDS: MULTIVITAMIN TAB PO SCH (10:07)
[2017-02-10] MEDS: LACTULOSE SYRUP 20 GM/30 ML CUP PO SCH ×2 (10:07→21:00)
[2017-02-10] MEDS: ASPIRIN 81 MG CHEW TAB PO SCH (10:07)
[2017-02-10] MEDS: FAMOTIDINE 20 MG TAB TUBE SCH ×2 (10:07→22:37)
[2017-02-10] MEDS: SPIRONOLACTONE 25 MG TAB PO SCH (10:07)
[2017-02-10] MEDS: APIXABAN 5 MG TABLET PO SCH ×2 (10:07→22:37)
[2017-02-10] MEDS: LINEZOLID 600 MG TAB PO SCH ×2 (10:07→22:37)
[2017-02-10] MEDS: SENNOSIDES SYRUP 8.8 MG/5 ML CUP PO SCH ×2 (10:09→21:00)
[2017-02-10] MEDS: FUROSEMIDE 20 MG/2 ML VIAL IV PUSH SCH ×2 (10:09→22:39)
[2017-02-10] MEDS: METOPROLOL TARTRATE 25 MG TAB PO SCH (10:09)
--- NOTE | 2017-02-10 15:51 | HHI.PR ---
Subjective Remarks Follow-up for altered mental status. Discussed case with nursing, had some V. tach runs last night, no symptoms reported, patient has ICD. Slightly increased by mouth intake from nursing, they do report that he has somewhat worsening diffuse general dependent edema Objective Vital Signs Date Time Temp Pulse Resp B/P (MAP) Pulse Ox O2 Delivery O2 Flow Rate FiO2 02/10/17 15:41 78 02/10/17 12:00 97.3 70 22 100/73 (82) 99 02/10/17 08:33 99 Nasal Cannula 2.00 02/10/17 07:50 97.2 70 22 103/72 (82) 02/10/17 04:00 97.0 71 18 119/72 (88) 97 02/10/17 03:31 95 Nasal Cannula 2.00 02/10/17 02:15 98.6 69 22 107/70 (82) 02/10/17 01:30 97.9 70 18 122/56 (78) 94 02/10/17 00:00 98.8 95 23 113/58 (76) 98 02/09/17 21:00 98.0 74 23 120/84 (96) 96 02/09/17 20:34 98 Nasal Cannula 2.00 02/09/17 18:00 96 02/09/17 16:00 97.3 70 20 113/70 (84) I/O 02/09/17 02/09/17 02/09/17 02/10/17 02/10/17 02/10/17 07:00 15:00 23:00 07:00 15:00 23:00 Intake Total 400 ml 480 ml 800 ml 840 ml Output Total 100 ml Balance 300 ml 480 ml 800 ml 840 ml Intake Oral 400 ml 480 ml 800 ml 840 ml Output Urine Total 100 ml # Voids 0 3 1 # Bowel Movements 0 3 0 3 1 Result Diagram: 02/08/17 1055 02/10/17 0625 Objective Remarks Patient lying in bed awake Minimally labored breathing, breath sounds are coarse bilaterally Heart rate is regular with a regular rhythm, no murmurs Mild dependent upper and lower extremity edema Is confused about the time in year as well as the place, but he is oriented to himself and person A/P Assessment and Plan 66 BM admitted w/ altered mental status/stroke like symptoms, now back to baseline. 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 Patient is status post intervention by IR. Cerebral angiogram revealed occluded distal vertebral/proximal parietal occlusion acute. 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 EEG - 02/01 - 3-6 Hz activity, 20-50 microvolts occurring in generalized fashion. EEG variability reactivity noted. Mild spindles noted as well. Limited driving with photic stimulation. Single lead EKG showing sinus rhythm. Mild to moderate encephalopathy. Clinical correlation Recommended. Heparin drip stopped on 02/07 and resumed on Apixaban 5 mg twice a day per Dr. Solano Neurology following. Holding buspirone 7.5 mg 3 times a day, mirtazapine 7.5 mg a night and trazodone 50 mg by mouth daily for depression/anxiety. Resume when okay with neurology. Continue levetiracetam 500 mg IV 3 times a day/seizure precautions PT/OT Chronic systolic heart failure ejection fraction 20% + CAD + pulm HTN Echocardiogram revealed EF 20%. Decreased right ventricular left ventricular function. Dilated LV. Enlarged left atrium. Severe pulmonary hypertension greater than 70 mmHg, severe TR/MR Cardiology/Dr. Hernandez following Currently on furosemide 20 mg IV twice a day. Home medications include aspirin 81 mg daily, metoprolol 25 mg by mouth daily, furosemide 40 mg daily and spironolactone 25 mill grams by mouth daily - Resumed aspirin, metoprolol and spironolactone on 02/08 Patient is on rosuvastatin 20 mg by mouth daily along with Fish oil/ cholecalciferol 1 tablet daily for dyslipidemia Acute hypoxemic respiratory failure - improved, now on [place] albuterol/ipratropium aerosols every 6 hours with albuterol aerosols every 2 hours. Hypoalbuminemia Advance to heart healthy diet. Famotidine for GI prophylaxis Docusate sodium 100 mg twice a day, senna liquid 8.6 mg twice a day for bowel regimen along with lactulose 30 cc twice a day Hypoglycemia - possibly secondary to sepsis Normal TSH/cortisol levels. C-peptide level pending, insulin level is high, concern that since Patient was hypoglycemic on tube feeds requiring D10 raising concern for insulinoma. Currently on D10 at 50 cc an hour. Octreotide scan scheduled for Sunday, if confirmed to be positive for insulinoma will need to be transferred to outside facility Coag-negative//staph epi bacteremia zyvox to complete PNA regimen [place] decolonization protocol with mupirocin swabs twice a day Infectious disease/Dr. Simons following Pertinent cultures 02/03 - blood cultures 1 -no growth 02/01 - blood cultures 2 -no growth 02/01 - sputum - coag negative staph 01/31 - blood cultures 2 - coag negative staph, staph epi Prophylaxis - GI - famotidine - DVT - SCD/Harshad Booker MD Feb 10, 2017 15:51
[2017-02-10] MEDS: FUROSEMIDE 40 MG TAB PO SCH (19:00)
[2017-02-10] MEDS ORDERED: DEXTROSE 50% IN WATER 50 ML SYRINGE ONE (23:10)
[2017-02-10] MEDS ORDERED: DEXTROSE 50% IN WATER 50 ML VIAL(D50) IV PRN (23:30)
[2017-02-11] VITALS (13 sets, daily range): BP systolic 107–132; BP diastolic 72–87; PULSE 68–107; RESP 18–22; TEMP 97.2–98.5; O2SAT 93–99
[2017-02-11] MEDS: levETIRAcetam 500 MG/NS 100 ML IV SCH ×4 (03:35→10:22)
[2017-02-11] MEDS: SODIUM CHLORIDE 23.4% INJ 77 MEQ in DEXTROSE 10% INJ 1,000 ML IV SCH (03:47)
[2017-02-11] MEDS: CHLORHEXIDINE GLUCONATE 2 % 1 PACK (2 CLOTHS) TOP SCH (04:00)
[2017-02-11] MEDS: CHLORHEXIDINE 0.12% (ORAL KIT) 15 ML CUP MT SCH ×2 (08:00→20:00)
[2017-02-11] MEDS: SENNOSIDES SYRUP 8.8 MG/5 ML CUP PO SCH ×2 (09:00→21:00)
[2017-02-11] MEDS: MULTIVITAMIN TAB PO SCH (10:20)
[2017-02-11] MEDS: ASPIRIN 81 MG CHEW TAB PO SCH (10:20)
[2017-02-11] MEDS: METOPROLOL TARTRATE 25 MG TAB PO SCH (10:21)
[2017-02-11] MEDS: LACTULOSE SYRUP 20 GM/30 ML CUP PO SCH ×2 (10:21→21:00)
[2017-02-11] MEDS: DOCUSATE SODIUM 100 MG/10 ML UDC PO SCH ×2 (10:21→21:00)
[2017-02-11] MEDS: FAMOTIDINE 20 MG TAB TUBE SCH ×2 (10:21→21:00)
[2017-02-11] MEDS: APIXABAN 5 MG TABLET PO SCH ×2 (10:21→21:00)
[2017-02-11] MEDS: FUROSEMIDE 40 MG TAB PO SCH (10:21)
[2017-02-11] MEDS: LINEZOLID 600 MG TAB PO SCH ×2 (10:22→21:00)
[2017-02-11] MEDS: SODIUM CHLORIDE 0.9% FLUSH 10 ML FLUSH IV FLUSH SCH ×2 (10:22→21:00)
[2017-02-11] MEDS: MUPIROCIN 2% OINT 1 APPLIC/GM SYR EACH NARE SCH ×2 (10:22→21:00)
[2017-02-11] MEDS: SODIUM CHLORIDE 0.9% FLUSH 10 ML FLUSH IVF SCH (10:23)
[2017-02-11] MEDS: MUPIROCIN 2% OINT 1 APPLIC/GM SYR NASAL SCH ×2 (10:24→21:00)
[2017-02-11] MEDS: FUROSEMIDE 20 MG/2 ML VIAL IV PUSH SCH ×2 (10:36→20:00)
[2017-02-11] MEDS: SPIRONOLACTONE 25 MG TAB PO SCH (10:36)
--- NOTE | 2017-02-11 14:49 | HHI.PR ---
Subjective Remarks Follow-up for altered mental status and hypoglycemia. Nursing reports that the patient ripped out his triple-lumen IV and now has no IV access at all which is concerning because he is constantly hypoglycemic and requiring D5 infusion which is concerning for an insulinoma. C-peptide and insulin levels are both high. Octreotide scan is set for tomorrow. Objective Vital Signs Date Time Temp Pulse Resp B/P (MAP) Pulse Ox O2 Delivery O2 Flow Rate FiO2 02/11/17 13:17 88 02/11/17 12:00 98.5 70 18 114/77 (89) 95 02/11/17 10:00 89 02/11/17 08:00 97.4 107 18 107/78 (88) 97 02/11/17 08:00 84 02/11/17 06:15 93 Nasal Cannula 4.00 02/11/17 06:10 75 93 02/11/17 04:00 97.4 70 20 118/72 (87) 02/11/17 00:00 97.2 70 20 132/87 (102) 02/10/17 20:00 97.3 69 24 118/81 (93) 02/10/17 20:00 73 02/10/17 16:00 97.4 70 22 104/74 (84) 02/10/17 15:41 78 I/O 02/10/17 02/10/17 02/10/17 02/11/17 02/11/17 02/11/17 07:00 15:00 23:00 07:00 15:00 23:00 Intake Total 840 ml 410 ml 227 ml Balance 840 ml 410 ml 227 ml Intake Oral 840 ml IV Total 410 ml 227 ml # Voids 3 1 1 2 # Bowel Movements 3 1 1 2 Result Diagram: 02/08/17 1055 02/10/17 0625 Objective Remarks Patient lying in bed awake unlabored breathing, breath sounds are coarse bilaterally Heart rate is regular with a regular rhythm, no murmurs Mild dependent upper and lower extremity edema Patient is actually oriented today 3 A/P Assessment and Plan 66 BM admitted w/ altered mental status/stroke like symptoms, now back to baseline. 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 Patient is status post intervention by IR. Cerebral angiogram revealed occluded distal vertebral/proximal parietal occlusion acute. 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 EEG - 02/01 - 3-6 Hz activity, 20-50 microvolts occurring in generalized fashion. EEG variability reactivity noted. Mild spindles noted as well. Limited driving with photic stimulation. Single lead EKG showing sinus rhythm. Mild to moderate encephalopathy. Apixaban 5 mg twice a day per Dr. Solano Neurology following. Holding buspirone 7.5 mg 3 times a day, mirtazapine 7.5 mg a night and trazodone 50 mg by mouth daily for depression/anxiety. Resume when okay with neurology. Continue levetiracetam 500 mg IV 3 times a day/seizure precautions PT/OT Chronic systolic heart failure ejection fraction 20% + CAD + pulm HTN Echocardiogram revealed EF 20%. Decreased right ventricular left ventricular function. Dilated LV. Enlarged left atrium. Severe pulmonary hypertension greater than 70 mmHg, severe TR/MR Cardiology/Dr. Hernandez following Currently on furosemide 20 mg IV twice a day. aspirin, metoprolol and spironolactone on 02/08 Patient is on rosuvastatin 20 mg by mouth daily along with Fish oil/ cholecalciferol 1 tablet daily for dyslipidemia Acute hypoxemic respiratory failure - improved, now on [place] albuterol/ipratropium aerosols every 6 hours with albuterol aerosols every 2 hours. Hypoalbuminemia Advance to heart healthy diet. Famotidine for GI prophylaxis Docusate sodium 100 mg twice a day, senna liquid 8.6 mg twice a day for bowel regimen along with lactulose 30 cc twice a day Hypoglycemia - possibly secondary to sepsis Normal TSH/cortisol levels. C-peptide level elevated, insulin level is high, concern that since Patient was hypoglycemic on tube feeds requiring D10 raising concern for insulinoma. Currently on D10 at 50 cc an hour. Octreotide scan scheduled for Sunday, if confirmed to be positive for insulinoma will need to be transferred to outside facility Coag-negative//staph epi bacteremia zyvox to complete PNA regimen [place] decolonization protocol with mupirocin swabs twice a day Infectious disease/Dr. Simons following Pertinent cultures 02/03 - blood cultures 1 -no growth 02/01 - blood cultures 2 -no growth 02/01 - sputum - coag negative staph 9/6 - blood cultures 2 - coag negative staph, staph epi Prophylaxis - GI - famotidine - DVT - SCD/Harshad Booker MD Feb 11, 2017 14:49
[2017-02-12] VITALS (7 sets, daily range): BP systolic 99–130; BP diastolic 65–83; PULSE 69–77; RESP 20–30; TEMP 97.2–97.9; O2SAT 95–100
[2017-02-12] MEDS: CHLORHEXIDINE GLUCONATE 2 % 1 PACK (2 CLOTHS) TOP SCH (04:00)
[2017-02-12] MEDS: levETIRAcetam 500 MG/NS 100 ML IV SCH ×6 (04:08→19:00)
[2017-02-12] MEDS: SODIUM CHLORIDE 23.4% INJ 77 MEQ in DEXTROSE 10% INJ 1,000 ML IV SCH ×2 (04:08→23:22)
[2017-02-12] MEDS: CHLORHEXIDINE 0.12% (ORAL KIT) 15 ML CUP MT SCH ×2 (08:00→20:00)
[2017-02-12] MEDS: LACTULOSE SYRUP 20 GM/30 ML CUP PO SCH ×2 (08:38→23:20)
[2017-02-12] MEDS: SENNOSIDES SYRUP 8.8 MG/5 ML CUP PO SCH ×2 (08:39→23:20)
[2017-02-12] MEDS: DOCUSATE SODIUM 100 MG/10 ML UDC PO SCH ×2 (08:39→23:20)
[2017-02-12] MEDS: FUROSEMIDE 20 MG/2 ML VIAL IV PUSH SCH ×2 (08:40→23:21)
[2017-02-12] MEDS: METOPROLOL TARTRATE 25 MG TAB PO SCH (08:40)
[2017-02-12] MEDS: LINEZOLID 600 MG TAB PO SCH ×2 (08:42→23:21)
[2017-02-12] MEDS: APIXABAN 5 MG TABLET PO SCH ×2 (08:42→23:21)
[2017-02-12] MEDS: MULTIVITAMIN TAB PO SCH (08:42)
[2017-02-12] MEDS: FAMOTIDINE 20 MG TAB TUBE SCH ×2 (08:42→21:00)
[2017-02-12] MEDS: FUROSEMIDE 40 MG TAB PO SCH (08:43)
[2017-02-12] MEDS: ASPIRIN 81 MG CHEW TAB PO SCH (08:43)
[2017-02-12] MEDS: SPIRONOLACTONE 25 MG TAB PO SCH (08:43)
[2017-02-12] MEDS: MUPIROCIN 2% OINT 1 APPLIC/GM SYR NASAL SCH ×2 (08:44→23:22)
[2017-02-12] MEDS: SODIUM CHLORIDE 0.9% FLUSH 10 ML FLUSH IV FLUSH SCH ×2 (08:44→23:21)
[2017-02-12] MEDS: MUPIROCIN 2% OINT 1 APPLIC/GM SYR EACH NARE SCH ×2 (08:44→23:03)
[2017-02-12] MEDS: SODIUM CHLORIDE 0.9% FLUSH 10 ML FLUSH IVF SCH (08:44)
--- NOTE | 2017-02-12 10:10 | HHI.PR ---
Subjective Remarks [place] Off notes: 01/31: This 66-year-old man who presents to the emergency department via EMS for altered mental status. History is a little bit unclear. It sounds like he was agitated overnight so they gave him Xanax this morning. Speaking with the nurse there, Yesica Earl, patient gets Xanax periodically but not every day. It's not a new dose for him. Subsequently he became unresponsive. Per EMS report he normally has a GCS of 14 but cannot walk. For them he was not talking at all, and stopped breathing for a period of time in the ambulance and required [id number] ventilation. They were bagging him on presentation to the ED. patient underwent CT head which was negative for bleed. He was evaluated by Dr. 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 On propofol 75 mics per kg/min. moving both upper extremities and left lower extremity on lightening sedation per nursing staff. Has chronically weak right lower extremity per family. Currently on heparin drip for full anticoagulation. 02/02: Sedated, orally intubated on mechanical ventilation this morning at the time of my evaluation. Being diuresed with Lasix. 2-D echo with LVEF 20% and severe MR. Hypoglycemia today despite tube feeds for which he was given D50 and cortisol level being checked. 02/03: Off sedation since 9/8 AM. Started to arouse last evening and following commands moving both upper extremities. Remains orally intubated on mechanical ventilation. At the time of my evaluation years arousable however not following commands. 02/04: Tmax 100.1. Currently resting in bed in no acute distress. Moving right lower extremity spontaneously. Nods head and follows commands. Patient is leaning towards right. 02/05: Tolerated PSV trial overnight. Opened eyes. Following commands. States he is hungry today. Move the left upper extremity spontaneously along with right upper extremity today. Moved toes slightly. 02/06: Remains orally intubated on mechanical ventilation. Gets apneic episodes during C Pap trials. Follows commands. On tube feeds and D10 02/07: Tolerated C Pap trials and extubated today. Drowsy, easily arousable. Follows commands with both upper extremities. Remains on D10 drip for hyperglycemia. Off tube feeds since extubation awaiting swallow eval. 02/08: Remains on nasal cannula. Passed swallow eval and diet being advanced. Was on D10 at 50 cc an hour for hypoglycemia while awaiting insulinoma workup. Tolerating by mouth diet so decreased D10 to 25 cc an hour and plan to stop later today. Hospitalist Notes: 02/12: Seen in his bedroom discussed with nurse he is stable watching television. no complaint, no nausea, vomit or diarrhea, Neurology and ID specialist following. with Diagnosis of recurrent CVA, Status post thrombolytic therapy, respiratory failure tolerating Intubation from 02/07, MRSA pneumonia, to continue Zyvox. Objective Vital Signs Date Time Temp Pulse Resp B/P (MAP) Pulse Ox O2 Delivery O2 Flow Rate FiO2 02/12/17 08:50 97.9 77 22 115/74 (88) 95 02/12/17 08:48 95 Nasal Cannula 2.00 02/12/17 04:28 95 Nasal Cannula 2.00 02/12/17 04:17 97.5 74 22 99/71 (80) 02/12/17 01:17 97.2 71 20 130/83 (99) 97 02/11/17 20:16 99 02/11/17 20:14 97.2 68 22 111/76 (88) 02/11/17 20:00 72 02/11/17 18:00 77 02/11/17 16:00 97.4 89 18 118/80 (93) 94 02/11/17 16:00 84 02/11/17 13:17 88 02/11/17 12:00 98.5 70 18 114/77 (89) 95 I/O 02/11/17 02/11/17 02/11/17 02/12/17 02/12/17 02/12/17 07:00 15:00 23:00 07:00 15:00 23:00 Intake Total 227 ml 1400 ml 322 ml Balance 227 ml 1400 ml 322 ml Intake Oral 200 ml 100 ml IV Total 227 ml 1200 ml 222 ml # Voids 2 2 7 3 # Bowel Movements 2 2 1 1 Result Diagram: 02/08/17 1055 02/10/17 06 Imaging Last Impressions Chest X-Ray 02/06/17 06 Signed Impressions: Service Date/Time: Monday, February 06, 2017 04:30 - CONCLUSION: 1. Slight improvement in basilar airspace disease and pleural effusions. Support apparatus unchanged. Ridge Hernandez MD Upper Extremity Ultrasound 02/01/17 0000 Signed Impressions: Service Date/Time: January 11:49 - CONCLUSION: 1. No evidence of deep venous thrombosis. Moses Juarez MD Head CT 01/31/17 0809 Signed Impressions: Service Date/Time: Tuesday, January 31, 2017 08:16 - CONCLUSION: Hypodensity left parietal-occipital mid convexity region suggesting infarction or encephalomalacia. No evidence of hemorrhage. Cannot exclude an acute process. May consider further characterization with MRI. Wilber Alfaro MD Neck CTA 01/31/17 0000 Signed Impressions: Service Date/Time: Tuesday, January 31, 2017 08:57 - CONCLUSION: 1. 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 2. String-like contrast in the left vertebral artery Wilber Alfaro MD Head CTA 01/31/17 0000 Signed Impressions: Service Date/Time: Tuesday, January 31, 2017 08:57 - CONCLUSION: Absent flow in the left internal carotid artery with reconstitution of flow in the A2 segment. There is some flow seen in the left sylvian branches of the middle cerebral artery, but the degree of vessel opacification on the left is less than on the right. Wilber Alfaro MD Cerebral Arteriogram 01/31/17 0000 Signed Impressions: Service Date/Time: Tuesday, January 31, 2017 00:00 - CONCLUSION: 1. Patient appears to have had a thrombotic or embolic event to the vertebral basilar system. The left vertebral is highly diseased throughout its course and appears to occlude just proximal to the basilar. Unable to traverse the highly diseased vessel for intervention. 2. The right vertebral is robust proximally but appears to terminate in a PICA branch with a irregular terminal vessel possibly representing the distal vertebral and proximal basilar. This appears to be chronically occluded. Russ Joseph MD Procedures Endotracheal Intubation. Other Results Laboratory Tests Test 01/31/17 08:10 01/31/17 08:51 01/31/17 09:17 01/31/17 13:55 Blood Gas Liter Flow 15 L/M Salicylates Level LESS THAN 1.7 MG/DL Troponin I 0.06 NG/ML Triglycerides Level 98 MG/DL Cholesterol Level 118 MG/DL LDL Cholesterol 60 MG/DL HDL Cholesterol 38.4 MG/DL Cholesterol/HDL Ratio 3.07 RATIO Thyroid Stimulating Hormone 3rd Gen 2.280 uIU/ML Acetaminophen Level LESS THAN 2.0 MCG/ML Ethyl Alcohol Level LESS THAN 3 MG/DL Blood Gas Puncture Site ART LINE Blood Gas Patient Temperature 98.6 Blood Gas HCO3 27 mmol/L Blood Gas Base Excess 3.5 mmol/L Blood Gas Oxygen Saturation 97 % Arterial Blood pH 7.49 Arterial Blood Partial Pressure CO2 36 mmHg Arterial Blood Partial Pressure O2 136 mmHg Arterial Blood Oxygen Content 16.7 Vol % Arterial Blood Carboxyhemoglobin 1.3 % Arterial Blood Methemoglobin 0.7 % Blood Gas Hemoglobin 12.1 G/DL Oxygen Delivery Device VENTILATOR Blood Gas Ventilator Setting AC/12/500/PEEP5 Blood Gas Inspired Oxygen 40 % Test 01/31/17 14:00 01/31/17 17:25 01/31/17 20:50 02/01/17 11:30 Urine Opiates Screen NEG Urine Barbiturates Screen NEG Urine Amphetamines Screen NEG Urine Benzodiazepines Screen NEG Urine Cocaine Screen NEG Urine Cannabinoids Screen NEG Prothrombin Time 12.8 SEC Prothromb Time International Ratio 1.2 RATIO Nasal Screen MRSA (PCR) MRSA DETECTED Lactic Acid Level 1.4 mmol/L Urine Color YELLOW Urine Turbidity HAZY Urine pH 5.0 Urine Specific [place] 1.020 Urine Protein TRACE mg/dL Urine Glucose (UA) NEG mg/dL Urine Ketones NEG mg/dL Urine Occult Blood SMALL Urine Nitrite NEG Urine Bilirubin NEG Urine Urobilinogen LESS THAN 2.0 MG/DL Urine Leukocyte Esterase MOD Urine RBC 13 /hpf Urine WBC 4 /hpf Urine Squamous Epithelial Cells <1 /hpf Urine Transitional Epithelial Cells 1 /hpf Urine Calcium Oxalate Crystals /hpf Urine Uric Acid Crystals RARE /hpf Urine Bacteria OCC /hpf Urine Hyaline Casts 9 /lpf Urine Mucus FEW /lpf Microscopic Urinalysis Comment CATH-CULTURE IND Test 02/02/17 12:20 02/04/17 06:17 02/04/17 13:40 02/05/17 04:30 Random Cortisol 29.2 MCG/DL C-Peptide 6.33 ng/mL Insulin Level 24.5 uIU/mL Protein Corrected Calcium 8.1 MG/DL Human Growth Hormone 3.30 ng/mL B-Hydroxybutyrate 0.09 MMOL/L Total Creatine Kinase 69 U/L Test 02/06/17 06:00 02/06/17 14:50 02/07/17 05:30 02/08/17 05:50 Neutrophils (%) (Auto) 86.0 % Lymphocytes (%) (Auto) 3.3 % Monocytes (%) (Auto) 8.5 % Eosinophils (%) (Auto) 1.7 % Basophils (%) (Auto) 0.5 % Neutrophils # (Auto) 7.2 TH/MM3 Lymphocytes # (Auto) 0.3 TH/MM3 Monocytes # (Auto) 0.7 TH/MM3 Eosinophils # (Auto) 0.1 TH/MM3 Basophils # (Auto) 0.0 TH/MM3 CBC Comment AUTO DIFF Differential Comment AUTO DIFF CONFIRMED Platelet Estimate LOW Platelet Morphology Comment NORMAL Ovalocytes 1+ Blood Urea Nitrogen 22 MG/DL Creatinine 0.94 MG/DL Random Glucose 99 MG/DL Total Protein 5.6 GM/DL Albumin 2.2 GM/DL Calcium Level 7.6 MG/DL Phosphorus Level 2.8 MG/DL Magnesium Level 2.1 MG/DL Alkaline Phosphatase 135 U/L Aspartate Amino Transf (AST/SGOT) 24 U/L Alanine Aminotransferase (ALT/SGPT) 24 U/L Total Bilirubin 0.9 MG/DL Sodium Level 140 MEQ/L Potassium Level 3.6 MEQ/L Chloride Level 104 MEQ/L Carbon Dioxide Level 31.6 MEQ/L Ammonia 32 MCMOL/L Random Vancomycin Level 14.2 COMMENT Activated Partial Thromboplast Time 53.9 SEC Vancomycin Level Trough 19.4 MCG/ML Test 02/08/17 10:55 02/10/17 06:25 White Blood Count 6.5 TH/MM3 Red Blood Count 3.88 MIL/MM3 Hemoglobin 10.5 GM/DL Hematocrit 32.3 % Mean Corpuscular Volume 83.4 FL Mean Corpuscular Hemoglobin 27.0 PG Mean Corpuscular Hemoglobin Concent 32.3 % Red Cell Distribution Width 22.4 % Platelet Count 189 TH/MM3 Mean Platelet Volume 9.5 FL Blood Urea Nitrogen 29 MG/DL Creatinine 1.36 MG/DL Random Glucose 99 MG/DL Calcium Level 8.8 MG/DL Magnesium Level 2.2 MG/DL Sodium Level 137 MEQ/L Potassium Level 3.9 MEQ/L Chloride Level 99 MEQ/L Carbon Dioxide Level 28.1 MEQ/L Anion Gap 10 MEQ/L Estimat Glomerular Filtration Rate 63 ML/MIN Objective Remarks GENERAL: 66-year-old AA male, sitting up in bed in no acute distress on nasal cannula. SKIN: Warm and dry. No rash HEAD: Atraumatic. Normocephalic. EYES: Pupils equal and round about 3 mm bilaterally and reactive. No scleral icterus. No injection or drainage. ENT: No nasal bleeding or discharge. Mucous membranes pink and moist. NECK: Trachea midline. No JVD. CARDIOVASCULAR: Regular rate and rhythm. S1, S2 no S4. 2/6 systolic murmur left lower sternal border. RESPIRATORY: No accessory muscle use. Clear to auscultation. Breath sounds equal bilaterally. GASTROINTESTINAL: Abdomen soft, non-tender, nondistended. Hypoactive bowel sounds appreciated MUSCULOSKELETAL: Extremities with trace to 1+ bilateral lower extremity and upper extremity edema. No obvious deformities. NEUROLOGICAL: Awake alert oriented x2. Moves both upper extremities, wiggle toes bilaterally. Has chronic right lower extremity weakness. Speech appears normal. Medications and IVs Current Medications Medications (Trade) Dose Ordered Sig/Wilbur Route Start Time Stop Time Status Last Admin (NS Flush) 2 ml UNSCH PRN IV FLUSH 01/31/17 13:15 (NS Flush) 2 ml BID IV FLUSH 01/31/17 21:00 02/11/17 21:00 (Tylenol) 650 mg Q6H PRN PO 01/31/17 13:15 02/06/17 20:18 (Peridex 0.12% Liq) 15 ml BID@08,20 MT 01/31/17 20:00 02/12/17 08:00 (Pepcid) 20 mg BID TUBE 01/31/17 21:00 02/12/17 08:42 Miscellaneous Information 1 [id number] XX 01/31/17 13:15 01/31/17 13:15 (Chlorhexidine 2% Cloth) Taper DAILY@04 TOP 02/01/17 04:00 01/28/18 03:59 02/03/17 04:00 (Chlorhexidine 2% Cloth) 3 pack UNSCH PRN TOP 01/31/17 13:15 Propofol 100 ml @ 19.8 mls/hr TITRATE PRN IV 01/31/17 13:30 02/02/17 05:03 (Lasix Inj) 20 mg Q12H IV PUSH 02/01/17 20:00 02/12/17 08:40 Levetriacetam 500 mg/Sodium Chloride 105 ml @ 420 mls/hr Q8H IV 02/01/17 11:00 02/12/17 04:08 (Bactroban Nasal 2% Oint) 1 applic BID NASAL 02/02/17 09:00 02/11/17 10:24 Sodium Chloride 77 meq/Dextrose 1,019.25 ml @ 50 mls/hr [id number] IV 02/02/17 14:00 02/12/17 04:08 (Lactulose Liq) 30 ml BID PO 02/02/17 21:00 02/12/17 08:38 (Bactroban Nasal 2% Oint) Taper BID EACH NARE 02/04/17 09:00 01/31/18 08:59 02/11/17 10:22 (Albuterol Neb) 2.5 mg Q2HR NEB PRN NEB 02/04/17 07:15 02/10/17 20:49 (Theragran) 1 tab DAILY PO 02/04/17 09:00 02/12/17 08:42 (Colace Liq) 100 mg Q12HR PO 02/04/17 09:00 02/12/17 08:39 (Senna Liq) 8.8 mg BID PO 02/04/17 09:00 02/10/17 10:09 (NS Flush) DAILY IVF 02/04/17 09:00 02/12/17 08:44 (NS Flush) UNSCH PRN IVF 02/04/17 08:15 Norepinephrine Bitartrate 4 mg/ Sodium Chloride 250 ml @ 7.5 mls/hr TITRATE PRN IV 02/04/17 18:30 02/08/17 02:42 (Brethine Inj) 1 mg UNSCH PRN SQ 02/04/17 18:30 Patient Own Medication PT OWN MED: CRESTOR... DAILY PO 02/05/17 09:00 Future Hold (Eliquis) 5 mg BID PO 02/07/17 21:00 02/12/17 08:42 (Aspirin Chew) 81 mg DAILY PO 02/09/17 09:00 02/12/17 08:43 (Lopressor) 25 mg DAILY PO 02/09/17 09:00 02/12/17 08:40 (Aldactone) 25 mg DAILY PO 02/09/17 09:00 02/12/17 08:43 (Zyvox) 600 mg Q12HR PO 02/09/17 21:00 02/16/17 20:59 02/12/17 08:42 (Lasix) 40 mg DAILY PO 02/10/17 16:00 02/12/17 08:43 (D50w (Vial) Inj) 50 ml UNSCH PRN IV 02/10/17 23:30 A/P Assessment and Plan 66 BM admitted w/ altered mental status/stroke like symptoms, now back to baseline. 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 Patient is status post intervention by IR. Cerebral angiogram revealed occluded distal vertebral/proximal parietal occlusion acute. 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 EEG - 02/01 - 3-6 Hz activity, 20-50 microvolts occurring in generalized fashion. EEG variability reactivity noted. Mild spindles noted as well. Limited driving with photic stimulation. Single lead EKG showing sinus rhythm. Mild to moderate encephalopathy. Apixaban 5 mg twice a day per Dr. Solano Neurology following. Holding buspirone 7.5 mg 3 times a day, mirtazapine 7.5 mg a night and trazodone 50 mg by mouth daily for depression/anxiety. Resume when okay with neurology. Continue levetiracetam 500 mg IV 3 times a day/seizure precautions PT/OT Chronic systolic heart failure ejection fraction 20% + CAD + pulm HTN Echocardiogram revealed EF 20%. Decreased right ventricular left ventricular function. Dilated LV. Enlarged left atrium. Severe pulmonary hypertension greater than 70 mmHg, severe TR/MR Cardiology/Dr. Hernandez following Currently on furosemide 20 mg IV twice a day. aspirin, metoprolol and spironolactone on 02/08 Patient is on rosuvastatin 20 mg by mouth daily along with Fish oil/ cholecalciferol 1 tablet daily for dyslipidemia Acute hypoxemic respiratory failure - improved, now on NC albuterol/ipratropium aerosols every 6 hours with albuterol aerosols every 2 hours. Hypoalbuminemia Advance to heart healthy diet. Famotidine for GI prophylaxis Docusate sodium 100 mg twice a day, senna liquid 8.6 mg twice a day for bowel regimen along with lactulose 30 cc twice a day Hypoglycemia - possibly secondary to sepsis Normal TSH/cortisol levels. C-peptide level elevated, insulin level is high, concern that since Patient was hypoglycemic on tube feeds requiring D10 raising concern for insulinoma. Currently on D10 at 50 cc an hour. Octreotide scan scheduled for today, if confirmed to be positive for insulinoma will need to be transferred to outside facility Coag-negative//staph epi bacteremia zyvox to complete PNA regimen [place] decolonization protocol with mupirocin swabs twice a day Infectious disease/Dr. Simons following Pertinent cultures 02/03 - blood cultures 1 -no growth 02/01 - blood cultures 2 -no growth 02/01 - sputum - coag negative staph 01/31 - blood cultures 2 - coag negative staph, staph epi Prophylaxis - GI - famotidine - DVT - SCD/Eliquis Later the day I was called the patient was lethargic and Oxygen desaturation transferred to Intensive Care unit again and called for Daytime Caregiver Management. Discharge Planning once cleared by specialists. King Romero MD Feb 12, 2017 10:10
--- NOTE | 2017-02-12 12:26 | HHI.IDPN ---
Subjective Subjective Remarks Patient is a 66-year-old male,sp ischemic stroke, received TPA to the right vertebral artery. Presented with high grade Staph epi bacteremia in the settings of endovascular device (pacemaker) Repeat clx are negative Notes reviewed Temps ok Doing well on nasal O2 Not SOB BP good CBC for today still pending Antibiotics Zyvox Past Medical History Hypertension Hyperlipidemia CHF CAD Previous CVA Past Surgical History CABG Pacer/AICD Has midline abdominal scar, surgery done not known Allergies: Coded Allergies: hydrochlorothiazide (Verified Allergy, Severe, Edema, 01/31/17) atorvastatin (Verified Allergy, Unknown, 01/31/17) morphine (Verified Allergy, Unknown, 01/31/17) MRI PRECAUTION (Verified Adverse Reaction, Severe, NON COMPATIBLE PACEMAKER. LRS 01/31/17, 01/31/17) Objective . Vital Signs Date Time Temp Pulse Resp B/P (MAP) Pulse Ox O2 Delivery O2 Flow Rate FiO2 02/12/17 08:50 97.9 77 22 115/74 (88) 95 02/12/17 08:48 95 Nasal Cannula 2.00 02/12/17 04:28 95 Nasal Cannula 2.00 02/12/17 04:17 97.5 74 22 99/71 (80) 02/12/17 01:17 97.2 71 20 130/83 (99) 97 02/11/17 20:16 99 02/11/17 20:14 97.2 68 22 111/76 (88) 02/11/17 20:00 72 02/11/17 18:00 77 02/11/17 16:00 97.4 89 18 118/80 (93) 94 02/11/17 16:00 84 02/11/17 13:17 88 Imaging Last Impressions Chest X-Ray 02/04/17 0807 Signed Impressions: Service Date/Time: Saturday, February 04, 2017 08:13 - CONCLUSION: 1. Left IJ central line is present and distal tip is not clearly visualized but likely in the brachiocephalic vein near the SVC junction. No pneumothorax is visualized. 2. Stable bilateral air space opacity in a pattern which could represent pulmonary edema with bilateral pleural effusions. 3. Nasogastric tube distal tip is near the GE junction and should ideally be advanced. Carlos Lerma MD Upper Extremity Ultrasound 02/01/17 0000 Signed Impressions: Service Date/Time: January 11:49 - CONCLUSION: 1. No evidence of deep venous thrombosis. Moses Juarez MD Head CT 01/31/17 0809 Signed Impressions: Service Date/Time: Tuesday, January 31, 2017 08:16 - CONCLUSION: Hypodensity left parietal-occipital mid convexity region suggesting infarction or encephalomalacia. No evidence of hemorrhage. Cannot exclude an acute process. May consider further characterization with MRI. Wilber Alfaro MD Neck CTA 01/31/17 0000 Signed Impressions: Service Date/Time: Tuesday, January 31, 2017 08:57 - CONCLUSION: 1. 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 2. String-like contrast in the left vertebral artery Wilber Alfaro MD Head CTA 01/31/17 0000 Signed Impressions: Service Date/Time: Tuesday, January 31, 2017 08:57 - CONCLUSION: Absent flow in the left internal carotid artery with reconstitution of flow in the A2 segment. There is some flow seen in the left sylvian branches of the middle cerebral artery, but the degree of vessel opacification on the left is less than on the right. Wilber Alfaro MD Cerebral Arteriogram 01/31/17 Signed Impressions: Service Date/Time: Tuesday, January 31, 2017 00:00 - CONCLUSION: 1. Patient appears to have had a thrombotic or embolic event to the vertebral basilar system. The left vertebral is highly diseased throughout its course and appears to occlude just proximal to the basilar. Unable to traverse the highly diseased vessel for intervention. 2. The right vertebral is robust proximally but appears to terminate in a PICA branch with a irregular terminal vessel possibly representing the distal vertebral and proximal basilar. This appears to be chronically occluded. Russ Joseph MD Physical Exam GENERAL: Awake and alert, NAD SKIN: Warm and dry. No generalized rash HEAD: Atraumatic. Normocephalic. No temporal wasting, or tenderness. EYES: [place] conjunctiva. No petechia or hemorrhage. Pupils equal, round, pinpoint. Has dirty sclera. No injection or drainage. EARS, NOSE AND THROAT: Nose without bleeding or purulent nasal discharge. Edentulous. NECK: Trachea midline. Supple and not tender, no meningeal signs CARDIOVASCULAR: Regular rate and rhythm. No murmurs, rubs or gallops heard. No rub. Pacer/AICD L upper chest with no evidence of infection RESPIRATORY: Coarse breath sounds equal bilaterally. No rales, wheezing or rhonchi. Decreased at bases. ABDOMEN: Soft, nondistended, no reaction to deep palpation. Bowel sounds present and normoactive. No organomegaly. : Rabago in place, scrotum swollen EXTREMITIES: No clubbing, cyanosis, has bilateral pitting pedal edema. NEUROLOGICAL: Grossly non-focal NEURO: Calm and cooperative LINE: No evidence of infection Assessment & Plan Remarks IMPRESSION (+) BC, from same venipuncture, likely contaminant - has 2 different type of Staph epi - repeat BC negatuve so far - no fever, WBC normal - incidental finding :pt presented with stroke, afebrile - echo ok - has Pacer/defib Recurrent CVA, S/P thrombolytic Rx Respiratory failure, tolerating extubation 02/07 MRSA PNA Cardiomyopathy, CXR with CHF, rell effusions Renal insufficiency Encephalopathy, etiology? resolved RECOMMENDATION Complete PNA Rx with Zyvox - end date ordered on [place] CBC Monitor progress Clinically doing well from ID standpoint Annia Simons MD Feb 12, 2017 12:26
--- NOTE | 2017-02-12 17:28 | HHI.PR ---
Review/Management Diagnosis No focal deficit to indicate cva at this time Plan will order CT brain Diagnosis/Plan: Subjective Subjective Comments Pt became more lethargic today . But no focal deficits. Blood glucose in normal range Active Medications Current Medications Medications (Trade) Dose Ordered Sig/Wilbur Route Start Time Stop Time Status Last Admin (NS Flush) 2 ml UNSCH PRN IV FLUSH 01/31/17 13:15 (NS Flush) 2 ml BID IV FLUSH 01/31/17 21:00 02/11/17 21:00 (Tylenol) 650 mg Q6H PRN PO 01/31/17 13:15 02/06/17 20:18 (Peridex 0.12% Liq) 15 ml BID@08,20 MT 01/31/17 20:00 02/12/17 08:00 (Pepcid) 20 mg BID TUBE 01/31/17 21:00 02/12/17 08:42 Miscellaneous Information 1 Q361D XX 01/31/17 13:15 01/31/17 13:15 (Chlorhexidine 2% Cloth) Taper DAILY@04 TOP 02/01/17 04:00 01/28/18 03:59 02/03/17 04:00 (Chlorhexidine 2% Cloth) 3 pack UNSCH PRN TOP 01/31/17 13:15 Propofol 100 ml @ 19.8 mls/hr TITRATE PRN IV 01/31/17 13:30 02/02/17 05:03 (Lasix Inj) 20 mg Q12H IV PUSH 02/01/17 20:00 02/12/17 08:40 Levetriacetam 500 mg/Sodium Chloride 105 ml @ 420 mls/hr Q8H IV 02/01/17 11:00 02/12/17 10:36 (Bactroban Nasal 2% Oint) 1 applic BID NASAL 02/02/17 09:00 02/11/17 10:24 Sodium Chloride 77 meq/Dextrose 1,019.25 ml @ 50 mls/hr [id number] IV 02/02/17 14:00 02/12/17 04:08 (Lactulose Liq) 30 ml BID PO 02/02/17 21:00 02/12/17 08:38 (Bactroban Nasal 2% Oint) Taper BID EACH NARE 02/04/17 09:00 01/31/18 08:59 02/11/17 10:22 (Albuterol Neb) 2.5 mg Q2HR NEB PRN NEB 02/04/17 07:15 02/10/17 20:49 (Theragran) 1 tab DAILY PO 02/04/17 09:00 02/12/17 08:42 (Colace Liq) 100 mg Q12HR PO 02/04/17 09:00 02/12/17 08:39 (Senna Liq) 8.8 mg BID PO 02/04/17 09:00 02/10/17 10:09 (NS Flush) DAILY IVF 02/04/17 09:00 02/12/17 08:44 (NS Flush) UNSCH PRN IVF 02/04/17 08:15 Norepinephrine Bitartrate 4 mg/ Sodium Chloride 250 ml @ 7.5 mls/hr TITRATE PRN IV 02/04/17 18:30 02/08/17 02:42 (Brethine Inj) 1 mg UNSCH PRN SQ 02/04/17 18:30 Patient Own Medication PT OWN MED: CRESTOR... DAILY PO 02/05/17 09:00 Future Hold (Eliquis) 5 mg BID PO 02/07/17 21:00 02/12/17 08:42 (Aspirin Chew) 81 mg DAILY PO 02/09/17 09:00 02/12/17 08:43 (Lopressor) 25 mg DAILY PO 02/09/17 09:00 02/12/17 08:40 (Aldactone) 25 mg DAILY PO 02/09/17 09:00 02/12/17 08:43 (Zyvox) 600 mg Q12HR PO 02/09/17 21:00 02/16/17 20:59 02/12/17 08:42 (Lasix) 40 mg DAILY PO 02/10/17 16:00 02/12/17 08:43 (D50w (Vial) Inj) 50 ml UNSCH PRN IV 02/10/17 23:30 Allergies Allergies Coded Allergies hydrochlorothiazide (Verified Allergy, Severe, Edema, 01/31/17) atorvastatin (Verified Allergy, Unknown, 01/31/17) morphine (Verified Allergy, Unknown, 01/31/17) MRI PRECAUTION (Verified Adverse Reaction, Severe, NON COMPATIBLE PACEMAKER. 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 Objective Micro and Labs Date/Time Source Procedure Growth Status 02/03/17 03:50 Blood Peripheral Aerobic Blood Culture - Final NO GROWTH IN 5 DAYS Complete 02/03/17 03:50 Blood Peripheral Anaerobic Blood Culture - Final NO GROWTH IN 5 DAYS Complete 02/01/17 11:15 Sputum Endotracheal Gram Stain - Final Complete 02/01/17 11:15 Sputum Culture - Final S. Aureus Mrsa Complete 02/01/17 11:30 Urine Catheterized Urine Urine Culture - Final NO GROWTH IN 48 HOURS. Complete Minh Solano PhD Feb 12, 2017 17:28
[2017-02-12 17:40] LABS: BLOOD GAS CARBOXYHEMOGLOBIN 1.1 % (0-4); BLOOD GAS HCO3 21 mmol/L (22-26); BLOOD GAS METHEMOGLOBIN 0.9 % (0-2); BLOOD GAS O2 HGB SATURATION 98 % (90-100); BLOOD GAS OXYGEN CONTENT 16.4 Vol % (12.0-20.0); BLOOD GAS PCO2 30 mmHg (38-42); BLOOD GAS PO2 488 mmHg (61-120); TEMP CORR TO 98.6
[2017-02-12 17:41] LABS: CRITICAL VALUE NO; DRAW SITE RT RADIAL; LITER FLOW 15 L/M; NUMBER OF ARTERIAL PUNCTURES 1; OXYGEN DEVICE NONREBREATHER; STAT YES; ULNAR PULSE PRESENT
[2017-02-12 20:51] LABS: AUTOMATED NEUTROPHIL # 4.8 TH/MM3 (1.8-7.7); BASOPHIL % 0.6 % (0.0-2.0); EOSINOPHIL # 0.1 TH/MM3 (0-0.4); EOSINOPHIL % 1.4 % (0.0-4.0); HEMO FLAGS DIFF FINAL; LYMPH % 20.1 % (9.0-44.0); LYMPHOCYTE # 1.4 TH/MM3 (1.0-4.8); MEAN CELL VOLUME 87.4 FL (80.0-100.0); MEAN CORPUSCULAR HEMOGLOBIN 28.3 PG (27.0-34.0); MEAN CORPUSCULAR HGB CONC 32.4 % (32.0-36.0); MONO % 7.1 % (0.0-8.0); NEUT % 70.8 % (16.0-70.0); PLATELET COUNT 123 TH/MM3 (150-450); RED BLOOD COUNT 3.32 MIL/MM3 (4.50-5.90); RED CELL DISTRIBUTION WIDTH 17.6 % (11.6-17.2); WHITE BLOOD COUNT 6.8 TH/MM3 (4.0-11.0)
--- NOTE | 2017-02-12 21:20 | HHI.CCPN ---
Subjective Remarks/Hospital Course 01/31: This 66-year-old man who presents to the emergency department via EMS for altered mental status. History is a little bit unclear. It sounds like he was agitated overnight so they gave him Xanax this morning. Speaking with the nurse there, Yesica Earl, patient gets Xanax periodically but not every day. It's not a new dose for him. Subsequently he became unresponsive. Per EMS report he normally has a GCS of 14 but cannot walk. For them he was not talking at all, and stopped breathing for a period of time in the ambulance and required [id number] ventilation. They were bagging him on presentation to the ED. patient underwent CT head which was negative for bleed. He was evaluated by Dr. 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 On propofol 75 mics per kg/min. moving both upper extremities and left lower extremity on lightening sedation per nursing staff. Has chronically weak right lower extremity per family. Currently on heparin drip for full anticoagulation. 02/02: Sedated, orally intubated on mechanical ventilation this morning at the time of my evaluation. Being diuresed with Lasix. 2-D echo with LVEF 20% and severe MR. Hypoglycemia today despite tube feeds for which he was given D50 and cortisol level being checked. 02/03: Off sedation since 9/8 AM. Started to arouse last evening and following commands moving both upper extremities. Remains orally intubated on mechanical ventilation. At the time of my evaluation years arousable however not following commands. 02/04: Tmax 100.1. Currently resting in bed in no acute distress. Moving right lower extremity spontaneously. Nods head and follows commands. Patient is leaning towards right. Subjective 02/05: Tolerated PSV trial overnight. Opened eyes. Following commands. States he is hungry today. Move the left upper extremity spontaneously along with right upper extremity today. Moved toes slightly. 02/06: Remains orally intubated on mechanical ventilation. Gets apneic episodes during C Pap trials. Follows commands. On tube feeds and D10 02/07: Tolerated C Pap trials and extubated today. Drowsy, easily arousable. Follows commands with both upper extremities. Remains on D10 drip for hyperglycemia. Off tube feeds since extubation awaiting swallow eval. 02/08: Remains on nasal cannula. Passed swallow eval and diet being advanced. Was on D10 at 50 cc an hour for hypoglycemia while awaiting insulinoma workup. Tolerating by mouth diet so decreased D10 to 25 cc an hour and plan to stop later today. 02/12: Later in the day the patient became more lethargic and rapid response was called. Shortly after patient was transferred to ICU NT related for possible intubation for an airway protection. Initially during my exam the patient was unresponsive and decision was made to intubate. However while preparing for endotracheal intubation patient woke up, is following commands on both sides and response with slow slurred speech. Eyes open spontaneously. The CAT scan of the head also negative for acute changes. Objective Vital Signs Date Time Temp Pulse Resp B/P (MAP) Pulse Ox O2 Delivery O2 Flow Rate FiO2 02/12/17 19:35 100 Non-Rebreather 15.00 02/12/17 18:00 69 02/12/17 18:00 97.9 24 124/65 (84) Intake and Output 02/12/17 02/12/17 02/13/17 08:00 16:00 00:00 Intake Total 322 ml Balance 322 ml Result Diagram: 02/12/17204002/10/1725 Other Results Laboratory Tests Test 02/12/17 17:35 Blood Gas Puncture Site RT RADIAL Blood Gas Patient Temperature 98.6 Blood Gas HCO3 21 mmol/L (22-26) Blood Gas Base Excess -3.0 mmol/L (-2-2) Blood Gas Oxygen Saturation 98 % (90-100) Arterial Blood pH 7.44 (7.380-7.420) Arterial Blood Partial Pressure CO2 30 mmHg (38-42) Arterial Blood Partial Pressure O2 488 mmHg (61-120) Arterial Blood Oxygen Content 16.4 Vol % (12.0-20.0) Arterial Blood Carboxyhemoglobin 1.1 % (0-4) Arterial Blood Methemoglobin 0.9 % (0-2) Blood Gas Hemoglobin 11.0 G/DL (12.0-16.0) Oxygen Delivery Device NONREBREATHER Blood Gas Liter Flow 15 L/M Imaging Last Impressions Chest X-Ray 02/05/17 0600 Signed Impressions: Service Date/Time: Sunday, February 05, 2017 04:47 - CONCLUSION: Endotracheal tube and nasogastric tube in satisfactory position. Stable bilateral mostly basilar dependent airspace disease and pleural effusions. Ridge Hernandez MD Upper Extremity Ultrasound 02/01/17 Signed Impressions: Service Date/Time: January 11:49 - CONCLUSION: 1. No evidence of deep venous thrombosis. Moses Juarez MD Head CT 01/31/17 0809 Signed Impressions: Service Date/Time: Tuesday, January 31, 2017 08:16 - CONCLUSION: Hypodensity left parietal-occipital mid convexity region suggesting infarction or encephalomalacia. No evidence of hemorrhage. Cannot exclude an acute process. May consider further characterization with MRI. Wilber Alfaro MD Neck CTA 01/31/17 Signed Impressions: Service Date/Time: Tuesday, January 31, 2017 08:57 - CONCLUSION: 1. 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 2. String-like contrast in the left vertebral artery Wilber Alfaro MD Head CTA 01/31/17 Signed Impressions: Service Date/Time: Tuesday, January 31, 2017 08:57 - CONCLUSION: Absent flow in the left internal carotid artery with reconstitution of flow in the A2 segment. There is some flow seen in the left sylvian branches of the middle cerebral artery, but the degree of vessel opacification on the left is less than on the right. Wilber Alfaro MD Cerebral Arteriogram 01/31/17 Signed Impressions: Service Date/Time: Tuesday, January 31, 2017 00:00 - CONCLUSION: 1. Patient appears to have had a thrombotic or embolic event to the vertebral basilar system. The left vertebral is highly diseased throughout its course and appears to occlude just proximal to the basilar. Unable to traverse the highly diseased vessel for intervention. 2. The right vertebral is robust proximally but appears to terminate in a PICA branch with a irregular terminal vessel possibly representing the distal vertebral and proximal basilar. This appears to be chronically occluded. Russ Joseph MD Objective Remarks GENERAL: 66-year-old AA male, sitting up in bed in no acute distress on nasal cannula. SKIN: Warm and dry. No rash HEAD: Atraumatic. Normocephalic. EYES: Pupils equal and round about 1.5 mm bilaterally and reactive. No scleral icterus. No injection or drainage. ENT: No nasal bleeding or discharge. Mucous membranes pink and moist. NECK: Trachea midline. No JVD. CARDIOVASCULAR: Regular rate and rhythm. S1, S2 no S4. 2/6 systolic murmur left lower sternal border. RESPIRATORY: No accessory muscle use. Clear to auscultation. Breath sounds equal bilaterally. GASTROINTESTINAL: Abdomen soft, non-tender, nondistended. Hypoactive bowel sounds appreciated MUSCULOSKELETAL: Extremities with trace to 1+ bilateral lower extremity and upper extremity edema. No obvious deformities. NEUROLOGICAL: Awake alert was slow slurred speech.. Moves both upper extremities to commands, wiggle toes bilaterally. Has chronic right lower extremity weakness. Speech appears slurred. 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 Cerebral angiogram revealed occluded distal vertebral/proximal parietal occlusion acute. 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 EEG - 02/01 - 3-6 Hz activity, 20-50 microvolts occurring in generalized fashion. EEG variability reactivity noted. Mild spindles noted as well. Limited driving with photic stimulation. Single lead EKG showing sinus rhythm. Mild to moderate encephalopathy. Clinical correlation Recommended. Heparin drip stopped on 02/07 and resumed on Apixaban 5 mg twice a day per Dr. Russ Solano/Neurology following. Holding buspirone 7.5 mg 3 times a day, mirtazapine 7.5 mg a night and trazodone 50 mg by mouth daily for depression/anxiety. Resume when okay with neurology. Continue levetiracetam 500 mg IV 3 times a day/seizure precautions Loading dose of fosphenytoin Repeat EEG to rule out subclinical seizure CV: Chronic systolic heart failure ejection fraction 20% Pulmonary hypertension History of CABG 4/AICD Hypertension Dyslipidemia Echocardiogram revealed EF 20%. Decreased right ventricular left ventricular function. Dilated LV. Enlarged left atrium. Severe pulmonary hypertension greater than 70 mmHg, severe TR/MR Cardiology/Dr. Hernandez following Currently on furosemide 20 mg IV twice a day. Home medications include aspirin 81 mg daily, metoprolol 25 mg by mouth daily, furosemide 40 mg daily and spironolactone 25 mill grams by mouth daily - Resumed aspirin, metoprolol and spironolactone on 02/08 Patient is on rosuvastatin 20 mg by mouth daily along with Fish oil/ cholecalciferol 1 tablet daily for dyslipidemia Resp: Acute hypoxemic respiratory failure No hypoxemic events GCS improved, able to protect airways, monitor Albuterol/ipratropium aerosols every 6 hours with albuterol aerosols every 2 hours. Dyspnea GI: Hypoalbuminemia Swallow eval Famotidine for GI prophylaxis Docusate sodium 100 mg twice a day, senna liquid 8.6 mg twice a day for bowel regimen along with lactulose 30 cc twice a day : Rabago catheter indicated for accurate I's and O's in a critically ill patient Endo: Hypoglycemia - possibly secondary to sepsis Normal TSH/cortisol levels. C-peptide/insulin levels and human growth hormone pending. Patient was hypoglycemic on tube feeds requiring D10 raising concern for insulinoma. Resolved Renal: Acute kidney injury resolved Strict intake output, monitor and replete elect lites, follow BUN/creatinine. Heme: Normocytic anemia Chronic Apixaban use Monitor CBC daily. Follow trends. Off heparin drip and resumed on Eliquis on 02/08. ID: Coag-negative//staph epi bacteremia Current vancomycin dose by infectious disease Nisula decolonization protocol with mupirocin swabs twice a day Infectious disease/Dr. Simons following Pertinent cultures 02/03 - blood cultures 1 -no growth 02/01 - blood cultures 2 -no growth 02/01 - sputum - coag negative staph 01/31 - blood cultures 2 - coag negative staph, staph epi FEN: Replace electrolytes as clinically indicated MSK: PT/OT for range of motion evaluate and treat Access Utilize peripheral IVs Prophylaxis - GI - famotidine - DVT - SCD/Eliquis Critical Care: The total critical care time was 35 minutes. Time to perform other separately billable procedures was not included in the critical care time. Matt Colon MD Feb 12, 2017 9:20 pm
--- NOTE | 2017-02-12 21:47 | RADRPT ---
EXAM DATE/TIME: 02/12/2017 21:25 [facility] COMPARISON: CT BRAIN W/O CONTRAST, January 31, 2017, 16:12. INDICATIONS : Altered mental status. RADIATION DOSE: 49.82 CTDIvol (mGy) ; Patient motion MEDICAL HISTORY : Stroke. Hypertension. SURGICAL HISTORY : CABG ENCOUNTER: Initial ACUITY: 1 day PAIN SCALE: Non-responsive LOCATION: Bilateral head TECHNIQUE: Multiple contiguous axial images were obtained of the head. Using automated exposure control and adj ustment of the mA and/or kV according to patient size, radiation dose was kept as low as reasonably a chievable to obtain optimal diagnostic quality images. DICOM format image data is available electro nically for review and comparison. FINDINGS: Again, the examination is somewhat limited due to patient motion during scanning. Cerebral atrophy is stable. Old left posterior parietal and left cerebellar hemispheric infarcts are unchanged. There is no acute infarct, acute hemorrhage, midline shift or extra-axial bleed. Mucus retention cysts are noted within the left maxillary sinus. CONCLUSION: 1. No acute infarct, acute hemorrhage, midlines shift or extra-axial bleed. 2. 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 3. Stable cerebral atrophy. 4. Mucus retention cysts within the left maxillary sinus. Alexei Russell MD on February 12, 2017 at 21:38 Board Certified Radiologist. This report was verified electronically.
[2017-02-12] MEDS ORDERED: SUCCINYLCHOLINE CHLORIDE 200 MG/10 ML VIAL IV PUSH ONE (22:00)
[2017-02-12] MEDS ORDERED: FOSPHENYTOIN INJ 1,000 MGPE in SODIUM CHLORIDE 0.9% INJ 50 ML IV ONE (22:15)
[2017-02-13] VITALS (18 sets, daily range): BP systolic 87–171; BP diastolic 68–89; PULSE 67–83; RESP 16–35; TEMP 97.4–98.8; O2SAT 92–100
[2017-02-13] MEDS: RESP: ALBUTEROL 2.5 MG/3 ML NEB (PRN) NEB ×2 (00:09→03:31)
[2017-02-13] MEDS: SODIUM CHLORIDE 23.4% INJ 77 MEQ in DEXTROSE 10% INJ 1,000 ML IV SCH (00:55)
[2017-02-13] MEDS: levETIRAcetam 500 MG/NS 100 ML IV SCH ×6 (03:00→20:19)
[2017-02-13] MEDS ORDERED: SODIUM CHLOR 0.9% 1000 ML INJ 3,000 ML IV ONE (03:15)
[2017-02-13] MEDS: CHLORHEXIDINE GLUCONATE 2 % 1 PACK (2 CLOTHS) TOP SCH (04:00)
[2017-02-13 05:24] LABS: BLOOD GAS BASE EXCESS -5.9 mmol/L (-2-2); BLOOD GAS CARBOXYHEMOGLOBIN 1.1 % (0-4); BLOOD GAS HCO3 18 mmol/L (22-26); BLOOD GAS METHEMOGLOBIN 0.9 % (0-2); BLOOD GAS O2 HGB SATURATION 98 % (90-100); BLOOD GAS OXYGEN CONTENT 15.5 Vol % (12.0-20.0); BLOOD GAS PCO2 28 mmHg (38-42); BLOOD GAS PO2 255 mmHg (61-120); BLOOD GAS TOTAL HGB 10.9 G/DL (12.0-16.0); CRITICAL VALUE NO; DRAW SITE RT RADIAL; FIO2 100 %; LITER FLOW 15 L/M; NUMBER OF ARTERIAL PUNCTURES 1; STAT NO; TEMP CORR TO 98.6; ULNAR PULSE PRESENT
[2017-02-13] MEDS ORDERED: DEXTROSE 50% IN WATER 50 ML SYRINGE ONE ×2 (06:51→07:36)
[2017-02-13] MEDS: SODIUM CHLORIDE 0.9% FLUSH 10 ML FLUSH IV FLUSH SCH ×2 (09:00→20:21)
[2017-02-13] MEDS: METOPROLOL TARTRATE 25 MG TAB PO SCH (09:00)
[2017-02-13] MEDS: SODIUM CHLORIDE 0.9% FLUSH 10 ML FLUSH IVF SCH (09:00)
[2017-02-13 09:53] LABS: BLOOD GAS BASE EXCESS -7.6 mmol/L (-2-2); BLOOD GAS CARBOXYHEMOGLOBIN 1.1 % (0-4); BLOOD GAS HCO3 16 mmol/L (22-26); BLOOD GAS METHEMOGLOBIN 0.8 % (0-2); BLOOD GAS O2 HGB SATURATION 98 % (90-100); BLOOD GAS PCO2 22 mmHg (38-42); BLOOD GAS PO2 335 mmHg (61-120); CRITICAL VALUE YES; DRAW SITE RT BRACHIAL; FIO2 100 %; LITER FLOW 15 L/M; NUMBER OF ARTERIAL PUNCTURES 1; OXYGEN DEVICE NRB; STAT YES; TEMP CORR TO 98.6; ULNAR PULSE Y
[2017-02-13] MEDS ORDERED: SODIUM BICARBONATE 8.4% INJ 50 ML ONE ×2 (09:58→09:59)
[2017-02-13] MEDS: PROPOFOL 1000 MG/100 ML INJ 100 ML IV PRN ×3 (09:58→21:27)
[2017-02-13] MEDS ORDERED: ETOMIDATE 20 MG/10 ML VIAL ONE (10:01)
[2017-02-13] MEDS ORDERED: ROCURONIUM INJ 50 MG/5 ML VIAL ONE (10:01)
[2017-02-13] MEDS ORDERED: SUCCINYLCHOLINE CHLORIDE 200 MG/10 ML VIAL ONE (10:01)
[2017-02-13 10:33] LABS: BLOOD GAS BASE EXCESS -7.4 mmol/L (-2-2); BLOOD GAS CARBOXYHEMOGLOBIN 1.1 % (0-4); BLOOD GAS HCO3 16 mmol/L (22-26); BLOOD GAS METHEMOGLOBIN 0.9 % (0-2); BLOOD GAS O2 HGB SATURATION 98 % (90-100); BLOOD GAS OXYGEN CONTENT 16.4 Vol % (12.0-20.0); BLOOD GAS PCO2 25 mmHg (38-42); BLOOD GAS PO2 337 mmHg (61-120); BLOOD GAS TOTAL HGB 11.3 G/DL (12.0-16.0); TEMP CORR TO 98.6
[2017-02-13 10:34] LABS: CRITICAL VALUE YES; DRAW SITE ART LINE; FIO2 100 %; NUMBER OF ARTERIAL PUNCTURES 0; OXYGEN DEVICE VENTILATOR; STAT YES; ULNAR PULSE PRESENT; VENT SETTINGS 16/500/1.0/PEEP5
--- NOTE | 2017-02-13 10:44 | HHI.CCPN ---
Subjective Remarks/Hospital Course 01/31: This 66-year-old man who presents to the emergency department via EMS for altered mental status. History is a little bit unclear. It sounds like he was agitated overnight so they gave him Xanax this morning. Speaking with the nurse there, Yesica Earl, patient gets Xanax periodically but not every day. It's not a new dose for him. Subsequently he became unresponsive. Per EMS report he normally has a GCS of 14 but cannot walk. For them he was not talking at all, and stopped breathing for a period of time in the ambulance and required [id number] ventilation. They were bagging him on presentation to the ED. patient underwent CT head which was negative for bleed. He was evaluated by Dr. 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 On propofol 75 mics per kg/min. moving both upper extremities and left lower extremity on lightening sedation per nursing staff. Has chronically weak right lower extremity per family. Currently on heparin drip for full anticoagulation. 02/02: Sedated, orally intubated on mechanical ventilation this morning at the time of my evaluation. Being diuresed with Lasix. 2-D echo with LVEF 20% and severe MR. Hypoglycemia today despite tube feeds for which he was given D50 and cortisol level being checked. 02/03: Off sedation since 9/8 AM. Started to arouse last evening and following commands moving both upper extremities. Remains orally intubated on mechanical ventilation. At the time of my evaluation years arousable however not following commands. 02/04: Tmax 100.1. Currently resting in bed in no acute distress. Moving right lower extremity spontaneously. Nods head and follows commands. Patient is leaning towards right. Subjective 02/05: Tolerated PSV trial overnight. Opened eyes. Following commands. States he is hungry today. Move the left upper extremity spontaneously along with right upper extremity today. Moved toes slightly. 02/06: Remains orally intubated on mechanical ventilation. Gets apneic episodes during C Pap trials. Follows commands. On tube feeds and D10 02/07: Tolerated C Pap trials and extubated today. Drowsy, easily arousable. Follows commands with both upper extremities. Remains on D10 drip for hyperglycemia. Off tube feeds since extubation awaiting swallow eval. 02/08: Remains on nasal cannula. Passed swallow eval and diet being advanced. Was on D10 at 50 cc an hour for hypoglycemia while awaiting insulinoma workup. Tolerating by mouth diet so decreased D10 to 25 cc an hour and plan to stop later today. 02/12: Later in the day the patient became more lethargic and rapid response was called. Shortly after patient was transferred to ICU NT related for possible intubation for an airway protection. Initially during my exam the patient was unresponsive and decision was made to intubate. However while preparing for endotracheal intubation patient woke up, is following commands on both sides and response with slow slurred speech. Eyes open spontaneously. The CAT scan of the head also negative for acute changes. 02/13: Emergently called to the bedside this a.m. patient with altered mental status alert to name only stating having difficulty breathing stat ABG performed , PaO2 noted to be 334 on nonrebreather, with a Mixed acid base disorder. Patient unable to protect airway, emergently intubated uneventfully. Patient currently on D10 at 50 cc an hour with additional supplementation of blood glucose, to maintain level. D10 increased to 100 cc an hour. Plan for Octreotide scan to today to rule out insulinoma. Diuretic increased to 40 mg twice a day secondary to the increased dosing of fluid in a patient with noted EF less than 20% and severe TR. Will also supplement with hydrocortisone 3 times a day. Objective Vital Signs Date Time Temp Pulse Resp B/P (MAP) Pulse Ox O2 Delivery O2 Flow Rate FiO2 02/13/17 08:59 100 Non-Rebreather 15.00 02/13/17 08:00 98.3 67 18 126/89 (101) Intake and Output 02/13/17 02/13/17 02/14/17 08:00 16:00 00:00 Intake Total 0 ml Output Total 100 ml Balance -100 ml Result Diagram: 02/12/17204002/10/1725 Other Results Laboratory Tests Test 02/12/17 17:35 02/13/17 05:07 02/13/17 09:40 02/13/17 10:16 Blood Gas Puncture Site RT RADIAL RT RADIAL RT BRACHIAL ART LINE Blood Gas Patient Temperature 98.6 98.6 98.6 98.6 Blood Gas HCO3 21 mmol/L (22-26) 18 mmol/L (22-26) 16 mmol/L (22-26) 16 mmol/L (22-26) Blood Gas Base Excess -3.0 mmol/L (-2-2) -5.9 mmol/L (-2-2) -7.6 mmol/L (-2-2) -7.4 mmol/L (-2-2) Blood Gas Oxygen Saturation 98 % (90-100) 98 % (90-100) 98 % (90-100) 98 % ( 90-100) Arterial Blood pH 7.44 (7.380-7.420) 7.42 (7.380-7.420) 7.47 (7.380-7.420) 7.43 (7.380-7.420) Arterial Blood Partial Pressure CO2 30 mmHg (38-42) 28 mmHg (38-42) 22 mmHg (38-42) 25 mmHg (38-42) Arterial Blood Partial Pressure O2 488 mmHg (61-120) 255 mmHg (61-120) 335 mmHg (61-120) 337 mmHg (61-120) Arterial Blood Oxygen Content 16.4 Vol % (12.0-20.0) 15.5 Vol % (12.0-20.0) 16.0 Vol % (12.0-20.0) 16.4 Vol % (12.0-20.0) Arterial Blood Carboxyhemoglobin 1.1 % (0-4) 1.1 % (0-4) 1.1 % (0-4) 1.1 % (0-4) Arterial Blood Methemoglobin 0.9 % (0-2) 0.9 % (0-2) 0.8 % (0-2) 0.9 % (0-2) Blood Gas Hemoglobin 11.0 G/DL (12.0-16.0) 10.9 G/DL (12.0-16.0) 11.0 G/DL (12.0-16.0) 11.3 G/DL (12.0-16.0) Oxygen Delivery Device NONREBREATHER Non-Rebreathing Mask NRB VENTILATOR Blood Gas Liter Flow 15 L/M 15 L/M 15 L/M Blood Gas Inspired Oxygen 100 % 100 % 100 % Blood Gas Ventilator Setting 16/500/1.0/PEEP5 Imaging Last Impressions Chest X-Ray 02/13/17 0000 Signed Impressions: Service Date/Time: Monday, February 13, 2017 10:21 - CONCLUSION: 1. Increasing basilar airspace disease and pleural effusions since February 06. Cardiomegaly. No pneumothorax. Ridge Hernandez MD Head CT 02/12/17 0000 Signed Impressions: Service Date/Time: Sunday, February 12, 2017 21:25 - CONCLUSION: 1. No acute infarct, acute hemorrhage, midlines shift or extra-axial bleed. 2. 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 3. Stable cerebral atrophy. 4. Mucus retention cysts within the left maxillary sinus. Alexei Russell MD Upper Extremity Ultrasound 02/01/17 0000 Signed Impressions: Service Date/Time: January 11:49 - CONCLUSION: 1. No evidence of deep venous thrombosis. Moses Juarez MD Neck CTA 01/31/17 0000 Signed Impressions: Service Date/Time: Tuesday, January 31, 2017 08:57 - CONCLUSION: 1. 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 2. String-like contrast in the left vertebral artery Wilber Alfaro MD Head CTA 01/31/17 0000 Signed Impressions: Service Date/Time: Tuesday, January 31, 2017 08:57 - CONCLUSION: Absent flow in the left internal carotid artery with reconstitution of flow in the A2 segment. There is some flow seen in the left sylvian branches of the middle cerebral artery, but the degree of vessel opacification on the left is less than on the right. Wilber Alfaro MD Cerebral Arteriogram 01/31/17 0000 Signed Impressions: Service Date/Time: Tuesday, January 31, 2017 00:00 - CONCLUSION: 1. Patient appears to have had a thrombotic or embolic event to the vertebral basilar system. The left vertebral is highly diseased throughout its course and appears to occlude just proximal to the basilar. Unable to traverse the highly diseased vessel for intervention. 2. The right vertebral is robust proximally but appears to terminate in a PICA branch with a irregular terminal vessel possibly representing the distal vertebral and proximal basilar. This appears to be chronically occluded. Russ Joseph MD Last Impressions Chest X-Ray 02/05/17 0600 Signed Impressions: Service Date/Time: Sunday, February 05, 2017 04:47 - CONCLUSION: Endotracheal tube and nasogastric tube in satisfactory position. Stable bilateral mostly basilar dependent airspace disease and pleural effusions. Ridge Hernandez MD Upper Extremity Ultrasound 02/01/17 0000 Signed Impressions: Service Date/Time: January 11:49 - CONCLUSION: 1. No evidence of deep venous thrombosis. Moses Juarez MD Head CT 01/31/17 0809 Signed Impressions: Service Date/Time: Tuesday, January 31, 2017 08:16 - CONCLUSION: Hypodensity left parietal-occipital mid convexity region suggesting infarction or encephalomalacia. No evidence of hemorrhage. Cannot exclude an acute process. May consider further characterization with MRI. Wilber Alfaro MD Neck CTA 01/31/17 0000 Signed Impressions: Service Date/Time: Tuesday, January 31, 2017 08:57 - CONCLUSION: 1. 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 2. String-like contrast in the left vertebral artery Wilber Alfaro MD Head CTA 01/31/17 0000 Signed Impressions: Service Date/Time: Tuesday, January 31, 2017 08:57 - CONCLUSION: Absent flow in the left internal carotid artery with reconstitution of flow in the A2 segment. There is some flow seen in the left sylvian branches of the middle cerebral artery, but the degree of vessel opacification on the left is less than on the right. Wilber Alfaro MD Cerebral Arteriogram 01/31/17 0000 Signed Impressions: Service Date/Time: Tuesday, January 31, 2017 00:00 - CONCLUSION: 1. Patient appears to have had a thrombotic or embolic event to the vertebral basilar system. The left vertebral is highly diseased throughout its course and appears to occlude just proximal to the basilar. Unable to traverse the highly diseased vessel for intervention. 2. The right vertebral is robust proximally but appears to terminate in a PICA branch with a irregular terminal vessel possibly representing the distal vertebral and proximal basilar. This appears to be chronically occluded. Russ Joseph MD Objective Remarks GENERAL: 66-year-old AA male, sitting up in bed in tachypnea can severe distress , thrashing alert to name only SKIN: Warm and dry. No rash HEAD: Atraumatic. Normocephalic. EYES: Pupils equal and round about 1.5 mm bilaterally and reactive. No scleral icterus. No injection or drainage. ENT: No nasal bleeding or discharge. Mucous membranes pink and moist. NECK: Trachea midline. No JVD. CARDIOVASCULAR: Intermittent runs of ventricular tachycardia. S1, S2 no S4. 2/ 6 systolic murmur left lower sternal border. RESPIRATORY: Noted accessory muscle use, hyperventilating. Clear to auscultation. Breath sounds equal bilaterally. GASTROINTESTINAL: Abdomen soft, non-tender, nondistended. Hypoactive bowel sounds appreciated MUSCULOSKELETAL: Extremities with trace to 1+ bilateral lower extremity and upper extremity edema. No obvious deformities. NEUROLOGICAL: Awake confused , alert to name only , slow slurred speech.. Moves both upper extremities to commands, wiggle toes bilaterally. Has chronic right lower extremity weakness. Speech appears slurred. 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 Cerebral angiogram revealed occluded distal vertebral/proximal parietal occlusion acute. 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 EEG - 02/01 - 3-6 Hz activity, 20-50 microvolts occurring in generalized fashion. EEG variability reactivity noted. Mild spindles noted as well. Limited driving with photic stimulation. Single lead EKG showing sinus rhythm. Mild to moderate encephalopathy. Clinical correlation Recommended. Heparin drip stopped on 02/07 and resumed on Apixaban 5 mg twice a day per Dr. Russ Solano/Neurology following. Holding buspirone 7.5 mg 3 times a day, mirtazapine 7.5 mg a night and trazodone 50 mg by mouth daily for depression/anxiety. Resume when okay with neurology. Continue levetiracetam 500 mg IV 3 times a day/seizure precautions Loading dose of fosphenytoin 02/13 F/U Repeat EEG to rule out subclinical seizure 02/13 Obtain ammonia level CV: Chronic systolic heart failure ejection fraction 20% Pulmonary hypertension History of CABG 4/AICD Hypertension Dyslipidemia Echocardiogram revealed EF 20%. Decreased right ventricular left ventricular function. Dilated LV. Enlarged left atrium. Severe pulmonary hypertension greater than 70 mmHg, severe TR/MR Cardiology/Dr. Hernandez following 02/13 Increased furosemide 40 mg IV twice a day. Home medications include aspirin 81 mg daily, metoprolol 25 mg by mouth daily, furosemide 40 mg daily and spironolactone 25 mill grams by mouth daily - Resumed aspirin, metoprolol and spironolactone on 02/08 Patient is on rosuvastatin 20 mg by mouth daily along with Fish oil/ cholecalciferol 1 tablet daily for dyslipidemia Resp: Acute hypoxemic respiratory failure 02/13-reintubation 8.0 ETT, 26 cm at the lip, for airway protection SBT trials daily Albuterol/ipratropium aerosols every 6 hours with albuterol aerosols every 2 hours. Monitor ABGs checks x-rays as indicated GI: Hypoalbuminemia 02/13 NPO for now Famotidine for GI prophylaxis Docusate sodium 100 mg twice a day, senna liquid 8.6 mg twice a day for bowel regimen along with lactulose 30 cc twice a day : Rabago catheter indicated for accurate I's and O's in a critically ill patient Endo: Hypoglycemia - possibly secondary to sepsis, possible insulinoma Normal TSH/cortisol levels. C-peptide 6.33 insulin levels 24.5and human growth hormone . Patient was hypoglycemic on tube feeds requiring D10 raising concern for insulinoma. 02/13-obtain octreotide scan 02/13-begin hydrocortisone 100 mg 3 times a day, will consider glucagon infusion if no resolution of hypoglycemia Renal: Acute kidney injury resolved Strict intake output, monitor and replete elect lites, follow BUN/creatinine. Heme: Normocytic anemia Chronic Apixaban use Monitor CBC daily. Follow trends. Off heparin drip and resumed on Eliquis on 02/08. ID: Coag-negative//staph epi bacteremia Current vancomycin dose by infectious disease [place] decolonization protocol with mupirocin swabs twice a day Infectious disease/Dr. Simons following Pertinent cultures 02/03 - blood cultures 1 -no growth 02/01 - blood cultures 2 -no growth 02/01 - sputum - coag negative staph 01/31 - blood cultures 2 - coag negative staph, staph epi FEN: Replace electrolytes as clinically indicated Obtain BMP MSK: PT/OT for range of motion evaluate and treat Access Utilize peripheral IVs Prophylaxis - GI - famotidine - DVT - SCD/Eliquis Critical Care: This patient remains critically ill with one or more organ systems which are or may become a threat to life. I have spent in excess of 60 minutes discontinuously in the care and management of this patient. This time is exclusive of procedures, and includes, but is not limited to, evaluation of the patient, review of the medical record, discussions with family, consultants, nursing staff, or respiratory therapy, and documentation in the medical record. Physician Raiza Perla MD Feb 13, 2017 10:44
--- NOTE | 2017-02-13 10:57 | RADRPT ---
EXAM DATE/TIME: 02/13/2017 10:21 [facility] COMPARISON: CHEST SINGLE AP, February 06, 2017, 4:30. INDICATIONS : Post intubation. MEDICAL HISTORY : Congestive heart failure. Hypercholesterolemia. Hypertension. CVA. SURGICAL HISTORY : CABG Pacemaker. Cardiac cath. ENCOUNTER: Subsequent ACUITY: 1 month PAIN SCORE: Non-responsive. LOCATION: chest FINDINGS: A single view of the chest demonstrates endotracheal tube in satisfactory position. Pacer leads overl ie right atrium and right ventricle. Previous median sternotomy. Cardiomegaly. Bilateral mostly basil ar airspace disease and pleural effusions increased from February 06. CONCLUSION: 1. Increasing basilar airspace disease and pleural effusions since February 06. Cardiomegaly. No pne umothorax. Ridge Hernandez MD on February 13, 2017 at 10:52 Board Certified Radiologist. This report was verified electronically.
[2017-02-13 11:39] LABS: AUTOMATED NEUTROPHIL # 7.3 TH/MM3 (1.8-7.7); BASOPHIL % 0.1 % (0.0-2.0); HEMATOCRIT 34.8 % (39.0-51.0); HEMO FLAGS DIFF FINAL; LYMPH % 3.4 % (9.0-44.0); LYMPHOCYTE # 0.3 TH/MM3 (1.0-4.8); MEAN CORPUSCULAR HEMOGLOBIN 26.4 PG (27.0-34.0); MEAN CORPUSCULAR HGB CONC 31.8 % (32.0-36.0); MONO % 9.3 % (0.0-8.0); NEUT % 87.2 % (16.0-70.0); PLATELET COUNT 357 TH/MM3 (150-450); RED CELL DISTRIBUTION WIDTH 22.7 % (11.6-17.2); WHITE BLOOD COUNT 8.3 TH/MM3 (4.0-11.0)
--- NOTE | 2017-02-13 11:46 | PD.PROCEDR ---
Procedure Note Procedure Endotracheal Intubation Diagnosis: Altered mental status, failure to protect airway Indications:same Consent: Emergent Anesthesia: see MAR Description of the Procedure: The patient was positioned in the sniffing position. Pre-oxygenation was performed using a [ ]. Anesthesia was induced via rapid sequence. A glide scope 4.0 was used for laryngoscopy and a Grade 1 view was obtained. A 8.0 cuffed endotracheal tube was inserted atraumatically through the vocal cords. Confirmation of correct endotracheal tube placement was made by equal and bilateral breath sounds and colorimetric CO2 detection. The endotracheal tube was secured at 26 cm at the teeth. There were no immediate complications noted. The patient remained hemodynamically stable throughout the procedure. A chest x-ray has been ordered. I personally performed the procedure. Raiza Guillen MD Feb 13, 2017 11:46
[2017-02-13 11:48] LABS: ALT (GPT) 25 U/L (12-78); ANION GAP 12 MEQ/L (5-15); AST (GOT) 13 U/L (15-37); BICARBONATE 20.5 MEQ/L (21.0-32.0); BLOOD UREA NITROGEN 36 MG/DL (7-18); CHLORIDE 106 MEQ/L (98-107); GLOMERULAR FILTRATION RATE 37 ML/MIN (>89); MAGNESIUM 2.3 MG/DL (1.5-2.5); POTASSIUM 3.5 MEQ/L (3.5-5.1); SODIUM (NA) 138 MEQ/L (136-145)
[2017-02-13 11:50] LABS: ALKALINE PHOSPHATASE 133 U/L (45-117); TOTAL BILIRUBIN ADULT 1.1 MG/DL (0.2-1.0)
[2017-02-13] MEDS: NOREPINEPHRINE-DEXTROSE DRIP 250 ML IV PRN (12:01)
[2017-02-13] MEDS ORDERED: NOREPINEPHRINE 4 MG/4 ML AMP ONE (12:13)
[2017-02-13] MEDS ORDERED: TERBUTALINE INJ 1 MG/ML AMP SQ PRN (12:15)
--- NOTE | 2017-02-13 14:48 | HHI.IDPN ---
Subjective Subjective Remarks Patient is a 66-year-old male,sp ischemic stroke, received TPA to the right vertebral artery. 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 LRS 01/31/17, 01/31/17) Objective . Vital Signs Date Time Temp Pulse Resp B/P (MAP) Pulse Ox O2 Delivery O2 Flow Rate FiO2 02/13/17 13:45 100 50 02/13/17 12:00 98.8 76 18 102/78 (86) 100 02/13/17 11:50 100 100 02/13/17 10:06 98 100 02/13/17 08:59 100 Non-Rebreather 15.00 02/13/17 08:00 98.3 67 18 126/89 (101) 100 02/13/17 07:00 Non-Rebreather 15.00 40 02/13/17 06:00 71 02/13/17 04:00 70 02/13/17 04:00 97.4 70 26 108/70 (83) 95 02/13/17 02:00 69 02/13/17 00:00 98.1 69 35 114/80 (91) 98 02/13/17 00:00 69 02/12/17 22:00 70 02/12/17 20:00 69 02/12/17 20:00 97.7 69 30 120/76 (91) 98 02/12/17 19:35 100 Non-Rebreather 15.00 02/12/17 19:00 100 Non-Rebreather 15.00 02/12/17 18:00 69 02/12/17 18:00 97.9 69 24 124/65 (84) 100 . Laboratory Tests Test 02/12/17 20:41 02/13/17 10:10 White Blood Count 6.8 TH/MM3 8.3 TH/MM3 Red Blood Count 3.32 MIL/MM3 4.20 MIL/MM3 Hemoglobin 9.4 GM/DL 11.1 GM/DL Hematocrit 29.0 % 34.8 % Mean Corpuscular Volume 87.4 FL 83.0 FL Mean Corpuscular Hemoglobin 28.3 PG 26.4 PG Mean Corpuscular Hemoglobin Concent 32.4 % 31.8 % Red Cell Distribution Width 17.6 % 22.7 % Platelet Count 123 TH/MM3 357 TH/MM3 Mean Platelet Volume 8.1 FL 9.4 FL Neutrophils (%) (Auto) 70.8 % 87.2 % Lymphocytes (%) (Auto) 20.1 % 3.4 % Monocytes (%) (Auto) 7.1 % 9.3 % Eosinophils (%) (Auto) 1.4 % 0.0 % Basophils (%) (Auto) 0.6 % 0.1 % Neutrophils # (Auto) 4.8 TH/MM3 7.3 TH/MM3 Lymphocytes # (Auto) 1.4 TH/MM3 0.3 TH/MM3 Monocytes # (Auto) 0.5 TH/MM3 0.8 TH/MM3 Eosinophils # (Auto) 0.1 TH/MM3 0.0 TH/MM3 Basophils # (Auto) 0.0 TH/MM3 0.0 TH/MM3 CBC Comment DIFF FINAL DIFF FINAL Differential Comment Laboratory Tests Test 02/13/17 10:10 02/13/17 13:45 Blood Urea Nitrogen 36 MG/DL Creatinine 2.16 MG/DL Random Glucose 138 MG/DL Total Protein 6.2 GM/DL Albumin 2.7 GM/DL Calcium Level 8.1 MG/DL Phosphorus Level 4.8 MG/DL Magnesium Level 2.3 MG/DL Alkaline Phosphatase 133 U/L Aspartate Amino Transf (AST/SGOT) 13 U/L Alanine Aminotransferase (ALT/SGPT) 25 U/L Total Bilirubin 1.1 MG/DL Sodium Level 138 MEQ/L Potassium Level 3.5 MEQ/L Chloride Level 106 MEQ/L Carbon Dioxide Level 20.5 MEQ/L Anion Gap 12 MEQ/L Estimat Glomerular Filtration Rate 37 ML/MIN Ammonia 31 MCMOL/L Imaging Chest X-Ray 02/13/17 0000 Signed Impressions: Service Date/Time: Monday, February 13, 2017 10:21 - CONCLUSION: 1. Increasing basilar airspace disease and pleural effusions since February 06. Cardiomegaly. No pneumothorax. Ridge Hernandez MD Head CT 02/12/17 0000 Signed Impressions: Service Date/Time: Sunday, February 12, 2017 21:25 - CONCLUSION: 1. No acute infarct, acute hemorrhage, midlines shift or extra-axial bleed. 2. 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 3. Stable cerebral atrophy. 4. Mucus retention cysts within the left maxillary sinus. Alexei Russell MD Chest X-Ray 02/04/1707 Signed Impressions: Service Date/Time: Saturday, February 04, 2017 08:13 - CONCLUSION: 1. Left IJ central line is present and distal tip is not clearly visualized but likely in the brachiocephalic vein near the SVC junction. No pneumothorax is visualized. 2. Stable bilateral air space opacity in a pattern which could represent pulmonary edema with bilateral pleural effusions. 3. Nasogastric tube distal tip is near the GE junction and should ideally be advanced. Carlos Lerma MD Upper Extremity Ultrasound 02/01/17 0000 Signed Impressions: Service Date/Time: January 11:49 - CONCLUSION: 1. No evidence of deep venous thrombosis. Moses Juarez MD Head CT 01/31/17 0809 Signed Impressions: Service Date/Time: Tuesday, January 31, 2017 08:16 - CONCLUSION: Hypodensity left parietal-occipital mid convexity region suggesting infarction or encephalomalacia. No evidence of hemorrhage. Cannot exclude an acute process. May consider further characterization with MRI. Wilber Alfaro MD Neck CTA 01/31/17 0000 Signed Impressions: Service Date/Time: Tuesday, January 31, 2017 08:57 - CONCLUSION: 1. 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 2. String-like contrast in the left vertebral artery Wilber Alfaro MD Head CTA 01/31/17 0000 Signed Impressions: Service Date/Time: Tuesday, January 31, 2017 08:57 - CONCLUSION: Absent flow in the left internal carotid artery with reconstitution of flow in the A2 segment. There is some flow seen in the left sylvian branches of the middle cerebral artery, but the degree of vessel opacification on the left is less than on the right. Wilber Alfaro MD Cerebral Arteriogram 01/31/17 0000 Signed Impressions: Service Date/Time: Tuesday, January 31, 2017 00:00 - CONCLUSION: 1. Patient appears to have had a thrombotic or embolic event to the vertebral basilar system. The left vertebral is highly diseased throughout its course and appears to occlude just proximal to the basilar. Unable to traverse the highly diseased vessel for intervention. 2. The right vertebral is robust proximally but appears to terminate in a PICA branch with a irregular terminal vessel possibly representing the distal vertebral and proximal basilar. This appears to be chronically occluded. Russ Joseph MD Physical Exam GENERAL: Sedated, intubated, NAD SKIN: Warm and dry. No generalized rash HEAD: Atraumatic. Normocephalic. No temporal wasting, or tenderness. EYES: [place] conjunctiva. No petechia or hemorrhage. Pupils equal, round, pinpoint. Has dirty sclera. No injection or drainage. EARS, NOSE AND THROAT: Nose without bleeding or purulent nasal discharge. Edentulous. ET in mouth NECK: Trachea midline. Supple and not tender, no meningeal signs CARDIOVASCULAR: Regular rate and rhythm. No murmurs, rubs or gallops heard. No rub. Pacer/AICD L upper chest with no evidence of infection RESPIRATORY: Coarse breath sounds equal bilaterally. Decreased at bases. ABDOMEN: Soft, nondistended, no reaction to deep palpation. Bowel sounds present and normoactive. No organomegaly. : Rabago in place, urine dark with some sediment EXTREMITIES: No clubbing, cyanosis, improving pedal edema NEUROLOGICAL: Sedated NEURO: Unable to assess LINE: No evidence of infection Assessment & Plan Remarks IMPRESSION Episode of unresponsiveness, etiology? - repeat CT head no change - ?due to hypoglycemia - ?seizure Shock, post intubation, ?new infection - CXR workse - UA has sediment - no central line - on Rx for MRSA PNA (+) BC, from same venipuncture, likely contaminant - has 2 different type of Staph epi Recurrent CVA, S/P thrombolytic Rx Respiratory failure, reintubated 02/13 MRSA PNA Cardiomyopathy, CXR with CHF, rell effusions Renal insufficiency Encephalopathy, etiology? resolved RECOMMENDATION Continue Zyvox for MRSA Repeat 2 BC Sputum C/S UA and C/S Add Cefepime Work-up in progress for low BS Neuro work-up Monitor progress D/W Annia Bonilla MD Feb 13, 2017 14:48
[2017-02-13] MEDS: CEFEPIME INJ 1,000 MG in SODIUM CHLORIDE 0.9% INJ 100 ML IV SCH (15:00)
[2017-02-13] MEDS: FAMOTIDINE 20 MG TAB TUBE SCH ×2 (15:47→20:21)
[2017-02-13] MEDS: SENNOSIDES SYRUP 8.8 MG/5 ML CUP PO SCH ×2 (15:47→20:21)
[2017-02-13] MEDS: ASPIRIN 81 MG CHEW TAB PO SCH (15:48)
[2017-02-13] MEDS: MULTIVITAMIN TAB PO SCH (15:48)
[2017-02-13] MEDS: MUPIROCIN 2% OINT 1 APPLIC/GM SYR NASAL SCH ×2 (15:48→20:21)
[2017-02-13] MEDS: APIXABAN 5 MG TABLET PO SCH ×2 (15:48→20:21)
[2017-02-13] MEDS: DOCUSATE SODIUM 100 MG/10 ML UDC PO SCH ×2 (15:49→20:21)
[2017-02-13] MEDS: LACTULOSE SYRUP 20 GM/30 ML CUP PO SCH ×2 (15:49→20:21)
[2017-02-13] MEDS: SPIRONOLACTONE 25 MG TAB PO SCH (16:00)
[2017-02-13] MEDS: LINEZOLID 600 MG PREMIX 300 ML IV SCH (16:01)
[2017-02-13] MEDS: FUROSEMIDE 40 MG/4 ML VIAL IV PUSH SCH (16:01)
[2017-02-13] MEDS: MUPIROCIN 2% OINT 1 APPLIC/GM SYR EACH NARE SCH ×2 (16:02→20:20)
[2017-02-13] MEDS: HYDROCORTISONE SOD SUCCINATE 100 MG VIAL IV PUSH SCH ×2 (16:02→20:20)
[2017-02-13 16:43] LABS: LACTIC ACID GHOST NOT REPORTABLE
--- NOTE | 2017-02-13 19:13 | MG ---
cc: LEANN PINK M.D., JAN MD Sex: M REQUESTING PHYSICIAN: Dr. Colon DATE OF STUDY: 02/13/2017 INTRODUCTION: An EEG was obtained on this 66-year-old patient being evaluated for encephalopathy. MEDICATIONS 1. Phenytoin. 2. Lopressor. 3. Keppra 4. Aldactone. 5. Eliquis. DESCRIPTION: The patient is described as intubated. This EEG shows generalized attenuation. There are some theta and delta rhythms bilaterally. Some alpha activity occasionally maximum frontally. No paroxysmal or epileptiform discharges. Intermittently there is higher amplitude anterior rhythms but this is a relatively mild asymmetry between the posterior and anterior head region and it is bilateral. No distinct lateralizing features present. Photic stimulation disclosed no change. INTERPRETATION Abnormal EEG because of generalized attenuation and slowing suggesting either severe diffuse disturbance of cerebral function or bi-hemisphere structural abnormalities but no epileptiform or ictal abnormality present. Leann Pink MD [facility] /6:17 PM /7:06 PM
[2017-02-13] MEDS: CHLORHEXIDINE 0.12% (ORAL KIT) 15 ML CUP MT SCH (20:20)
[2017-02-14] VITALS (14 sets, daily range): BP systolic 69–97; BP diastolic 50–69; PULSE 69–71; RESP 16–18; TEMP 97.7–97.8; O2SAT 0–100
[2017-02-14] MEDS: FUROSEMIDE 40 MG/4 ML VIAL IV PUSH SCH ×3 (00:23→23:50)
[2017-02-14] MEDS: LINEZOLID 600 MG PREMIX 300 ML IV SCH ×3 (00:23→23:50)
[2017-02-14] MEDS: levETIRAcetam 500 MG/NS 100 ML IV SCH ×6 (03:16→18:25)
[2017-02-14] MEDS: CEFEPIME INJ 1,000 MG in SODIUM CHLORIDE 0.9% INJ 100 ML IV SCH ×2 (03:17→15:37)
--- NOTE | 2017-02-14 03:29 | RADRPT ---
EXAM DATE/TIME: 02/14/2017 02:24 [place] COMPARISON: CHEST SINGLE AP, February 13, 2017, 10:21. INDICATIONS : Post central line placement. MEDICAL HISTORY : Congestive heart failure. Hypercholesterolemia. Hypertension. CVA SURGICAL HISTORY : CABG Pacemaker. Cardiac cath ENCOUNTER: Initial ACUITY: 1 day PAIN SCORE: Non-responsive. LOCATION: Bilateral chest FINDINGS: Single portable frontal view of the chest shows interval placement of a right subclavian line with th e tip at the cavoatrial junction. No pneumothorax. The remaining exam is unchanged. Bilateral pleural effusions and by basilar pulmonary infiltrates and cardiomegaly. Median sternotomy wires. Pacing dev ice on the left. Tip of endotracheal tube 5 cm from the bev. Nasogastric tube coursing off the inf erior margin of the film. CONCLUSION: A right subclavian central line without pneumothorax. Unchanged infiltrates, effusions, and cardiomeg lionel. Wilber Bermudez Jr., MD on February 14, 2017 at 3:26 Board Certified Radiologist. This report was verified electronically.
[2017-02-14] MEDS: CHLORHEXIDINE GLUCONATE 2 % 1 PACK (2 CLOTHS) TOP SCH (04:00)
[2017-02-14] MEDS: SODIUM CHLORIDE 23.4% INJ 77 MEQ in DEXTROSE 10% INJ 1,000 ML IV SCH (04:58)
[2017-02-14] MEDS ORDERED: SODIUM BICARBONATE 8.4% INJ 50 MEQ/50 ML SYR IV ONE (05:00)
[2017-02-14] MEDS ORDERED: MAGNESIUM SULFATE 1000 MG/2 ML VIAL (PED) IV ONE (05:00)
[2017-02-14] MEDS ORDERED: EPINEPHrine HCL (1:10,000) 1 MG/10 ML SYRINGE IV ONE (05:00)
[2017-02-14] MEDS ORDERED: EPINEPHrine HCL (1:1000) 30 MG/30 ML VIAL IV ONE (05:00)
[2017-02-14] MEDS ORDERED: CALCIUM CHLORIDE 10% SOLN 1 GRAM/10 ML SYR IV ONE (05:00)
[2017-02-14] MEDS: HYDROCORTISONE SOD SUCCINATE 100 MG VIAL IV PUSH SCH ×3 (05:02→20:29)
[2017-02-14 05:11] LABS: BLOOD GAS BASE EXCESS -11.3 mmol/L (-2-2); BLOOD GAS HCO3 13 mmol/L (22-26); BLOOD GAS O2 HGB SATURATION 98 % (90-100); BLOOD GAS OXYGEN CONTENT 16.2 Vol % (12.0-20.0); BLOOD GAS PCO2 22 mmHg (38-42); BLOOD GAS PO2 219 mmHg (61-120); BLOOD GAS TOTAL HGB 11.5 G/DL (12.0-16.0); TEMP CORR TO 98.6
[2017-02-14 05:12] LABS: CRITICAL VALUE YES; OXYGEN DEVICE VENTILATOR
[2017-02-14 05:13] LABS: VENT SETTINGS PRVC/AC
[2017-02-14 05:14] LABS: DRAW SITE ART LINE; FIO2 100 %; NUMBER OF ARTERIAL PUNCTURES 0; STAT NO; ULNAR PULSE PRESENT
--- NOTE | 2017-02-14 05:32 | PD.PROCEDR ---
Procedure Note Procedure Central line placement A time-out was completed verifying correct patient, procedure, site, positioning , and special equipment if applicable. The patient was placed in a dependent position appropriate for central line placement based on the vein to be cannulated. The patients right shoulder was prepped and draped in sterile fashion. 1% Lidocaine was used to anesthetize the surrounding skin area. A triple lumen 9-[place] catheter was introduced into the the right subclavian vein using the Seldinger technique. The catheter was threaded smoothly over the guide wire and appropriate blood return was obtained. Each lumen of the catheter was evacuated of air and flushed with sterile saline. The catheter was then sutured in place to the skin and a sterile dressing applied. Perfusion to the extremity distal to the point of catheter insertion was checked and found to be adequate. Estimated Blood Loss: 1ml The patient tolerated the procedure well and there were no complications. Matt Colon MD Feb 14, 2017 5:32 am
--- NOTE | 2017-02-14 05:32 | PD.PROCEDR ---
Procedure Note Procedure Arterial line placement A time-out was completed verifying correct patient, procedure, site, positioning , and special equipment if applicable. Allens test was performed to ensure adequate perfusion. The patients right elbow was prepped and draped in sterile fashion. 1% Lidocaine was used to anesthetize the area. A 18G Arrow arterial line was introduced into the brachial artery. The catheter was threaded over the guide wire and the needle was removed with appropriate pulsatile blood return. The catheter was then sutured in place to the skin and a sterile dressing applied. Perfusion to the extremity distal to the point of catheter insertion was checked and found to be adequate. Estimated Blood Loss: 1ml The patient tolerated the procedure well and there were no complications. Matt Colon MD Feb 14, 2017 5:32 am
[2017-02-14 06:13] LABS: AUTOMATED NEUTROPHIL # 7.2 TH/MM3 (1.8-7.7); HEMATOCRIT 39.4 % (39.0-51.0); HEMO FLAGS DIFF FINAL; LYMPH % 4.7 % (9.0-44.0); LYMPHOCYTE # 0.4 TH/MM3 (1.0-4.8); MEAN CELL VOLUME 84.8 FL (80.0-100.0); MEAN CORPUSCULAR HEMOGLOBIN 26.4 PG (27.0-34.0); MEAN CORPUSCULAR HGB CONC 31.2 % (32.0-36.0); MONO % 7.8 % (0.0-8.0); NEUT % 87.5 % (16.0-70.0); PLATELET COUNT 407 TH/MM3 (150-450); RED BLOOD COUNT 4.64 MIL/MM3 (4.50-5.90); RED CELL DISTRIBUTION WIDTH 22.8 % (11.6-17.2); WHITE BLOOD COUNT 8.2 TH/MM3 (4.0-11.0)
[2017-02-14] MEDS: SODIUM BICARBONATE 8.4% INJ 150 MEQ in DEXTROSE 5% IN WATE 1000ML INJ 1,000 ML IV SCH ×4 (06:22→17:13)
[2017-02-14 06:32] LABS: ANION GAP 16 MEQ/L (5-15); AST (GOT) 15 U/L (15-37); BICARBONATE 15.2 MEQ/L (21.0-32.0); BLOOD UREA NITROGEN 38 MG/DL (7-18); CHLORIDE 107 MEQ/L (98-107); GLOMERULAR FILTRATION RATE 33 ML/MIN (>89); MAGNESIUM 2.4 MG/DL (1.5-2.5); POTASSIUM 4.1 MEQ/L (3.5-5.1); SODIUM (NA) 138 MEQ/L (136-145)
[2017-02-14 06:35] LABS: ALKALINE PHOSPHATASE 152 U/L (45-117); ALT (GPT) 25 U/L (12-78)
[2017-02-14] MEDS: NOREPINEPHRINE-DEXTROSE DRIP 250 ML IV PRN ×2 (06:45→08:37)
[2017-02-14] MEDS ORDERED: CALCIUM GLUCONATE 10% 1 GM/10 ML VIAL ONE (06:58)
[2017-02-14] MEDS ORDERED: VASOPRESSIN 20 UNITS/ML VIAL (IVTITR) ONE ×2 (07:12→15:57)
[2017-02-14] MEDS: CHLORHEXIDINE 0.12% (ORAL KIT) 15 ML CUP MT SCH ×2 (08:00→20:31)
--- NOTE | 2017-02-14 08:02 | PD.PROCEDR ---
Procedure Note Procedure CODE BLUE/CPR NOTE Time [id number]: I was emergently called to the bedside for CODE BLUE. Informed patient in asystole and no waveform on the arterial line. CPR immediately started. Patient received a total of 6 doses of epinephrine, 2 A of bicarbonate, 1 g of calcium and 1 g of magnesium during the code. Patient was also shocked at 360 J x1 for course of Vfib. Return of spontaneous circulation at 0710. Remained hypotensive. Levothroid infusion was at 10 titrated up to 40 mcg/m. Epinephrine infusions started at 10 mcg/m and titrated up to 20 mcg/m. See Code sheet for details Darrell Gonzalez MD Feb 14, 2017 08:02
[2017-02-14] MEDS: SENNOSIDES SYRUP 8.8 MG/5 ML CUP PO SCH ×2 (09:00→20:29)
[2017-02-14] MEDS: ASPIRIN 81 MG CHEW TAB PO SCH (09:00)
[2017-02-14] MEDS: MUPIROCIN 2% OINT 1 APPLIC/GM SYR NASAL SCH ×2 (09:00→20:33)
[2017-02-14] MEDS: DOCUSATE SODIUM 100 MG/10 ML UDC PO SCH ×2 (09:00→20:29)
[2017-02-14] MEDS: APIXABAN 5 MG TABLET PO SCH ×2 (09:00→20:29)
[2017-02-14] MEDS: MULTIVITAMIN TAB PO SCH (09:00)
[2017-02-14] MEDS: LACTULOSE SYRUP 20 GM/30 ML CUP PO SCH ×2 (09:00→20:29)
[2017-02-14 09:39] LABS: BLOOD GAS BASE EXCESS -19.8 mmol/L (-2-2); BLOOD GAS HCO3 10 mmol/L (22-26); BLOOD GAS METHEMOGLOBIN 1.1 % (0-2); BLOOD GAS O2 HGB SATURATION 97 % (90-100); BLOOD GAS OXYGEN CONTENT 16.2 Vol % (12.0-20.0); BLOOD GAS PCO2 46 mmHg (38-42); BLOOD GAS PO2 243 mmHg (61-120); BLOOD GAS TOTAL HGB 11.5 G/DL (12.0-16.0); CRITICAL VALUE YES; OXYGEN DEVICE VENTILATOR; TEMP CORR TO 98.6
[2017-02-14 09:40] LABS: DRAW SITE ART LINE; STAT YES; ULNAR PULSE PRESENT
[2017-02-14] MEDS ORDERED: TERBUTALINE INJ 1 MG/ML AMP SQ PRN (09:45)
[2017-02-14] MEDS: MUPIROCIN 2% OINT 1 APPLIC/GM SYR EACH NARE SCH ×2 (09:46→20:30)
[2017-02-14] MEDS: NOREPINEPHRINE 16 MG/D5W 250 ML IV PRN ×6 (09:59→22:53)
[2017-02-14] MEDS ORDERED: SODIUM BICARBONATE 8.4% INJ 50 MEQ/50 ML SYR IV PUSH ONE ×2 (10:00→20:15)
--- NOTE | 2017-02-14 10:19 | HHI.CCPN ---
Subjective Remarks/Hospital Course 01/31: This 66-year-old man who presents to the emergency department via EMS for altered mental status. History is a little bit unclear. It sounds like he was agitated overnight so they gave him Xanax this morning. Speaking with the nurse there, Yesica Earl, patient gets Xanax periodically but not every day. It's not a new dose for him. Subsequently he became unresponsive. Per EMS report he normally has a GCS of 14 but cannot walk. For them he was not talking at all, and stopped breathing for a period of time in the ambulance and required cfs-bshig-atzl ventilation. They were bagging him on presentation to the ED. patient underwent CT head which was negative for bleed. He was evaluated by Dr. 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 On propofol 75 mics per kg/min. moving both upper extremities and left lower extremity on lightening sedation per nursing staff. Has chronically weak right lower extremity per family. Currently on heparin drip for full anticoagulation. 02/02: Sedated, orally intubated on mechanical ventilation this morning at the time of my evaluation. Being diuresed with Lasix. 2-D echo with LVEF 20% and severe MR. Hypoglycemia today despite tube feeds for which he was given D50 and cortisol level being checked. 02/03: Off sedation since 9/8 AM. Started to arouse last evening and following commands moving both upper extremities. Remains orally intubated on mechanical ventilation. At the time of my evaluation years arousable however not following commands. 02/04: Tmax 100.1. Currently resting in bed in no acute distress. Moving right lower extremity spontaneously. Nods head and follows commands. Patient is leaning towards right. Subjective 02/05: Tolerated PSV trial overnight. Opened eyes. Following commands. States he is hungry today. Move the left upper extremity spontaneously along with right upper extremity today. Moved toes slightly. 02/06: Remains orally intubated on mechanical ventilation. Gets apneic episodes during C Pap trials. Follows commands. On tube feeds and D10 02/07: Tolerated C Pap trials and extubated today. Drowsy, easily arousable. Follows commands with both upper extremities. Remains on D10 drip for hyperglycemia. Off tube feeds since extubation awaiting swallow eval. 02/08: Remains on nasal cannula. Passed swallow eval and diet being advanced. Was on D10 at 50 cc an hour for hypoglycemia while awaiting insulinoma workup. Tolerating by mouth diet so decreased D10 to 25 cc an hour and plan to stop later today. 02/12: Later in the day the patient became more lethargic and rapid response was called. Shortly after patient was transferred to ICU NT related for possible intubation for an airway protection. Initially during my exam the patient was unresponsive and decision was made to intubate. However while preparing for endotracheal intubation patient woke up, is following commands on both sides and response with slow slurred speech. Eyes open spontaneously. The CAT scan of the head also negative for acute changes. 02/13: Emergently called to the bedside this a.m. patient with altered mental status alert to name only stating having difficulty breathing stat ABG performed , PaO2 noted to be 334 on nonrebreather, with a Mixed acid base disorder. Patient unable to protect airway, emergently intubated uneventfully. Patient currently on D10 at 50 cc an hour with additional supplementation of blood glucose, to maintain level. D10 increased to 100 cc an hour. Plan for Octreotide scan to today to rule out insulinoma. Diuretic increased to 40 mg twice a day secondary to the increased dosing of fluid in a patient with noted EF less than 20% and severe TR. Will also supplement with hydrocortisone 3 times a day. 02/14: During the night last night the patient became increasingly acidotic central line and arterial line were placed patient was placed on a sodium bicarbonate infusion. At approximately 0652 this a.m. the patient went into cardiac arrest-asystole, CPR initiated the patient received 6 rounds of epinephrine, with defibrillation 1 attempt. The patient had ROSC after approximately 18 minutes. The patient continues on multiple vasopressors to include norepinephrine, epinephrine, vasopressin, and sodium bicarbonate infusions. Repeat ABG postcardiac arrest, severe metabolic acidosis with a pH of 6.95. Additional supplementation of sodium bicarbonate infused. Extensive discussion with family , patient's daughter Ms. Griffith regarding update on medical status and the criticality of the patient and poor prognosis, and she requesting aggressive measures at this time. Objective Vital Signs Date Time Temp Pulse Resp B/P (MAP) Pulse Ox O2 Delivery O2 Flow Rate FiO2 9/20/17 08:37 69 110/83 02/14/17 04:00 97.7 16 99 02/14/17 04:00 100 02/14/17 03:10 Ventilator 02/13/17 08:59 15.00 Intake and Output 02/14/17 02/14/17 02/15/17 08:00 16:00 00:00 Intake Total 1374 ml Output Total 200 ml Balance 1174 ml Result Diagram: 02/14/17 0540 02/14/17 0540 Other Results Laboratory Tests Test 02/13/17 10:16 02/14/17 05:06 02/14/17 09:22 Blood Gas Puncture Site ART LINE ART LINE ART LINE Blood Gas Patient Temperature 98.6 98.6 98.6 Blood Gas HCO3 16 mmol/L (22-26) 13 mmol/L (22-26) 10 mmol/L (22-26) Blood Gas Base Excess -7.4 mmol/L (-2-2) -11.3 mmol/L (-2-2) -19.8 mmol/L (-2-2) Blood Gas Oxygen Saturation 98 % (90-100) 98 % (90-100) 97 % (90-100) Arterial Blood pH 7.43 (7.380-7.420) 7.38 (7.380-7.420) 6.96 (7.380-7.420) Arterial Blood Partial Pressure CO2 25 mmHg (38-42) 22 mmHg (38-42) 46 mmHg (38-42) Arterial Blood Partial Pressure O2 337 mmHg (61-120) 219 mmHg (61-120) 243 mmHg (61-120) Arterial Blood Oxygen Content 16.4 Vol % (12.0-20.0) 16.2 Vol % (12.0-20.0) 16.2 Vol % (12.0-20.0) Arterial Blood Carboxyhemoglobin 1.1 % (0-4) 1.0 % (0-4) 0.0 % (0-4) Arterial Blood Methemoglobin 0.9 % (0-2) 1.0 % (0-2) 1.1 % (0-2) Blood Gas Hemoglobin 11.3 G/DL (12.0-16.0) 11.5 G/DL (12.0-16.0) 11.5 G/DL (12.0-16.0) Oxygen Delivery Device VENTILATOR VENTILATOR VENTILATOR Blood Gas Ventilator Setting 16/500/1.0/PEEP5 PRVC/AC Blood Gas Inspired Oxygen 100 % 100 % Imaging Last Impressions Chest X-Ray 02/13/17 0000 Signed Impressions: Service Date/Time: Monday, February 13, 2017 10:21 - CONCLUSION: 1. Increasing basilar airspace disease and pleural effusions since February 06. Cardiomegaly. No pneumothorax. Ridge Hernandez MD Head CT 02/12/17 0000 Signed Impressions: Service Date/Time: Sunday, February 12, 2017 21:25 - CONCLUSION: 1. No acute infarct, acute hemorrhage, midlines shift or extra-axial bleed. 2. 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 3. Stable cerebral atrophy. 4. Mucus retention cysts within the left maxillary sinus. Alexei Russell MD Upper Extremity Ultrasound 02/01/17 0000 Signed Impressions: Service Date/Time: January 11:49 - CONCLUSION: 1. No evidence of deep venous thrombosis. Moses Juarez MD Neck CTA 01/31/17 0000 Signed Impressions: Service Date/Time: Tuesday, January 31, 2017 08:57 - CONCLUSION: 1. 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 2. String-like contrast in the left vertebral artery Wilber Alfaro MD Head CTA 01/31/17 0000 Signed Impressions: Service Date/Time: Tuesday, January 31, 2017 08:57 - CONCLUSION: Absent flow in the left internal carotid artery with reconstitution of flow in the A2 segment. There is some flow seen in the left sylvian branches of the middle cerebral artery, but the degree of vessel opacification on the left is less than on the right. Wilber Alfaro MD Cerebral Arteriogram 01/31/17 0000 Signed Impressions: Service Date/Time: Tuesday, January 31, 2017 00:00 - CONCLUSION: 1. Patient appears to have had a thrombotic or embolic event to the vertebral basilar system. The left vertebral is highly diseased throughout its course and appears to occlude just proximal to the basilar. Unable to traverse the highly diseased vessel for intervention. 2. The right vertebral is robust proximally but appears to terminate in a PICA branch with a irregular terminal vessel possibly representing the distal vertebral and proximal basilar. This appears to be chronically occluded. Russ Joseph MD Last Impressions Chest X-Ray 02/05/17 0600 Signed Impressions: Service Date/Time: Sunday, February 05, 2017 04:47 - CONCLUSION: Endotracheal tube and nasogastric tube in satisfactory position. Stable bilateral mostly basilar dependent airspace disease and pleural effusions. Ridge Hernandez MD Upper Extremity Ultrasound 02/01/17 0000 Signed Impressions: Service Date/Time: January 11:49 - CONCLUSION: 1. No evidence of deep venous thrombosis. Moses Juarez MD Head CT 01/31/17 0809 Signed Impressions: Service Date/Time: Tuesday, January 31, 2017 08:16 - CONCLUSION: Hypodensity left parietal-occipital mid convexity region suggesting infarction or encephalomalacia. No evidence of hemorrhage. Cannot exclude an acute process. May consider further characterization with MRI. Wilber Alfaro MD Neck CTA 01/31/17 0000 Signed Impressions: Service Date/Time: Tuesday, January 31, 2017 08:57 - CONCLUSION: 1. 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 2. String-like contrast in the left vertebral artery Wilber Alfaro MD Head CTA 01/31/17 0000 Signed Impressions: Service Date/Time: Tuesday, January 31, 2017 08:57 - CONCLUSION: Absent flow in the left internal carotid artery with reconstitution of flow in the A2 segment. There is some flow seen in the left sylvian branches of the middle cerebral artery, but the degree of vessel opacification on the left is less than on the right. Wilber Alfaro MD Cerebral Arteriogram 01/31/17 0000 Signed Impressions: Service Date/Time: Tuesday, January 31, 2017 00:00 - CONCLUSION: 1. Patient appears to have had a thrombotic or embolic event to the vertebral basilar system. The left vertebral is highly diseased throughout its course and appears to occlude just proximal to the basilar. Unable to traverse the highly diseased vessel for intervention. 2. The right vertebral is robust proximally but appears to terminate in a PICA branch with a irregular terminal vessel possibly representing the distal vertebral and proximal basilar. This appears to be chronically occluded. Russ Joseph MD Objective Remarks GENERAL: Critically ill appearing 66-year-old AA male, on no sedation SKIN: Warm and dry. No rash HEAD: Atraumatic. Normocephalic. EYES: Pupils equal and round about 1.5 mm bilaterally and reactive. No scleral icterus. No injection or drainage. ENT: No nasal bleeding or discharge. Mucous membranes pink and moist. NECK: Trachea midline. No JVD. CARDIOVASCULAR: Intermittent runs of ventricular tachycardia. S1, S2 no S4. 2/ 6 systolic murmur left lower sternal border. RESPIRATORY: Noted accessory muscle use, hyperventilating. Clear to auscultation. Breath sounds equal bilaterally. GASTROINTESTINAL: Abdomen soft, non-tender, nondistended. Hypoactive bowel sounds appreciated MUSCULOSKELETAL: Extremities with 2+ bilateral lower extremity and upper extremity edema. No obvious deformities. NEUROLOGICAL: GCS 3T. 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 Cerebral angiogram revealed occluded distal vertebral/proximal parietal occlusion acute. 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 EEG - 02/01 - 3-6 Hz activity, 20-50 microvolts occurring in generalized fashion. EEG variability reactivity noted. Mild spindles noted as well. Limited driving with photic stimulation. Single lead EKG showing sinus rhythm. Mild to moderate encephalopathy. Clinical correlation Recommended. Heparin drip stopped on 02/07 and resumed on Apixaban 5 mg twice a day per Dr. Russ Solano/Neurology following. Holding buspirone 7.5 mg 3 times a day, mirtazapine 7.5 mg a night and trazodone 50 mg by mouth daily for depression/anxiety. Resume when okay with neurology. Continue levetiracetam 500 mg IV 3 times a day/seizure precautions 02/13 Repeat EEG -severe diffuse disturbance of cerebral function or bihemispheric structural abnormalities, no epileptiform abnormalities 02/13 ammonia level-31 CV: Chronic systolic heart failure ejection fraction 20% Acute on chronic systolic heart failure Pulmonary hypertension History of CABG 4/AICD Hypertension Dyslipidemia Cardiac arrest 02/14 Cardiogenic shock Echocardiogram revealed EF 20%. Decreased right ventricular left ventricular function. Dilated LV. Enlarged left atrium. Severe pulmonary hypertension greater than 70 mmHg, severe TR/MR Cardiology/Dr. Hernandez following 02/13 Increased furosemide 40 mg IV twice a day. Home medications include aspirin 81 mg daily, metoprolol 25 mg by mouth daily, furosemide 40 mg daily and spironolactone 25 mill grams by mouth daily - Resumed aspirin, -metoprolol and spironolactone on hold Patient is on rosuvastatin 20 mg by mouth daily along with Fish oil/ cholecalciferol 1 tablet daily for dyslipidemia 02/14-Vasopressor support-norepinephrine, epinephrine, and vasopressin infusions Continued elevation of lactic acid Resp: Acute hypoxemic respiratory failure Severe metabolic acidosis 02/13-reintubation 8.0 ETT, 26 cm at the lip, for airway protection SBT trials when clinically applicable Albuterol/ipratropium aerosols every 6 hours with albuterol aerosols every 2 hours. Monitor ABGs checks x-rays as indicated ABG-6.95/46/243/9-19.8-given 2 Amps of sodium bicarbonate IV push followed by increase in sodium bicarbonate infusion to 100 cc/hour GI: Hypoalbuminemia 02/13 NPO for now Famotidine for GI prophylaxis Docusate sodium 100 mg twice a day, senna liquid 8.6 mg twice a day for bowel regimen along with lactulose 30 cc twice a day : Rabago catheter indicated for accurate I's and O's in a critically ill patient Endo: Hypoglycemia - possibly secondary to sepsis, possible insulinoma Normal TSH/cortisol levels. C-peptide 6.33 insulin levels 24.5and human growth hormone . Patient was hypoglycemic on tube feeds requiring D10 raising concern for insulinoma. 02/13-F/U octreotide scan 02/13-Hydrocortisone 100 mg 3 times a day Renal: Acute renal failure Strict intake output, monitor and replete elect lites, follow BUN/creatinine. Nephrology consulted Heme: Normocytic anemia Chronic Apixaban use Monitor CBC daily. Follow trends. Off heparin drip and resumed on Eliquis on 02/08. ID: Coag-negative//staph epi bacteremia Septic shock Current vancomycin dose by infectious disease Lydia decolonization protocol with mupirocin swabs twice a day Infectious disease/Dr. Simons following Pertinent cultures 02/03 - blood cultures 1 -no growth 02/01 - blood cultures 2 -no growth 02/01 - sputum - coag negative staph 01/31 - blood cultures 2 - coag negative staph, staph epi FEN: Replace electrolytes as clinically indicated Monitor BMP MSK: PT/OT for range of motion evaluate and treat Access Utilize peripheral IVs. Right subclavian central line 02/14, right brachial arterial line 02/14 Prophylaxis - GI - famotidine - DVT - SCD/Eliquis Dispo: The patient is status post cardiac arrest early this a.m.. Extensive discussion with daughter, Ms Griffith in regards to multisystem organ dysfunction and poor prognosis at this time, and I do not believe the patient will survive this hospitalization. Ms. Griffith requests aggressive measures at this time. Palliative care consulted, pastoral support provided. Critical Care: This patient remains critically ill with one or more organ systems which are or may become a threat to life. I have spent in excess of 60 minutes discontinuously in the care and management of this patient. This time is exclusive of procedures, and includes, but is not limited to, evaluation of the patient, review of the medical record, discussions with family, consultants, nursing staff, or respiratory therapy, and documentation in the medical record. Physician Raiza Perla MD Feb 14, 2017 10:19
--- NOTE | 2017-02-14 10:45 | RADRPT ---
EXAM DATE/TIME: 02/12/2017 14:31 [facility] COMPARISON: No previous studies available for comparison. INDICATIONS : Insulinoma. RADIATION DOSE: 5.31 CTDIvol (mGy) DOSE: 5.1 mCi Indium-111 OctreoScan IV SPECT/CT imaging with fusion was performed. SPECT IMAGIN hrs, 48 hrs MEDICAL HISTORY : Hypertension. Stroke Congestive heart failure. Hypoglycemia and coronary artery disease. SURGICAL HISTORY : CABG Pacemaker. ENCOUNTER: Initial ACUITY: 1 week PAIN SCALE: 0/10 LOCATION: Abdomen. TECHNIQUE: The patient was monitored during injection of indium labeled octreotide. SPECT imaging was performed at the specified times. FINDINGS: There is no abnormal biodistribution of radiotracer. Normal biodistribution is present in the spleen and kidneys. There is no uptake in or around the pancreatic bed to confirm insulinoma. Up to 15% of insulinoma is do not show uptake with the isotope Endoscopic ultrasound is thought to be a sensitive modality to screen for such as well with appropria te biochemical evidence. CONCLUSION: Negative study. Erwin Peterson MD FACR on February 14, 2017 at 10:23 Board Certified Radiologist. This report was verified electronically.
[2017-02-14] MEDS: SODIUM CHLORIDE 0.9% FLUSH 10 ML FLUSH IV FLUSH SCH ×2 (11:20→20:33)
[2017-02-14] MEDS: SODIUM CHLORIDE 0.9% FLUSH 10 ML FLUSH IVF SCH (11:20)
[2017-02-14] MEDS: SPIRONOLACTONE 25 MG TAB PO SCH (11:33)
[2017-02-14] MEDS: METOPROLOL TARTRATE 25 MG TAB PO SCH (11:33)
--- NOTE | 2017-02-14 13:31 | PD.CARD.PN ---
Subjective Subjective Remarks overnight events noted critically ill Coded ACLS Objective Medications Current Medications Medications (Trade) Dose Ordered Sig/Wilbur Route Start Time Stop Time Status Last Admin (NS Flush) 2 ml UNSCH PRN IV FLUSH 01/31/17 13:15 (NS Flush) 2 ml BID IV FLUSH 01/31/17 21:00 02/14/17 11:20 (Tylenol) 650 mg Q6H PRN PO 01/31/17 13:15 02/06/17 20:18 Miscellaneous Information 1 [id number] XX 01/31/17 13:15 01/31/17 13:15 (Chlorhexidine 2% Cloth) Taper DAILY@04 TOP 02/01/17 04:00 01/28/18 03:59 02/03/17 04:00 (Chlorhexidine 2% Cloth) 3 pack UNSCH PRN TOP 01/31/17 13:15 Levetriacetam 500 mg/Sodium Chloride 105 ml @ 420 mls/hr Q8H IV 02/01/17 11:00 02/14/17 11:17 (Bactroban Nasal 2% Oint) 1 applic BID NASAL 02/02/17 09:00 02/13/17 15:48 (Lactulose Liq) 30 ml BID PO 02/02/17 21:00 02/13/17 20:21 (Bactroban Nasal 2% Oint) Taper BID EACH NARE 02/04/17 09:00 01/31/18 08:59 02/14/17 09:46 (Albuterol Neb) 2.5 mg Q2HR NEB PRN NEB 02/04/17 07:15 02/13/17 03:31 (Theragran) 1 tab DAILY PO 02/04/17 09:00 02/13/17 15:48 (Colace Liq) 100 mg Q12HR PO 02/04/17 09:00 02/13/17 20:21 (Senna Liq) 8.8 mg BID PO 02/04/17 09:00 02/13/17 20:21 (NS Flush) DAILY IVF 02/04/17 09:00 02/14/17 11:20 (NS Flush) UNSCH PRN IVF 02/04/17 08:15 Patient Own Medication PT OWN MED: CRESTOR... DAILY PO 02/05/17 09:00 Future Hold (Eliquis) 5 mg BID PO 02/07/17 21:00 02/13/17 20:21 (Aspirin Chew) 81 mg DAILY PO 02/09/17 09:00 02/13/17 15:48 (Lopressor) 25 mg DAILY PO 02/09/17 09:00 02/14/17 11:33 (Aldactone) 25 mg DAILY PO 02/09/17 09:00 02/14/17 11:33 (D50w (Vial) Inj) 50 ml UNSCH PRN IV 02/10/17 23:30 Propofol 100 ml @ 3.174 mls/ hr TITRATE PRN IV 02/12/17 22:00 02/13/17 21:27 (SoluCORTEF INJ) 100 mg Q8H IV PUSH 02/13/17 12:00 02/14/17 11:18 (Peridex 0.12% Liq) 15 ml BID@08,20 MT 02/13/17 20:00 02/13/17 20:20 (Lasix Inj) 40 mg Q12H IV PUSH 02/13/17 12:00 02/14/17 11:17 Linezolid 300 ml @ 300 mls/hr Q12H IV 02/13/17 12:00 02/16/17 12:59 02/14/17 11:17 Cefepime HCl 1000 mg/Sodium Chloride 100 ml @ 200 mls/hr Q12H IV 02/13/17 15:00 02/14/17 03:17 Sodium Bicarbonate 150 meq/Dextrose 1,150 ml @ 100 mls/hr [id number] IV 02/14/17 06:00 02/14/17 06:22 Epinephrine HCl 8 mg/Dextrose 250 ml @ 5.62 mls/hr TITRATE PRN IV 02/14/17 09:45 Norepinephrine Bitartrate 16 mg/ Dextrose 250 ml @ 1.87 mls/hr TITRATE PRN IV 02/14/17 09:45 02/14/17 09:59 Phenylephrine HCl 160 mg/Dextrose 500 ml @ 7.5 mls/hr TITRATE PRN IV 02/14/17 09:45 (Brethine Inj) 1 mg UNSCH PRN SQ 02/14/17 09:45 (Pepcid) 10 mg BID TUBE 02/14/17 21:00 Vital Signs / I&O Vital Signs Date Time Temp Pulse Resp B/P (MAP) Pulse Ox O2 Delivery O2 Flow Rate FiO2 02/14/17 13:26 96 70 02/14/17 09:59 69 118/89 02/14/17 08:37 69 110/83 02/14/17 06:45 68 02/14/17 06:00 69 02/14/17 04:00 69 02/14/17 04:00 97.7 69 16 69/50 (56) 99 91/68 (76) 02/14/17 04:00 100 02/14/17 03:10 99 Ventilator 02/14/17 03:06 98 100 02/14/17 02:00 71 02/14/17 00:16 99 Ventilator 02/14/17 00:09 100 100 02/14/17 00:00 100 02/14/17 00:00 69 02/14/17 00:00 97.8 69 16 82/64 (70) 99 02/13/17 22:00 69 02/13/17 20:27 Ventilator 02/13/17 20:23 99 50 02/13/17 20:00 97.6 69 16 87/68 (74) 100 02/13/17 20:00 100 02/13/17 20:00 69 02/13/17 18:00 69 02/13/17 17:00 72 91/63 02/13/17 16:38 96 50 02/13/17 16:00 98.3 71 18 125/69 (87) 100 02/13/17 16:00 72 02/13/17 14:00 69 02/13/17 13:45 100 50 I/O 02/13/17 02/13/17 02/13/17 02/14/17 02/14/17 02/14/17 07:00 15:00 23:00 07:00 15:00 23:00 Intake Total 0 ml 505 ml 1374 ml Output Total 100 ml 250 ml 200 ml Balance -100 ml 255 ml 1174 ml Intake Oral 0 ml IV Total 505 ml 1067 ml Tube Feeding 0 ml 307 ml Output Urine Total 100 ml 250 ml 200 ml # Voids 1 8 # Bowel Movements 1 0 0 1 Physical Exam GENERAL: Sedated, intubated SKIN: Warm and dry. HEAD: Normocephalic. EYES: No scleral icterus. No injection or drainage. NECK: Supple, trachea midline. No JVD or lymphadenopathy. CARDIOVASCULAR: Regular rate and rhythm without murmurs, gallops, or rubs. RESPIRATORY: Breath sounds equal bilaterally. No accessory muscle use. GASTROINTESTINAL: Abdomen soft, non-tender, nondistended. EXTREMITIES: No cyanosis Laboratory Laboratory Tests Test 02/13/17 13:45 02/13/17 14:29 02/13/17 18:05 02/14/17 05:06 Ammonia 31 MCMOL/L Lactic Acid Level 3.1 mmol/L 4.8 mmol/L Blood Gas Puncture Site ART LINE Blood Gas Patient Temperature 98.6 Blood Gas HCO3 13 mmol/L Blood Gas Base Excess -11.3 mmol/L Blood Gas Oxygen Saturation 98 % Arterial Blood pH 7.38 Arterial Blood Partial Pressure CO2 22 mmHg Arterial Blood Partial Pressure O2 219 mmHg Arterial Blood Oxygen Content 16.2 Vol % Arterial Blood Carboxyhemoglobin 1.0 % Arterial Blood Methemoglobin 1.0 % Blood Gas Hemoglobin 11.5 G/DL Oxygen Delivery Device VENTILATOR Blood Gas Ventilator Setting PRVC/AC Blood Gas Inspired Oxygen 100 % Test 02/14/17 05:40 02/14/17 09:22 White Blood Count 8.2 TH/MM3 Red Blood Count 4.64 MIL/MM3 Hemoglobin 12.3 GM/DL Hematocrit 39.4 % Mean Corpuscular Volume 84.8 FL Mean Corpuscular Hemoglobin 26.4 PG Mean Corpuscular Hemoglobin Concent 31.2 % Red Cell Distribution Width 22.8 % Platelet Count 407 TH/MM3 Mean Platelet Volume 8.9 FL Neutrophils (%) (Auto) 87.5 % Lymphocytes (%) (Auto) 4.7 % Monocytes (%) (Auto) 7.8 % Eosinophils (%) (Auto) 0.0 % Basophils (%) (Auto) 0.0 % Neutrophils # (Auto) 7.2 TH/MM3 Lymphocytes # (Auto) 0.4 TH/MM3 Monocytes # (Auto) 0.6 TH/MM3 Eosinophils # (Auto) 0.0 TH/MM3 Basophils # (Auto) 0.0 TH/MM3 CBC Comment DIFF FINAL Differential Comment Blood Urea Nitrogen 38 MG/DL Creatinine 2.40 MG/DL Random Glucose 172 MG/DL Total Protein 6.5 GM/DL Albumin 2.7 GM/DL Calcium Level 8.1 MG/DL Phosphorus Level 5.4 MG/DL Magnesium Level 2.4 MG/DL Alkaline Phosphatase 152 U/L Aspartate Amino Transf (AST/SGOT) 15 U/L Alanine Aminotransferase (ALT/SGPT) 25 U/L Total Bilirubin 1.0 MG/DL Sodium Level 138 MEQ/L Potassium Level 4.1 MEQ/L Chloride Level 107 MEQ/L Carbon Dioxide Level 15.2 MEQ/L Anion Gap 16 MEQ/L Estimat Glomerular Filtration Rate 33 ML/MIN Blood Gas Puncture Site ART LINE Blood Gas Patient Temperature 98.6 Blood Gas HCO3 10 mmol/L Blood Gas Base Excess -19.8 mmol/L Blood Gas Oxygen Saturation 97 % Arterial Blood pH 6.96 Arterial Blood Partial Pressure CO2 46 mmHg Arterial Blood Partial Pressure O2 243 mmHg Arterial Blood Oxygen Content 16.2 Vol % Arterial Blood Carboxyhemoglobin 0.0 % Arterial Blood Methemoglobin 1.1 % Blood Gas Hemoglobin 11.5 G/DL Oxygen Delivery Device VENTILATOR Blood Gas Ventilator Setting Imaging Last Impressions Chest X-Ray 02/14/17 0000 Signed Impressions: Service Date/Time: Tuesday, February 14, 2017 02:24 - CONCLUSION: A right subclavian central line without pneumothorax. Unchanged infiltrates, effusions , and cardiomegaly. Wilber Bermudez Jr., MD SPECT Scan-Tumor Localization NM 02/12/17 0000 Signed Impressions: Service Date/Time: Sunday, February 12, 2017 14:31 - CONCLUSION: Negative study. Erwin Peterson MD FACR Head CT 02/12/17 0000 Signed Impressions: Service Date/Time: Sunday, February 12, 2017 21:25 - CONCLUSION: 1. No acute infarct, acute hemorrhage, midlines shift or extra-axial bleed. 2. 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 3. Stable cerebral atrophy. 4. Mucus retention cysts within the left maxillary sinus. Alexei Russell MD Upper Extremity Ultrasound 02/01/17 0000 Signed Impressions: Service Date/Time: January 11:49 - CONCLUSION: 1. No evidence of deep venous thrombosis. Moses Juarez MD Neck CTA 01/31/17 0000 Signed Impressions: Service Date/Time: Tuesday, January 31, 2017 08:57 - CONCLUSION: 1. 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 2. String-like contrast in the left vertebral artery Wilber Alfaro MD Head CTA 01/31/17 0000 Signed Impressions: Service Date/Time: Tuesday, January 31, 2017 08:57 - CONCLUSION: Absent flow in the left internal carotid artery with reconstitution of flow in the A2 segment. There is some flow seen in the left sylvian branches of the middle cerebral artery, but the degree of vessel opacification on the left is less than on the right. Wilber Alfaro MD Cerebral Arteriogram 01/31/17 0000 Signed Impressions: Service Date/Time: Tuesday, January 31, 2017 00:00 - CONCLUSION: 1. Patient appears to have had a thrombotic or embolic event to the vertebral basilar system. The left vertebral is highly diseased throughout its course and appears to occlude just proximal to the basilar. Unable to traverse the highly diseased vessel for intervention. 2. The right vertebral is robust proximally but appears to terminate in a PICA branch with a irregular terminal vessel possibly representing the distal vertebral and proximal basilar. This appears to be chronically occluded. Russ Joseph MD Assessment and Plan Problem List: (1) Cardiomyopathy ICD Codes: I42.9 - Cardiomyopathy, unspecified Plan: Chronic CMP. Ischemic unavailable Hx. AICD in place. Currently on acute on chronic HF. Critically ill, poor prognosis. Last night the patient became increasingly acidotic started on sodium bicarbonate infusion. Subsequently went into cardiac arrest-asystole, CPR initiated the patient received 6 rounds of epinephrine, with defibrillation 1 attempt. The patient had ROSC after approximately 18 minutes. Criticality of the patient and poor prognosis. Recommendations: 1. Continue supportive care 2. Cont medical management for HF 3. Avoid electrolytes abnormalities 4. Strict I&O Case discussed with Dr. Guillen and Family Will be available on a PRN basis for any questions or concerns. (2) CVA (cerebral vascular accident) ICD Codes: I63.9 - Cerebral infarction, unspecified Status: Acute (3) Coma ICD Codes: R40.20 - Unspecified coma Status: Acute (4) Dehydration ICD Codes: E86.0 - Dehydration Status: Acute (5) Renal insufficiency ICD Codes: N28.9 - Disorder of kidney and ureter, unspecified Status: Acute Hernandez-Gavin Talley MD Feb 14, 2017 13:31
[2017-02-14 13:42] LABS: AUTOMATED NEUTROPHIL # 24.9 TH/MM3 (1.8-7.7); BASOPHIL % 0.1 % (0.0-2.0); EOSINOPHIL % 0.1 % (0.0-4.0); HEMATOCRIT 40.2 % (39.0-51.0); LYMPH % 2.8 % (9.0-44.0); LYMPHOCYTE # 0.7 TH/MM3 (1.0-4.8); MEAN CELL VOLUME 90.9 FL (80.0-100.0); MEAN CORPUSCULAR HEMOGLOBIN 26.3 PG (27.0-34.0); MONO % 3.1 % (0.0-8.0); NEUT % 93.9 % (16.0-70.0); PLATELET COUNT 331 TH/MM3 (150-450); RED BLOOD COUNT 4.42 MIL/MM3 (4.50-5.90); RED CELL DISTRIBUTION WIDTH 23.4 % (11.6-17.2); WHITE BLOOD COUNT 26.5 TH/MM3 (4.0-11.0)
[2017-02-14 13:43] LABS: HEMO FLAGS AUTO DIFF; MEAN CORPUSCULAR HGB CONC 28.9 % (32.0-36.0)
[2017-02-14 13:47] LABS: INTERNATIONAL NORMALIZED RATIO 1.8 RATIO; PROTHROMBIN TIME - PATIENT 20.1 SEC (9.8-11.6)
--- NOTE | 2017-02-14 13:53 | PD.CONS ---
Consult Service Palliative Care . Consult Requested By Dr. Guillen . Primary Care Physician Unknown . Reason for Consultation a. To assist with evaluation and management of symptoms including: dyspnea, pain. b. To assist medical decision maker(s) with: better understanding of current medical conditions; weighing benefits/burdens of medical treatment options; making medical treatment decisions. . (Charis Garrido) HPI History of Present Illness Mr. Herman is a 66 year old male with past medical history of hypertension, hypertension, CHF, CAD, prior CVA. Patient presented to [facility] emergency department on 01/31/17 via EMS for altered mental status. Notes indicate he may have been agitated the night prior and was given Xanax and he subsequently became unresponsive. He was evaluated by Dr. 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 Underwent TPA of right vertebral artery. Has been receiving antibiotics throughout his admission for S. epidermitis from suspected pacer source. He was medically extubated on . Hospital course has been complicated by hypoglycemia. 02/12/17: Later in the day the patient became more lethargic and rapid response was called. Shortly after patient was transferred to ICU. Patient was unresponsive and decision was made to intubate, however while preparing for endotracheal intubation patient woke up, was following commands on both sides and response with slow slurred speech. Eyes open spontaneously. CT scan of the head also negative for acute changes. 02/13/17: Patient with altered mental status, alert to name only stating having difficulty breathing. Stat ABG performed, PaO2 noted to be 334 on nonrebreather , with a mixed acid base disorder. Patient unable to protect airway, emergently intubated uneventfully. Patient currently on D10 at 50 cc an hour with additional supplementation of blood glucose, to maintain level. D10 increased to 100 cc an hour. Plan for Octreotide scan to today to rule out insulinoma. Diuretic increased to 40 mg twice a day secondary to the increased dosing of fluid in a patient with noted EF less than 20% and severe TR. Will also supplement with hydrocortisone 3 times a day. 02/14/17: patient had asystolic arrest. ACLS initiated with ROSC after about 18 minutes. Patient received a total of 6 doses of epinephrine, 2 A of bicarbonate , 1 g of calcium and 1 g of magnesium during the code. The patient continues on multiple vasopressors to include norepinephrine, epinephrine, vasopressin, and sodium bicarbonate infusions. Repeat ABG postcardiac arrest, severe metabolic acidosis with a pH of 6.95. Additional supplementation of sodium bicarbonate infused. Creatinine on admission was 1.59 that subsequently improved to 0.8, now 2.40, oliguric. Nephrology indicates patient is not a candidate for dialysis. Palliative care is consulted to assist with further clarification of treatment goals. . Function/Cognitive Trajectory Patient has had trajectory of decline per family report over the past 3 years. He was able to get up from bed to prior to admission with help and dependent for most of his care. He was incontinent and eating very little. . (Charis Garrido) Review of Systems ROS Limitations: Intubated, Unresponsive Constitutional: COMPLAINS OF: Change in appetite (decreased. ), Generalized weakness Respiratory: COMPLAINS OF: Shortness of breath Cardiovascular: COMPLAINS OF: Dyspnea on Exertion Genitourinary: COMPLAINS OF: Urinary incontinence Hematologic/Lymphatics: COMPLAINS OF: Bruising (Charis Garrido) Past Family Social History Coded Allergies: hydrochlorothiazide (Verified Allergy, Severe, Edema, 01/31/17) atorvastatin (Verified Allergy, Unknown, 01/31/17) morphine (Verified Allergy, Unknown, 01/31/17) MRI PRECAUTION (Verified Adverse Reaction, Severe, NON COMPATIBLE PACEMAKER. LRS 01/31/17, 01/31/17) Past Medical History Hypertension Hyperlipidemia CHF CAD Previous CVA general debility . Past Surgical History CABG Pacer/AICD Has midline abdominal scar, surgery done not known . Reported Medications Reported Meds & Active Scripts Active Macrobid (Nitrofurantoin Monoh/Nitrofur Macro) 100 Mg Cap 100 Mg PO BID 7 Days Flagyl (Metronidazole) 500 Mg Tab 500 Mg PO Q8HR 7 Days Trazodone (Trazodone HCl) 50 Mg Tab 50 Mg PO HS Spironolactone 25 Mg Tab 25 Mg PO DAILY Rosuvastatin (Rosuvastatin Calcium) 20 Mg Tab 20 Mg PO DAILY Mirtazapine 7.5 Mg Tab 7.5 Mg PO HS Metoprolol Tartrate 25 Mg Tab 25 Mg PO DAILY Furosemide 40 Mg Tab 40 Mg PO DAILY Buspirone (Buspirone HCl) 7.5 Mg Tab 7.5 Mg PO TID 30 Days Eliquis (Apixaban) 5 Mg Tab 5 Mg PO BID Reported Wheeler-3 Fish Oil/Vitamin (Fish Oil-Cholecalciferol) 1,000-1,000 Mg Cap 1 Cap PO DAILY Multiple Vitamin 1 Tab 1 Tab PO DAILY Aspirin 81 Mg Chew 81 Mg PO DAILY Tylenol (Acetaminophen) 325 Mg Tab 325 Mg PO Q4H PRN . Current Medications Medications (Trade) Dose Ordered Sig/Wilbur Route Start Time Stop Time Status Last Admin (NS Flush) 2 ml UNSCH PRN IV FLUSH 01/31/17 13:15 (NS Flush) 2 ml BID IV FLUSH 01/31/17 21:00 02/14/17 11:20 (Tylenol) 650 mg Q6H PRN PO 01/31/17 13:15 02/06/17 20:18 Miscellaneous Information 1 [id number] XX 01/31/17 13:15 01/31/17 13:15 (Chlorhexidine 2% Cloth) Taper DAILY@04 TOP 02/01/17 04:00 01/28/18 03:59 02/03/17 04:00 (Chlorhexidine 2% Cloth) 3 pack UNSCH PRN TOP 01/31/17 13:15 Levetriacetam 500 mg/Sodium Chloride 105 ml @ 420 mls/hr Q8H IV 02/01/17 11:00 02/14/17 11:17 (Bactroban Nasal 2% Oint) 1 applic BID NASAL 02/02/17 09:00 02/13/17 15:48 (Lactulose Liq) 30 ml BID PO 02/02/17 21:00 02/13/17 20:21 (Bactroban Nasal 2% Oint) Taper BID EACH NARE 02/04/17 09:00 01/31/18 08:59 02/14/17 09:46 (Albuterol Neb) 2.5 mg Q2HR NEB PRN NEB 02/04/17 07:15 02/13/17 03:31 (Theragran) 1 tab DAILY PO 02/04/17 09:00 02/13/17 15:48 (Colace Liq) 100 mg Q12HR PO 02/04/17 09:00 02/13/17 20:21 (Senna Liq) 8.8 mg BID PO 02/04/17 09:00 02/13/17 20:21 (NS Flush) DAILY IVF 02/04/17 09:00 02/14/17 11:20 (NS Flush) UNSCH PRN IVF 02/04/17 08:15 Patient Own Medication PT OWN MED: CRESTOR... DAILY PO 02/05/17 09:00 Future Hold (Eliquis) 5 mg BID PO 02/07/17 21:00 02/13/17 20:21 (Aspirin Chew) 81 mg DAILY PO 02/09/17 09:00 02/13/17 15:48 (Lopressor) 25 mg DAILY PO 02/09/17 09:00 02/14/17 11:33 (Aldactone) 25 mg DAILY PO 02/09/17 09:00 02/14/17 11:33 (D50w (Vial) Inj) 50 ml UNSCH PRN IV 02/10/17 23:30 Propofol 100 ml @ 3.174 mls/ hr TITRATE PRN IV 02/12/17 22:00 02/13/17 21:27 (SoluCORTEF INJ) 100 mg Q8H IV PUSH 02/13/17 12:00 02/14/17 11:18 (Peridex 0.12% Liq) 15 ml BID@08,20 MT 02/13/17 20:00 02/13/17 20:20 (Lasix Inj) 40 mg Q12H IV PUSH 02/13/17 12:00 02/14/17 11:17 Linezolid 300 ml @ 300 mls/hr Q12H IV 02/13/17 12:00 02/16/17 12:59 02/14/17 11:17 Cefepime HCl 1000 mg/Sodium Chloride 100 ml @ 200 mls/hr Q12H IV 02/13/17 15:00 02/14/17 03:17 Sodium Bicarbonate 150 meq/Dextrose 1,150 ml @ 100 mls/hr [id number] IV 02/14/17 06:00 02/14/17 06:22 Epinephrine HCl 8 mg/Dextrose 250 ml @ 5.62 mls/hr TITRATE PRN IV 02/14/17 09:45 Norepinephrine Bitartrate 16 mg/ Dextrose 250 ml @ 1.87 mls/hr TITRATE PRN IV 02/14/17 09:45 02/14/17 09:59 Phenylephrine HCl 160 mg/Dextrose 500 ml @ 7.5 mls/hr TITRATE PRN IV 02/14/17 09:45 (Brethine Inj) 1 mg UNSCH PRN SQ 02/14/17 09:45 (Pepcid) 10 mg BID TUBE 02/14/17 21:00 . Substance Use Tobacco: Never smoked. Alcohol: None. Prescription med abuse: None. Illicits: None. . (Charis Garrido) Family History Family history positive for heart disease and hypertension. . Psychosocial History * Single * 4 children (Alana Avalos- daughter, Martin Rae-daughter, Mahendra Chambers- daughter, Yasir Herman- son) * Unable to work due to generalized weakness, was not working recently . Spiritual/Cultural Factors Zoroastrianism. [facility] executive services administrator support. . (Vianca Bermudez FIELD HEALTH OFFICER, NANOTECHNOLOGY ENGINEERING TECHNOLOGIST) Ethical and Legal Issues Patient incapacitated, will not likely regain capacity. According to [place] statutes, health care care proxy decision making falls to the majority of adult children. Patient has 3 daughters and 1 son. 1 daughter Mahendra DOES NOT to participate, other 3 children Alana, Yasir and Martin want to serve in health care proxy decision makers. . (Charis Garrido) Living Will: Never completed Health Care Surrogate: Never completed Durable Power of Autocad Electrical Designer: Never completed Health Care Surrogate(s): No written advanced directives. Per [place] Statutes, medical proxy decision making falls to the majority of adult children. Mr. Herman has 4 children. . Today's verbally stated goals: Palliative care spoke with: * Martin Rae, daughter: desires to participate in decision making. Verbalizes all aggressive measures continue including Full Code. * Mahendra Chambers, daughter: unable to leave a message * Yasir Ramirez, son: desires to participate in decision making. Currently on his way to the hospital- will meet with palliative care upon arrival. * Alana Avalos, daughter: left multiple messages requesting call back . (Vianca Bermudez FIELD HEALTH OFFICER, NANOTECHNOLOGY ENGINEERING TECHNOLOGIST) Physical Exam Vital Signs Date Time Temp Pulse Resp B/P (MAP) Pulse Ox O2 Delivery O2 Flow Rate FiO2 02/14/17 13:26 96 70 02/14/17 09:59 69 118/89 02/14/17 08:37 69 110/83 02/14/17 06:45 68 02/14/17 06:00 69 02/14/17 04:00 69 02/14/17 04:00 97.7 69 16 69/50 (56) 99 91/68 (76) 02/14/17 04:00 100 02/14/17 03:10 99 Ventilator 02/14/17 03:06 98 100 02/14/17 02:00 71 02/14/17 00:16 99 Ventilator 02/14/17 00:09 100 100 02/14/17 00:00 100 02/14/17 00:00 69 02/14/17 00:00 97.8 69 16 82/64 (70) 99 02/13/17 22:00 69 02/13/17 20:27 Ventilator 02/13/17 20:23 99 50 02/13/17 20:00 97.6 69 16 87/68 (74) 100 02/13/17 20:00 100 02/13/17 20:00 69 02/13/17 18:00 69 02/13/17 17:00 72 91/63 02/13/17 16:38 96 50 02/13/17 16:00 98.3 71 18 125/69 (87) 100 02/13/17 16:00 72 02/13/17 14:00 69 02/13/17 13:45 100 50 Exam CONSTITUTIONAL/GENERAL: This is an elderly, frail, critically ill patient, agonal respirations on mech vent. TUBES/LINES/DRAINS: ETT, OG, right subclavian central line, PIV left, right A line, Rabago, SCDs, pacemaker/AICD. SKIN: Cool. Ecchymoses on upper extremities. HEAD: Atraumatic. Normocephalic. EYES: Pupils equal. Dry eyes. Not blinking. ENT: Unable to assess hearing. Nose without bleeding or purulent drainage. Throat difficult to visualize due to tubes. NECK: Trachea midline. CARDIOVASCULAR: Irregular, runs of V. Tach, PVCs on telemetry. Systolic murmur. RESPIRATORY/CHEST: Agonal respiration on vent. Diminished breath sounds. Scattered course breath sounds. GASTROINTESTINAL: Abdomen distended. Hypoactive bowel sounds. GENITOURINARY: Without palpable bladder distension. Rabago catheter in place. MUSCULOSKELETAL: Extremities with edema. Feet cold to touch. LYMPHATICS: No palpable cervical or supraclavicular adenopathy. NEUROLOGICAL: Unresponsive. No cough or gag per nurse. PSYCHIATRIC: Unresponsive. . (Charis Garrido) Diagnostic Tests Laboratory Laboratory Tests Test 02/12/17 17:35 02/12/17 20:41 02/13/17 05:07 02/13/17 09:40 Nasal Screen MRSA (PCR) MRSA DETECTED (NOT DETECT) Blood Gas Puncture Site RT RADIAL RT RADIAL RT BRACHIAL Blood Gas Patient Temperature 98.6 98.6 98.6 Blood Gas HCO3 21 mmol/L (22-26) 18 mmol/L (22-26) 16 mmol/L (22-26) Blood Gas Base Excess -3.0 mmol/L (-2-2) -5.9 mmol/L (-2-2) -7.6 mmol/L (-2-2) Blood Gas Oxygen Saturation 98 % (90-100) 98 % (90-100) 98 % (90-100) Arterial Blood pH 7.44 (7.380-7.420) 7.42 (7.380-7.420) 7.47 (7.380-7.420) Arterial Blood Partial Pressure CO2 30 mmHg (38-42) 28 mmHg (38-42) 22 mmHg (38-42) Arterial Blood Partial Pressure O2 488 mmHg (61-120) 255 mmHg (61-120) 335 mmHg (61-120) Arterial Blood Oxygen Content 16.4 Vol % (12.0-20.0) 15.5 Vol % (12.0-20.0) 16.0 Vol % (12.0-20.0) Arterial Blood Carboxyhemoglobin 1.1 % (0-4) 1.1 % (0-4) 1.1 % (0-4) Arterial Blood Methemoglobin 0.9 % (0-2) 0.9 % (0-2) 0.8 % (0-2) Blood Gas Hemoglobin 11.0 G/DL (12.0-16.0) 10.9 G/DL (12.0-16.0) 11.0 G/DL (12.0-16.0) Oxygen Delivery Device NONREBREATHER Non-Rebreathing Mask NRB Blood Gas Liter Flow 15 L/M 15 L/M 15 L/M White Blood Count 6.8 TH/MM3 (4.0-11.0) Red Blood Count 3.32 MIL/MM3 (4.50-5.90) Hemoglobin 9.4 GM/DL (13.0-17.0) Hematocrit 29.0 % (39.0-51.0) Mean Corpuscular Volume 87.4 FL (80.0-100.0) Mean Corpuscular Hemoglobin 28.3 PG (27.0-34.0) Mean Corpuscular Hemoglobin Concent 32.4 % (32.0-36.0) Red Cell Distribution Width 17.6 % (11.6-17.2) Platelet Count 123 TH/MM3 (150-450) Mean Platelet Volume 8.1 FL (7.0-11.0) Neutrophils (%) (Auto) 70.8 % (16.0-70.0) Lymphocytes (%) (Auto) 20.1 % (9.0-44.0) Monocytes (%) (Auto) 7.1 % (0.0-8.0) Eosinophils (%) (Auto) 1.4 % (0.0-4.0) Basophils (%) (Auto) 0.6 % (0.0-2.0) Neutrophils # (Auto) 4.8 TH/MM3 (1.8-7.7) Lymphocytes # (Auto) 1.4 TH/MM3 (1.0-4.8) Monocytes # (Auto) 0.5 TH/MM3 (0-0.9) Eosinophils # (Auto) 0.1 TH/MM3 (0-0.4) Basophils # (Auto) 0.0 TH/MM3 (0-0.2) CBC Comment DIFF FINAL Differential Comment Blood Gas Inspired Oxygen 100 % 100 % Test 02/13/17 10:10 02/13/17 10:16 02/13/17 13:45 02/13/17 14:29 White Blood Count 8.3 TH/MM3 (4.0-11.0) Red Blood Count 4.20 MIL/MM3 (4.50-5.90) Hemoglobin 11.1 GM/DL (13.0-17.0) Hematocrit 34.8 % (39.0-51.0) Mean Corpuscular Volume 83.0 FL (80.0-100.0) Mean Corpuscular Hemoglobin 26.4 PG (27.0-34.0) Mean Corpuscular Hemoglobin Concent 31.8 % (32.0-36.0) Red Cell Distribution Width 22.7 % (11.6-17.2) Platelet Count 357 TH/MM3 (150-450) Mean Platelet Volume 9.4 FL (7.0-11.0) Neutrophils (%) (Auto) 87.2 % (16.0-70.0) Lymphocytes (%) (Auto) 3.4 % (9.0-44.0) Monocytes (%) (Auto) 9.3 % (0.0-8.0) Eosinophils (%) (Auto) 0.0 % (0.0-4.0) Basophils (%) (Auto) 0.1 % (0.0-2.0) Neutrophils # (Auto) 7.3 TH/MM3 (1.8-7.7) Lymphocytes # (Auto) 0.3 TH/MM3 (1.0-4.8) Monocytes # (Auto) 0.8 TH/MM3 (0-0.9) Eosinophils # (Auto) 0.0 TH/MM3 (0-0.4) Basophils # (Auto) 0.0 TH/MM3 (0-0.2) CBC Comment DIFF FINAL Differential Comment Blood Urea Nitrogen 36 MG/DL (7-18) Creatinine 2.16 MG/DL (0.60-1.30) Random Glucose 138 MG/DL (74-106) Total Protein 6.2 GM/DL (6.4-8.2) Albumin 2.7 GM/DL (3.4-5.0) Calcium Level 8.1 MG/DL (8.5-10.1) Phosphorus Level 4.8 MG/DL (2.5-4.9) Magnesium Level 2.3 MG/DL (1.5-2.5) Alkaline Phosphatase 133 U/L (45-117) Aspartate Amino Transf (AST/SGOT) 13 U/L (15-37) Alanine Aminotransferase (ALT/SGPT) 25 U/L (12-78) Total Bilirubin 1.1 MG/DL (0.2-1.0) Sodium Level 138 MEQ/L (136-145) Potassium Level 3.5 MEQ/L (3.5-5.1) Chloride Level 106 MEQ/L (98-107) Carbon Dioxide Level 20.5 MEQ/L (21.0-32.0) Anion Gap 12 MEQ/L (5-15) Estimat Glomerular Filtration Rate 37 ML/MIN (>89) B-Type Natriuretic Peptide GREATER THAN 5000 PG/ML Blood Gas Puncture Site ART LINE Blood Gas Patient Temperature 98.6 Blood Gas HCO3 16 mmol/L (22-26) Blood Gas Base Excess -7.4 mmol/L (-2-2) Blood Gas Oxygen Saturation 98 % (90-100) Arterial Blood pH 7.43 (7.380-7.420) Arterial Blood Partial Pressure CO2 25 mmHg (38-42) Arterial Blood Partial Pressure O2 337 mmHg (61-120) Arterial Blood Oxygen Content 16.4 Vol % (12.0-20.0) Arterial Blood Carboxyhemoglobin 1.1 % (0-4) Arterial Blood Methemoglobin 0.9 % (0-2) Blood Gas Hemoglobin 11.3 G/DL (12.0-16.0) Oxygen Delivery Device VENTILATOR Blood Gas Ventilator Setting 16/500/1.0/PEEP5 Blood Gas Inspired Oxygen 100 % Ammonia 31 MCMOL/L (11-32) Lactic Acid Level 3.1 mmol/L (0.4-2.0) Test 02/13/17 18:05 02/14/17 05:06 02/14/17 05:40 02/14/17 09:22 Lactic Acid Level 4.8 mmol/L (0.4-2.0) Blood Gas Puncture Site ART LINE ART LINE Blood Gas Patient Temperature 98.6 98.6 Blood Gas HCO3 13 mmol/L (22-26) 10 mmol/L (22-26) Blood Gas Base Excess -11.3 mmol/L (-2-2) -19.8 mmol/L (-2-2) Blood Gas Oxygen Saturation 98 % (90-100) 97 % (90-100) Arterial Blood pH 7.38 (7.380-7.420) 6.96 (7.380-7.420) Arterial Blood Partial Pressure CO2 22 mmHg (38-42) 46 mmHg (38-42) Arterial Blood Partial Pressure O2 219 mmHg (61-120) 243 mmHg (61-120) Arterial Blood Oxygen Content 16.2 Vol % (12.0-20.0) 16.2 Vol % (12.0-20.0) Arterial Blood Carboxyhemoglobin 1.0 % (0-4) 0.0 % (0-4) Arterial Blood Methemoglobin 1.0 % (0-2) 1.1 % (0-2) Blood Gas Hemoglobin 11.5 G/DL (12.0-16.0) 11.5 G/DL (12.0-16.0) Oxygen Delivery Device VENTILATOR VENTILATOR Blood Gas Ventilator Setting PRVC/AC Blood Gas Inspired Oxygen 100 % White Blood Count 8.2 TH/MM3 (4.0-11.0) Red Blood Count 4.64 MIL/MM3 (4.50-5.90) Hemoglobin 12.3 GM/DL (13.0-17.0) Hematocrit 39.4 % (39.0-51.0) Mean Corpuscular Volume 84.8 FL (80.0-100.0) Mean Corpuscular Hemoglobin 26.4 PG (27.0-34.0) Mean Corpuscular Hemoglobin Concent 31.2 % (32.0-36.0) Red Cell Distribution Width 22.8 % (11.6-17.2) Platelet Count 407 TH/MM3 (150-450) Mean Platelet Volume 8.9 FL (7.0-11.0) Neutrophils (%) (Auto) 87.5 % (16.0-70.0) Lymphocytes (%) (Auto) 4.7 % (9.0-44.0) Monocytes (%) (Auto) 7.8 % (0.0-8.0) Eosinophils (%) (Auto) 0.0 % (0.0-4.0) Basophils (%) (Auto) 0.0 % (0.0-2.0) Neutrophils # (Auto) 7.2 TH/MM3 (1.8-7.7) Lymphocytes # (Auto) 0.4 TH/MM3 (1.0-4.8) Monocytes # (Auto) 0.6 TH/MM3 (0-0.9) Eosinophils # (Auto) 0.0 TH/MM3 (0-0.4) Basophils # (Auto) 0.0 TH/MM3 (0-0.2) CBC Comment DIFF FINAL Differential Comment Blood Urea Nitrogen 38 MG/DL (7-18) Creatinine 2.40 MG/DL (0.60-1.30) Random Glucose 172 MG/DL (74-106) Total Protein 6.5 GM/DL (6.4-8.2) Albumin 2.7 GM/DL (3.4-5.0) Calcium Level 8.1 MG/DL (8.5-10.1) Phosphorus Level 5.4 MG/DL (2.5-4.9) Magnesium Level 2.4 MG/DL (1.5-2.5) Alkaline Phosphatase 152 U/L (45-117) Aspartate Amino Transf (AST/SGOT) 15 U/L (15-37) Alanine Aminotransferase (ALT/SGPT) 25 U/L (12-78) Total Bilirubin 1.0 MG/DL (0.2-1.0) Sodium Level 138 MEQ/L (136-145) Potassium Level 4.1 MEQ/L (3.5-5.1) Chloride Level 107 MEQ/L (98-107) Carbon Dioxide Level 15.2 MEQ/L (21.0-32.0) Anion Gap 16 MEQ/L (5-15) Estimat Glomerular Filtration Rate 33 ML/MIN (>89) Test 02/14/17 13:12 (Charis Garrido) Result Diagram: 02/14/17 0540 02/14/17 0540 Microbiology Microbiology Date/Time Source Procedure Growth Status 02/14/17 05:40 Blood Peripheral Aerobic Blood Culture Pending Received 02/14/17 05:40 Blood Peripheral Anaerobic Blood Culture Pending Received 02/14/17 05:32 Blood Peripheral Aerobic Blood Culture Pending Received 02/14/17 05:32 Blood Peripheral Anaerobic Blood Culture Pending Received Imaging Last Impressions Chest X-Ray 02/14/17 0000 Signed Impressions: Service Date/Time: Tuesday, February 14, 2017 02:24 - CONCLUSION: A right subclavian central line without pneumothorax. Unchanged infiltrates, effusions , and cardiomegaly. Wilber Bermudez Jr., MD SPECT Scan-Tumor Localization NM 02/12/17 0000 Signed Impressions: Service Date/Time: Sunday, February 12, 2017 14:31 - CONCLUSION: Negative study. Erwin Peterson MD FACR Head CT 02/12/17 0000 Signed Impressions: Service Date/Time: Sunday, February 12, 2017 21:25 - CONCLUSION: 1. No acute infarct, acute hemorrhage, midlines shift or extra-axial bleed. 2. 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 3. Stable cerebral atrophy. 4. Mucus retention cysts within the left maxillary sinus. Alexei Russell MD Upper Extremity Ultrasound 02/01/17 Signed Impressions: Service Date/Time: January 11:49 - CONCLUSION: 1. No evidence of deep venous thrombosis. Moses Juarez MD Neck CTA 01/31/17 Signed Impressions: Service Date/Time: Tuesday, January 31, 2017 08:57 - CONCLUSION: 1. 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 2. String-like contrast in the left vertebral artery Wilber Alfaro MD Head CTA 01/31/17 Signed Impressions: Service Date/Time: Tuesday, January 31, 2017 08:57 - CONCLUSION: Absent flow in the left internal carotid artery with reconstitution of flow in the A2 segment. There is some flow seen in the left sylvian branches of the middle cerebral artery, but the degree of vessel opacification on the left is less than on the right. Wilber Alfaro MD Cerebral Arteriogram 01/31/17 Signed Impressions: Service Date/Time: Tuesday, January 31, 2017 00:00 - CONCLUSION: 1. Patient appears to have had a thrombotic or embolic event to the vertebral basilar system. The left vertebral is highly diseased throughout its course and appears to occlude just proximal to the basilar. Unable to traverse the highly diseased vessel for intervention. 2. The right vertebral is robust proximally but appears to terminate in a PICA branch with a irregular terminal vessel possibly representing the distal vertebral and proximal basilar. This appears to be chronically occluded. Russ Joseph MD . (Charis Garrido) Patient/Family Conference Present at Family Conference: Spoke with: * Martin Rae, daughter: desires to participate in decision making. Verbalizes all aggressive measures continue including Full Code. * Mahendra Chambers, daughter: DOES NOT want to participate in decision making. * Yasir Herman, son: desires to participate in decision making. He seems open to considering comfort measures, though says sounds like my sisters want them to CODE him again. Encouraged family speak. Offered family meeting - he will let me know. * Alana Avalos, daughter: Spoke with Alana via phone desires to participate in decision making. Verbalizes all aggressive measures continue including Full Code. She is asking questions about hospice and palliative care though verbalizes desire for continued aggressive care and FULL CODE. She wants everything done to keep him alive. I explained goals are not currently hospice appropriate, and reviewed comfort measures and when hospice would be offered. I offered family meeting. She told me to call when her siblings arrive. Per son other siblings have already visited and do not intend to come back tonight. . Family Conference Time (mins): 100 Family Conference Location: Hallway, Telephone Issues Discussed: * Palliative care role, purpose, approach * Additional medical, psychosocial, and spiritual history * Patients general health, functional status, and cognitive changes in the months leading up to the current hospitalization * Patient/family understanding of the current medical problems * Patient/family understanding of prognosis * Patients goals of care as best understood from advance directives and/or conversations and/or values * Current medical treatment options and benefits/burdens of those options * Likely scenarios comparing ongoing aggressive care with a transition to comfort measures only * Questions answered to the best of my ability * Palliative care contact information provided Goals are aggressive. . (Charis Garrido) Assessment and Plan Disease Oriented Problem List: (1) Asystole (2) Respiratory failure (3) Cardiomyopathy Comment: EF 15-20% (4) Renal insufficiency (5) Dehydration (6) CVA (cerebral vascular accident) Symptom Scale: (1) Pain 0-10 Scale: Unable to quantify (2) Dyspnea 0-10 Scale: Unable to quantify (3) Generalized weakness 0-10 Scale: Unable to quantify Pertinent Non-Medical Issues Psychosocial: Single. Has 4 children. Spiritual: Zoroastrianism emil, welcomes executive services administrator support. Julito Abraham has been visiting. Legal:Patient incapacitated, will not likely regain capacity. According to [place] statutes, health care care proxy decision making falls to the majority of adult children. Patient has 3 daughters and 1 son. 1 daughter Mahendra DOES NOT to participate, other 3 children Alana, Yasir and Ashstraya want to serve in health care proxy decision makers. Ethical issues impacting care: No known concerns at this time. . Important Contacts * Martin Rae, daughter: desires to participate in decision making. * Mahendra Chambers, daughter: unable to leave a message. Requested family provide palliative care number. [phone] * Yasir Herman, son: desires to participate in decision making. [phone] * Alana Avalos, daughter: desires to participate in decision making. [phone] . Prognosis Mr. Herman is a 66 year old male with HTN, CAD, CHF, cardiomegaly and cardiomyopathy EF 15-20% who suffered asystolic arrest on . Poor prognosis for meaningful recovery. . Code Status: Full Code Plan * Patient incapacitated, will not likely regain capacity. According to [place] statutes, health care care proxy decision making falls to the majority of adult children. Patient has 3 daughters and 1 son. 1 daughter Mahendra DOES NOT to participate, other 3 children Yasir Warner and Martin want to serve in health care proxy decision makers. * FULL CODE. * 02/14/17 - Spoke with 3 children who wish to serve as HCP decision makers and all 3 desire continued aggressive care and FULL CODE. Offered family meeting. Son seems to be considering NO CODE, though would need 2 of 3 children to agree. Son will let me know if he can arrange family meeting on 02/15/17. * Discussed with securities counselor, nephrology, ID and nursing staff. * SYMPTOMS: Pain: due to general debility, heart disease, prolonged hospital course and cardiac arrest 20 minute resuscitation today. Dyspnea: on mech vent. Off sedation, unresponsive. * Palliative care number provided. * Palliative care will continue to follow to assist with clarification of treatment goals throughout hospital course. . (Charis Garrido) Thank you for the opportunity to participate in the care of Mr. Herman. (Charis Garrido) Attestation To help prompt me to consider important information that might be impacting today's encounter and assessment, information from prior notes written by myself or my colleagues may have been "brought forward" into today's note. My signature on this note, however, is an attestation that I personally performed the exam, history, and/or decision-making noted today, and, unless otherwise indicated, the interactions with patient, family, and staff as well as the review of records all occurred today. I also attest that the listed assessment and stated plan reflect my best clinical judgment today based on the combination of historical information, prior notes, and today's exam/ interactions. When time spent is documented, it refers only to time spent today by the signer, or if indicated, combined time spent today by collaborating physician/nurse practitioner. (Charis Garrido) Charis Garrido Feb 14, 2017 13:52 Vianca Bermudez, NANOTECHNOLOGY ENGINEERING TECHNOLOGIST Feb 14, 2017 14:26
[2017-02-14 14:05] LABS: AST (GOT) 202 U/L (15-37); BLOOD UREA NITROGEN 38 MG/DL (7-18); CHLORIDE 101 MEQ/L (98-107); POTASSIUM 4.1 MEQ/L (3.5-5.1)
[2017-02-14 14:06] LABS: ALT (GPT) 97 U/L (12-78)
[2017-02-14 14:07] LABS: MAGNESIUM 2.7 MG/DL (1.5-2.5); SODIUM (NA) 139 MEQ/L (136-145)
[2017-02-14 14:08] LABS: ALKALINE PHOSPHATASE 219 U/L (45-117)
[2017-02-14 14:09] LABS: ANION GAP 22 MEQ/L (5-15); BICARBONATE 16.3 MEQ/L (21.0-32.0); TOTAL BILIRUBIN ADULT 1.5 MG/DL (0.2-1.0)
[2017-02-14 14:44] LABS: BANDS 6 % (0-6); CORRECTED NUCLEATED RBC 3 /100 WBC (0-0); METAMYELOCYTES 5 % (0-1); MYELOCYTES 1 % (0-0); NEUTROPHIL # MANUAL DIFF 24.1 TH/MM3 (1.8-7.7); POLYS (SEG NEUTROPHILS) 79 % (16-70); WBC DIFF SAMPLE 100
[2017-02-14 14:45] LABS: KERATOCYTES OCC (NORMAL); OVALOCYTES 1+ (NORMAL); PLATELET ESTIMATE SMEAR NORMAL (NORMAL); PLATELET MORPHOLOGY CLUMPED (NORMAL)
[2017-02-14 14:47] LABS: BURR CELLS 1+ (NORMAL); SCAN/DIFF FINAL DIFF MANUAL; TOXIC VACUOLATION PRESENT (NONE SEEN)
[2017-02-14] MEDS: PHENYLEPHRINE HCL 160 MG/D5W 484 ML ADMIX IV PRN ×2 (15:45)
--- NOTE | 2017-02-14 16:02 | PD.CONS ---
[facility] Service Nephrology Consult Requested By Dr. Guillen Reason for Consult BEE Primary Care Physician Unknown History of Present Illness The patient is a 66 yo AA male who presented to this facility on 01/31 for unresponsiveness. He has a significant PMHx of ischemic cardiomyopathy with EF of 20% s/p AICD, CVA, CAD, and HTN. Resides in nursing facility. On admission , he had CTA of head and neck that showed basilar occlusion. Underwent TPA of R vertebral artery. 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 Early in the AM on 02/14, he coded and was resuscitated. He developed severe acidosis and is now on pressor support along with bicarb drip. SCr on admission was 1.59 that subsequently improved to 0.8 on 02/09 but again worsened to 1.36 on 02/10 and again to 2.16 on 02/13 and again to 2.40 at consult. He was transferred to ICU on 02/13 after becoming more lethargic. Limited lab available as he has not been admitted here previously, so uncertain if any underlying CKD hx. We have been consulted for renal failure and oliguria. Noted that palliative care is on the patient's case and family at this point is requesting aggressive measures. (Naomie Salinas) Review of Systems ROS Limitations: Clinical Condition, Intubated, Unresponsive (Naomie Salinas) Past Family Social History Allergies: Coded Allergies: hydrochlorothiazide (Verified Allergy, Severe, Edema, 01/31/17) atorvastatin (Verified Allergy, Unknown, 01/31/17) morphine (Verified Allergy, Unknown, 01/31/17) MRI PRECAUTION (Verified Adverse Reaction, Severe, NON COMPATIBLE PACEMAKER. LRS 01/31/17, 01/31/17) Past Medical History Cardiomyopathy s/p AICD placement with EF of 20% HTN CVA CAD HLD Debilitation residing in residential Past Surgical History AICD placement CABG Reported Medications Macrobid (Nitrofurantoin Monoh/Nitrofur Macro) 100 Mg Cap 100 Mg PO BID 7 Days Flagyl (Metronidazole) 500 Mg Tab 500 Mg PO Q8HR 7 Days Trazodone (Trazodone HCl) 50 Mg Tab 50 Mg PO HS Spironolactone 25 Mg Tab 25 Mg PO DAILY Rosuvastatin (Rosuvastatin Calcium) 20 Mg Tab 20 Mg PO DAILY Mirtazapine 7.5 Mg Tab 7.5 Mg PO HS Metoprolol Tartrate 25 Mg Tab 25 Mg PO DAILY Furosemide 40 Mg Tab 40 Mg PO DAILY Buspirone (Buspirone HCl) 7.5 Mg Tab 7.5 Mg PO TID 30 Days Eliquis (Apixaban) 5 Mg Tab 5 Mg PO BID [place]-3 Fish Oil/Vitamin (Fish Oil-Cholecalciferol) 1,000-1,000 Mg Cap 1 Cap PO DAILY Multiple Vitamin 1 Tab 1 Tab PO DAILY Aspirin 81 Mg Chew 81 Mg PO DAILY Tylenol (Acetaminophen) 325 Mg Tab 325 Mg PO Q4H PRN Active Ordered Medications Current Medications Medications (Trade) Dose Ordered Sig/Wilbur Route Start Time Stop Time Status Last Admin (NS Flush) 2 ml UNSCH PRN IV FLUSH 01/31/17 13:15 (NS Flush) 2 ml BID IV FLUSH 01/31/17 21:00 02/14/17 11:20 (Tylenol) 650 mg Q6H PRN PO 01/31/17 13:15 02/06/17 20:18 Miscellaneous Information 1 [id number] XX 01/31/17 13:15 01/31/17 13:15 (Chlorhexidine 2% Cloth) Taper DAILY@04 TOP 02/01/17 04:00 01/28/18 03:59 02/03/17 04:00 (Chlorhexidine 2% Cloth) 3 pack UNSCH PRN TOP 01/31/17 13:15 Levetriacetam 500 mg/Sodium Chloride 105 ml @ 420 mls/hr Q8H IV 02/01/17 11:00 02/14/17 11:17 (Bactroban Nasal 2% Oint) 1 applic BID NASAL 02/02/17 09:00 02/13/17 15:48 (Lactulose Liq) 30 ml BID PO 02/02/17 21:00 02/13/17 20:21 (Bactroban Nasal 2% Oint) Taper BID EACH NARE 02/04/17 09:00 01/31/18 08:59 02/14/17 09:46 (Albuterol Neb) 2.5 mg Q2HR NEB PRN NEB 02/04/17 07:15 02/13/17 03:31 (Theragran) 1 tab DAILY PO 02/04/17 09:00 02/13/17 15:48 (Colace Liq) 100 mg Q12HR PO 02/04/17 09:00 02/13/17 20:21 (Senna Liq) 8.8 mg BID PO 02/04/17 09:00 02/13/17 20:21 (NS Flush) DAILY IVF 02/04/17 09:00 02/14/17 11:20 (NS Flush) UNSCH PRN IVF 02/04/17 08:15 Patient Own Medication PT OWN MED: CRESTOR... DAILY PO 02/05/17 09:00 Future Hold (Eliquis) 5 mg BID PO 02/07/17 21:00 02/14/17 09:00 (Aspirin Chew) 81 mg DAILY PO 02/09/17 09:00 02/14/17 09:00 (Lopressor) 25 mg DAILY PO 02/09/17 09:00 02/14/17 11:33 (Aldactone) 25 mg DAILY PO 02/09/17 09:00 02/14/17 11:33 (D50w (Vial) Inj) 50 ml UNSCH PRN IV 02/10/17 23:30 Propofol 100 ml @ 3.174 mls/ hr TITRATE PRN IV 02/12/17 22:00 02/13/17 21:27 (SoluCORTEF INJ) 100 mg Q8H IV PUSH 02/13/17 12:00 02/14/17 11:18 (Peridex 0.12% Liq) 15 ml BID@08,20 MT 02/13/17 20:00 02/13/17 20:20 (Lasix Inj) 40 mg Q12H IV PUSH 02/13/17 12:00 02/14/17 11:17 Linezolid 300 ml @ 300 mls/hr Q12H IV 02/13/17 12:00 02/16/17 12:59 02/14/17 11:17 Cefepime HCl 1000 mg/Sodium Chloride 100 ml @ 200 mls/hr Q12H IV 02/13/17 15:00 02/14/17 03:17 Sodium Bicarbonate 150 meq/Dextrose 1,150 ml @ 100 mls/hr [id number] IV 02/14/17 06:00 02/14/17 06:22 Epinephrine HCl 8 mg/Dextrose 250 ml @ 5.62 mls/hr TITRATE PRN IV 02/14/17 09:45 Norepinephrine Bitartrate 16 mg/ Dextrose 250 ml @ 1.87 mls/hr TITRATE PRN IV 02/14/17 09:45 02/14/17 09:59 Phenylephrine HCl 160 mg/Dextrose 500 ml @ 7.5 mls/hr TITRATE PRN IV 02/14/17 09:45 (Brethine Inj) 1 mg UNSCH PRN SQ 02/14/17 09:45 (Pepcid) 10 mg BID TUBE 02/14/17 21:00 Family History [place] Social History Lives in [place] As per charts, no tobacco, no EtOH, no illicits Has 4 children that are active in life (Naomie Salinas) Physical Exam Vital Signs Vital Signs Date Time Temp Pulse Resp B/P (MAP) Pulse Ox O2 Delivery O2 Flow Rate FiO2 02/14/17 13:26 96 70 02/14/17 09:59 69 118/89 02/14/17 08:37 69 110/83 02/14/17 06:45 68 02/14/17 06:00 69 02/14/17 04:00 69 02/14/17 04:00 97.7 69 16 69/50 (56) 99 91/68 (76) 02/14/17 04:00 100 02/14/17 03:10 99 Ventilator 02/14/17 03:06 98 100 02/14/17 02:00 71 02/14/17 00:16 99 Ventilator 02/14/17 00:09 100 100 02/14/17 00:00 100 02/14/17 00:00 69 02/14/17 00:00 97.8 69 16 82/64 (70) 99 02/13/17 22:00 69 02/13/17 20:27 Ventilator 02/13/17 20:23 99 50 02/13/17 20:00 97.6 69 16 87/68 (74) 100 02/13/17 20:00 100 02/13/17 20:00 69 02/13/17 18:00 69 02/13/17 17:00 72 91/63 02/13/17 16:38 96 50 02/13/17 16:00 98.3 71 18 125/69 (87) 100 02/13/17 16:00 72 Physical Exam GENERAL: Intubated not sedated. Eyes open but completely unresponsive SKIN: Warm and dry. HEAD: Atraumatic. Normocephalic. EYES: Pupils equal and round. No scleral icterus. No injection or drainage. ENT: No nasal bleeding or discharge. Mucous membranes pink and moist. NECK: Trachea midline. No JVD. CARDIOVASCULAR: Regular rate and rhythm with notable PVCs RESPIRATORY: Intubated on ventilator. Agonal breathing. Diminished breath sounds with scanty rhonchi GASTROINTESTINAL: Abdomen distended MUSCULOSKELETAL: Significant generalized edema NEUROLOGICAL: Intubated, not sedated PSYCHIATRIC: Intubated, not sedated Laboratory Laboratory Tests Test 02/13/17 18:05 02/14/17 05:06 02/14/17 05:40 02/14/17 09:22 Lactic Acid Level 4.8 Blood Gas Puncture Site ART LINE ART LINE Blood Gas Patient Temperature 98.6 98.6 Blood Gas HCO3 13 10 Blood Gas Base Excess -11.3 -19.8 Blood Gas Oxygen Saturation 98 97 Arterial Blood pH 7.38 6.96 Arterial Blood Partial Pressure CO2 22 46 Arterial Blood Partial Pressure O2 219 243 Arterial Blood Oxygen Content 16.2 16.2 Arterial Blood Carboxyhemoglobin 1.0 0.0 Arterial Blood Methemoglobin 1.0 1.1 Blood Gas Hemoglobin 11.5 11.5 Oxygen Delivery Device VENTILATOR VENTILATOR Blood Gas Ventilator Setting PRVC/AC Blood Gas Inspired Oxygen 100 White Blood Count 8.2 Red Blood Count 4.64 Hemoglobin 12.3 Hematocrit 39.4 Mean Corpuscular Volume 84.8 Mean Corpuscular Hemoglobin 26.4 Mean Corpuscular Hemoglobin Concent 31.2 Red Cell Distribution Width 22.8 Platelet Count 407 Mean Platelet Volume 8.9 Neutrophils (%) (Auto) 87.5 Lymphocytes (%) (Auto) 4.7 Monocytes (%) (Auto) 7.8 Eosinophils (%) (Auto) 0.0 Basophils (%) (Auto) 0.0 Neutrophils # (Auto) 7.2 Lymphocytes # (Auto) 0.4 Monocytes # (Auto) 0.6 Eosinophils # (Auto) 0.0 Basophils # (Auto) 0.0 CBC Comment DIFF FINAL Differential Comment Blood Urea Nitrogen 38 Creatinine 2.40 Random Glucose 172 Total Protein 6.5 Albumin 2.7 Calcium Level 8.1 Phosphorus Level 5.4 Magnesium Level 2.4 Alkaline Phosphatase 152 Aspartate Amino Transf (AST/SGOT) 15 Alanine Aminotransferase (ALT/SGPT) 25 Total Bilirubin 1.0 Sodium Level 138 Potassium Level 4.1 Chloride Level 107 Carbon Dioxide Level 15.2 Anion Gap 16 Estimat Glomerular Filtration Rate 33 Test 02/14/17 13:12 White Blood Count 26.5 Red Blood Count 4.42 Hemoglobin 11.6 Hematocrit 40.2 Mean Corpuscular Volume 90.9 Mean Corpuscular Hemoglobin 26.3 Mean Corpuscular Hemoglobin Concent 28.9 Red Cell Distribution Width 23.4 Platelet Count 331 Mean Platelet Volume 8.2 Neutrophils (%) (Auto) 93.9 Lymphocytes (%) (Auto) 2.8 Monocytes (%) (Auto) 3.1 Eosinophils (%) (Auto) 0.1 Basophils (%) (Auto) 0.1 Neutrophils # (Auto) 24.9 Lymphocytes # (Auto) 0.7 Monocytes # (Auto) 0.8 Eosinophils # (Auto) 0.0 Basophils # (Auto) 0.0 CBC Comment AUTO DIFF Differential Total Cells Counted 100 Neutrophils % (Manual) 79 Band Neutrophils % 6 Lymphocytes % 6 Monocytes % 3 Neutrophils # (Manual) 24.1 Metamyelocytes 5 Myelocytes 1 Nucleated Red Blood Cells 3 Differential Comment FINAL DIFF MANUAL Toxic Vacuolation PRESENT Platelet Estimate NORMAL Platelet Morphology Comment CLUMPED Ovalocytes 1+ Lexx Cells 1+ Keratocytes OCC Prothrombin Time 20.1 Prothromb Time International Ratio 1.8 Blood Urea Nitrogen 38 Creatinine 2.71 Random Glucose 203 Total Protein 5.5 Albumin 2.2 Calcium Level 8.1 Phosphorus Level 7.8 Magnesium Level 2.7 Alkaline Phosphatase 219 Aspartate Amino Transf (AST/SGOT) 202 Alanine Aminotransferase (ALT/SGPT) 97 Total Bilirubin 1.5 Sodium Level 139 Potassium Level 4.1 Chloride Level 101 Carbon Dioxide Level 16.3 Anion Gap 22 Date/Time Source Procedure Growth Status 02/14/17 05:40 Blood Peripheral Aerobic Blood Culture Pending Received 02/14/17 05:40 Blood Peripheral Anaerobic Blood Culture Pending Received 02/01/17 11:15 Sputum Endotracheal Gram Stain - Final Complete 02/01/17 11:15 Sputum Culture - Final S. Aureus Mrsa Complete 02/01/17 11:30 Urine Catheterized Urine Urine Culture - Final NO GROWTH IN 48 HOURS. Complete (Naomie Salinas) Result Diagram: 02/14/17 1312 02/14/17 1312 Imaging Last Impressions Chest X-Ray 02/14/17 0000 Signed Impressions: Service Date/Time: Tuesday, February 14, 2017 02:24 - CONCLUSION: A right subclavian central line without pneumothorax. Unchanged infiltrates, effusions , and cardiomegaly. Wilber Bermudez Jr., MD SPECT Scan-Tumor Localization NM 02/12/17 0000 Signed Impressions: Service Date/Time: Sunday, February 12, 2017 14:31 - CONCLUSION: Negative study. Erwin Peterson MD FACR Head CT 02/12/17 0000 Signed Impressions: Service Date/Time: Sunday, February 12, 2017 21:25 - CONCLUSION: 1. No acute infarct, acute hemorrhage, midlines shift or extra-axial bleed. 2. 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 3. Stable cerebral atrophy. 4. Mucus retention cysts within the left maxillary sinus. Alexei Russell MD Upper Extremity Ultrasound 02/01/17 0000 Signed Impressions: Service Date/Time: January 11:49 - CONCLUSION: 1. No evidence of deep venous thrombosis. Moses Juarez MD Neck CTA 01/31/17 0000 Signed Impressions: Service Date/Time: Tuesday, January 31, 2017 08:57 - CONCLUSION: 1. 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 2. String-like contrast in the left vertebral artery Wilber Alfaro MD Head CTA 01/31/17 0000 Signed Impressions: Service Date/Time: Tuesday, January 31, 2017 08:57 - CONCLUSION: Absent flow in the left internal carotid artery with reconstitution of flow in the A2 segment. There is some flow seen in the left sylvian branches of the middle cerebral artery, but the degree of vessel opacification on the left is less than on the right. Wilber Alfaro MD Cerebral Arteriogram 01/31/17 0000 Signed Impressions: Service Date/Time: Tuesday, January 31, 2017 00:00 - CONCLUSION: 1. Patient appears to have had a thrombotic or embolic event to the vertebral basilar system. The left vertebral is highly diseased throughout its course and appears to occlude just proximal to the basilar. Unable to traverse the highly diseased vessel for intervention. 2. The right vertebral is robust proximally but appears to terminate in a PICA branch with a irregular terminal vessel possibly representing the distal vertebral and proximal basilar. This appears to be chronically occluded. Russ Joseph MD (Naomie Salinas) Assessment and Plan Problem List: (1) Acute renal failure (ARF) ICD Codes: N17.9 - Acute kidney failure, unspecified Plan: Related to cardiac arrest. He is oliguric at this point and renal functions are deteriorating. Unfortunately it appears that he is terminal. He remains acidotic despite aggressive bicarbonate infusion and is intubated without sedation. He is being sustained on 3 inotropes with marginal BPs. He is hemodynamically unstable and conventional dialysis is not an option at this time. Furthermore, it is not felt that dialysis will alter the patient's already grim prognosis. Agree with bicarb drip along with diuresis. Discussed with Dr. Guillen, RN, and palliative care. (2) Sudden cardiac arrest ICD Codes: I46.9 - Cardiac arrest, cause unspecified Plan: 02/14 with resuscitation (3) CVA (cerebral vascular accident) ICD Codes: I63.9 - Cerebral infarction, unspecified Status: Acute (4) Cardiomyopathy ICD Codes: I42.9 - Cardiomyopathy, unspecified (5) Respiratory failure ICD Codes: J96.90 - Respiratory failure, unspecified, unspecified whether with hypoxia or hypercapnia (Naomie Salinas) Assessment and Plan After examining the patient and reviewing medical records I believe that the patient would not tolerate dialysis or any significant fluid removal and that attempting dialysis would not alter this patient's grim prognosis or contribute to his quality of life. Essentially I believe dialysis would be futile in this situation. The patient is currently on 3 inotropic agents with a history of a severe cardiomyopathy. Also with severe cerebrovascular disease apparently and is currently unresponsive despite not being on sedation currently . Recommend continue management of his acid base status with parental bicarbonate but consideration be given to comfort measures. (Nahtan Ferguson MD) Naomie Salinas Feb 14, 2017 16:02 Nathan Ferguson MD Feb 14, 2017 18:33
[2017-02-14 17:14] LABS: BLOOD GAS BASE EXCESS -20.2 mmol/L (-2-2); BLOOD GAS CARBOXYHEMOGLOBIN 0.7 % (0-4); BLOOD GAS HCO3 9 mmol/L (22-26); BLOOD GAS METHEMOGLOBIN 1.2 % (0-2); BLOOD GAS O2 HGB SATURATION 90 % (90-100); BLOOD GAS PCO2 36 mmHg (38-42); BLOOD GAS PO2 96 mmHg (61-120); BLOOD GAS TOTAL HGB 11.7 G/DL (12.0-16.0); CRITICAL VALUE YES; OXYGEN DEVICE VENTILATOR; TEMP CORR TO 98.6
[2017-02-14 17:15] LABS: DRAW SITE ART LINE; FIO2 70 %; ULNAR PULSE PRESENT; VENT SETTINGS 550/18/5PEEP
[2017-02-14 17:16] LABS: STAT NO
[2017-02-14] MEDS: FAMOTIDINE 20 MG TAB TUBE SCH (20:29)
[2017-02-14] MEDS ORDERED: DEXTROSE 50% IN WATER 50 ML SYRINGE ONE ×3 (20:29→23:48)
--- NOTE | 2017-02-14 20:37 | EKG ---
Date Performed: 02/14/2017 Time Performed: 10:04:23 PTAGE: 66 years EKG: ELECTRONIC VENTRICULAR PACEMAKER ABNORMAL RHYTHM ECG PREVIOUS TRACING : 01/31/2017 08.34 Compared to prior tracing no significant change DOCTOR: Matheus Billy Interpretating Date/Time 02/14/2017 20:36:12
[2017-02-14] MEDS: ARTIFICIAL TEARS OPTH OINT 3.5 APPLIC/3.5 GM TUBO EACH EYE SCH (22:53)
[2017-02-14] MEDS: EPINEPHrine 8 MG/D5W 250 ML IV PRN ×2 (22:57)
[2017-02-14] MEDS: DEXTROSE 10% INJ 500 ML IV SCH (23:26)
[2017-02-15] VITALS (20 sets, daily range): BP systolic 85–124; BP diastolic 61–80; PULSE 58–90; RESP 18–28; TEMP 95.3–99; O2SAT 0–100
[2017-02-15] MEDS ORDERED: DEXTROSE 50% IN WATER 50 ML SYRINGE ONE ×6 (02:00→23:56)
[2017-02-15] MEDS: HYDROCORTISONE SOD SUCCINATE 100 MG VIAL IV PUSH SCH ×3 (03:42→21:23)
[2017-02-15] MEDS: CEFEPIME INJ 1,000 MG in SODIUM CHLORIDE 0.9% INJ 100 ML IV SCH ×2 (03:42→15:13)
[2017-02-15] MEDS: levETIRAcetam 500 MG/NS 100 ML IV SCH ×6 (03:43→18:34)
[2017-02-15] MEDS: CHLORHEXIDINE GLUCONATE 2 % 1 PACK (2 CLOTHS) TOP SCH (03:43)
--- NOTE | 2017-02-15 05:03 | RADRPT ---
EXAM DATE/TIME: 02/15/2017 04:09 [facility] COMPARISON: CHEST SINGLE AP, February 14, 2017, 2:24. INDICATIONS : Shortness of breath, possible pulmonary disease. MEDICAL HISTORY : Congestive heart failure. Hypercholesterolemia. Hypertension. CVA SURGICAL HISTORY : CABG. Pacemaker. ENCOUNTER: Subsequent ACUITY: 2 days PAIN SCORE: Non-responsive. LOCATION: Bilateral chest FINDINGS: A single portable frontal view of the chest shows no significant change. Bilateral pulmonary filtrate s and small bilateral pleural effusions persist. Cardiomegaly. Right subclavian central line, endotra cheal tube, nasogastric tube, and left-sided pacing device. CONCLUSION: Unchanged bilateral pleural effusions with bilateral pulmonary infiltrates and cardiomegaly. Infiltra jojo likely related to intraalveolar pulmonary edema. Wilber Bermudez Jr., MD on February 15, 2017 at 5:00 Board Certified Radiologist. This report was verified electronically.
[2017-02-15 05:11] LABS: HEMATOCRIT 38.8 % (39.0-51.0); MEAN CELL VOLUME 90.9 FL (80.0-100.0); MEAN CORPUSCULAR HEMOGLOBIN 25.9 PG (27.0-34.0); PLATELET COUNT 245 TH/MM3 (150-450); RED BLOOD COUNT 4.27 MIL/MM3 (4.50-5.90); RED CELL DISTRIBUTION WIDTH 23.6 % (11.6-17.2); WHITE BLOOD COUNT 37.1 TH/MM3 (4.0-11.0)
[2017-02-15 05:16] LABS: MEAN CORPUSCULAR HGB CONC 28.5 % (32.0-36.0); REVIEW FLAG FINAL
[2017-02-15 05:22] LABS: INTERNATIONAL NORMALIZED RATIO 3.3 RATIO; PROTHROMBIN TIME - PATIENT 38.5 SEC (9.8-11.6)
[2017-02-15 05:30] LABS: BLOOD GAS CARBOXYHEMOGLOBIN 0.8 % (0-4); BLOOD GAS HCO3 9 mmol/L (22-26); BLOOD GAS METHEMOGLOBIN 1.3 % (0-2); BLOOD GAS O2 HGB SATURATION 92 % (90-100); BLOOD GAS OXYGEN CONTENT 14.9 Vol % (12.0-20.0); BLOOD GAS PCO2 32 mmHg (38-42); BLOOD GAS PO2 99 mmHg (61-120); BLOOD GAS TOTAL HGB 11.4 G/DL (12.0-16.0); TEMP CORR TO 98.6
[2017-02-15 05:31] LABS: CRITICAL VALUE YES; DRAW SITE ART LINE; FIO2 70 %; OXYGEN DEVICE VENTILATOR; STAT NO; VENT SETTINGS AC/18/550/PEEP 5
[2017-02-15] MEDS: NOREPINEPHRINE 16 MG/D5W 250 ML IV PRN ×4 (06:18→17:55)
[2017-02-15] MEDS: EPINEPHrine 8 MG/D5W 250 ML IV PRN ×2 (06:18)
--- NOTE | 2017-02-15 06:29 | HHI.CCPN ---
Subjective Remarks/Hospital Course 01/31: This 66-year-old man who presents to the emergency department via EMS for altered mental status. History is a little bit unclear. It sounds like he was agitated overnight so they gave him Xanax this morning. Speaking with the nurse there, Yesica Earl, patient gets Xanax periodically but not every day. It's not a new dose for him. Subsequently he became unresponsive. Per EMS report he normally has a GCS of 14 but cannot walk. For them he was not talking at all, and stopped breathing for a period of time in the ambulance and required [id number] ventilation. They were bagging him on presentation to the ED. patient underwent CT head which was negative for bleed. He was evaluated by Dr. 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 On propofol 75 mics per kg/min. moving both upper extremities and left lower extremity on lightening sedation per nursing staff. Has chronically weak right lower extremity per family. Currently on heparin drip for full anticoagulation. 02/02: Sedated, orally intubated on mechanical ventilation this morning at the time of my evaluation. Being diuresed with Lasix. 2-D echo with LVEF 20% and severe MR. Hypoglycemia today despite tube feeds for which he was given D50 and cortisol level being checked. 02/03: Off sedation since 9/8 AM. Started to arouse last evening and following commands moving both upper extremities. Remains orally intubated on mechanical ventilation. At the time of my evaluation years arousable however not following commands. 02/04: Tmax 100.1. Currently resting in bed in no acute distress. Moving right lower extremity spontaneously. Nods head and follows commands. Patient is leaning towards right. Subjective 02/05: Tolerated PSV trial overnight. Opened eyes. Following commands. States he is hungry today. Move the left upper extremity spontaneously along with right upper extremity today. Moved toes slightly. 02/06: Remains orally intubated on mechanical ventilation. Gets apneic episodes during C Pap trials. Follows commands. On tube feeds and D10 02/07: Tolerated C Pap trials and extubated today. Drowsy, easily arousable. Follows commands with both upper extremities. Remains on D10 drip for hyperglycemia. Off tube feeds since extubation awaiting swallow eval. 02/08: Remains on nasal cannula. Passed swallow eval and diet being advanced. Was on D10 at 50 cc an hour for hypoglycemia while awaiting insulinoma workup. Tolerating by mouth diet so decreased D10 to 25 cc an hour and plan to stop later today. 02/12: Later in the day the patient became more lethargic and rapid response was called. Shortly after patient was transferred to ICU NT related for possible intubation for an airway protection. Initially during my exam the patient was unresponsive and decision was made to intubate. However while preparing for endotracheal intubation patient woke up, is following commands on both sides and response with slow slurred speech. Eyes open spontaneously. The CAT scan of the head also negative for acute changes. 02/13: Emergently called to the bedside this a.m. patient with altered mental status alert to name only stating having difficulty breathing stat ABG performed , PaO2 noted to be 334 on nonrebreather, with a Mixed acid base disorder. Patient unable to protect airway, emergently intubated uneventfully. Patient currently on D10 at 50 cc an hour with additional supplementation of blood glucose, to maintain level. D10 increased to 100 cc an hour. Plan for Octreotide scan to today to rule out insulinoma. Diuretic increased to 40 mg twice a day secondary to the increased dosing of fluid in a patient with noted EF less than 20% and severe TR. Will also supplement with hydrocortisone 3 times a day. 02/14: During the night last night the patient became increasingly acidotic central line and arterial line were placed patient was placed on a sodium bicarbonate infusion. At approximately 0652 this a.m. the patient went into cardiac arrest-asystole, CPR initiated the patient received 6 rounds of epinephrine, with defibrillation 1 attempt. The patient had ROSC after approximately 18 minutes. The patient continues on multiple vasopressors to include norepinephrine, epinephrine, vasopressin, and sodium bicarbonate infusions. Repeat ABG postcardiac arrest, severe metabolic acidosis with a pH of 6.95. Additional supplementation of sodium bicarbonate infused. Extensive discussion with family , patient's daughter Ms. Griffith regarding update on medical status and the criticality of the patient and poor prognosis, and she requesting aggressive measures at this time. Overnight 02/14 - 02/15.Alana Avalos called RN and stated she wished to change to alternate code intubation only. I tried to call her but there was no answer. I left a message to call me. I spoke with Martin Rae who states that "all of the siblings talked and they agree with DNR". DMITRI Carter also spoke separately with Yasir who stated that he agrees with DNR. Patient is intubated so CODE STATUS was changed to alternate code intubation only. Objective Vital Signs Date Time Temp Pulse Resp B/P (MAP) Pulse Ox O2 Delivery O2 Flow Rate FiO2 02/15/17 06:18 76 110/71 02/15/17 04:24 100 70 02/15/17 04:00 96.0 21 02/14/17 03:10 Ventilator 02/13/17 08:59 15.00 Result Diagram: 02/15/17 0400 02/14/17 1312 Other Results Laboratory Tests Test 02/14/17 09:22 02/14/17 17:00 02/15/17 05:05 Blood Gas Puncture Site ART LINE ART LINE ART LINE Blood Gas Patient Temperature 98.6 98.6 98.6 Blood Gas HCO3 10 mmol/L (22-26) 9 mmol/L (22-26) 9 mmol/L (22-26) Blood Gas Base Excess -19.8 mmol/L (-2-2) -20.2 mmol/L (-2-2) -19.0 mmol/L (-2-2) Blood Gas Oxygen Saturation 97 % (90-100) 90 % (90-100) 92 % (90-100) Arterial Blood pH 6.96 (7.380-7.420) 7.01 (7.380-7.420) 7.08 (7.380-7.420) Arterial Blood Partial Pressure CO2 46 mmHg (38-42) 36 mmHg (38-42) 32 mmHg (38-42) Arterial Blood Partial Pressure O2 243 mmHg (61-120) 96 mmHg (61-120) 99 mmHg (61-120) Arterial Blood Oxygen Content 16.2 Vol % (12.0-20.0) 15.0 Vol % (12.0-20.0) 14.9 Vol % (12.0-20.0) Arterial Blood Carboxyhemoglobin 0.0 % (0-4) 0.7 % (0-4) 0.8 % (0-4) Arterial Blood Methemoglobin 1.1 % (0-2) 1.2 % (0-2) 1.3 % (0-2) Blood Gas Hemoglobin 11.5 G/DL (12.0-16.0) 11.7 G/DL (12.0-16.0) 11.4 G/DL (12.0-16.0) Oxygen Delivery Device VENTILATOR VENTILATOR VENTILATOR Blood Gas Ventilator Setting 550/18/5PEEP AC/18/550/PEEP 5 Blood Gas Inspired Oxygen 70 % 70 % Imaging Last Impressions Chest X-Ray 02/13/17 0000 Signed Impressions: Service Date/Time: Monday, February 13, 2017 10:21 - CONCLUSION: 1. Increasing basilar airspace disease and pleural effusions since February 06. Cardiomegaly. No pneumothorax. Ridge Hernandez MD Head CT 02/12/17 0000 Signed Impressions: Service Date/Time: Sunday, February 12, 2017 21:25 - CONCLUSION: 1. No acute infarct, acute hemorrhage, midlines shift or extra-axial bleed. 2. 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 3. Stable cerebral atrophy. 4. Mucus retention cysts within the left maxillary sinus. Alexei Russell MD Upper Extremity Ultrasound 02/01/17 0000 Signed Impressions: Service Date/Time: January 11:49 - CONCLUSION: 1. No evidence of deep venous thrombosis. Moses Juarez MD Neck CTA 01/31/17 0000 Signed Impressions: Service Date/Time: Tuesday, January 31, 2017 08:57 - CONCLUSION: 1. 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 2. String-like contrast in the left vertebral artery Wilber Alfaro MD Head CTA 01/31/17 0000 Signed Impressions: Service Date/Time: Tuesday, January 31, 2017 08:57 - CONCLUSION: Absent flow in the left internal carotid artery with reconstitution of flow in the A2 segment. There is some flow seen in the left sylvian branches of the middle cerebral artery, but the degree of vessel opacification on the left is less than on the right. Wilber Alfaro MD Cerebral Arteriogram 01/31/17 0000 Signed Impressions: Service Date/Time: Tuesday, January 31, 2017 00:00 - CONCLUSION: 1. Patient appears to have had a thrombotic or embolic event to the vertebral basilar system. The left vertebral is highly diseased throughout its course and appears to occlude just proximal to the basilar. Unable to traverse the highly diseased vessel for intervention. 2. The right vertebral is robust proximally but appears to terminate in a PICA branch with a irregular terminal vessel possibly representing the distal vertebral and proximal basilar. This appears to be chronically occluded. Russ Joseph MD Last Impressions Chest X-Ray 02/05/17 0600 Signed Impressions: Service Date/Time: Sunday, February 05, 2017 04:47 - CONCLUSION: Endotracheal tube and nasogastric tube in satisfactory position. Stable bilateral mostly basilar dependent airspace disease and pleural effusions. Ridge Hernandez MD Upper Extremity Ultrasound 02/01/17 0000 Signed Impressions: Service Date/Time: January 11:49 - CONCLUSION: 1. No evidence of deep venous thrombosis. Moses Juarez MD Head CT 01/31/17 0809 Signed Impressions: Service Date/Time: Tuesday, January 31, 2017 08:16 - CONCLUSION: Hypodensity left parietal-occipital mid convexity region suggesting infarction or encephalomalacia. No evidence of hemorrhage. Cannot exclude an acute process. May consider further characterization with MRI. Wilber Alfaro MD Neck CTA 01/31/17 0000 Signed Impressions: Service Date/Time: Tuesday, January 31, 2017 08:57 - CONCLUSION: 1. 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 2. String-like contrast in the left vertebral artery Wilber Alfaro MD Head CTA 01/31/17 0000 Signed Impressions: Service Date/Time: Tuesday, January 31, 2017 08:57 - CONCLUSION: Absent flow in the left internal carotid artery with reconstitution of flow in the A2 segment. There is some flow seen in the left sylvian branches of the middle cerebral artery, but the degree of vessel opacification on the left is less than on the right. Wilber Alfaro MD Cerebral Arteriogram 01/31/17 0000 Signed Impressions: Service Date/Time: Tuesday, January 31, 2017 00:00 - CONCLUSION: 1. Patient appears to have had a thrombotic or embolic event to the vertebral basilar system. The left vertebral is highly diseased throughout its course and appears to occlude just proximal to the basilar. Unable to traverse the highly diseased vessel for intervention. 2. The right vertebral is robust proximally but appears to terminate in a PICA branch with a irregular terminal vessel possibly representing the distal vertebral and proximal basilar. This appears to be chronically occluded. Russ Joseph MD Objective Remarks GENERAL: Critically ill appearing 66-year-old AA male, on no sedation SKIN: Warm and dry. No rash HEAD: Atraumatic. Normocephalic. EYES: Pupils equal and round about 1.5 mm bilaterally and reactive. No scleral icterus. No injection or drainage. ENT: No nasal bleeding or discharge. Mucous membranes pink and moist. NECK: Trachea midline. No JVD. CARDIOVASCULAR: Intermittent runs of ventricular tachycardia. S1, S2 no S4. 2/ 6 systolic murmur left lower sternal border. RESPIRATORY: Noted accessory muscle use, hyperventilating. Clear to auscultation. Breath sounds equal bilaterally. GASTROINTESTINAL: Abdomen soft, non-tender, nondistended. Hypoactive bowel sounds appreciated MUSCULOSKELETAL: Extremities with 2+ bilateral lower extremity and upper extremity edema. No obvious deformities. NEUROLOGICAL: GCS 3T. 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 Cerebral angiogram revealed occluded distal vertebral/proximal parietal occlusion acute. 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 EEG - 02/01 - 3-6 Hz activity, 20-50 microvolts occurring in generalized fashion. EEG variability reactivity noted. Mild spindles noted as well. Limited driving with photic stimulation. Single lead EKG showing sinus rhythm. Mild to moderate encephalopathy. Clinical correlation Recommended. Heparin drip stopped on 02/07 and resumed on Apixaban 5 mg twice a day per Dr. Russ Solano/Neurology following. Holding buspirone 7.5 mg 3 times a day, mirtazapine 7.5 mg a night and trazodone 50 mg by mouth daily for depression/anxiety. Resume when okay with neurology. Continue levetiracetam 500 mg IV 3 times a day/seizure precautions 02/13 Repeat EEG -severe diffuse disturbance of cerebral function or bihemispheric structural abnormalities, no epileptiform abnormalities 02/13 ammonia level-31 CV: Chronic systolic heart failure ejection fraction 20% Acute on chronic systolic heart failure Pulmonary hypertension History of CABG 4/AICD Hypertension Dyslipidemia Cardiac arrest 02/14 Cardiogenic shock Echocardiogram revealed EF 20%. Decreased right ventricular left ventricular function. Dilated LV. Enlarged left atrium. Severe pulmonary hypertension greater than 70 mmHg, severe TR/MR Cardiology/Dr. Hernandez following 02/13 Increased furosemide 40 mg IV twice a day. Home medications include aspirin 81 mg daily, metoprolol 25 mg by mouth daily, furosemide 40 mg daily and spironolactone 25 mill grams by mouth daily - Resumed aspirin, -metoprolol and spironolactone on hold Patient is on rosuvastatin 20 mg by mouth daily along with Fish oil/ cholecalciferol 1 tablet daily for dyslipidemia 02/14-Vasopressor support-norepinephrine, epinephrine, and vasopressin infusions Continued elevation of lactic acid Resp: Acute hypoxemic respiratory failure Severe metabolic acidosis 02/13-reintubation 8.0 ETT, 26 cm at the lip, for airway protection SBT trials when clinically applicable Albuterol/ipratropium aerosols every 6 hours with albuterol aerosols every 2 hours. Monitor ABGs checks x-rays as indicated ABG-6.95/46/243/-19.8-given 2 Amps of sodium bicarbonate IV push followed by increase in sodium bicarbonate infusion to 100 cc/hour GI: Hypoalbuminemia 02/13 NPO for now Famotidine for GI prophylaxis Docusate sodium 100 mg twice a day, senna liquid 8.6 mg twice a day for bowel regimen along with lactulose 30 cc twice a day : Rabago catheter indicated for accurate I's and O's in a critically ill patient Endo: Hypoglycemia - possibly secondary to sepsis, possible insulinoma Normal TSH/cortisol levels. C-peptide 6.33 insulin levels 24.5and human growth hormone . Patient was hypoglycemic on tube feeds requiring D10 raising concern for insulinoma. 02/13-F/U octreotide scan 02/13-Hydrocortisone 100 mg 3 times a day Renal: Acute renal failure Strict intake output, monitor and replete elect lites, follow BUN/creatinine. Nephrology consulted Heme: Normocytic anemia Chronic Apixaban use Monitor CBC daily. Follow trends. Off heparin drip and resumed on Eliquis on 02/08. ID: Coag-negative//staph epi bacteremia Septic shock Current vancomycin dose by infectious disease [place] decolonization protocol with mupirocin swabs twice a day Infectious disease/Dr. Simons following Pertinent cultures 02/03 - blood cultures 1 -no growth 02/01 - blood cultures 2 -no growth 02/01 - sputum - coag negative staph 01/31 - blood cultures 2 - coag negative staph, staph epi FEN: Replace electrolytes as clinically indicated Monitor BMP MSK: PT/OT for range of motion evaluate and treat Access Utilize peripheral IVs. Right subclavian central line 02/14, right brachial arterial line 02/14 Prophylaxis - GI - famotidine - DVT - SCD/Eliquis Dispo: The patient is status post cardiac arrest early this a.m.. Extensive discussion with daughter, Ms Griffith in regards to multisystem organ dysfunction and poor prognosis at this time, and I do not believe the patient will survive this hospitalization. Ms. Griffith requests aggressive measures at this time. Palliative care consulted, pastoral support provided. Critical Care: This patient remains critically ill with one or more organ systems which are or may become a threat to life. I have spent in excess of 60 minutes discontinuously in the care and management of this patient. This time is exclusive of procedures, and includes, but is not limited to, evaluation of the patient, review of the medical record, discussions with family, consultants, nursing staff, or respiratory therapy, and documentation in the medical record. Alma Mendoza MD Feb 15, 2017 06:29
[2017-02-15] MEDS: SODIUM BICARBONATE 8.4% INJ 150 MEQ in DEXTROSE 5% IN WATE 1000ML INJ 1,000 ML IV SCH ×8 (07:00→22:46)
[2017-02-15 07:21] LABS: BICARBONATE 11.9 MEQ/L (21.0-32.0); MAGNESIUM 2.2 MG/DL (1.5-2.5); POTASSIUM 3.5 MEQ/L (3.5-5.1)
[2017-02-15 07:50] LABS: CALCIUM-PROTEIN CORRECTED 8.2 MG/DL (8.5-10.1)
[2017-02-15] MEDS ORDERED: SODIUM BICARBONATE 8.4% INJ 100 ML ONE (08:13)
[2017-02-15] MEDS: SODIUM CHLORIDE 0.9% FLUSH 10 ML FLUSH IV FLUSH SCH ×2 (08:27→21:24)
[2017-02-15] MEDS: MUPIROCIN 2% OINT 1 APPLIC/GM SYR EACH NARE SCH ×2 (08:27→21:00)
[2017-02-15] MEDS: SODIUM CHLORIDE 0.9% FLUSH 10 ML FLUSH IVF SCH (08:27)
[2017-02-15] MEDS: ARTIFICIAL TEARS OPTH OINT 3.5 APPLIC/3.5 GM TUBO EACH EYE SCH ×3 (08:30→23:45)
[2017-02-15] MEDS: CHLORHEXIDINE 0.12% (ORAL KIT) 15 ML CUP MT SCH ×2 (08:30→20:00)
[2017-02-15] MEDS: MUPIROCIN 2% OINT 1 APPLIC/GM SYR NASAL SCH ×2 (08:31→21:00)
[2017-02-15] MEDS: LACTULOSE SYRUP 20 GM/30 ML CUP PO SCH ×2 (08:32→21:25)
[2017-02-15] MEDS: MULTIVITAMIN TAB PO SCH (08:32)
[2017-02-15] MEDS: ASPIRIN 81 MG CHEW TAB PO SCH (08:32)
[2017-02-15] MEDS: SPIRONOLACTONE 25 MG TAB PO SCH (08:32)
[2017-02-15] MEDS: FAMOTIDINE 20 MG TAB TUBE SCH ×2 (08:32→21:25)
[2017-02-15] MEDS: METOPROLOL TARTRATE 25 MG TAB PO SCH (08:33)
[2017-02-15] MEDS: DOCUSATE SODIUM 100 MG/10 ML UDC PO SCH ×2 (08:33→21:25)
[2017-02-15] MEDS: APIXABAN 5 MG TABLET PO SCH ×2 (08:33→21:00)
[2017-02-15] MEDS: SENNOSIDES SYRUP 8.8 MG/5 ML CUP PO SCH ×2 (08:33→21:25)
[2017-02-15] MEDS: PHENYLEPHRINE HCL 160 MG/D5W 484 ML ADMIX IV PRN ×2 (09:26)
[2017-02-15] MEDS ORDERED: VASOPRESSIN 20 UNITS/ML VIAL (IVTITR) ONE (09:33)
[2017-02-15] MEDS: VASOPRESSIN 40 U/D5W 100 ML Titrate, Post Cardiac Surgery IV PRN ×2 (09:42)
[2017-02-15] MEDS ORDERED: SODIUM BICARBONATE 8.4% SOLN 50 MEQ/50 ML VIAL IV ONE (09:45)
[2017-02-15] MEDS: FUROSEMIDE 40 MG/4 ML VIAL IV PUSH SCH ×2 (11:05→23:45)
[2017-02-15] MEDS: DEXTROSE 10% INJ 500 ML IV SCH ×2 (11:05→22:23)
[2017-02-15] MEDS: LINEZOLID 600 MG PREMIX 300 ML IV SCH ×2 (11:28→23:45)
--- NOTE | 2017-02-15 12:15 | HHI.IDPN ---
Subjective Subjective Remarks Patient is a 66-year-old male,sp ischemic stroke, received TPA to the right vertebral artery. Presented with high grade Staph epi bacteremia in the settings of endovascular device (pacemaker) Repeat clx are negative Notes reviewed Patient coded yesterday morning Resuscitated, but on 4 pressors Acidotic, on bicarb drip Has DNR status now Temps ok Looks dyspneic on the vent Has had problems with severe hypoglycemia Work-up for insulinoma negative so far CXR with increased infiltrates, effusions Creatinine rising, low UO Antibiotics Zyvox Cefepime Past Medical History Hypertension Hyperlipidemia CHF CAD Previous CVA Past Surgical History CABG Pacer/AICD Has midline abdominal scar, surgery done not known Allergies: Coded Allergies: hydrochlorothiazide (Verified Allergy, Severe, Edema, 01/31/17) atorvastatin (Verified Allergy, Unknown, 01/31/17) morphine (Verified Allergy, Unknown, 01/31/17) MRI PRECAUTION (Verified Adverse Reaction, Severe, NON COMPATIBLE PACEMAKER. LRS 01/31/17, 01/31/17) Objective . Vital Signs Date Time Temp Pulse Resp B/P (MAP) Pulse Ox O2 Delivery O2 Flow Rate FiO2 02/15/17 10:00 78 02/15/17 10:00 95.3 02/15/17 09:42 77 112/73 02/15/17 09:26 108/72 02/15/17 09:26 78 110/71 02/15/17 09:20 0 70 02/15/17 09:15 112/57 02/15/17 08:13 74 115/74 02/15/17 08:00 95.3 77 24 85/63 (70) 98 101/70 (80) 02/15/17 08:00 70 02/15/17 08:00 77 02/15/17 07:00 116/75 02/15/17 06:18 76 110/71 02/15/17 06:18 78 109/70 02/15/17 06:00 74 02/15/17 04:24 100 70 02/15/17 04:00 96.0 73 21 95/63 (74) 99 95/64 (74) 02/15/17 04:00 74 02/15/17 04:00 100 02/15/17 02:00 58 02/15/17 01:20 0 70 02/15/17 00:00 96.0 70 18 124/80 (95) 110/72 (85) 02/15/17 00:00 100 02/15/17 00:00 70 02/14/17 22:57 69 99/67 02/14/17 22:53 69 110/70 02/14/17 22:30 0 70 02/14/17 22:00 69 02/14/17 20:09 0 70 02/14/17 20:00 69 18 97/69 (78) 95/66 (76) 02/14/17 20:00 69 02/14/17 20:00 100 02/14/17 19:55 100 02/14/17 17:11 93/71 02/14/17 17:03 92 70 02/14/17 15:45 70 99/74 02/14/17 13:26 96 70 02/15/17 02/15/17 02/16/17 15:00 23:00 07:00 Intake Total 385 ml Balance 385 ml IV Total 385 ml . Laboratory Tests Test 02/14/17 05:40 02/14/17 13:12 02/15/17 04:00 White Blood Count 8.2 TH/MM3 26.5 TH/MM3 37.1 TH/MM3 Red Blood Count 4.64 MIL/MM3 4.42 MIL/MM3 4.27 MIL/MM3 Hemoglobin 12.3 GM/DL 11.6 GM/DL 11.1 GM/DL Hematocrit 39.4 % 40.2 % 38.8 % Mean Corpuscular Volume 84.8 FL 90.9 FL 90.9 FL Mean Corpuscular Hemoglobin 26.4 PG 26.3 PG 25.9 PG Mean Corpuscular Hemoglobin Concent 31.2 % 28.9 % 28.5 % Red Cell Distribution Width 22.8 % 23.4 % 23.6 % Platelet Count 407 TH/MM3 331 TH/MM3 245 TH/MM3 Mean Platelet Volume 8.9 FL 8.2 FL 8.1 FL Neutrophils (%) (Auto) 87.5 % 93.9 % Lymphocytes (%) (Auto) 4.7 % 2.8 % Monocytes (%) (Auto) 7.8 % 3.1 % Eosinophils (%) (Auto) 0.0 % 0.1 % Basophils (%) (Auto) 0.0 % 0.1 % Neutrophils # (Auto) 7.2 TH/MM3 24.9 TH/MM3 Lymphocytes # (Auto) 0.4 TH/MM3 0.7 TH/MM3 Monocytes # (Auto) 0.6 TH/MM3 0.8 TH/MM3 Eosinophils # (Auto) 0.0 TH/MM3 0.0 TH/MM3 Basophils # (Auto) 0.0 TH/MM3 0.0 TH/MM3 CBC Comment DIFF FINAL AUTO DIFF Differential Comment FINAL DIFF MANUAL Differential Total Cells Counted 100 Neutrophils % (Manual) 79 % Band Neutrophils % 6 % Lymphocytes % 6 % Monocytes % 3 % Neutrophils # (Manual) 24.1 TH/MM3 Metamyelocytes 5 % Myelocytes 1 % Nucleated Red Blood Cells 3 /100 WBC Toxic Vacuolation PRESENT Platelet Estimate NORMAL Platelet Morphology Comment CLUMPED Ovalocytes 1+ Lexx Cells 1+ Keratocytes OCC Laboratory Tests Test 02/13/17 13:45 02/13/17 14:29 02/13/17 18:05 02/14/17 05:40 Ammonia 31 MCMOL/L Lactic Acid Level 3.1 mmol/L 4.8 mmol/L Blood Urea Nitrogen 38 MG/DL Creatinine 2.40 MG/DL Random Glucose 172 MG/DL Total Protein 6.5 GM/DL Albumin 2.7 GM/DL Calcium Level 8.1 MG/DL Phosphorus Level 5.4 MG/DL Magnesium Level 2.4 MG/DL Alkaline Phosphatase 152 U/L Aspartate Amino Transf (AST/SGOT) 15 U/L Alanine Aminotransferase (ALT/SGPT) 25 U/L Total Bilirubin 1.0 MG/DL Sodium Level 138 MEQ/L Potassium Level 4.1 MEQ/L Chloride Level 107 MEQ/L Carbon Dioxide Level 15.2 MEQ/L Anion Gap 16 MEQ/L Estimat Glomerular Filtration Rate 33 ML/MIN Test 02/14/17 13:12 02/15/17 04:00 Blood Urea Nitrogen 38 MG/DL 37 MG/DL Creatinine 2.71 MG/DL 2.96 MG/DL Random Glucose 203 MG/DL 189 MG/DL Total Protein 5.5 GM/DL 4.9 GM/DL Albumin 2.2 GM/DL Calcium Level 8.1 MG/DL 7.0 MG/DL Phosphorus Level 7.8 MG/DL 6.7 MG/DL Magnesium Level 2.7 MG/DL 2.2 MG/DL Alkaline Phosphatase 219 U/L Aspartate Amino Transf (AST/SGOT) 202 U/L Alanine Aminotransferase (ALT/SGPT) 97 U/L Total Bilirubin 1.5 MG/DL Sodium Level 139 MEQ/L 137 MEQ/L Potassium Level 4.1 MEQ/L 3.5 MEQ/L Chloride Level 101 MEQ/L 99 MEQ/L Carbon Dioxide Level 16.3 MEQ/L 11.9 MEQ/L Anion Gap 22 MEQ/L 26 MEQ/L Estimat Glomerular Filtration Rate 26 ML/MIN Protein Corrected Calcium 8.2 MG/DL Microbiology Date/Time Source Procedure Growth Status 02/14/17 05:40 Blood Peripheral Aerobic Blood Culture - Preliminary NO GROWTH IN 1 DAY Resulted 02/14/17 05:40 Blood Peripheral Anaerobic Blood Culture - Preliminary NO GROWTH IN 1 DAY Resulted 02/14/17 05:32 Blood Peripheral Aerobic Blood Culture - Preliminary NO GROWTH IN 1 DAY Resulted 02/14/17 05:32 Blood Peripheral Anaerobic Blood Culture - Preliminary NO GROWTH IN 1 DAY Resulted Imaging Chest X-Ray 02/15/17 0600 Signed Impressions: Service Date/Time: January 04:09 - CONCLUSION: Unchanged bilateral pleural effusions with bilateral pulmonary infiltrates and cardiomegaly. Infiltrates likely related to intraalveolar pulmonary edema. Wilber Bermudez Jr., MD SPECT Scan-Tumor Localization NM 02/12/17 0000 Signed Impressions: Service Date/Time: Sunday, February 12, 2017 14:31 - CONCLUSION: Negative study. Erwin Peterson MD FACR Head CT 02/12/17 0000 Signed Impressions: Service Date/Time: Sunday, February 12, 2017 21:25 - CONCLUSION: 1. No acute infarct, acute hemorrhage, midlines shift or extra-axial bleed. 2. 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 3. Stable cerebral atrophy. 4. Mucus retention cysts within the left maxillary sinus. Alexei Russell MD Upper Extremity Ultrasound 02/01/17 0000 Signed Impressions: Service Date/Time: January 11:49 - CONCLUSION: 1. No evidence of deep venous thrombosis. Moses Juarez MD Neck CTA 01/31/17 0000 Signed Impressions: Service Date/Time: Tuesday, January 31, 2017 08:57 - CONCLUSION: 1. 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 2. String-like contrast in the left vertebral artery Wilber Alfaro MD Head CTA 01/31/17 0000 Signed Impressions: Service Date/Time: Tuesday, January 31, 2017 08:57 - CONCLUSION: Absent flow in the left internal carotid artery with reconstitution of flow in the A2 segment. There is some flow seen in the left sylvian branches of the middle cerebral artery, but the degree of vessel opacification on the left is less than on the right. Wilber Alfaro MD Cerebral Arteriogram 01/31/17 0000 Signed Impressions: Service Date/Time: Tuesday, January 31, 2017 00:00 - CONCLUSION: 1. Patient appears to have had a thrombotic or embolic event to the vertebral basilar system. The left vertebral is highly diseased throughout its course and appears to occlude just proximal to the basilar. Unable to traverse the highly diseased vessel for intervention. 2. The right vertebral is robust proximally but appears to terminate in a PICA branch with a irregular terminal vessel possibly representing the distal vertebral and proximal basilar. This appears to be chronically occluded. Russ Joseph MD Chest X-Ray 02/13/17 0000 Signed Impressions: Service Date/Time: Monday, February 13, 2017 10:21 - CONCLUSION: 1. Increasing basilar airspace disease and pleural effusions since February 06. Cardiomegaly. No pneumothorax. Ridge Hernandez MD Head CT 02/12/17 0000 Signed Impressions: Service Date/Time: Sunday, February 12, 2017 21:25 - CONCLUSION: 1. No acute infarct, acute hemorrhage, midlines shift or extra-axial bleed. 2. 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 3. Stable cerebral atrophy. 4. Mucus retention cysts within the left maxillary sinus. Alexei Russell MD Chest X-Ray 02/04/17 0807 Signed Impressions: Service Date/Time: Saturday, February 04, 2017 08:13 - CONCLUSION: 1. Left IJ central line is present and distal tip is not clearly visualized but likely in the brachiocephalic vein near the SVC junction. No pneumothorax is visualized. 2. Stable bilateral air space opacity in a pattern which could represent pulmonary edema with bilateral pleural effusions. 3. Nasogastric tube distal tip is near the GE junction and should ideally be advanced. Carlos Lerma MD Upper Extremity Ultrasound 02/01/17 0000 Signed Impressions: Service Date/Time: January 11:49 - CONCLUSION: 1. No evidence of deep venous thrombosis. Moses Juarez MD Head CT 01/31/17 0809 Signed Impressions: Service Date/Time: Tuesday, January 31, 2017 08:16 - CONCLUSION: Hypodensity left parietal-occipital mid convexity region suggesting infarction or encephalomalacia. No evidence of hemorrhage. Cannot exclude an acute process. May consider further characterization with MRI. Wilber Alfaro MD Neck CTA 01/31/17 Signed Impressions: Service Date/Time: Tuesday, January 31, 2017 08:57 - CONCLUSION: 1. 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 2. String-like contrast in the left vertebral artery Wilber Alfaro MD Head CTA 01/31/17 Signed Impressions: Service Date/Time: Tuesday, January 31, 2017 08:57 - CONCLUSION: Absent flow in the left internal carotid artery with reconstitution of flow in the A2 segment. There is some flow seen in the left sylvian branches of the middle cerebral artery, but the degree of vessel opacification on the left is less than on the right. Wilber Alfaro MD Cerebral Arteriogram 01/31/17 Signed Impressions: Service Date/Time: Tuesday, January 31, 2017 00:00 - CONCLUSION: 1. Patient appears to have had a thrombotic or embolic event to the vertebral basilar system. The left vertebral is highly diseased throughout its course and appears to occlude just proximal to the basilar. Unable to traverse the highly diseased vessel for intervention. 2. The right vertebral is robust proximally but appears to terminate in a PICA branch with a irregular terminal vessel possibly representing the distal vertebral and proximal basilar. This appears to be chronically occluded. Russ Joseph MD Physical Exam GENERAL: unresponsive, on the vent, looks dyspneic SKIN: Cool and dry. HEAD: Atraumatic. Normocephalic. EYES: [employer] conjunctiva. Hazy cornea, no corneal reflex, keeps eyes open. EARS, NOSE AND THROAT: Nose without bleeding or purulent nasal discharge. ET in mouth NECK: Trachea midline. Supple and not tender, no meningeal signs CARDIOVASCULAR: Regular rate and rhythm. No murmurs, rubs or gallops heard. No rub. Pacer/AICD L upper chest with no evidence of infection RESPIRATORY: Coarse breath sounds equal bilaterally. Decreased at bases. ABDOMEN: Soft, nondistended, no reaction to deep palpation. Bowel sounds present and normoactive. No organomegaly. : Rabago in place, urine dark with some sediment EXTREMITIES: No clubbing, cyanosis, improving pedal edema NEUROLOGICAL: Unresponsive NEURO: Unable to assess LINE: No evidence of infection Assessment & Plan Remarks IMPRESSION Episode of unresponsiveness, etiology? - repeat CT head no change - ?due to hypoglycemia - ?seizure S/P arrest Severe shock, post arrest - on 4 pressors - CXR worse - UA has sediment - no central line - on Rx for MRSA PNA (+) BC, from same venipuncture, likely contaminant - has 2 different type of Staph epi Recurrent CVA, S/P thrombolytic Rx Respiratory failure, reintubated 02/13 MRSA PNA Cardiomyopathy, CXR with CHF, rell effusions Renal insufficiency Episodes recurrent hypoglycemia RECOMMENDATION Continue Zyvox for MRSA Continue Cefepime Follow C/S Very poor prognosis Has DNR status now D/W Annia Bonilla MD Feb 15, 2017 12:15
[2017-02-15] MEDS: DEXTROSE 50% IN WATER 50 ML SYRINGE ONE ×2 (14:30→14:34)
--- NOTE | 2017-02-15 16:49 | HHI.HCPN ---
Reason for visit a. To assist with evaluation and management of symptoms including: dyspnea, pain. b. To assist medical decision maker(s) with: better understanding of current medical conditions; weighing benefits/burdens of medical treatment options; making medical treatment decisions. . Subjective/Interval History Patient seen and examined in ICU. No family at bedside. Patient remains on [facility] vent FiO2 70%. Agonal breathing on vent. Irregular HR. Minimal urine output. WBC 37.1, hemoglobin 11.1, platelets 245. Creatinine 2.96, BUN 97. Total protein 4.9. Blood cultures dated 02/14 no growth 1 day. Chest xray bilateral pleural effusions with bilateral pulmonary infiltrates related to pulmonary edema and cardiomegaly, . Family/friend interactions No family at bedside. Family elected Intubation only Code status overnight. Palliative care number previously provided will call family in AM. . Advance Directives Living Will: Never completed Health Care Surrogate: Never completed Durable Power of Digital Strategy Director: Never completed Advance Directive Specifics Health Care Surrogate(s): Patient incapacitated, will not likely regain capacity. According to [place] statutes, health care care proxy decision making falls to the majority of adult children. Patient has 3 daughters and 1 son. 1 daughter Mahendra DOES NOT to participate, other 3 children Alana, Yasir and Martin want to serve in health care proxy decision makers. Significant change in goals: Alt Code - Intubation only. Goals remain aggressive short of alternate code. . Objective Vital Signs Date Time Temp Pulse Resp B/P (MAP) Pulse Ox O2 Delivery O2 Flow Rate FiO2 02/15/17 15:17 0 70 02/15/17 15:00 76 113/70 02/15/17 14:45 85 111/71 02/15/17 14:30 84 111/80 02/15/17 14:15 119/79 02/15/17 14:00 84 02/15/17 14:00 84 120/80 02/15/17 13:45 84 118/80 02/15/17 13:30 118/80 02/15/17 13:15 92 110/78 02/15/17 13:00 90 111/81 02/15/17 12:44 0 70 02/15/17 12:30 86 106/79 02/15/17 12:00 70 02/15/17 12:00 95.9 83 27 85/63 (70) 101/69 (80) 02/15/17 12:00 83 02/15/17 12:00 83 104/73 02/15/17 11:05 81 108/77 02/15/17 10:00 78 02/15/17 10:00 95.3 02/15/17 10:00 110/71 02/15/17 09:42 77 112/73 02/15/17 09:42 112/73 02/15/17 09:26 108/72 02/15/17 09:26 78 110/71 02/15/17 09:20 0 70 02/15/17 09:15 112/57 02/15/17 08:13 74 115/74 02/15/17 08:00 95.3 77 24 85/63 (70) 98 101/70 (80) 02/15/17 08:00 70 02/15/17 08:00 77 02/15/17 07:00 116/75 02/15/17 06:18 76 110/71 02/15/17 06:18 78 109/70 02/15/17 06:00 74 02/15/17 04:24 100 70 02/15/17 04:00 96.0 73 21 95/63 (74) 99 95/64 (74) 02/15/17 04:00 74 02/15/17 04:00 100 02/15/17 02:00 58 02/15/17 01:20 0 70 02/15/17 00:00 96.0 70 18 124/80 (95) 110/72 (85) 02/15/17 00:00 100 02/15/17 00:00 70 02/14/17 22:57 69 99/67 02/14/17 22:53 69 110/70 02/14/17 22:30 0 70 02/14/17 22:00 69 02/14/17 20:09 0 70 02/14/17 20:00 69 18 97/69 (78) 95/66 (76) 02/14/17 20:00 69 02/14/17 20:00 100 02/14/17 19:55 100 02/14/17 17:11 93/71 02/14/17 17:03 92 70 Intake & Output 02/15/17 02/15/17 07:00 19:00 Intake Total 2155 ml 1390 ml Output Total 50 ml Balance 2105 ml 1390 ml IV Total 2155 ml 1390 ml Output Urine Total 50 ml Physical Exam CONSTITUTIONAL/GENERAL: This is an elderly, frail, critically ill patient, agonal respirations on mech vent. TUBES/LINES/DRAINS: ETT, OG, right subclavian central line, PIV left, right A line, Rabago, SCDs, pacemaker/AICD. SKIN: Cool. Ecchymoses on upper extremities. EYES: Pupils equal. Dry eyes. Not blinking. CARDIOVASCULAR: Irregular,PVCs on telemetry. Systolic murmur. RESPIRATORY/CHEST: Agonal respiration on vent. Diminished breath sounds. Scattered course breath sounds. GASTROINTESTINAL: Abdomen distended. Hypoactive bowel sounds. GENITOURINARY: Without palpable bladder distension. Rabago catheter in place. MUSCULOSKELETAL: Extremities with edema. Feet cold to touch. NEUROLOGICAL: Unresponsive. No cough or gag per nurse. PSYCHIATRIC: Unresponsive. . Diagnostic Tests Laboratory Laboratory Tests Test 02/12/17 17:35 02/12/17 20:41 02/13/17 05:07 02/13/17 09:40 Nasal Screen MRSA (PCR) MRSA DETECTED (NOT DETECT) Blood Gas Puncture Site RT RADIAL RT RADIAL RT BRACHIAL Blood Gas Patient Temperature 98.6 98.6 98.6 Blood Gas HCO3 21 mmol/L (22-26) 18 mmol/L (22-26) 16 mmol/L (22-26) Blood Gas Base Excess -3.0 mmol/L (-2-2) -5.9 mmol/L (-2-2) -7.6 mmol/L (-2-2) Blood Gas Oxygen Saturation 98 % (90-100) 98 % (90-100) 98 % (90-100) Arterial Blood pH 7.44 (7.380-7.420) 7.42 (7.380-7.420) 7.47 (7.380-7.420) Arterial Blood Partial Pressure CO2 30 mmHg (38-42) 28 mmHg (38-42) 22 mmHg (38-42) Arterial Blood Partial Pressure O2 488 mmHg (61-120) 255 mmHg (61-120) 335 mmHg (61-120) Arterial Blood Oxygen Content 16.4 Vol % (12.0-20.0) 15.5 Vol % (12.0-20.0) 16.0 Vol % (12.0-20.0) Arterial Blood Carboxyhemoglobin 1.1 % (0-4) 1.1 % (0-4) 1.1 % (0-4) Arterial Blood Methemoglobin 0.9 % (0-2) 0.9 % (0-2) 0.8 % (0-2) Blood Gas Hemoglobin 11.0 G/DL (12.0-16.0) 10.9 G/DL (12.0-16.0) 11.0 G/DL (12.0-16.0) Oxygen Delivery Device NONREBREATHER Non-Rebreathing Mask NRB Blood Gas Liter Flow 15 L/M 15 L/M 15 L/M White Blood Count 6.8 TH/MM3 (4.0-11.0) Red Blood Count 3.32 MIL/MM3 (4.50-5.90) Hemoglobin 9.4 GM/DL (13.0-17.0) Hematocrit 29.0 % (39.0-51.0) Mean Corpuscular Volume 87.4 FL (80.0-100.0) Mean Corpuscular Hemoglobin 28.3 PG (27.0-34.0) Mean Corpuscular Hemoglobin Concent 32.4 % (32.0-36.0) Red Cell Distribution Width 17.6 % (11.6-17.2) Platelet Count 123 TH/MM3 (150-450) Mean Platelet Volume 8.1 FL (7.0-11.0) Neutrophils (%) (Auto) 70.8 % (16.0-70.0) Lymphocytes (%) (Auto) 20.1 % (9.0-44.0) Monocytes (%) (Auto) 7.1 % (0.0-8.0) Eosinophils (%) (Auto) 1.4 % (0.0-4.0) Basophils (%) (Auto) 0.6 % (0.0-2.0) Neutrophils # (Auto) 4.8 TH/MM3 (1.8-7.7) Lymphocytes # (Auto) 1.4 TH/MM3 (1.0-4.8) Monocytes # (Auto) 0.5 TH/MM3 (0-0.9) Eosinophils # (Auto) 0.1 TH/MM3 (0-0.4) Basophils # (Auto) 0.0 TH/MM3 (0-0.2) CBC Comment DIFF FINAL Differential Comment Blood Gas Inspired Oxygen 100 % 100 % Test 02/13/17 10:10 02/13/17 10:16 02/13/17 13:45 02/13/17 14:29 White Blood Count 8.3 TH/MM3 (4.0-11.0) Red Blood Count 4.20 MIL/MM3 (4.50-5.90) Hemoglobin 11.1 GM/DL (13.0-17.0) Hematocrit 34.8 % (39.0-51.0) Mean Corpuscular Volume 83.0 FL (80.0-100.0) Mean Corpuscular Hemoglobin 26.4 PG (27.0-34.0) Mean Corpuscular Hemoglobin Concent 31.8 % (32.0-36.0) Red Cell Distribution Width 22.7 % (11.6-17.2) Platelet Count 357 TH/MM3 (150-450) Mean Platelet Volume 9.4 FL (7.0-11.0) Neutrophils (%) (Auto) 87.2 % (16.0-70.0) Lymphocytes (%) (Auto) 3.4 % (9.0-44.0) Monocytes (%) (Auto) 9.3 % (0.0-8.0) Eosinophils (%) (Auto) 0.0 % (0.0-4.0) Basophils (%) (Auto) 0.1 % (0.0-2.0) Neutrophils # (Auto) 7.3 TH/MM3 (1.8-7.7) Lymphocytes # (Auto) 0.3 TH/MM3 (1.0-4.8) Monocytes # (Auto) 0.8 TH/MM3 (0-0.9) Eosinophils # (Auto) 0.0 TH/MM3 (0-0.4) Basophils # (Auto) 0.0 TH/MM3 (0-0.2) CBC Comment DIFF FINAL Differential Comment Blood Urea Nitrogen 36 MG/DL (7-18) Creatinine 2.16 MG/DL (0.60-1.30) Random Glucose 138 MG/DL (74-106) Total Protein 6.2 GM/DL (6.4-8.2) Albumin 2.7 GM/DL (3.4-5.0) Calcium Level 8.1 MG/DL (8.5-10.1) Phosphorus Level 4.8 MG/DL (2.5-4.9) Magnesium Level 2.3 MG/DL (1.5-2.5) Alkaline Phosphatase 133 U/L (45-117) Aspartate Amino Transf (AST/SGOT) 13 U/L (15-37) Alanine Aminotransferase (ALT/SGPT) 25 U/L (12-78) Total Bilirubin 1.1 MG/DL (0.2-1.0) Sodium Level 138 MEQ/L (136-145) Potassium Level 3.5 MEQ/L (3.5-5.1) Chloride Level 106 MEQ/L (98-107) Carbon Dioxide Level 20.5 MEQ/L (21.0-32.0) Anion Gap 12 MEQ/L (5-15) Estimat Glomerular Filtration Rate 37 ML/MIN (>89) B-Type Natriuretic Peptide GREATER THAN 5000 PG/ML Blood Gas Puncture Site ART LINE Blood Gas Patient Temperature 98.6 Blood Gas HCO3 16 mmol/L (22-26) Blood Gas Base Excess -7.4 mmol/L (-2-2) Blood Gas Oxygen Saturation 98 % (90-100) Arterial Blood pH 7.43 (7.380-7.420) Arterial Blood Partial Pressure CO2 25 mmHg (38-42) Arterial Blood Partial Pressure O2 337 mmHg (61-120) Arterial Blood Oxygen Content 16.4 Vol % (12.0-20.0) Arterial Blood Carboxyhemoglobin 1.1 % (0-4) Arterial Blood Methemoglobin 0.9 % (0-2) Blood Gas Hemoglobin 11.3 G/DL (12.0-16.0) Oxygen Delivery Device VENTILATOR Blood Gas Ventilator Setting 16/500/1.0/PEEP5 Blood Gas Inspired Oxygen 100 % Ammonia 31 MCMOL/L (11-32) Lactic Acid Level 3.1 mmol/L (0.4-2.0) Test 02/13/17 18:05 02/14/17 05:06 02/14/17 05:40 02/14/17 09:22 Lactic Acid Level 4.8 mmol/L (0.4-2.0) Blood Gas Puncture Site ART LINE ART LINE Blood Gas Patient Temperature 98.6 98.6 Blood Gas HCO3 13 mmol/L (22-26) 10 mmol/L (22-26) Blood Gas Base Excess -11.3 mmol/L (-2-2) -19.8 mmol/L (-2-2) Blood Gas Oxygen Saturation 98 % (90-100) 97 % (90-100) Arterial Blood pH 7.38 (7.380-7.420) 6.96 (7.380-7.420) Arterial Blood Partial Pressure CO2 22 mmHg (38-42) 46 mmHg (38-42) Arterial Blood Partial Pressure O2 219 mmHg (61-120) 243 mmHg (61-120) Arterial Blood Oxygen Content 16.2 Vol % (12.0-20.0) 16.2 Vol % (12.0-20.0) Arterial Blood Carboxyhemoglobin 1.0 % (0-4) 0.0 % (0-4) Arterial Blood Methemoglobin 1.0 % (0-2) 1.1 % (0-2) Blood Gas Hemoglobin 11.5 G/DL (12.0-16.0) 11.5 G/DL (12.0-16.0) Oxygen Delivery Device VENTILATOR VENTILATOR Blood Gas Ventilator Setting PRVC/AC Blood Gas Inspired Oxygen 100 % White Blood Count 8.2 TH/MM3 (4.0-11.0) Red Blood Count 4.64 MIL/MM3 (4.50-5.90) Hemoglobin 12.3 GM/DL (13.0-17.0) Hematocrit 39.4 % (39.0-51.0) Mean Corpuscular Volume 84.8 FL (80.0-100.0) Mean Corpuscular Hemoglobin 26.4 PG (27.0-34.0) Mean Corpuscular Hemoglobin Concent 31.2 % (32.0-36.0) Red Cell Distribution Width 22.8 % (11.6-17.2) Platelet Count 407 TH/MM3 (150-450) Mean Platelet Volume 8.9 FL (7.0-11.0) Neutrophils (%) (Auto) 87.5 % (16.0-70.0) Lymphocytes (%) (Auto) 4.7 % (9.0-44.0) Monocytes (%) (Auto) 7.8 % (0.0-8.0) Eosinophils (%) (Auto) 0.0 % (0.0-4.0) Basophils (%) (Auto) 0.0 % (0.0-2.0) Neutrophils # (Auto) 7.2 TH/MM3 (1.8-7.7) Lymphocytes # (Auto) 0.4 TH/MM3 (1.0-4.8) Monocytes # (Auto) 0.6 TH/MM3 (0-0.9) Eosinophils # (Auto) 0.0 TH/MM3 (0-0.4) Basophils # (Auto) 0.0 TH/MM3 (0-0.2) CBC Comment DIFF FINAL Differential Comment Blood Urea Nitrogen 38 MG/DL (7-18) Creatinine 2.40 MG/DL (0.60-1.30) Random Glucose 172 MG/DL (74-106) Total Protein 6.5 GM/DL (6.4-8.2) Albumin 2.7 GM/DL (3.4-5.0) Calcium Level 8.1 MG/DL (8.5-10.1) Phosphorus Level 5.4 MG/DL (2.5-4.9) Magnesium Level 2.4 MG/DL (1.5-2.5) Alkaline Phosphatase 152 U/L (45-117) Aspartate Amino Transf (AST/SGOT) 15 U/L (15-37) Alanine Aminotransferase (ALT/SGPT) 25 U/L (12-78) Total Bilirubin 1.0 MG/DL (0.2-1.0) Sodium Level 138 MEQ/L (136-145) Potassium Level 4.1 MEQ/L (3.5-5.1) Chloride Level 107 MEQ/L (98-107) Carbon Dioxide Level 15.2 MEQ/L (21.0-32.0) Anion Gap 16 MEQ/L (5-15) Estimat Glomerular Filtration Rate 33 ML/MIN (>89) Test 02/14/17 13:12 02/14/17 17:00 02/15/17 04:00 02/15/17 05:05 White Blood Count 26.5 TH/MM3 (4.0-11.0) 37.1 TH/MM3 (4.0-11.0) Red Blood Count 4.42 MIL/MM3 (4.50-5.90) 4.27 MIL/MM3 (4.50-5.90) Hemoglobin 11.6 GM/DL (13.0-17.0) 11.1 GM/DL (13.0-17.0) Hematocrit 40.2 % (39.0-51.0) 38.8 % (39.0-51.0) Mean Corpuscular Volume 90.9 FL (80.0-100.0) 90.9 FL (80.0-100.0) Mean Corpuscular Hemoglobin 26.3 PG (27.0-34.0) 25.9 PG (27.0-34.0) Mean Corpuscular Hemoglobin Concent 28.9 % (32.0-36.0) 28.5 % (32.0-36.0) Red Cell Distribution Width 23.4 % (11.6-17.2) 23.6 % (11.6-17.2) Platelet Count 331 TH/MM3 (150-450) 245 TH/MM3 (150-450) Mean Platelet Volume 8.2 FL (7.0-11.0) 8.1 FL (7.0-11.0) Neutrophils (%) (Auto) 93.9 % (16.0-70.0) Lymphocytes (%) (Auto) 2.8 % (9.0-44.0) Monocytes (%) (Auto) 3.1 % (0.0-8.0) Eosinophils (%) (Auto) 0.1 % (0.0-4.0) Basophils (%) (Auto) 0.1 % (0.0-2.0) Neutrophils # (Auto) 24.9 TH/MM3 (1.8-7.7) Lymphocytes # (Auto) 0.7 TH/MM3 (1.0-4.8) Monocytes # (Auto) 0.8 TH/MM3 (0-0.9) Eosinophils # (Auto) 0.0 TH/MM3 (0-0.4) Basophils # (Auto) 0.0 TH/MM3 (0-0.2) CBC Comment AUTO DIFF Differential Total Cells Counted 100 Neutrophils % (Manual) 79 % (16-70) Band Neutrophils % 6 % (0-6) Lymphocytes % 6 % (9-44) Monocytes % 3 % (0-8) Neutrophils # (Manual) 24.1 TH/MM3 (1.8-7.7) Metamyelocytes 5 % (0-1) Myelocytes 1 % (0-0) Nucleated Red Blood Cells 3 /100 WBC (0-0) Differential Comment FINAL DIFF MANUAL Toxic Vacuolation PRESENT (NONE SEEN) Platelet Estimate NORMAL (NORMAL) Platelet Morphology Comment CLUMPED (NORMAL) Ovalocytes 1+ (NORMAL) Lexx Cells 1+ (NORMAL) Keratocytes OCC (NORMAL) Prothrombin Time 20.1 SEC (9.8-11.6) 38.5 SEC (9.8-11.6) Prothromb Time International Ratio 1.8 RATIO 3.3 RATIO Blood Urea Nitrogen 38 MG/DL (7-18) 37 MG/DL (7-18) Creatinine 2.71 MG/DL (0.60-1.30) 2.96 MG/DL (0.60-1.30) Random Glucose 203 MG/DL (74-106) 189 MG/DL (74-106) Total Protein 5.5 GM/DL (6.4-8.2) 4.9 GM/DL (6.4-8.2) Albumin 2.2 GM/DL (3.4-5.0) Calcium Level 8.1 MG/DL (8.5-10.1) 7.0 MG/DL (8.5-10.1) Phosphorus Level 7.8 MG/DL (2.5-4.9) 6.7 MG/DL (2.5-4.9) Magnesium Level 2.7 MG/DL (1.5-2.5) 2.2 MG/DL (1.5-2.5) Alkaline Phosphatase 219 U/L (45-117) Aspartate Amino Transf (AST/SGOT) 202 U/L (15-37) Alanine Aminotransferase (ALT/SGPT) 97 U/L (12-78) Total Bilirubin 1.5 MG/DL (0.2-1.0) Sodium Level 139 MEQ/L (136-145) 137 MEQ/L (136-145) Potassium Level 4.1 MEQ/L (3.5-5.1) 3.5 MEQ/L (3.5-5.1) Chloride Level 101 MEQ/L (98-107) 99 MEQ/L (98-107) Carbon Dioxide Level 16.3 MEQ/L (21.0-32.0) 11.9 MEQ/L (21.0-32.0) Anion Gap 22 MEQ/L (5-15) 26 MEQ/L (5-15) Blood Gas Puncture Site ART LINE ART LINE Blood Gas Patient Temperature 98.6 98.6 Blood Gas HCO3 9 mmol/L (22-26) 9 mmol/L (22-26) Blood Gas Base Excess -20.2 mmol/L (-2-2) -19.0 mmol/L (-2-2) Blood Gas Oxygen Saturation 90 % (90-100) 92 % (90-100) Arterial Blood pH 7.01 (7.380-7.420) 7.08 (7.380-7.420) Arterial Blood Partial Pressure CO2 36 mmHg (38-42) 32 mmHg (38-42) Arterial Blood Partial Pressure O2 96 mmHg (61-120) 99 mmHg (61-120) Arterial Blood Oxygen Content 15.0 Vol % (12.0-20.0) 14.9 Vol % (12.0-20.0) Arterial Blood Carboxyhemoglobin 0.7 % (0-4) 0.8 % (0-4) Arterial Blood Methemoglobin 1.2 % (0-2) 1.3 % (0-2) Blood Gas Hemoglobin 11.7 G/DL (12.0-16.0) 11.4 G/DL (12.0-16.0) Oxygen Delivery Device VENTILATOR VENTILATOR Blood Gas Ventilator Setting 550/18/5PEEP AC/18/550/PEEP 5 Blood Gas Inspired Oxygen 70 % 70 % Estimat Glomerular Filtration Rate 26 ML/MIN (>89) Protein Corrected Calcium 8.2 MG/DL (8.5-10.1) Result Diagram: 02/15/1739902/15/170 Microbiology Microbiology Date/Time Source Procedure Growth Status 02/14/17 05:40 Blood Peripheral Aerobic Blood Culture - Preliminary NO GROWTH IN 1 DAY Resulted 02/14/17 05:40 Blood Peripheral Anaerobic Blood Culture - Preliminary NO GROWTH IN 1 DAY Resulted 02/14/17 05:32 Blood Peripheral Aerobic Blood Culture - Preliminary NO GROWTH IN 1 DAY Resulted 02/14/17 05:32 Blood Peripheral Anaerobic Blood Culture - Preliminary NO GROWTH IN 1 DAY Resulted Imaging Last Impressions Chest X-Ray 02/15/17 0600 Signed Impressions: Service Date/Time: January 04:09 - CONCLUSION: Unchanged bilateral pleural effusions with bilateral pulmonary infiltrates and cardiomegaly. Infiltrates likely related to intraalveolar pulmonary edema. Wilber Bermudez Jr., MD SPECT Scan-Tumor Localization NM 02/12/17 0000 Signed Impressions: Service Date/Time: Sunday, February 12, 2017 14:31 - CONCLUSION: Negative study. Erwin Peterson MD FACR Head CT 02/12/17 0000 Signed Impressions: Service Date/Time: Sunday, February 12, 2017 21:25 - CONCLUSION: 1. No acute infarct, acute hemorrhage, midlines shift or extra-axial bleed. 2. 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 3. Stable cerebral atrophy. 4. Mucus retention cysts within the left maxillary sinus. Alexei Russell MD Upper Extremity Ultrasound 02/01/17 0000 Signed Impressions: Service Date/Time: January 11:49 - CONCLUSION: 1. No evidence of deep venous thrombosis. Moses Juarez MD Neck CTA 01/31/17 0000 Signed Impressions: Service Date/Time: Tuesday, January 31, 2017 08:57 - CONCLUSION: 1. 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 2. String-like contrast in the left vertebral artery Wilber Alfaro MD Head CTA 01/31/17 0000 Signed Impressions: Service Date/Time: Tuesday, January 31, 2017 08:57 - CONCLUSION: Absent flow in the left internal carotid artery with reconstitution of flow in the A2 segment. There is some flow seen in the left sylvian branches of the middle cerebral artery, but the degree of vessel opacification on the left is less than on the right. Wilber Alfaro MD Cerebral Arteriogram 01/31/17 0000 Signed Impressions: Service Date/Time: Tuesday, January 31, 2017 00:00 - CONCLUSION: 1. Patient appears to have had a thrombotic or embolic event to the vertebral basilar system. The left vertebral is highly diseased throughout its course and appears to occlude just proximal to the basilar. Unable to traverse the highly diseased vessel for intervention. 2. The right vertebral is robust proximally but appears to terminate in a PICA branch with a irregular terminal vessel possibly representing the distal vertebral and proximal basilar. This appears to be chronically occluded. Russ Joseph MD Procedures * Intubated Assessment and Plan Disease Oriented Problem List: (1) Asystole (2) Respiratory failure (3) Cardiomyopathy Comment: EF 15-20% (4) Renal insufficiency (5) Dehydration (6) CVA (cerebral vascular accident) Symptom Scale: (1) Pain 0-10 Scale: Unable to quantify (2) Dyspnea 0-10 Scale: Unable to quantify (3) Generalized weakness 0-10 Scale: Unable to quantify Pertinent Non-Medical Issues Psychosocial: Single. Has 4 children. Spiritual: Shinto emil, welcomes music orchestrator support. Julito Rosario has been visiting. Legal:Patient incapacitated, will not likely regain capacity. According to [place] statutes, health care care proxy decision making falls to the majority of adult children. Patient has 3 daughters and 1 son. 1 daughter Mahendra DOES NOT to participate, other 3 children Alana Yasir and Martin want to serve in health care proxy decision makers. Ethical issues impacting care: No known concerns at this time. . Important Contacts * Martin Rae, daughter: desires to participate in decision making. [phone] * Mahendra Chambers, daughter: Mahendra DOES NOT want to participate. [phone] * Yasir Herman, son: desires to participate in decision making. [phone] * Alana Avalos, daughter: desires to participate in decision making. [phone] . Prognosis Mr. Herman is a 66 year old male with HTN, CAD, CHF, cardiomegaly and cardiomyopathy EF 15-20% who suffered asystolic arrest on . Poor prognosis for meaningful recovery. . Code Status: Alternative Code (Intubation Only) Plan * Patient incapacitated, will not likely regain capacity. According to [place] statutes, health care care proxy decision making falls to the majority of adult children. Patient has 3 daughters and 1 son. 1 daughter Mahendra DOES NOT want to participate, other 3 children Alana Yasir and Martin want to serve in health care proxy decision makers. * Alt Code - Intubation Only. * 3 children elected Intubation Only overnight. Palliative care number previously provided, will contact family 02/16/17 if patient survives. * SYMPTOMS: Pain: due to general debility, heart disease, prolonged hospital course and cardiac arrest 20 minute resuscitation today. Dyspnea: on mech vent. Off sedation, unresponsive. * Palliative care will continue to follow to assist with clarification of treatment goals throughout hospital course. . Attestation To help prompt me to consider important information that might be impacting today's encounter and assessment, information from prior notes written by myself or my colleagues may have been "brought forward" into today's note. My signature on this note, however, is an attestation that I personally performed the exam, history, and/or decision-making noted today, and, unless otherwise indicated, the interactions with patient, family, and staff as well as the review of records all occurred today. I also attest that the listed assessment and stated plan reflect my best clinical judgment today based on the combination of historical information, prior notes, and today's exam/ interactions. When time spent is documented, it refers only to time spent today by the signer, or if indicated, combined time spent today by collaborating physician/nurse practitioner. Charis Garrido Feb 15, 2017 16:49
--- NOTE | 2017-02-15 18:36 | HHI.NPPN ---
Subjective History of Present Illness The patient is a 66 yo AA male who presented to this facility on 01/31 for unresponsiveness. He has a significant PMHx of ischemic cardiomyopathy with EF of 20% s/p AICD, CVA, CAD, and HTN. Resides in nursing facility. On admission , he had CTA of head and neck that showed basilar occlusion. Underwent TPA of R vertebral artery. 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 Early in the AM on 02/14, he coded and was resuscitated. He developed severe acidosis and is now on pressor support along with bicarb drip. SCr on admission was 1.59 that subsequently improved to 0.8 on 02/09 but again worsened to 1.36 on 02/10 and again to 2.16 on 02/13 and again to 2.40 at consult. He was transferred to ICU on 02/13 after becoming more lethargic. Limited lab available as he has not been admitted here previously, so uncertain if any underlying CKD hx. Interval History Pt remains intubated off sedation. Breathing over vent, but still agonal Neurologically, unchanged Family has changed to alternate code with intubation only. (Naomie Salinas) Review of Systems General General Remarks Unable to assess (Naomie Salinas) Objective Data Data 02/15/17 02/16/17 19:00 07:00 Intake Total 1390 ml Output Total 410 ml Balance 980 ml IV Total 1390 ml Output Urine Total 10 ml Gastric Drainage Total 400 ml # Bowel Movements 0 Vital Signs Date Time Temp Pulse Resp B/P (MAP) Pulse Ox O2 Delivery O2 Flow Rate FiO2 02/15/17 18:00 85 02/15/17 17:55 90/58 02/15/17 17:55 86/55 02/15/17 17:50 84/53 02/15/17 17:45 88/53 02/15/17 17:40 87/53 02/15/17 17:35 89/43 02/15/17 17:30 88/45 02/15/17 16:00 97.1 90 28 103/63 (76) 103/63 (76) 02/15/17 16:00 70 02/15/17 16:00 90 02/15/17 15:17 0 70 02/15/17 15:00 76 113/70 02/15/17 14:45 85 111/71 02/15/17 14:30 84 111/80 02/15/17 14:15 119/79 02/15/17 14:00 84 02/15/17 14:00 84 120/80 02/15/17 13:45 84 118/80 02/15/17 13:30 118/80 02/15/17 13:15 92 110/78 02/15/17 13:00 90 111/81 02/15/17 12:44 0 70 02/15/17 12:30 86 106/79 02/15/17 12:00 70 02/15/17 12:00 95.9 83 27 85/63 (70) 101/69 (80) 02/15/17 12:00 83 02/15/17 12:00 83 104/73 02/15/17 11:05 81 108/77 02/15/17 10:00 78 02/15/17 10:00 95.3 02/15/17 10:00 110/71 02/15/17 09:42 77 112/73 02/15/17 09:42 112/73 02/15/17 09:26 108/72 02/15/17 09:26 78 110/71 02/15/17 09:20 0 70 02/15/17 09:15 112/57 02/15/17 08:13 74 115/74 02/15/17 08:00 95.3 77 24 85/63 (70) 98 101/70 (80) 02/15/17 08:00 70 02/15/17 08:00 77 02/15/17 07:00 116/75 02/15/17 06:18 76 110/71 02/15/17 06:18 78 109/70 02/15/17 06:00 74 02/15/17 04:24 100 70 02/15/17 04:00 96.0 73 21 95/63 (74) 99 95/64 (74) 02/15/17 04:00 74 02/15/17 04:00 100 02/15/17 02:00 58 02/15/17 01:20 0 70 02/15/17 00:00 96.0 70 18 124/80 (95) 110/72 (85) 02/15/17 00:00 100 02/15/17 00:00 70 02/14/17 22:57 69 99/67 02/14/17 22:53 69 110/70 02/14/17 22:30 0 70 02/14/17 22:00 69 02/14/17 20:09 0 70 02/14/17 20:00 69 18 97/69 (78) 95/66 (76) 02/14/17 20:00 69 02/14/17 20:00 100 02/14/17 19:55 100 (Naomie Salinas) -: 02/15/17 0400 02/15/17 0400 Imaging Last Impressions Chest X-Ray 02/15/17 0600 Signed Impressions: Service Date/Time: January 04:09 - CONCLUSION: Unchanged bilateral pleural effusions with bilateral pulmonary infiltrates and cardiomegaly. Infiltrates likely related to intraalveolar pulmonary edema. Wilber Bermudez Jr., MD SPECT Scan-Tumor Localization NM 02/12/17 0000 Signed Impressions: Service Date/Time: Sunday, February 12, 2017 14:31 - CONCLUSION: Negative study. Erwin Peterson MD FACR Head CT 02/12/17 0000 Signed Impressions: Service Date/Time: Sunday, February 12, 2017 21:25 - CONCLUSION: 1. No acute infarct, acute hemorrhage, midlines shift or extra-axial bleed. 2. 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 3. Stable cerebral atrophy. 4. Mucus retention cysts within the left maxillary sinus. Alexei Russell MD Upper Extremity Ultrasound 02/01/17 0000 Signed Impressions: Service Date/Time: January 11:49 - CONCLUSION: 1. No evidence of deep venous thrombosis. Moses Juarez MD Neck CTA 01/31/17 0000 Signed Impressions: Service Date/Time: Tuesday, January 31, 2017 08:57 - CONCLUSION: 1. 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 2. String-like contrast in the left vertebral artery Wilber Alfaro MD Head CTA 01/31/17 0000 Signed Impressions: Service Date/Time: Tuesday, January 31, 2017 08:57 - CONCLUSION: Absent flow in the left internal carotid artery with reconstitution of flow in the A2 segment. There is some flow seen in the left sylvian branches of the middle cerebral artery, but the degree of vessel opacification on the left is less than on the right. Wilber Alfaro MD Cerebral Arteriogram 01/31/17 0000 Signed Impressions: Service Date/Time: Tuesday, January 31, 2017 00:00 - CONCLUSION: 1. Patient appears to have had a thrombotic or embolic event to the vertebral basilar system. The left vertebral is highly diseased throughout its course and appears to occlude just proximal to the basilar. Unable to traverse the highly diseased vessel for intervention. 2. The right vertebral is robust proximally but appears to terminate in a PICA branch with a irregular terminal vessel possibly representing the distal vertebral and proximal basilar. This appears to be chronically occluded. Russ Joseph MD Medication Review Current Medications Medications (Trade) Dose Ordered Sig/Wilbur Route Start Time Stop Time Status Last Admin (NS Flush) 2 ml UNSCH PRN IV FLUSH 01/31/17 13:15 (NS Flush) 2 ml BID IV FLUSH 01/31/17 21:00 02/15/17 08:27 (Tylenol) 650 mg Q6H PRN PO 01/31/17 13:15 02/06/17 20:18 Miscellaneous Information 1 [id number] XX 01/31/17 13:15 01/31/17 13:15 (Chlorhexidine 2% Cloth) Taper DAILY@04 TOP 02/01/17 04:00 01/28/18 03:59 02/03/17 04:00 (Chlorhexidine 2% Cloth) 3 pack UNSCH PRN TOP 01/31/17 13:15 Levetriacetam 500 mg/Sodium Chloride 105 ml @ 420 mls/hr Q8H IV 02/01/17 11:00 02/15/17 11:04 (Bactroban Nasal 2% Oint) 1 applic BID NASAL 02/02/17 09:00 02/14/17 20:33 (Lactulose Liq) 30 ml BID PO 02/02/17 21:00 02/15/17 08:32 (Bactroban Nasal 2% Oint) Taper BID EACH NARE 02/04/17 09:00 01/31/18 08:59 02/14/17 20:30 (Albuterol Neb) 2.5 mg Q2HR NEB PRN NEB 02/04/17 07:15 02/13/17 03:31 (Theragran) 1 tab DAILY PO 02/04/17 09:00 02/15/17 08:32 (Colace Liq) 100 mg Q12HR PO 02/04/17 09:00 02/15/17 08:33 (Senna Liq) 8.8 mg BID PO 02/04/17 09:00 02/15/17 08:33 (NS Flush) DAILY IVF 02/04/17 09:00 02/14/17 11:20 (NS Flush) UNSCH PRN IVF 02/04/17 08:15 Patient Own Medication PT OWN MED: CRESTOR... DAILY PO 02/05/17 09:00 Future Hold (Eliquis) 5 mg BID PO 02/07/17 21:00 02/14/17 20:29 (Aspirin Chew) 81 mg DAILY PO 02/09/17 09:00 02/15/17 08:32 (Lopressor) 25 mg DAILY PO 02/09/17 09:00 Future Hold 02/14/17 11:33 (Aldactone) 25 mg DAILY PO 02/09/17 09:00 Future Hold 02/14/17 11:33 (D50w (Vial) Inj) 50 ml UNSCH PRN IV 02/10/17 23:30 (SoluCORTEF INJ) 100 mg Q8H IV PUSH 02/13/17 12:00 02/15/17 11:05 (Peridex 0.12% Liq) 15 ml BID@08,20 MT 02/13/17 20:00 02/15/17 08:30 (Lasix Inj) 40 mg Q12H IV PUSH 02/13/17 12:00 02/15/17 11:05 Linezolid 300 ml @ 300 mls/hr Q12H IV 02/13/17 12:00 02/16/17 12:59 02/15/17 11:28 Cefepime HCl 1000 mg/Sodium Chloride 100 ml @ 200 mls/hr Q12H IV 02/13/17 15:00 02/15/17 15:13 Sodium Bicarbonate 150 meq/Dextrose 1,150 ml @ 100 mls/hr [id number] IV 02/14/17 06:00 02/15/17 11:27 Epinephrine HCl 8 mg/Dextrose 250 ml @ 5.62 mls/hr TITRATE PRN IV 02/14/17 09:45 02/15/17 06:18 Phenylephrine HCl 160 mg/Dextrose 500 ml @ 7.5 mls/hr TITRATE PRN IV 02/14/17 09:45 02/15/17 09:26 (Brethine Inj) 1 mg UNSCH PRN SQ 02/14/17 09:45 (Pepcid) 10 mg BID TUBE 02/14/17 21:00 02/15/17 08:32 Vasopressin 40 units/Dextrose 100 ml @ 1.5 mls/hr TITRATE PRN IV 02/14/17 18:00 02/15/17 09:42 Dextrose 500 ml @ 42 mls/hr [id number] IV 02/14/17 23:00 02/15/17 11:05 Norepinephrine Bitartrate 16 mg/ Dextrose 250 ml @ 1.87 mls/hr TITRATE PRN IV 02/15/17 09:45 (Lacrilube Opht Oint) 1 applic Q8H EACH EYE 02/15/17 16:00 02/15/17 16:00 (Naomie Salinas) Physical Exam General Appearance: Malnourished (Naomie Salinas) Pulmonary Resp Exam: Decreased Bases, Diminished Breath Sounds (Naomie Salinas) Cardiology CV Exam: Irregular (Naomie Salinas) Gastrointestinal/Abdomen GI Exam: Soft, Non-Tender (Naomie Salinas) Integumentary Skin Exam: Warm (Naomie Salinas) Extremeties Extremities Exam: Moderate Edema Extremeties Remarks generalized anasarca (Naomie Salinas) Neurologic Neuro Exam: Unresponsive (Naomie Salinas) Assessment/Plan Problem List: (1) Acute renal failure (ARF) ICD Codes: N17.9 - Acute kidney failure, unspecified Plan: Related to cardiac arrest. From renal standpoint, nothing has changed. He remains on 3 inotropes and remains unresponsive off sedation. It is still felt that the patient would not tolerate dialysis or any significant fluid removal and that attempting dialysis would not alter this patient's grim prognosis or contribute to his quality of life. Prior to admission, he had end stage cardiomyopathy as well as debilitation from CVA. Essentially I believe dialysis would be futile in this situation. Recommend continue management of his acid base status with parental bicarbonate but comfort care is certain appropriate. (2) Sudden cardiac arrest ICD Codes: I46.9 - Cardiac arrest, cause unspecified Plan: 02/14 with resuscitation (3) CVA (cerebral vascular accident) ICD Codes: I63.9 - Cerebral infarction, unspecified Status: Acute (4) Cardiomyopathy ICD Codes: I42.9 - Cardiomyopathy, unspecified (5) Respiratory failure ICD Codes: J96.90 - Respiratory failure, unspecified, unspecified whether with hypoxia or hypercapnia (Naomie Salinas) Plan The exam, history, and the medical decision-making described in the above note were completed with the assistance of the PA-C. I reviewed and agree with the findings presented. (Nathan Ferguson MD) Naomie Salinas Feb 15, 2017 18:36 Nathan Ferguson MD Feb 16, 2017 17:57
[2017-02-15] MEDS ORDERED: GLUCAGON 1 MG/ML VIAL IV PUSH ONE (22:30)
[2017-02-15 23:05] LABS: BLOOD GAS BASE EXCESS -14.1 mmol/L (-2-2); BLOOD GAS CARBOXYHEMOGLOBIN 1.1 % (0-4); BLOOD GAS HCO3 12 mmol/L (22-26); BLOOD GAS METHEMOGLOBIN 1.1 % (0-2); BLOOD GAS O2 HGB SATURATION 97 % (90-100); BLOOD GAS OXYGEN CONTENT 13.6 Vol % (12.0-20.0); BLOOD GAS PCO2 28 mmHg (38-42); BLOOD GAS PO2 156 mmHg (61-120); BLOOD GAS TOTAL HGB 9.8 G/DL (12.0-16.0); TEMP CORR TO 98.6
[2017-02-15 23:07] LABS: CRITICAL VALUE YES; FIO2 70 %; OXYGEN DEVICE VENTILATOR; VENT SETTINGS AC 18/550/5PEEP
[2017-02-15 23:08] LABS: DRAW SITE ART LINE; STAT NO
[2017-02-16] VITALS (18 sets, daily range): BP systolic 101–125; BP diastolic 56–75; PULSE 69–88; RESP 18–22; TEMP 97.4–100.5; O2SAT 0
[2017-02-16] MEDS ORDERED: DEXTROSE 50% IN WATER 50 ML SYRINGE ONE ×3 (00:54→01:45)
[2017-02-16] MEDS: VASOPRESSIN 40 U/D5W 100 ML Titrate, Post Cardiac Surgery IV PRN ×2 (01:44)
[2017-02-16] MEDS: levETIRAcetam 500 MG/NS 100 ML IV SCH ×6 (02:01→18:23)
[2017-02-16] MEDS: CEFEPIME INJ 1,000 MG in SODIUM CHLORIDE 0.9% INJ 100 ML IV SCH (02:53)
[2017-02-16] MEDS: CHLORHEXIDINE GLUCONATE 2 % 1 PACK (2 CLOTHS) TOP SCH (04:00)
[2017-02-16] MEDS: HYDROCORTISONE SOD SUCCINATE 100 MG VIAL IV PUSH SCH ×2 (04:11→11:25)
[2017-02-16] MEDS: NOREPINEPHRINE 16 MG/D5W 250 ML IV PRN ×4 (04:18→14:24)
[2017-02-16] MEDS: DEXTROSE 10% INJ 500 ML IV SCH ×3 (04:18→14:24)
[2017-02-16 07:33] LABS: BLOOD GAS BASE EXCESS -13.1 mmol/L (-2-2); BLOOD GAS CARBOXYHEMOGLOBIN 1.3 % (0-4); BLOOD GAS HCO3 13 mmol/L (22-26); BLOOD GAS METHEMOGLOBIN 1.1 % (0-2); BLOOD GAS O2 HGB SATURATION 95 % (90-100); BLOOD GAS OXYGEN CONTENT 13.5 Vol % (12.0-20.0); BLOOD GAS PCO2 32 mmHg (38-42); BLOOD GAS PO2 109 mmHg (61-120); CRITICAL VALUE YES; OXYGEN DEVICE VENTILATOR; TEMP CORR TO 98.6
[2017-02-16 07:34] LABS: DRAW SITE ART LINE; FIO2 60 %; STAT YES; ULNAR PULSE PRESENT; VENT SETTINGS AC
[2017-02-16] MEDS: ARTIFICIAL TEARS OPTH OINT 3.5 APPLIC/3.5 GM TUBO EACH EYE SCH ×2 (08:00→15:32)
[2017-02-16 08:24] LABS: AUTOMATED NEUTROPHIL # 31.4 TH/MM3 (1.8-7.7); BASOPHIL # 0.1 TH/MM3 (0-0.2); BASOPHIL % 0.3 % (0.0-2.0); HEMATOCRIT 33.3 % (39.0-51.0); LYMPH % 0.8 % (9.0-44.0); LYMPHOCYTE # 0.3 TH/MM3 (1.0-4.8); MEAN CELL VOLUME 86.3 FL (80.0-100.0); MEAN CORPUSCULAR HGB CONC 30.1 % (32.0-36.0); MONO % 3.3 % (0.0-8.0); NEUT % 95.6 % (16.0-70.0); PLATELET COUNT 150 TH/MM3 (150-450); RED BLOOD COUNT 3.86 MIL/MM3 (4.50-5.90); RED CELL DISTRIBUTION WIDTH 22.8 % (11.6-17.2); WHITE BLOOD COUNT 32.8 TH/MM3 (4.0-11.0)
[2017-02-16 08:31] LABS: INTERNATIONAL NORMALIZED RATIO 4.5 RATIO; PROTHROMBIN TIME - PATIENT 53.1 SEC (9.8-11.6)
[2017-02-16 08:46] LABS: HEMO FLAGS AUTO DIFF
[2017-02-16 09:00] LABS: BANDS 17 % (0-6); CORRECTED NUCLEATED RBC 4 /100 WBC (0-0); METAMYELOCYTES 3 % (0-1); MYELOCYTES 1 % (0-0); NEUTROPHIL # MANUAL DIFF 30.2 TH/MM3 (1.8-7.7); POLYS (SEG NEUTROPHILS) 71 % (16-70); WBC DIFF SAMPLE 100
[2017-02-16] MEDS: ASPIRIN 81 MG CHEW TAB PO SCH (09:00)
[2017-02-16] MEDS: MUPIROCIN 2% OINT 1 APPLIC/GM SYR EACH NARE SCH (09:00)
[2017-02-16] MEDS: SODIUM CHLORIDE 0.9% FLUSH 10 ML FLUSH IVF SCH (09:00)
[2017-02-16] MEDS: MUPIROCIN 2% OINT 1 APPLIC/GM SYR NASAL SCH (09:00)
[2017-02-16] MEDS: APIXABAN 5 MG TABLET PO SCH (09:00)
[2017-02-16 09:01] LABS: BICARBONATE 17.2 MEQ/L (21.0-32.0); CALCIUM-PROTEIN CORRECTED 7.9 MG/DL (8.5-10.1); MAGNESIUM 1.9 MG/DL (1.5-2.5); OVALOCYTES 1+ (NORMAL); PLATELET ESTIMATE SMEAR NORMAL (NORMAL); PLATELET MORPHOLOGY NORMAL (NORMAL); POTASSIUM 3.3 MEQ/L (3.5-5.1); SCAN/DIFF FINAL DIFF MANUAL
[2017-02-16 09:02] LABS: BURR CELLS 2+ (NORMAL); TOXIC VACUOLATION PRESENT (NONE SEEN)
[2017-02-16] MEDS: LACTULOSE SYRUP 20 GM/30 ML CUP PO SCH (09:06)
[2017-02-16] MEDS: SENNOSIDES SYRUP 8.8 MG/5 ML CUP PO SCH (09:06)
[2017-02-16] MEDS: FAMOTIDINE 20 MG TAB TUBE SCH (09:06)
[2017-02-16] MEDS: MULTIVITAMIN TAB PO SCH (09:06)
[2017-02-16] MEDS: DOCUSATE SODIUM 100 MG/10 ML UDC PO SCH (09:06)
[2017-02-16] MEDS: SODIUM CHLORIDE 0.9% FLUSH 10 ML FLUSH IV FLUSH SCH (09:07)
[2017-02-16] MEDS: CHLORHEXIDINE 0.12% (ORAL KIT) 15 ML CUP MT SCH (09:10)
[2017-02-16] MEDS: SODIUM BICARBONATE 8.4% INJ 150 MEQ in DEXTROSE 5% IN WATE 1000ML INJ 1,000 ML IV SCH ×4 (09:16→15:32)
--- NOTE | 2017-02-16 09:23 | HHI.IDPN ---
Subjective Subjective Remarks Patient is a 66-year-old male,sp ischemic stroke, received TPA to the right vertebral artery. Presented with high grade Staph epi bacteremia in the settings of endovascular device (pacemaker) Repeat clx are negative Notes reviewed D/W RN Unresponsive, not on sedation Off epinephrine, still on 3 pressors Has DNR status now Temps low grade at 12 noon Looks dyspneic on the vent Creatinine rising, low UO WBC 32K Work-up for insulinoma negative so far CXR with increased infiltrates, effusions Antibiotics Zyvox Cefepime Past Medical History Hypertension Hyperlipidemia CHF CAD Previous CVA Past Surgical History CABG Pacer/AICD Has midline abdominal scar, surgery done not known Allergies: Coded Allergies: hydrochlorothiazide (Verified Allergy, Severe, Edema, 01/31/17) atorvastatin (Verified Allergy, Unknown, 01/31/17) morphine (Verified Allergy, Unknown, 01/31/17) MRI PRECAUTION (Verified Adverse Reaction, Severe, NON COMPATIBLE PACEMAKER. LRS 01/31/17, 01/31/17) Objective . Vital Signs Date Time Temp Pulse Resp B/P (MAP) Pulse Ox O2 Delivery O2 Flow Rate FiO2 02/16/17 08:00 97.5 87 20 111/66 (81) 110/65 (80) 02/16/17 08:00 60 02/16/17 08:00 87 02/16/17 06:00 81 02/16/17 04:24 0 60 02/16/17 04:18 79 108/57 02/16/17 04:00 60 02/16/17 04:00 79 02/16/17 04:00 97.4 79 18 106/68 (81) 101/56 (71) 02/16/17 02:00 71 02/16/17 01:44 74 122/64 02/16/17 01:00 0 60 02/16/17 00:00 70 02/16/17 00:00 100.5 79 18 125/75 (92) 121/64 (83) 02/16/17 00:00 83 02/15/17 22:51 97 60 02/15/17 22:19 0 70 02/15/17 22:00 79 02/15/17 20:06 0 70 02/15/17 20:00 99.0 79 26 102/71 (81) 100/61 (74) 02/15/17 20:00 79 02/15/17 20:00 70 02/15/17 18:00 85/54 02/15/17 18:00 85 02/15/17 17:55 90/58 02/15/17 17:55 86/55 02/15/17 17:50 84/53 02/15/17 17:45 88/53 02/15/17 17:40 87/53 02/15/17 17:35 89/43 02/15/17 17:30 88/45 02/15/17 16:00 97.1 90 28 103/63 (76) 103/63 (76) 02/15/17 16:00 70 02/15/17 16:00 90 02/15/17 15:17 0 70 02/15/17 15:00 76 113/70 02/15/17 14:45 85 111/71 02/15/17 14:30 84 111/80 02/15/17 14:15 119/79 02/15/17 14:00 84 02/15/17 14:00 84 120/80 02/15/17 13:45 84 118/80 02/15/17 13:30 118/80 02/15/17 13:15 92 110/78 02/15/17 13:00 90 111/81 02/15/17 12:44 0 70 02/15/17 12:30 86 106/79 02/15/17 12:00 70 02/15/17 12:00 95.9 83 27 85/63 (70) 101/69 (80) 02/15/17 12:00 83 02/15/17 12:00 83 104/73 02/15/17 11:05 81 108/77 02/15/17 10:00 78 02/15/17 10:00 95.3 02/15/17 10:00 110/71 02/15/17 09:42 77 112/73 02/15/17 09:42 112/73 02/15/17 09:26 108/72 02/15/17 09:26 78 110/71 . Laboratory Tests Test 02/14/17 13:12 02/15/17 04:00 02/16/17 07:45 White Blood Count 26.5 TH/MM3 37.1 TH/MM3 32.8 TH/MM3 Red Blood Count 4.42 MIL/MM3 4.27 MIL/MM3 3.86 MIL/MM3 Hemoglobin 11.6 GM/DL 11.1 GM/DL 10.0 GM/DL Hematocrit 40.2 % 38.8 % 33.3 % Mean Corpuscular Volume 90.9 FL 90.9 FL 86.3 FL Mean Corpuscular Hemoglobin 26.3 PG 25.9 PG 26.0 PG Mean Corpuscular Hemoglobin Concent 28.9 % 28.5 % 30.1 % Red Cell Distribution Width 23.4 % 23.6 % 22.8 % Platelet Count 331 TH/MM3 245 TH/MM3 150 TH/MM3 Mean Platelet Volume 8.2 FL 8.1 FL 8.7 FL Neutrophils (%) (Auto) 93.9 % 95.6 % Lymphocytes (%) (Auto) 2.8 % 0.8 % Monocytes (%) (Auto) 3.1 % 3.3 % Eosinophils (%) (Auto) 0.1 % 0.0 % Basophils (%) (Auto) 0.1 % 0.3 % Neutrophils # (Auto) 24.9 TH/MM3 31.4 TH/MM3 Lymphocytes # (Auto) 0.7 TH/MM3 0.3 TH/MM3 Monocytes # (Auto) 0.8 TH/MM3 1.1 TH/MM3 Eosinophils # (Auto) 0.0 TH/MM3 0.0 TH/MM3 Basophils # (Auto) 0.0 TH/MM3 0.1 TH/MM3 CBC Comment AUTO DIFF AUTO DIFF Differential Total Cells Counted 100 100 Neutrophils % (Manual) 79 % 71 % Band Neutrophils % 6 % 17 % Lymphocytes % 6 % 4 % Monocytes % 3 % 4 % Neutrophils # (Manual) 24.1 TH/MM3 30.2 TH/MM3 Metamyelocytes 5 % 3 % Myelocytes 1 % 1 % Nucleated Red Blood Cells 3 /100 WBC 4 /100 WBC Differential Comment FINAL DIFF MANUAL FINAL DIFF MANUAL Toxic Vacuolation PRESENT PRESENT Platelet Estimate NORMAL NORMAL Platelet Morphology Comment CLUMPED NORMAL Ovalocytes 1+ 1+ Lexx Cells 1+ 2+ Keratocytes OCC Crenated Cell Laboratory Tests Test 02/14/17 13:12 02/15/17 04:00 02/16/17 07:45 Blood Urea Nitrogen 38 MG/DL 37 MG/DL 39 MG/DL Creatinine 2.71 MG/DL 2.96 MG/DL 3.32 MG/DL Random Glucose 203 MG/DL 189 MG/DL 154 MG/DL Total Protein 5.5 GM/DL 4.9 GM/DL 3.8 GM/DL Albumin 2.2 GM/DL 1.5 GM/DL Calcium Level 8.1 MG/DL 7.0 MG/DL 6.2 MG/DL Phosphorus Level 7.8 MG/DL 6.7 MG/DL 5.1 MG/DL Magnesium Level 2.7 MG/DL 2.2 MG/DL 1.9 MG/DL Alkaline Phosphatase 219 U/L 191 U/L Aspartate Amino Transf (AST/SGOT) 202 U/L 4222 U/L Alanine Aminotransferase (ALT/SGPT) 97 U/L 2148 U/L Total Bilirubin 1.5 MG/DL 3.0 MG/DL Sodium Level 139 MEQ/L 137 MEQ/L 132 MEQ/L Potassium Level 4.1 MEQ/L 3.5 MEQ/L 3.3 MEQ/L Chloride Level 101 MEQ/L 99 MEQ/L 95 MEQ/L Carbon Dioxide Level 16.3 MEQ/L 11.9 MEQ/L 17.2 MEQ/L Anion Gap 22 MEQ/L 26 MEQ/L 20 MEQ/L Estimat Glomerular Filtration Rate 26 ML/MIN 23 ML/MIN Protein Corrected Calcium 8.2 MG/DL 7.9 MG/DL Microbiology Date/Time Source Procedure Growth Status 02/14/17 05:40 Blood Peripheral Aerobic Blood Culture - Preliminary NO GROWTH IN 1 DAY Resulted 02/14/17 05:40 Blood Peripheral Anaerobic Blood Culture - Preliminary NO GROWTH IN 1 DAY Resulted 02/14/17 05:32 Blood Peripheral Aerobic Blood Culture - Preliminary NO GROWTH IN 1 DAY Resulted 02/14/17 05:32 Blood Peripheral Anaerobic Blood Culture - Preliminary NO GROWTH IN 1 DAY Resulted Imaging Chest X-Ray 02/15/17 0600 Signed Impressions: Service Date/Time: January 04:09 - CONCLUSION: Unchanged bilateral pleural effusions with bilateral pulmonary infiltrates and cardiomegaly. Infiltrates likely related to intraalveolar pulmonary edema. Wilber Bermudez Jr., MD SPECT Scan-Tumor Localization NM 02/12/17 0000 Signed Impressions: Service Date/Time: Sunday, February 12, 2017 14:31 - CONCLUSION: Negative study. Erwin Peterson MD FACR Head CT 02/12/17 0000 Signed Impressions: Service Date/Time: Sunday, February 12, 2017 21:25 - CONCLUSION: 1. No acute infarct, acute hemorrhage, midlines shift or extra-axial bleed. 2. 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 3. Stable cerebral atrophy. 4. Mucus retention cysts within the left maxillary sinus. Alexei Russell MD Upper Extremity Ultrasound 02/01/17 0000 Signed Impressions: Service Date/Time: January 11:49 - CONCLUSION: 1. No evidence of deep venous thrombosis. Moses Juarez MD Neck CTA 01/31/17 0000 Signed Impressions: Service Date/Time: Tuesday, January 31, 2017 08:57 - CONCLUSION: 1. 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 2. String-like contrast in the left vertebral artery Wilber Alfaro MD Head CTA 01/31/17 0000 Signed Impressions: Service Date/Time: Tuesday, January 31, 2017 08:57 - CONCLUSION: Absent flow in the left internal carotid artery with reconstitution of flow in the A2 segment. There is some flow seen in the left sylvian branches of the middle cerebral artery, but the degree of vessel opacification on the left is less than on the right. Wilber Alfaro MD Cerebral Arteriogram 01/31/17 0000 Signed Impressions: Service Date/Time: Tuesday, January 31, 2017 00:00 - CONCLUSION: 1. Patient appears to have had a thrombotic or embolic event to the vertebral basilar system. The left vertebral is highly diseased throughout its course and appears to occlude just proximal to the basilar. Unable to traverse the highly diseased vessel for intervention. 2. The right vertebral is robust proximally but appears to terminate in a PICA branch with a irregular terminal vessel possibly representing the distal vertebral and proximal basilar. This appears to be chronically occluded. Russ Joseph MD Chest X-Ray 02/13/17 0000 Signed Impressions: Service Date/Time: Monday, February 13, 2017 10:21 - CONCLUSION: 1. Increasing basilar airspace disease and pleural effusions since February 06. Cardiomegaly. No pneumothorax. Ridge Hernandez MD Head CT 02/12/17 0000 Signed Impressions: Service Date/Time: Sunday, February 12, 2017 21:25 - CONCLUSION: 1. No acute infarct, acute hemorrhage, midlines shift or extra-axial bleed. 2. 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 3. Stable cerebral atrophy. 4. Mucus retention cysts within the left maxillary sinus. Alexei Russell MD Chest X-Ray 02/04/17 0807 Signed Impressions: Service Date/Time: Saturday, February 04, 2017 08:13 - CONCLUSION: 1. Left IJ central line is present and distal tip is not clearly visualized but likely in the brachiocephalic vein near the SVC junction. No pneumothorax is visualized. 2. Stable bilateral air space opacity in a pattern which could represent pulmonary edema with bilateral pleural effusions. 3. Nasogastric tube distal tip is near the GE junction and should ideally be advanced. Carlos Lerma MD Upper Extremity Ultrasound 02/01/17 0000 Signed Impressions: Service Date/Time: January 11:49 - CONCLUSION: 1. No evidence of deep venous thrombosis. Moses Juarez MD Head CT 01/31/17 0809 Signed Impressions: Service Date/Time: Tuesday, January 31, 2017 08:16 - CONCLUSION: Hypodensity left parietal-occipital mid convexity region suggesting infarction or encephalomalacia. No evidence of hemorrhage. Cannot exclude an acute process. May consider further characterization with MRI. Wilber Alfaro MD Neck CTA 01/31/17 0000 Signed Impressions: Service Date/Time: Tuesday, January 31, 2017 08:57 - CONCLUSION: 1. 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 2. String-like contrast in the left vertebral artery Wilber Alfaro MD Head CTA 01/31/17 0000 Signed Impressions: Service Date/Time: Tuesday, January 31, 2017 08:57 - CONCLUSION: Absent flow in the left internal carotid artery with reconstitution of flow in the A2 segment. There is some flow seen in the left sylvian branches of the middle cerebral artery, but the degree of vessel opacification on the left is less than on the right. Wilber Alfaro MD Cerebral Arteriogram 01/31/17 0000 Signed Impressions: Service Date/Time: Tuesday, January 31, 2017 00:00 - CONCLUSION: 1. Patient appears to have had a thrombotic or embolic event to the vertebral basilar system. The left vertebral is highly diseased throughout its course and appears to occlude just proximal to the basilar. Unable to traverse the highly diseased vessel for intervention. 2. The right vertebral is robust proximally but appears to terminate in a PICA branch with a irregular terminal vessel possibly representing the distal vertebral and proximal basilar. This appears to be chronically occluded. Russ Joseph MD Physical Exam GENERAL: unresponsive, on the vent, looks dyspneic SKIN: Cool and dry. HEAD: Atraumatic. Normocephalic. EYES: [place] conjunctiva. Hazy cornea, no corneal reflex, keeps eyes open. EARS, NOSE AND THROAT: Nose without bleeding or purulent nasal discharge. ET in mouth NECK: Trachea midline. Supple and not tender, no meningeal signs CARDIOVASCULAR: Regular rate and rhythm. No murmurs, rubs or gallops heard. No rub. Pacer/AICD L upper chest with no evidence of infection RESPIRATORY: Coarse breath sounds equal bilaterally. Decreased at bases. ABDOMEN: Soft, nondistended, no reaction to deep palpation. Bowel sounds present and normoactive. No organomegaly. : Rabago in place, urine dark with some sediment EXTREMITIES: No clubbing, cyanosis, improving pedal edema NEUROLOGICAL: Unresponsive NEURO: Unable to assess LINE: No evidence of infection Assessment & Plan Remarks IMPRESSION Episode of unresponsiveness, etiology? - repeat CT head no change - ?due to hypoglycemia - ?seizure S/P arrest Severe shock, post arrest - on 4 pressors - CXR worse - UA has sediment - no central line - on Rx for MRSA PNA (+) BC, from same venipuncture, likely contaminant - has 2 different type of Staph epi Recurrent CVA, S/P thrombolytic Rx Respiratory failure, reintubated 02/13 MRSA PNA Cardiomyopathy, CXR with CHF, rell effusions Renal insufficiency Episodes recurrent hypoglycemia RECOMMENDATION Continue Zyvox for MRSA Continue Cefepime Follow C/S Very poor prognosis Has DNR status now D/W Annia Bonilla MD Feb 16, 2017 09:23
--- NOTE | 2017-02-16 10:51 | HHI.HCPN ---
Reason for visit a. To assist with evaluation and management of symptoms including: dyspnea, pain. b. To assist medical decision maker(s) with: better understanding of current medical conditions; weighing benefits/burdens of medical treatment options; making medical treatment decisions. . Subjective/Interval History Patient seen and examined in ICU. No family at bedside. Discussed with Dr. Guillen and nurse, Saw. Patient remains on mech vent FiO2 60%, not breathing. Agonal breathing on vent. Irregular HR. Worsening renal and liver function. Creatinine 3.32. Total protein 3.8, Albumin 1.5. Blood cultures dated 02/14 no growth 1 day. Increased edema. . Family/friend interactions Spoke with sonYasir and daughterJose A via phone to provide medical update. Both children verbalize that patient would not want to be kept alive artificially. They would like to proceed with withdrawal of life support, timing to be determined. Family needs to talk to determine who wants to be here and when they want to proceed. Left message for Alana Avalos, awaiting return call. . Advance Directives Living Will: Never completed Health Care Surrogate: Never completed Durable Power of Case Management Rn: Never completed Advance Directive Specifics Health Care Surrogate(s): Patient incapacitated, will not likely regain capacity. According to [place] statutes, health care care proxy decision making falls to the majority of adult children. Patient has 3 daughters and 1 son. 1 daughter Mahendra DOES NOT to participate, other 3 children Yasir Warner and Martin want to serve in health care proxy decision makers. Significant change in goals: NO CODE. Spoke with sonYasir and Jose A leung via phone to provide medical update. Both children verbalize that patient would not want to be kept alive artificially. They would like to proceed with withdrawal of life support, timing to be determined. Family needs to talk to determine who wants to be here and when they want to proceed. Spoke with daughter Alana Avalos she agrees with her siblings. Family has decided to proceed with transition to comfort measures with withdrawal of life support this evening around 6pm. . Objective Vital Signs Date Time Temp Pulse Resp B/P (MAP) Pulse Ox O2 Delivery O2 Flow Rate FiO2 02/16/17 10:00 88 02/16/17 08:00 97.5 87 20 111/66 (81) 110/65 (80) 02/16/17 08:00 60 02/16/17 08:00 87 02/16/17 06:00 81 02/16/17 04:24 0 60 02/16/17 04:18 79 108/57 02/16/17 04:00 60 02/16/17 04:00 79 02/16/17 04:00 97.4 79 18 106/68 (81) 101/56 (71) 02/16/17 02:00 71 02/16/17 01:44 74 122/64 02/16/17 01:00 0 60 02/16/17 00:00 70 02/16/17 00:00 100.5 79 18 125/75 (92) 121/64 (83) 02/16/17 00:00 83 02/15/17 22:51 97 60 02/15/17 22:19 0 70 02/15/17 22:00 79 02/15/17 20:06 0 70 02/15/17 20:00 99.0 79 26 102/71 (81) 100/61 (74) 02/15/17 20:00 79 02/15/17 20:00 70 02/15/17 18:00 85/54 02/15/17 18:00 85 02/15/17 17:55 90/58 02/15/17 17:55 86/55 02/15/17 17:50 84/53 02/15/17 17:45 88/53 02/15/17 17:40 87/53 02/15/17 17:35 89/43 02/15/17 17:30 88/45 02/15/17 16:00 97.1 90 28 103/63 (76) 103/63 (76) 02/15/17 16:00 70 02/15/17 16:00 90 02/15/17 15:17 0 70 02/15/17 15:00 76 113/70 02/15/17 14:45 85 111/71 02/15/17 14:30 84 111/80 02/15/17 14:15 119/79 02/15/17 14:00 84 02/15/17 14:00 84 120/80 02/15/17 13:45 84 118/80 02/15/17 13:30 118/80 02/15/17 13:15 92 110/78 02/15/17 13:00 90 111/81 02/15/17 12:44 0 70 02/15/17 12:30 86 106/79 02/15/17 12:00 70 02/15/17 12:00 95.9 83 27 85/63 (70) 101/69 (80) 02/15/17 12:00 83 02/15/17 12:00 83 104/73 02/15/17 11:05 81 108/77 Intake & Output 02/16/17 02/16/17 07:00 19:00 Intake Total 3094 ml Output Total 25 ml Balance 3069 ml IV Total 3094 ml Output Urine Total 25 ml # Bowel Movements 1 Physical Exam CONSTITUTIONAL/GENERAL: This is an elderly, frail, critically ill patient, agonal respirations on mech vent. TUBES/LINES/DRAINS: ETT, OG, right subclavian central line, PIV left, right A line, Rabago, SCDs, pacemaker/AICD. SKIN: Cool. Ecchymoses on upper extremities. EYES: Pupils equal. Dry eyes. Not blinking. CARDIOVASCULAR: Irregular,PVCs on telemetry. Systolic murmur. RESPIRATORY/CHEST: Agonal respiration on vent. Diminished breath sounds. Scattered course breath sounds. GASTROINTESTINAL: Abdomen distended. Hypoactive bowel sounds. GENITOURINARY: Without palpable bladder distension. Rabago catheter in place. MUSCULOSKELETAL: Extremities with edema. Feet cold to touch, no pedal pulses. NEUROLOGICAL: Unresponsive. No cough or gag per nurse. Does not withdrawal to pain. PSYCHIATRIC: Unresponsive. . Diagnostic Tests Laboratory Laboratory Tests Test 02/13/17 13:45 02/13/17 14:29 02/13/17 18:05 02/14/17 05:06 Ammonia 31 MCMOL/L (11-32) Lactic Acid Level 3.1 mmol/L (0.4-2.0) 4.8 mmol/L (0.4-2.0) Blood Gas Puncture Site ART LINE Blood Gas Patient Temperature 98.6 Blood Gas HCO3 13 mmol/L (22-26) Blood Gas Base Excess -11.3 mmol/L (-2-2) Blood Gas Oxygen Saturation 98 % (90-100) Arterial Blood pH 7.38 (7.380-7.420) Arterial Blood Partial Pressure CO2 22 mmHg (38-42) Arterial Blood Partial Pressure O2 219 mmHg (61-120) Arterial Blood Oxygen Content 16.2 Vol % (12.0-20.0) Arterial Blood Carboxyhemoglobin 1.0 % (0-4) Arterial Blood Methemoglobin 1.0 % (0-2) Blood Gas Hemoglobin 11.5 G/DL (12.0-16.0) Oxygen Delivery Device VENTILATOR Blood Gas Ventilator Setting PRV/AC Blood Gas Inspired Oxygen 100 % Test 02/14/17 05:40 02/14/17 09:22 02/14/17 13:12 02/14/17 17:00 White Blood Count 8.2 TH/MM3 (4.0-11.0) 26.5 TH/MM3 (4.0-11.0) Red Blood Count 4.64 MIL/MM3 (4.50-5.90) 4.42 MIL/MM3 (4.50-5.90) Hemoglobin 12.3 GM/DL (13.0-17.0) 11.6 GM/DL (13.0-17.0) Hematocrit 39.4 % (39.0-51.0) 40.2 % (39.0-51.0) Mean Corpuscular Volume 84.8 FL (80.0-100.0) 90.9 FL (80.0-100.0) Mean Corpuscular Hemoglobin 26.4 PG (27.0-34.0) 26.3 PG (27.0-34.0) Mean Corpuscular Hemoglobin Concent 31.2 % (32.0-36.0) 28.9 % (32.0-36.0) Red Cell Distribution Width 22.8 % (11.6-17.2) 23.4 % (11.6-17.2) Platelet Count 407 TH/MM3 (150-450) 331 TH/MM3 (150-450) Mean Platelet Volume 8.9 FL (7.0-11.0) 8.2 FL (7.0-11.0) Neutrophils (%) (Auto) 87.5 % (16.0-70.0) 93.9 % (16.0-70.0) Lymphocytes (%) (Auto) 4.7 % (9.0-44.0) 2.8 % (9.0-44.0) Monocytes (%) (Auto) 7.8 % (0.0-8.0) 3.1 % (0.0-8.0) Eosinophils (%) (Auto) 0.0 % (0.0-4.0) 0.1 % (0.0-4.0) Basophils (%) (Auto) 0.0 % (0.0-2.0) 0.1 % (0.0-2.0) Neutrophils # (Auto) 7.2 TH/MM3 (1.8-7.7) 24.9 TH/MM3 (1.8-7.7) Lymphocytes # (Auto) 0.4 TH/MM3 (1.0-4.8) 0.7 TH/MM3 (1.0-4.8) Monocytes # (Auto) 0.6 TH/MM3 (0-0.9) 0.8 TH/MM3 (0-0.9) Eosinophils # (Auto) 0.0 TH/MM3 (0-0.4) 0.0 TH/MM3 (0-0.4) Basophils # (Auto) 0.0 TH/MM3 (0-0.2) 0.0 TH/MM3 (0-0.2) CBC Comment DIFF FINAL AUTO DIFF Differential Comment FINAL DIFF MANUAL Blood Urea Nitrogen 38 MG/DL (7-18) 38 MG/DL (7-18) Creatinine 2.40 MG/DL (0.60-1.30) 2.71 MG/DL (0.60-1.30) Random Glucose 172 MG/DL (74-106) 203 MG/DL (74-106) Total Protein 6.5 GM/DL (6.4-8.2) 5.5 GM/DL (6.4-8.2) Albumin 2.7 GM/DL (3.4-5.0) 2.2 GM/DL (3.4-5.0) Calcium Level 8.1 MG/DL (8.5-10.1) 8.1 MG/DL (8.5-10.1) Phosphorus Level 5.4 MG/DL (2.5-4.9) 7.8 MG/DL (2.5-4.9) Magnesium Level 2.4 MG/DL (1.5-2.5) 2.7 MG/DL (1.5-2.5) Alkaline Phosphatase 152 U/L (45-117) 219 U/L (45-117) Aspartate Amino Transf (AST/SGOT) 15 U/L (15-37) 202 U/L (15-37) Alanine Aminotransferase (ALT/SGPT) 25 U/L (12-78) 97 U/L (12-78) Total Bilirubin 1.0 MG/DL (0.2-1.0) 1.5 MG/DL (0.2-1.0) Sodium Level 138 MEQ/L (136-145) 139 MEQ/L (136-145) Potassium Level 4.1 MEQ/L (3.5-5.1) 4.1 MEQ/L (3.5-5.1) Chloride Level 107 MEQ/L (98-107) 101 MEQ/L (98-107) Carbon Dioxide Level 15.2 MEQ/L (21.0-32.0) 16.3 MEQ/L (21.0-32.0) Anion Gap 16 MEQ/L (5-15) 22 MEQ/L (5-15) Estimat Glomerular Filtration Rate 33 ML/MIN (>89) Blood Gas Puncture Site ART LINE ART LINE Blood Gas Patient Temperature 98.6 98.6 Blood Gas HCO3 10 mmol/L (22-26) 9 mmol/L (22-26) Blood Gas Base Excess -19.8 mmol/L (-2-2) -20.2 mmol/L (-2-2) Blood Gas Oxygen Saturation 97 % (90-100) 90 % (90-100) Arterial Blood pH 6.96 (7.380-7.420) 7.01 (7.380-7.420) Arterial Blood Partial Pressure CO2 46 mmHg (38-42) 36 mmHg (38-42) Arterial Blood Partial Pressure O2 243 mmHg (61-120) 96 mmHg (61-120) Arterial Blood Oxygen Content 16.2 Vol % (12.0-20.0) 15.0 Vol % (12.0-20.0) Arterial Blood Carboxyhemoglobin 0.0 % (0-4) 0.7 % (0-4) Arterial Blood Methemoglobin 1.1 % (0-2) 1.2 % (0-2) Blood Gas Hemoglobin 11.5 G/DL (12.0-16.0) 11.7 G/DL (12.0-16.0) Oxygen Delivery Device VENTILATOR VENTILATOR Blood Gas Ventilator Setting 550/18/5PEEP Differential Total Cells Counted 100 Neutrophils % (Manual) 79 % (16-70) Band Neutrophils % 6 % (0-6) Lymphocytes % 6 % (9-44) Monocytes % 3 % (0-8) Neutrophils # (Manual) 24.1 TH/MM3 (1.8-7.7) Metamyelocytes 5 % (0-1) Myelocytes 1 % (0-0) Nucleated Red Blood Cells 3 /100 WBC (0-0) Toxic Vacuolation PRESENT (NONE SEEN) Platelet Estimate NORMAL (NORMAL) Platelet Morphology Comment CLUMPED (NORMAL) Ovalocytes 1+ (NORMAL) Lexx Cells 1+ (NORMAL) Keratocytes OCC (NORMAL) Prothrombin Time 20.1 SEC (9.8-11.6) Prothromb Time International Ratio 1.8 RATIO Blood Gas Inspired Oxygen 70 % Test 02/15/17 04:00 02/15/17 05:05 02/15/17 22:46 02/16/17 07:21 White Blood Count 37.1 TH/MM3 (4.0-11.0) Red Blood Count 4.27 MIL/MM3 (4.50-5.90) Hemoglobin 11.1 GM/DL (13.0-17.0) Hematocrit 38.8 % (39.0-51.0) Mean Corpuscular Volume 90.9 FL (80.0-100.0) Mean Corpuscular Hemoglobin 25.9 PG (27.0-34.0) Mean Corpuscular Hemoglobin Concent 28.5 % (32.0-36.0) Red Cell Distribution Width 23.6 % (11.6-17.2) Platelet Count 245 TH/MM3 (150-450) Mean Platelet Volume 8.1 FL (7.0-11.0) Prothrombin Time 38.5 SEC (9.8-11.6) Prothromb Time International Ratio 3.3 RATIO Blood Urea Nitrogen 37 MG/DL (7-18) Creatinine 2.96 MG/DL (0.60-1.30) Random Glucose 189 MG/DL (74-106) Total Protein 4.9 GM/DL (6.4-8.2) Calcium Level 7.0 MG/DL (8.5-10.1) Phosphorus Level 6.7 MG/DL (2.5-4.9) Magnesium Level 2.2 MG/DL (1.5-2.5) Sodium Level 137 MEQ/L (136-145) Potassium Level 3.5 MEQ/L (3.5-5.1) Chloride Level 99 MEQ/L (98-107) Carbon Dioxide Level 11.9 MEQ/L (21.0-32.0) Anion Gap 26 MEQ/L (5-15) Estimat Glomerular Filtration Rate 26 ML/MIN (>89) Protein Corrected Calcium 8.2 MG/DL (8.5-10.1) Blood Gas Puncture Site ART LINE ART LINE ART LINE Blood Gas Patient Temperature 98.6 98.6 98.6 Blood Gas HCO3 9 mmol/L (22-26) 12 mmol/L (22-26) 13 mmol/L (22-26) Blood Gas Base Excess -19.0 mmol/L (-2-2) -14.1 mmol/L (-2-2) -13.1 mmol/L (-2-2) Blood Gas Oxygen Saturation 92 % (90-100) 97 % (90-100) 95 % (90-100) Arterial Blood pH 7.08 (7.380-7.420) 7.25 (7.380-7.420) 7.23 (7.380-7.420) Arterial Blood Partial Pressure CO2 32 mmHg (38-42) 28 mmHg (38-42) 32 mmHg (38-42) Arterial Blood Partial Pressure O2 99 mmHg (61-120) 156 mmHg (61-120) 109 mmHg (61-120) Arterial Blood Oxygen Content 14.9 Vol % (12.0-20.0) 13.6 Vol % (12.0-20.0) 13.5 Vol % (12.0-20.0) Arterial Blood Carboxyhemoglobin 0.8 % (0-4) 1.1 % (0-4) 1.3 % (0-4) Arterial Blood Methemoglobin 1.3 % (0-2) 1.1 % (0-2) 1.1 % (0-2) Blood Gas Hemoglobin 11.4 G/DL (12.0-16.0) 9.8 G/DL (12.0-16.0) 10.0 G/DL (12.0-16.0) Oxygen Delivery Device VENTILATOR VENTILATOR VENTILATOR Blood Gas Ventilator Setting AC/18/550/PEEP 5 AC 18/550/5PEEP AC Blood Gas Inspired Oxygen 70 % 70 % 60 % Test 02/16/17 07:45 White Blood Count 32.8 TH/MM3 (4.0-11.0) Red Blood Count 3.86 MIL/MM3 (4.50-5.90) Hemoglobin 10.0 GM/DL (13.0-17.0) Hematocrit 33.3 % (39.0-51.0) Mean Corpuscular Volume 86.3 FL (80.0-100.0) Mean Corpuscular Hemoglobin 26.0 PG (27.0-34.0) Mean Corpuscular Hemoglobin Concent 30.1 % (32.0-36.0) Red Cell Distribution Width 22.8 % (11.6-17.2) Platelet Count 150 TH/MM3 (150-450) Mean Platelet Volume 8.7 FL (7.0-11.0) Neutrophils (%) (Auto) 95.6 % (16.0-70.0) Lymphocytes (%) (Auto) 0.8 % (9.0-44.0) Monocytes (%) (Auto) 3.3 % (0.0-8.0) Eosinophils (%) (Auto) 0.0 % (0.0-4.0) Basophils (%) (Auto) 0.3 % (0.0-2.0) Neutrophils # (Auto) 31.4 TH/MM3 (1.8-7.7) Lymphocytes # (Auto) 0.3 TH/MM3 (1.0-4.8) Monocytes # (Auto) 1.1 TH/MM3 (0-0.9) Eosinophils # (Auto) 0.0 TH/MM3 (0-0.4) Basophils # (Auto) 0.1 TH/MM3 (0-0.2) CBC Comment AUTO DIFF Differential Total Cells Counted 100 Neutrophils % (Manual) 71 % (16-70) Band Neutrophils % 17 % (0-6) Lymphocytes % 4 % (9-44) Monocytes % 4 % (0-8) Neutrophils # (Manual) 30.2 TH/MM3 (1.8-7.7) Metamyelocytes 3 % (0-1) Myelocytes 1 % (0-0) Nucleated Red Blood Cells 4 /100 WBC (0-0) Differential Comment FINAL DIFF MANUAL Toxic Vacuolation PRESENT (NONE SEEN) Platelet Estimate NORMAL (NORMAL) Platelet Morphology Comment NORMAL (NORMAL) Ovalocytes 1+ (NORMAL) Lexx Cells 2+ (NORMAL) Crenated Cell (NORMAL) Prothrombin Time 53.1 SEC (9.8-11.6) Prothromb Time International Ratio 4.5 RATIO Blood Urea Nitrogen 39 MG/DL (7-18) Creatinine 3.32 MG/DL (0.60-1.30) Random Glucose 154 MG/DL (74-106) Total Protein 3.8 GM/DL (6.4-8.2) Albumin 1.5 GM/DL (3.4-5.0) Calcium Level 6.2 MG/DL (8.5-10.1) Phosphorus Level 5.1 MG/DL (2.5-4.9) Magnesium Level 1.9 MG/DL (1.5-2.5) Alkaline Phosphatase 191 U/L (45-117) Aspartate Amino Transf (AST/SGOT) 4222 U/L (15-37) Alanine Aminotransferase (ALT/SGPT) 2148 U/L (12-78) Total Bilirubin 3.0 MG/DL (0.2-1.0) Sodium Level 132 MEQ/L (136-145) Potassium Level 3.3 MEQ/L (3.5-5.1) Chloride Level 95 MEQ/L (98-107) Carbon Dioxide Level 17.2 MEQ/L (21.0-32.0) Anion Gap 20 MEQ/L (5-15) Estimat Glomerular Filtration Rate 23 ML/MIN (>89) Protein Corrected Calcium 7.9 MG/DL (8.5-10.1) Result Diagram: 02/16/17 0745 02/16/17 0745 Microbiology Microbiology Date/Time Source Procedure Growth Status 02/14/17 05:40 Blood Peripheral Aerobic Blood Culture - Preliminary NO GROWTH IN 1 DAY Resulted 02/14/17 05:40 Blood Peripheral Anaerobic Blood Culture - Preliminary NO GROWTH IN 1 DAY Resulted 02/14/17 05:32 Blood Peripheral Aerobic Blood Culture - Preliminary NO GROWTH IN 1 DAY Resulted 02/14/17 05:32 Blood Peripheral Anaerobic Blood Culture - Preliminary NO GROWTH IN 1 DAY Resulted Imaging Last Impressions Chest X-Ray 02/15/17 0600 Signed Impressions: Service Date/Time: January 04:09 - CONCLUSION: Unchanged bilateral pleural effusions with bilateral pulmonary infiltrates and cardiomegaly. Infiltrates likely related to intraalveolar pulmonary edema. Wilber Bermudez Jr., MD SPECT Scan-Tumor Localization NM 02/12/17 0000 Signed Impressions: Service Date/Time: Sunday, February 12, 2017 14:31 - CONCLUSION: Negative study. Erwin Peterson MD FACR Head CT 02/12/17 Signed Impressions: Service Date/Time: Sunday, February 12, 2017 21:25 - CONCLUSION: 1. No acute infarct, acute hemorrhage, midlines shift or extra-axial bleed. 2. 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 3. Stable cerebral atrophy. 4. Mucus retention cysts within the left maxillary sinus. Alexei Russell MD Upper Extremity Ultrasound 02/01/17 0000 Signed Impressions: Service Date/Time: January 11:49 - CONCLUSION: 1. No evidence of deep venous thrombosis. Moses Juarez MD Neck CTA 01/31/17 Signed Impressions: Service Date/Time: Tuesday, January 31, 2017 08:57 - CONCLUSION: 1. 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 2. String-like contrast in the left vertebral artery Wilber Alfaro MD Head CTA 01/31/17 Signed Impressions: Service Date/Time: Tuesday, January 31, 2017 08:57 - CONCLUSION: Absent flow in the left internal carotid artery with reconstitution of flow in the A2 segment. There is some flow seen in the left sylvian branches of the middle cerebral artery, but the degree of vessel opacification on the left is less than on the right. Wilber Alfaro MD Cerebral Arteriogram 01/31/17 0000 Signed Impressions: Service Date/Time: Tuesday, January 31, 2017 00:00 - CONCLUSION: 1. Patient appears to have had a thrombotic or embolic event to the vertebral basilar system. The left vertebral is highly diseased throughout its course and appears to occlude just proximal to the basilar. Unable to traverse the highly diseased vessel for intervention. 2. The right vertebral is robust proximally but appears to terminate in a PICA branch with a irregular terminal vessel possibly representing the distal vertebral and proximal basilar. This appears to be chronically occluded. Russ Joseph MD . Procedures * Intubated Assessment and Plan Disease Oriented Problem List: (1) Asystole (2) Respiratory failure (3) Cardiomyopathy Comment: EF 15-20% (4) Renal insufficiency (5) Dehydration (6) CVA (cerebral vascular accident) Symptom Scale: (1) Pain 0-10 Scale: Unable to quantify (2) Dyspnea 0-10 Scale: Unable to quantify (3) Generalized weakness 0-10 Scale: Unable to quantify Pertinent Non-Medical Issues Psychosocial: Single. Has 4 children. Spiritual: Religion emil, welcomes forestry aide support. Julito Rosario has been visiting. Legal:Patient incapacitated, will not likely regain capacity. According to [place] statutes, health care care proxy decision making falls to the majority of adult children. Patient has 3 daughters and 1 son. 1 daughter Mahendra DOES NOT to participate, other 3 children Yasir Warner and Martin want to serve in health care proxy decision makers. Ethical issues impacting care: No known concerns at this time. . Important Contacts * Martin Rae, daughter: desires to participate in decision making. * Mahendra Chambers, daughter: Mahendra DOES NOT want to participate. [phone] * Yasir Herman, son: desires to participate in decision making. [phone] * Alana Avalos, daughter: desires to participate in decision making. [phone] . Prognosis Mr. Herman is a 66 year old male with HTN, CAD, CHF, cardiomegaly and cardiomyopathy EF 15-20% who suffered asystolic arrest on . Poor prognosis for meaningful recovery. . Code Status: No Code Plan * Patient incapacitated, will not likely regain capacity. According to [place] statutes, health care care proxy decision making falls to the majority of adult children. Patient has 3 daughters and 1 son. 1 daughter Mahendra DOES NOT want to participate, other 3 children Yasir Warner and Martin want to serve in health care proxy decision makers. * NO CODE. * Spoke with sonYasir and daughterJose A via phone to provide medical update. Both children verbalize that patient would not want to be kept alive artificially. They would like to proceed with withdrawal of life support, timing to be determined. Family needs to talk to determine who wants to be here and when they want to proceed. Spoke with daughter Alana Avalos she agrees with her siblings. Family has decided to proceed with transition to comfort measures with withdrawal of life support this evening around 6pm. Anticipatory guidance provided. Family is very appreciative of care patient has received. Questions answered. * Exhibits B & C on chart, signed by Dr. Guillen and . Family (Children - Yasir Salazar and Alana) will sign when they arrive. * SYMPTOMS: Pain: due to general debility, heart disease, prolonged hospital course and cardiac arrest 20 minute resuscitation today. Dyspnea: on mech vent. Off sedation, unresponsive. Orders written for comfort. * Palliative care will continue to follow to assist with clarification of treatment goals throughout hospital course. . Attestation To help prompt me to consider important information that might be impacting today's encounter and assessment, information from prior notes written by myself or my colleagues may have been "brought forward" into today's note. My signature on this note, however, is an attestation that I personally performed the exam, history, and/or decision-making noted today, and, unless otherwise indicated, the interactions with patient, family, and staff as well as the review of records all occurred today. I also attest that the listed assessment and stated plan reflect my best clinical judgment today based on the combination of historical information, prior notes, and today's exam/ interactions. When time spent is documented, it refers only to time spent today by the signer, or if indicated, combined time spent today by collaborating physician/nurse practitioner. Charis Garrido Feb 16, 2017 10:51
[2017-02-16] MEDS: FUROSEMIDE 40 MG/4 ML VIAL IV PUSH SCH (11:25)
[2017-02-16] MEDS: LINEZOLID 600 MG PREMIX 300 ML IV SCH (11:25)
--- NOTE | 2017-02-16 12:14 | HHI.CCPN ---
Subjective Remarks/Hospital Course 01/31: This 66-year-old man who presents to the emergency department via EMS for altered mental status. History is a little bit unclear. It sounds like he was agitated overnight so they gave him Xanax this morning. Speaking with the nurse there, Yesica Earl, patient gets Xanax periodically but not every day. It's not a new dose for him. Subsequently he became unresponsive. Per EMS report he normally has a GCS of 14 but cannot walk. For them he was not talking at all, and stopped breathing for a period of time in the ambulance and required gat-[id number]-smqb ventilation. They were bagging him on presentation to the ED. patient underwent CT head which was negative for bleed. He was evaluated by Dr. 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 On propofol 75 mics per kg/min. moving both upper extremities and left lower extremity on lightening sedation per nursing staff. Has chronically weak right lower extremity per family. Currently on heparin drip for full anticoagulation. 02/02: Sedated, orally intubated on mechanical ventilation this morning at the time of my evaluation. Being diuresed with Lasix. 2-D echo with LVEF 20% and severe MR. Hypoglycemia today despite tube feeds for which he was given D50 and cortisol level being checked. 02/03: Off sedation since 9/8 AM. Started to arouse last evening and following commands moving both upper extremities. Remains orally intubated on mechanical ventilation. At the time of my evaluation years arousable however not following commands. 02/04: Tmax 100.1. Currently resting in bed in no acute distress. Moving right lower extremity spontaneously. Nods head and follows commands. Patient is leaning towards right. Subjective 02/05: Tolerated PSV trial overnight. Opened eyes. Following commands. States he is hungry today. Move the left upper extremity spontaneously along with right upper extremity today. Moved toes slightly. 02/06: Remains orally intubated on mechanical ventilation. Gets apneic episodes during C Pap trials. Follows commands. On tube feeds and D10 02/07: Tolerated C Pap trials and extubated today. Drowsy, easily arousable. Follows commands with both upper extremities. Remains on D10 drip for hyperglycemia. Off tube feeds since extubation awaiting swallow eval. 02/08: Remains on nasal cannula. Passed swallow eval and diet being advanced. Was on D10 at 50 cc an hour for hypoglycemia while awaiting insulinoma workup. Tolerating by mouth diet so decreased D10 to 25 cc an hour and plan to stop later today. 02/12: Later in the day the patient became more lethargic and rapid response was called. Shortly after patient was transferred to ICU NT related for possible intubation for an airway protection. Initially during my exam the patient was unresponsive and decision was made to intubate. However while preparing for endotracheal intubation patient woke up, is following commands on both sides and response with slow slurred speech. Eyes open spontaneously. The CAT scan of the head also negative for acute changes. 02/13: Emergently called to the bedside this a.m. patient with altered mental status alert to name only stating having difficulty breathing stat ABG performed , PaO2 noted to be 334 on nonrebreather, with a Mixed acid base disorder. Patient unable to protect airway, emergently intubated uneventfully. Patient currently on D10 at 50 cc an hour with additional supplementation of blood glucose, to maintain level. D10 increased to 100 cc an hour. Plan for Octreotide scan to today to rule out insulinoma. Diuretic increased to 40 mg twice a day secondary to the increased dosing of fluid in a patient with noted EF less than 20% and severe TR. Will also supplement with hydrocortisone 3 times a day. 02/14: During the night last night the patient became increasingly acidotic central line and arterial line were placed patient was placed on a sodium bicarbonate infusion. At approximately 0652 this a.m. the patient went into cardiac arrest-asystole, CPR initiated the patient received 6 rounds of epinephrine, with defibrillation 1 attempt. The patient had ROSC after approximately 18 minutes. The patient continues on multiple vasopressors to include norepinephrine, epinephrine, vasopressin, and sodium bicarbonate infusions. Repeat ABG postcardiac arrest, severe metabolic acidosis with a pH of 6.95. Additional supplementation of sodium bicarbonate infused. Extensive discussion with family , patient's daughter Ms. Griffith regarding update on medical status and the criticality of the patient and poor prognosis, and she requesting aggressive measures at this time. Overnight 02/14 - 02/15.Alana Avalos called RN and stated she wished to change to alternate code intubation only. I tried to call her but there was no answer. I left a message to call me. I spoke with Martin Rae who states that "all of the siblings talked and they agree with DNR". DMITRI Carter also spoke separately with Yasir who stated that he agrees with DNR. Patient is intubated so CODE STATUS was changed to alternate code intubation only. 02/16: The patient's AICD was deactivated yesterday afternoon with the change in CODE STATUS .The patient remains encephalopathic, no change in neurological status. Patient's condition continues to deteriorate noticed significant elevation in liver enzymes most likely secondary to shock liver/failure with continued hypoglycemia D10 now increased to 100 cc/hour. The patient continues on multiple pressors in order to maintain a MAP greater than 60. Objective Vital Signs Date Time Temp Pulse Resp B/P (MAP) Pulse Ox O2 Delivery O2 Flow Rate FiO2 02/16/17 11:53 0 60 02/16/17 10:00 88 02/16/17 08:00 97.5 20 111/66 (81) 110/65 (80) 02/14/17 03:10 Ventilator 02/13/17 08:59 15.00 Intake and Output 02/16/17 02/16/17 02/17/17 08:00 16:00 00:00 Intake Total 1339 ml Output Total 25 ml Balance 1314 ml Result Diagram: 02/16/17 0745 02/16/17 0745 Other Results Laboratory Tests Test 02/15/17 22:46 02/16/17 07:21 Blood Gas Puncture Site ART LINE ART LINE Blood Gas Patient Temperature 98.6 98.6 Blood Gas HCO3 12 mmol/L (22-26) 13 mmol/L (22-26) Blood Gas Base Excess -14.1 mmol/L (-2-2) -13.1 mmol/L (-2-2) Blood Gas Oxygen Saturation 97 % (90-100) 95 % (90-100) Arterial Blood pH 7.25 (7.380-7.420) 7.23 (7.380-7.420) Arterial Blood Partial Pressure CO2 28 mmHg (38-42) 32 mmHg (38-42) Arterial Blood Partial Pressure O2 156 mmHg (61-120) 109 mmHg (61-120) Arterial Blood Oxygen Content 13.6 Vol % (12.0-20.0) 13.5 Vol % (12.0-20.0) Arterial Blood Carboxyhemoglobin 1.1 % (0-4) 1.3 % (0-4) Arterial Blood Methemoglobin 1.1 % (0-2) 1.1 % (0-2) Blood Gas Hemoglobin 9.8 G/DL (12.0-16.0) 10.0 G/DL (12.0-16.0) Oxygen Delivery Device VENTILATOR VENTILATOR Blood Gas Ventilator Setting AC 18/550/5PEEP AC Blood Gas Inspired Oxygen 70 % 60 % Imaging Last Impressions Chest X-Ray 02/15/17 0600 Signed Impressions: Service Date/Time: January 04:09 - CONCLUSION: Unchanged bilateral pleural effusions with bilateral pulmonary infiltrates and cardiomegaly. Infiltrates likely related to intraalveolar pulmonary edema. Wilber Bermudez Jr., MD SPECT Scan-Tumor Localization NM 02/12/17 0000 Signed Impressions: Service Date/Time: Sunday, February 12, 2017 14:31 - CONCLUSION: Negative study. Erwin Peterson MD FACR Head CT 02/12/17 0000 Signed Impressions: Service Date/Time: Sunday, February 12, 2017 21:25 - CONCLUSION: 1. No acute infarct, acute hemorrhage, midlines shift or extra-axial bleed. 2. 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 3. Stable cerebral atrophy. 4. Mucus retention cysts within the left maxillary sinus. Alexei Russell MD Upper Extremity Ultrasound 02/01/17 0000 Signed Impressions: Service Date/Time: January 11:49 - CONCLUSION: 1. No evidence of deep venous thrombosis. Moses Juarez MD Neck CTA 01/31/17 0000 Signed Impressions: Service Date/Time: Tuesday, January 31, 2017 08:57 - CONCLUSION: 1. 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 2. String-like contrast in the left vertebral artery Wilber Alfaro MD Head CTA 01/31/17 0000 Signed Impressions: Service Date/Time: Tuesday, January 31, 2017 08:57 - CONCLUSION: Absent flow in the left internal carotid artery with reconstitution of flow in the A2 segment. There is some flow seen in the left sylvian branches of the middle cerebral artery, but the degree of vessel opacification on the left is less than on the right. Wilber Alfaro MD Cerebral Arteriogram 01/31/17 0000 Signed Impressions: Service Date/Time: Tuesday, January 31, 2017 00:00 - CONCLUSION: 1. Patient appears to have had a thrombotic or embolic event to the vertebral basilar system. The left vertebral is highly diseased throughout its course and appears to occlude just proximal to the basilar. Unable to traverse the highly diseased vessel for intervention. 2. The right vertebral is robust proximally but appears to terminate in a PICA branch with a irregular terminal vessel possibly representing the distal vertebral and proximal basilar. This appears to be chronically occluded. Russ Joseph MD Last Impressions Chest X-Ray 02/13/17 0000 Signed Impressions: Service Date/Time: Monday, February 13, 2017 10:21 - CONCLUSION: 1. Increasing basilar airspace disease and pleural effusions since February 06. Cardiomegaly. No pneumothorax. Ridge Hernandez MD Head CT 02/12/17 0000 Signed Impressions: Service Date/Time: Sunday, February 12, 2017 21:25 - CONCLUSION: 1. No acute infarct, acute hemorrhage, midlines shift or extra-axial bleed. 2. 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 3. Stable cerebral atrophy. 4. Mucus retention cysts within the left maxillary sinus. Alexei Russell MD Upper Extremity Ultrasound 02/01/17 0000 Signed Impressions: Service Date/Time: January 11:49 - CONCLUSION: 1. No evidence of deep venous thrombosis. Moses Juarez MD Neck CTA 01/31/17 0000 Signed Impressions: Service Date/Time: Tuesday, January 31, 2017 08:57 - CONCLUSION: 1. 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 2. String-like contrast in the left vertebral artery Wilber Alfaro MD Head CTA 01/31/17 0000 Signed Impressions: Service Date/Time: Tuesday, January 31, 2017 08:57 - CONCLUSION: Absent flow in the left internal carotid artery with reconstitution of flow in the A2 segment. There is some flow seen in the left sylvian branches of the middle cerebral artery, but the degree of vessel opacification on the left is less than on the right. Wilber Alfaro MD Cerebral Arteriogram 01/31/17 0000 Signed Impressions: Service Date/Time: Tuesday, January 31, 2017 00:00 - CONCLUSION: 1. Patient appears to have had a thrombotic or embolic event to the vertebral basilar system. The left vertebral is highly diseased throughout its course and appears to occlude just proximal to the basilar. Unable to traverse the highly diseased vessel for intervention. 2. The right vertebral is robust proximally but appears to terminate in a PICA branch with a irregular terminal vessel possibly representing the distal vertebral and proximal basilar. This appears to be chronically occluded. Russ Joseph MD Last Impressions Chest X-Ray 02/05/17 0600 Signed Impressions: Service Date/Time: Sunday, February 05, 2017 04:47 - CONCLUSION: Endotracheal tube and nasogastric tube in satisfactory position. Stable bilateral mostly basilar dependent airspace disease and pleural effusions. Ridge Hernandez MD Upper Extremity Ultrasound 02/01/17 0000 Signed Impressions: Service Date/Time: January 11:49 - CONCLUSION: 1. No evidence of deep venous thrombosis. Moses Juarez MD Head CT 01/31/17 0809 Signed Impressions: Service Date/Time: Tuesday, January 31, 2017 08:16 - CONCLUSION: Hypodensity left parietal-occipital mid convexity region suggesting infarction or encephalomalacia. No evidence of hemorrhage. Cannot exclude an acute process. May consider further characterization with MRI. Wilber Alfaro MD Neck CTA 01/31/17 0000 Signed Impressions: Service Date/Time: Tuesday, January 31, 2017 08:57 - CONCLUSION: 1. 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 2. String-like contrast in the left vertebral artery Wilber Alfaro MD Head CTA 01/31/17 0000 Signed Impressions: Service Date/Time: Tuesday, January 31, 2017 08:57 - CONCLUSION: Absent flow in the left internal carotid artery with reconstitution of flow in the A2 segment. There is some flow seen in the left sylvian branches of the middle cerebral artery, but the degree of vessel opacification on the left is less than on the right. Wilber Alfaro MD Cerebral Arteriogram 01/31/17 0000 Signed Impressions: Service Date/Time: Tuesday, January 31, 2017 00:00 - CONCLUSION: 1. Patient appears to have had a thrombotic or embolic event to the vertebral basilar system. The left vertebral is highly diseased throughout its course and appears to occlude just proximal to the basilar. Unable to traverse the highly diseased vessel for intervention. 2. The right vertebral is robust proximally but appears to terminate in a PICA branch with a irregular terminal vessel possibly representing the distal vertebral and proximal basilar. This appears to be chronically occluded. Russ Joseph MD Objective Remarks GENERAL: Critically ill appearing 66-year-old AA male, on no sedation SKIN: Warm and dry. No rash HEAD: Atraumatic. Normocephalic. EYES: Pupils equal and round about 1.5 mm bilaterally and reactive. No scleral icterus. No injection or drainage. ENT: No nasal bleeding or discharge. Mucous membranes pink and moist. NECK: Trachea midline. No JVD. CARDIOVASCULAR: Intermittent runs of ventricular tachycardia. S1, S2 no S4. 2/ 6 systolic murmur left lower sternal border. RESPIRATORY: Noted accessory muscle use, hyperventilating. Clear to auscultation. Breath sounds equal bilaterally. GASTROINTESTINAL: Abdomen soft, non-tender, nondistended. Hypoactive bowel sounds appreciated MUSCULOSKELETAL: Extremities with 2+ bilateral lower extremity and upper extremity edema. No obvious deformities. NEUROLOGICAL: GCS 3T. 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 Cerebral angiogram revealed occluded distal vertebral/proximal parietal occlusion acute. 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 EEG - 02/01 - 3-6 Hz activity, 20-50 microvolts occurring in generalized fashion. EEG variability reactivity noted. Mild spindles noted as well. Limited driving with photic stimulation. Single lead EKG showing sinus rhythm. Mild to moderate encephalopathy. Clinical correlation Recommended. Heparin drip stopped on 02/07 and resumed on Apixaban 5 mg twice a day per Dr. Russ Solano/Neurology following. Holding buspirone 7.5 mg 3 times a day, mirtazapine 7.5 mg a night and trazodone 50 mg by mouth daily for depression/anxiety. Resume when okay with neurology. Continue levetiracetam 500 mg IV 3 times a day/seizure precautions 02/13 Repeat EEG -severe diffuse disturbance of cerebral function or bihemispheric structural abnormalities, no epileptiform abnormalities 02/13 ammonia level-31 CV: Chronic systolic heart failure ejection fraction 20% Acute on chronic systolic heart failure Pulmonary hypertension History of CABG 4/AICD Hypertension Dyslipidemia Cardiac arrest 02/14 Cardiogenic shock Echocardiogram revealed EF 20%. Decreased right ventricular left ventricular function. Dilated LV. Enlarged left atrium. Severe pulmonary hypertension greater than 70 mmHg, severe TR/MR Cardiology/Dr. Hernandez following 02/13 Increased furosemide 40 mg IV twice a day. Home medications include aspirin 81 mg daily, metoprolol 25 mg by mouth daily, furosemide 40 mg daily and spironolactone 25 mill grams by mouth daily - Resumed aspirin, -metoprolol and spironolactone on hold Patient is on rosuvastatin 20 mg by mouth daily along with Fish oil/ cholecalciferol 1 tablet daily for dyslipidemia 02/14-Vasopressor support-norepinephrine, epinephrine, and vasopressin infusions Resp: Acute hypoxemic respiratory failure Severe metabolic acidosis 02/13-reintubation 8.0 ETT, 26 cm at the lip, for airway protection SBT trials when clinically applicable Albuterol/ipratropium aerosols every 6 hours with albuterol aerosols every 2 hours. Monitor ABGs checks x-rays as indicated Continue sodium bicarbonate infusion to 100 cc/hour GI: Hypoalbuminemia 02/13 NPO for now Famotidine for GI prophylaxis Docusate sodium 100 mg twice a day, senna liquid 8.6 mg twice a day for bowel regimen along with lactulose 30 cc twice a day : Rabago catheter indicated for accurate I's and O's in a critically ill patient Endo: Hypoglycemia - possibly secondary to sepsis, possible insulinoma Shock liver/failure Normal TSH/cortisol levels. C-peptide 6.33 insulin levels 24.5and human growth hormone . Patient was hypoglycemic on tube feeds requiring D10 raising concern for insulinoma. 02/13-F/U octreotide scan 02/13-Hydrocortisone 100 mg 3 times a day 02/16-AST 202-> 4222, ALT 97->2148 Renal: Acute renal failure Strict intake output, monitor and replete electrolytes follow BUN/creatinine. Nephrology consulted-patient is not a candidate for dialysis at this time Heme: Normocytic anemia Chronic Apixaban use Monitor CBC daily. Follow trends. Off heparin drip and resumed on Eliquis on 02/08. Eliquis discontinued 02/15 ID: Coag-negative//staph epi bacteremia Septic shock Current vancomycin dose by infectious disease [place] decolonization protocol with mupirocin swabs twice a day Infectious disease/Dr. Simons following Pertinent cultures 02/03 - blood cultures 1 -no growth 02/01 - blood cultures 2 -no growth 02/01 - sputum - coag negative staph 01/31 - blood cultures 2 - coag negative staph, staph epi FEN: Replace electrolytes as clinically indicated Monitor BMP MSK: PT/OT for range of motion evaluate and treat Access Utilize peripheral IVs. Right subclavian central line 02/14, right brachial arterial line 02/14 Prophylaxis - GI - famotidine - DVT - SCD Dispo: The patient is status post cardiac arrest early this a.m.. Extensive discussion with daughter, Ms Avalos in regards to multisystem organ dysfunction and poor prognosis at this time, and I do not believe the patient will survive this hospitalization. Ms. Griffith requests aggressive measures at this time. 02/16-patient was made DNR CODE STATUS on 02/15, with deactivation of AICD. Palliative Care following, to further define goals of care. Critical Care: This patient remains critically ill with one or more organ systems which are or may become a threat to life. I have spent in excess of 30 minutes discontinuously in the care and management of this patient. This time is exclusive of procedures, and includes, but is not limited to, evaluation of the patient, review of the medical record, discussions with family, consultants, nursing staff, or respiratory therapy, and documentation in the medical record. Physician Raiza Perla MD Feb 16, 2017 12:14
[2017-02-16] MEDS ORDERED: HYDROmorphone HCL PF 2 MG/ML VIAL IV PUSH ONE ×2 (16:15→16:30)
[2017-02-16] MEDS ORDERED: LORazepam 2 MG/ML VIAL IV PUSH ONE ×2 (16:15→16:30)
[2017-02-16] MEDS ORDERED: HYOSCYAMINE 0.125 MG TAB PO/SL ONE (16:15)
[2017-02-16] MEDS ORDERED: FUROSEMIDE 20 MG/2 ML VIAL IV PUSH PRN (16:30)
[2017-02-16] MEDS ORDERED: ACETAMINOPHEN 650 MG SUPP RECTAL PRN (16:30)
[2017-02-16] MEDS ORDERED: BISACODYL 10 MG SUPP RECTAL PRN (16:30)
[2017-02-16] MEDS ORDERED: LORazepam 2 MG/ML VIAL IV PUSH PRN ×3 (16:30)
[2017-02-16] MEDS ORDERED: HYDROmorphone HCL PF 2 MG/ML VIAL IV PUSH PRN ×2 (16:30)
[2017-02-16] MEDS ORDERED: HYOSCYAMINE 0.125 MG TAB PO PRN (16:45)
[2017-02-16] MEDS ORDERED: LORazepam 2 MG/ML VIAL IV PUSH SCH (20:00)
[2017-02-16] MEDS ORDERED: HYDROmorphone HCL PF 2 MG/ML VIAL IV PUSH SCH (20:00)
[2017-02-17] MEDS ORDERED: CEFEPIME INJ 1,000 MG in SODIUM CHLORIDE 0.9% INJ 100 ML IV SCH (05:00)
--- NOTE | 2017-03-07 11:25 | HHI.DS ---
Summary Note Date of : Feb 16, 2017 Time Of : 2112 Admission Date Jan 31, 2017 at 09:36 Admitting Diagnosis Acute Coma, ?CVA Diagnosis at Time of : Procedures 02/13-brachial a line Place via ultrasound- removed 02/13- Octreotide scan 02/14 -right brachial A-line replaced 02/14- 52 CPR /ACLS protocol Brief History HPI This 66-year-old man who presents to the emergency department via EMS for altered mental status. History is a little bit unclear. It sounds like he was agitated overnight so they gave him Xanax this morning. Speaking with the nurse there, Yesica Earl, patient gets Xanax periodically but not every day. It's not a new dose for him. Subsequently he became unresponsive. Per EMS report he normally has a GCS of 14 but cannot walk. For them he was not talking at all, and stopped breathing for a period of time in the ambulance and required [id number] ventilation. They were bagging him on presentation to the ED. patient underwent CT head which was negative for bleed. He was evaluated by Dr. 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 History Past Medical History Narrative Medical Hypertension Hyperlipidemia Acute on chronic systolic heart failure, ischemic cardiomyopathy CAD Generalized weakness Social History Alcohol Use: No Tobacco Use: No Allergies-Medications (Allergen,Severity, Reaction): Coded Allergies: hydrochlorothiazide (Verified Allergy, Severe, Edema, 01/31/17) atorvastatin (Verified Allergy, Unknown, 01/31/17) Reported Meds & Prescriptions Reported Meds & Active Scripts Active Macrobid (Nitrofurantoin Monoh/Nitrofur Macro) 100 Mg Cap 100 Mg PO BID 7 Days Flagyl (Metronidazole) 500 Mg Tab 500 Mg PO Q8HR 7 Days Trazodone (Trazodone HCl) 50 Mg Tab 50 Mg PO HS Spironolactone 25 Mg Tab 25 Mg PO DAILY Rosuvastatin (Rosuvastatin Calcium) 20 Mg Tab 20 Mg PO DAILY Mirtazapine 7.5 Mg Tab 7.5 Mg PO HS Metoprolol Tartrate 25 Mg Tab 25 Mg PO DAILY Furosemide 40 Mg Tab 40 Mg PO DAILY Buspirone (Buspirone HCl) 7.5 Mg Tab 7.5 Mg PO TID 30 Days Eliquis (Apixaban) 5 Mg Tab 5 Mg PO BID Reported [place]-3 Fish Oil/Vitamin (Fish Oil-Cholecalciferol) 1,000-1,000 Mg Cap 1 Cap PO DAILY Multiple Vitamin 1 Tab 1 Tab PO DAILY Aspirin 81 Mg Chew 81 Mg PO DAILY Tylenol (Acetaminophen) 325 Mg Tab 325 Mg PO Q4H PRN Review of Systems ROS Limitations: Clinical Condition Imaging Last Impressions Chest X-Ray 02/15/17 0600 Signed Impressions: Service Date/Time: January 04:09 - CONCLUSION: Unchanged bilateral pleural effusions with bilateral pulmonary infiltrates and cardiomegaly. Infiltrates likely related to intraalveolar pulmonary edema. Wilber Bermudez Jr., MD SPECT Scan-Tumor Localization NM 02/12/17 0000 Signed Impressions: Service Date/Time: Sunday, February 12, 2017 14:31 - CONCLUSION: Negative study. Erwin Peterson MD FACR Head CT 02/12/17 0000 Signed Impressions: Service Date/Time: Sunday, February 12, 2017 21:25 - CONCLUSION: 1. No acute infarct, acute hemorrhage, midlines shift or extra-axial bleed. 2. 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 3. Stable cerebral atrophy. 4. Mucus retention cysts within the left maxillary sinus. Alexei Russell MD Upper Extremity Ultrasound 02/01/17 0000 Signed Impressions: Service Date/Time: January 11:49 - CONCLUSION: 1. No evidence of deep venous thrombosis. Moses Juarez MD Neck CTA 01/31/17 0000 Signed Impressions: Service Date/Time: Tuesday, January 31, 2017 08:57 - CONCLUSION: 1. 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 2. String-like contrast in the left vertebral artery Wilber Alfaro MD Head CTA 01/31/17 0000 Signed Impressions: Service Date/Time: Tuesday, January 31, 2017 08:57 - CONCLUSION: Absent flow in the left internal carotid artery with reconstitution of flow in the A2 segment. There is some flow seen in the left sylvian branches of the middle cerebral artery, but the degree of vessel opacification on the left is less than on the right. Wilber Alfaro MD Cerebral Arteriogram 01/31/17 Signed Impressions: Service Date/Time: Tuesday, January 31, 2017 00:00 - CONCLUSION: 1. Patient appears to have had a thrombotic or embolic event to the vertebral basilar system. The left vertebral is highly diseased throughout its course and appears to occlude just proximal to the basilar. Unable to traverse the highly diseased vessel for intervention. 2. The right vertebral is robust proximally but appears to terminate in a PICA branch with a irregular terminal vessel possibly representing the distal vertebral and proximal basilar. This appears to be chronically occluded. Russ Joseph MD Last Impressions Chest X-Ray 02/13/17 Signed Impressions: Service Date/Time: Monday, February 13, 2017 10:21 - CONCLUSION: 1. Increasing basilar airspace disease and pleural effusions since February 06. Cardiomegaly. No pneumothorax. Ridge Hernandez MD Head CT 02/12/17 Signed Impressions: Service Date/Time: Sunday, February 12, 2017 21:25 - CONCLUSION: 1. No acute infarct, acute hemorrhage, midlines shift or extra-axial bleed. 2. 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 3. Stable cerebral atrophy. 4. Mucus retention cysts within the left maxillary sinus. Alexei Russell MD Upper Extremity Ultrasound 02/01/17 Signed Impressions: Service Date/Time: January 11:49 - CONCLUSION: 1. No evidence of deep venous thrombosis. Moses Juarez MD Neck CTA 01/31/17 Signed Impressions: Service Date/Time: Tuesday, January 31, 2017 08:57 - CONCLUSION: 1. 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 2. String-like contrast in the left vertebral artery Wilber Alfaro MD Head CTA 01/31/17 Signed Impressions: Service Date/Time: Tuesday, January 31, 2017 08:57 - CONCLUSION: Absent flow in the left internal carotid artery with reconstitution of flow in the A2 segment. There is some flow seen in the left sylvian branches of the middle cerebral artery, but the degree of vessel opacification on the left is less than on the right. Wilber Alfaro MD Cerebral Arteriogram 01/31/17 Signed Impressions: Service Date/Time: Tuesday, January 31, 2017 00:00 - CONCLUSION: 1. Patient appears to have had a thrombotic or embolic event to the vertebral basilar system. The left vertebral is highly diseased throughout its course and appears to occlude just proximal to the basilar. Unable to traverse the highly diseased vessel for intervention. 2. The right vertebral is robust proximally but appears to terminate in a PICA branch with a irregular terminal vessel possibly representing the distal vertebral and proximal basilar. This appears to be chronically occluded. Russ Joseph MD Last Impressions Chest X-Ray 02/05/17 0600 Signed Impressions: Service Date/Time: Sunday, February 05, 2017 04:47 - CONCLUSION: Endotracheal tube and nasogastric tube in satisfactory position. Stable bilateral mostly basilar dependent airspace disease and pleural effusions. Ridge Hernandez MD Upper Extremity Ultrasound 02/01/17 0000 Signed Impressions: Service Date/Time: January 11:49 - CONCLUSION: 1. No evidence of deep venous thrombosis. Moses Juarez MD Head CT 01/31/17 0809 Signed Impressions: Service Date/Time: Tuesday, January 31, 2017 08:16 - CONCLUSION: Hypodensity left parietal-occipital mid convexity region suggesting infarction or encephalomalacia. No evidence of hemorrhage. Cannot exclude an acute process. May consider further characterization with MRI. Wilber Alfaro MD Neck CTA 01/31/17 0000 Signed Impressions: Service Date/Time: Tuesday, January 31, 2017 08:57 - CONCLUSION: 1. 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 2. String-like contrast in the left vertebral artery Wilber Alfaro MD Head CTA 01/31/17 0000 Signed Impressions: Service Date/Time: Tuesday, January 31, 2017 08:57 - CONCLUSION: Absent flow in the left internal carotid artery with reconstitution of flow in the A2 segment. There is some flow seen in the left sylvian branches of the middle cerebral artery, but the degree of vessel opacification on the left is less than on the right. Wilber Alfaro MD Cerebral Arteriogram 01/31/17 0000 Signed Impressions: Service Date/Time: Tuesday, January 31, 2017 00:00 - CONCLUSION: 1. Patient appears to have had a thrombotic or embolic event to the vertebral basilar system. The left vertebral is highly diseased throughout its course and appears to occlude just proximal to the basilar. Unable to traverse the highly diseased vessel for intervention. 2. The right vertebral is robust proximally but appears to terminate in a PICA branch with a irregular terminal vessel possibly representing the distal vertebral and proximal basilar. This appears to be chronically occluded. Russ Joseph MD Hospital Course Subjective 02/05: Tolerated PSV trial overnight. Opened eyes. Following commands. States he is hungry today. Move the left upper extremity spontaneously along with right upper extremity today. Moved toes slightly. 02/06: Remains orally intubated on mechanical ventilation. Gets apneic episodes during C Pap trials. Follows commands. On tube feeds and D10 02/07: Tolerated C Pap trials and extubated today. Drowsy, easily arousable. Follows commands with both upper extremities. Remains on D10 drip for hyperglycemia. Off tube feeds since extubation awaiting swallow eval. 02/08: Remains on nasal cannula. Passed swallow eval and diet being advanced. Was on D10 at 50 cc an hour for hypoglycemia while awaiting insulinoma workup. Tolerating by mouth diet so decreased D10 to 25 cc an hour and plan to stop later today. 02/12: Later in the day the patient became more lethargic and rapid response was called. Shortly after patient was transferred to ICU NT related for possible intubation for an airway protection. Initially during my exam the patient was unresponsive and decision was made to intubate. However while preparing for endotracheal intubation patient woke up, is following commands on both sides and response with slow slurred speech. Eyes open spontaneously. The CAT scan of the head also negative for acute changes. 02/13: Emergently called to the bedside this a.m. patient with altered mental status alert to name only stating having difficulty breathing stat ABG performed , PaO2 noted to be 334 on nonrebreather, with a Mixed acid base disorder. Patient unable to protect airway, emergently intubated uneventfully. Patient currently on D10 at 50 cc an hour with additional supplementation of blood glucose, to maintain level. D10 increased to 100 cc an hour. Plan for Octreotide scan to today to rule out insulinoma. Diuretic increased to 40 mg twice a day secondary to the increased dosing of fluid in a patient with noted EF less than 20% and severe TR. Will also supplement with hydrocortisone 3 times a day. 02/14: During the night last night the patient became increasingly acidotic central line and arterial line were placed patient was placed on a sodium bicarbonate infusion. At approximately 0652 this a.m. the patient went into cardiac arrest-asystole, CPR initiated the patient received 6 rounds of epinephrine, with defibrillation 1 attempt. The patient had ROSC after approximately 18 minutes. The patient continues on multiple vasopressors to include norepinephrine, epinephrine, vasopressin, and sodium bicarbonate infusions. Repeat ABG postcardiac arrest, severe metabolic acidosis with a pH of 6.95. Additional supplementation of sodium bicarbonate infused. Extensive discussion with family , patient's daughter Ms. Griffith regarding update on medical status and the criticality of the patient and poor prognosis, and she requesting aggressive measures at this time. Overnight 02/14 - 02/15.Alana Avalos called RN and stated she wished to change to alternate code intubation only. I tried to call her but there was no answer. I left a message to call me. I spoke with Martin Rae who states that "all of the siblings talked and they agree with DNR". DMITRI Carter also spoke separately with Yasir who stated that he agrees with DNR. Patient is intubated so CODE STATUS was changed to alternate code intubation only. 02/16: The patient's AICD was deactivated yesterday afternoon with the change in CODE STATUS .The patient remains encephalopathic, no change in neurological status. Patient's condition continues to deteriorate noticed significant elevation in liver enzymes most likely secondary to shock liver/failure with continued hypoglycemia D10 now increased to 100 cc/hour. The patient continues on multiple pressors in order to maintain a MAP greater than 60. Comfort care measures were instituted at the request of the family, and with the patient's children at the bedside, the patient at 5. Raiza Guillen MD Mar 07, 2017 11:25
== END 2017-02-16 21:13 | disposition expired | DRG 61 ==
LOC: NEPC 08:02 → NEDA 09:36 → N03A 12:26 → N05B 02-08 19:32 → HIME 02-12 17:30
PROVIDERS: ADMIT Internal Medicine Critical Care Medicine; ATTEND Internal Medicine Critical Care Medicine
PROC: 3E03317 Introduction of Other Thrombolytic into Peripheral Vein, Percutaneous Approach (ICD-10-PCS; principal; 2017-01-31)
PROC: 5A1955Z Respiratory Ventilation, Greater than 96 Consecutive Hours (ICD-10-PCS; 2017-01-31)
PROC: 0BH17EZ Insertion of Endotracheal Airway into Trachea, Via Natural or Artificial Opening (ICD-10-PCS; 2017-01-31)
PROC: 0T9B70Z Drainage of Bladder with Drainage Device, Via Natural or Artificial Opening (ICD-10-PCS; 2017-01-31)
PROC: 05HN33Z Insertion of Infusion Device into Left Internal Jugular Vein, Percutaneous Approach (ICD-10-PCS; 2017-02-04)
PROC: 5A1945Z Respiratory Ventilation, 24-96 Consecutive Hours (ICD-10-PCS; 2017-02-13)
PROC: 0BH17EZ Insertion of Endotracheal Airway into Trachea, Via Natural or Artificial Opening (ICD-10-PCS; 2017-02-13)
PROC: 03HY32Z Insertion of Monitoring Device into Upper Artery, Percutaneous Approach (ICD-10-PCS; 2017-02-14)
PROC: 05H533Z Insertion of Infusion Device into Right Subclavian Vein, Percutaneous Approach (ICD-10-PCS; 2017-02-14)
PROC: 4A133B1 Monitoring of Arterial Pressure, Peripheral, Percutaneous Approach (ICD-10-PCS; 2017-02-14)
PROC: 4A133J1 Monitoring of Arterial Pulse, Peripheral, Percutaneous Approach (ICD-10-PCS; 2017-02-14)
PROC: 5A1221Z Performance of Cardiac Output, Continuous (ICD-10-PCS; 2017-02-14)
PROC: 5A2204Z Restoration of Cardiac Rhythm, Single (ICD-10-PCS; 2017-02-14)
DX: I63.02 Cerebral infarction due to thrombosis of basilar artery (principal); J96.01 Acute respiratory failure with hypoxia; K72.00 Acute and subacute hepatic failure without coma; A41.9 Sepsis, unspecified organism; G93.40 Encephalopathy, unspecified; R57.0 Cardiogenic shock; R65.21 Severe sepsis with septic shock; I50.23 Acute on chronic systolic (congestive) heart failure; L89.159 Pressure ulcer of sacral region, unspecified stage; J15.212 Pneumonia due to Methicillin resistant Staphylococcus aureus; N17.9 Acute kidney failure, unspecified; E87.2 Acidosis; I11.0 Hypertensive heart disease with heart failure; I27.2 Other secondary pulmonary hypertension; E88.09 Other disorders of plasma-protein metabolism, not elsewhere classified; I67.2 Cerebral atherosclerosis; E78.5 Hyperlipidemia, unspecified; I25.10 Atherosclerotic heart disease of native coronary artery without angina pectoris; I25.5 Ischemic cardiomyopathy; I65.22 Occlusion and stenosis of left carotid artery; Z95.810 Presence of automatic (implantable) cardiac defibrillator; Z86.73 Personal history of transient ischemic attack (TIA), and cerebral infarction without residual deficits; Z95.1 Presence of aortocoronary bypass graft; I34.0 Nonrheumatic mitral (valve) insufficiency; E16.2 Hypoglycemia, unspecified; Z78.1 Physical restraint status; F32.9 Major depressive disorder, single episode, unspecified; F41.9 Anxiety disorder, unspecified; D64.9 Anemia, unspecified; E86.0 Dehydration; I46.9 Cardiac arrest, cause unspecified; Z51.5 Encounter for palliative care; Z66 Do not resuscitate; R56.9 Unspecified convulsions
CPT/HCPCS: 31500; 36225; 36556; 36600; 61645; 70450; 70496; 70498; 71010; 76937; 78803; 78804; 78999; 80048; 80053; 80061; 80202; 80307; 81001; 82010; 82140; 82533; 82550; 82565; 82805; 82948; 83003; 83525; 83605; 83735; 83880; 84100; 84155; 84443; 84484; 84681; 85007; 85025; 85027; 85610; 85730; 86403; 87040; 87070; 87077; 87086; 87186; 87205; 87641; 93005; 93306; 93971; 94002; 94003; 94150; 94640; 94664; 95819; A9572; C1760; C1769; C1887; C1894; J0171; J0330; J0610; J0692; J1120; J1170; J1610; J1644; J1720; J1940; J1953; J2020; J2060; J2370; J2997; J3370; J3475; J7030; J7040; J7050; J7060; J7070; J7613; Q2009; Q9967